=== PATIENT | male | born 1945 | race Caucasian/White ===

== ENCOUNTER 2018-08-13 14:19 | Outpatient (CLI) | payer MEDICARE, MEDICAID, SELFPAY ==
[2018-08-13 14:49] LABS: HCT 42.4 % (40.0-50.0); HGB 14.7 g/dL (13.5-17.5); Mean Corp. HGB Concentration 34.7 g/dL (32.0-36.0); Mean Corpuscular Hemoglobin 32.1 pg (27.0-33.0); Mean Corpuscular Volume 92.6 fL (80-95); Mean Platelet Volume 11.1 fL (8.0-11.0); Platelet Count 162 x1000/uL (130-400); RBC 4.58 m/cumm (4.50-6.00); RBC Distribution Width 13.4 % (11.8-14.1); White Blood Cell Count 8.94 k/cumm (4.4-10.8)
[2018-08-13 16:24] LABS: Anion Gap 6.7 mmol/L (3-11); BUN 17 mg/dL (7-18); CO2 30.3 mmol/L (21.0-32.0); CREATININE 1.23 mg/dL (0.70-1.30); Chloride 103 mmol/L (98-107); Estimated GFR 57.52 (mL/min/1.73m2); Glucose 136 mg/dL (70-100); Potassium 4.6 mmol/L (3.5-5.1); Sodium 140 mmol/L (136-145)
[2018-08-13 16:40] LABS: Cholesterol 119 mg/dL (50-200); HDL Cholesterol 44 mg/dL (40-60); LDL CHOLESTEROL 58 mg/dL (<100); Triglyceride 87 mg/dL (30-150)
[2018-08-13 17:20] LABS: ALT 24 U/L (12-78); AST 14 U/L (15-37); Albumin 3.5 g/dL (3.4-5.0); Alkaline Phosphatase 79 U/L (46-116); Bilirubin, Direct 0.19 mg/dL (0.00-0.20); Bilirubin, Total 0.7 mg/dL (0.2-1.0); Total Protein 6.7 g/dL (6.4-8.2)
[2018-08-14 11:03] LABS: PSA, Diagnostic 1.1 ng/ml (0-6.5)
[2018-08-16 17:07] LABS: Testosterone, Bioavailable 78 ng/dL (40-168); Testosterone, Total 341 ng/dL (240-950)
== END 2018-08-13 14:39 ==
PROVIDERS: PCP Specialist/Technologist Athletic Trainer; Visit Provider Urology
DX: E29.1 Testicular hypofunction (principal); E11.65 Type 2 diabetes mellitus with hyperglycemia; E78.5 Hyperlipidemia, unspecified; I10 Essential (primary) hypertension; N42.89 Other specified disorders of prostate
CPT/HCPCS: 36415; 80048; 80061; 80076; 83721; 84403; 84410; 85027; 84153

== ENCOUNTER → 2018-09-10 09:18 | Outpatient (BNVA) | payer MEDICARE, MEDICAID, SELFPAY | PROVIDERS: PCP Specialist/Technologist Athletic Trainer; Visit Provider Urology | DX: E29.1 Testicular hypofunction (principal) | CPT/HCPCS: 99213 ==

== ENCOUNTER 2018-10-23 13:44 | Outpatient (CLI) | payer MEDICARE, MEDICAID, SELFPAY ==
[2018-10-23 14:14] LABS: Abs Immature Grans 0.02 k/cumm (0.0-0.09); HCT 43.1 % (40.0-50.0); HGB 14.8 g/dL (13.5-17.5); Mean Corp. HGB Concentration 34.3 g/dL (32.0-36.0); Mean Corpuscular Hemoglobin 31.7 pg (27.0-33.0); Mean Corpuscular Volume 92.3 fL (80-95); Mean Platelet Volume 11.6 fL (8.0-11.0); Platelet Count 166 x1000/uL (130-400); RBC 4.67 m/cumm (4.50-6.00)
[2018-10-23 14:39] LABS: Absolute Eosinophil Count 1.21 k/cumm (0.0-0.7); Absolute Lymphocyte Count 2.51 k/cumm (1.2-3.4); Absolute Monocyte Count 0.56 k/cumm (0.11-0.7); Absolute Neutrophil Count 4.93 k/cumm (1.2-6.7); Atypical Lymphocytes % 5
[2018-10-23 14:40] LABS: Diff Comment Manual Differential; RBC Morphology Normal
[2018-10-24 11:34] LABS: Homocysteine 20.8 umol/L (4.5-12.4)
[2018-10-28 22:27] LABS: Testosterone, Bioavailable 92 ng/dL (40-168); Testosterone, Total 401 ng/dL (240-950)
== END 2018-10-23 14:04 ==
PROVIDERS: Urology; PCP Specialist/Technologist Athletic Trainer; Visit Provider Internal Medicine
DX: E29.1 Testicular hypofunction (principal); R79.9 Abnormal finding of blood chemistry, unspecified; G90.09 Other idiopathic peripheral autonomic neuropathy
CPT/HCPCS: 36415; 80186; 83090; 84403; 84410; 85025

== ENCOUNTER 2018-12-03 14:55 | Outpatient (CLI) | payer MEDICARE, MEDICAID, SELFPAY ==
[2018-12-10 09:34] LABS: Testosterone, Total 305 ng/dL (240-950)
== END 2018-12-03 15:15 ==
PROVIDERS: PCP Specialist/Technologist Athletic Trainer; Visit Provider Urology
DX: E29.1 Testicular hypofunction (principal)
CPT/HCPCS: 36415; 84403

== ENCOUNTER 2019-01-22 14:09 | Outpatient (CLI) | payer MEDICARE, MEDICAID, SELFPAY ==
[2019-01-25 15:19] LABS: Testosterone, Total 1150 ng/dL (240-950)
== END 2019-01-22 14:29 ==
PROVIDERS: Nurse Practitioner Gerontology; PCP Specialist/Technologist Athletic Trainer; Visit Provider Urology
DX: E29.1 Testicular hypofunction (principal)
CPT/HCPCS: 36415; 84403

== ENCOUNTER 2019-03-11 15:16 | Outpatient (CLI) | payer MEDICARE, MEDICAID, SELFPAY ==
[2019-03-14 16:34] LABS: Testosterone, Total 1130 ng/dL (240-950)
== END 2019-03-11 15:36 ==
PROVIDERS: PCP Specialist/Technologist Athletic Trainer; Visit Provider Urology
DX: E29.1 Testicular hypofunction (principal)
CPT/HCPCS: 36415; 84403

== ENCOUNTER 2019-05-08 15:47 | Outpatient (CLI) | payer MEDICARE, MEDICAID, SELFPAY ==
[2019-05-11 12:57] LABS: Testosterone, Total 574 ng/dL (240-950)
== END 2019-05-08 16:07 ==
PROVIDERS: PCP Specialist/Technologist Athletic Trainer; Visit Provider Urology
DX: E29.1 Testicular hypofunction (principal)
CPT/HCPCS: 36415; 84403

== ENCOUNTER → 2019-05-20 08:18 | Outpatient (BNVA) | payer MEDICARE, MEDICAID, SELFPAY | PROVIDERS: PCP Specialist/Technologist Athletic Trainer; Referring Provider Specialist/Technologist Athletic Trainer; Visit Provider Urology | DX: E29.1 Testicular hypofunction (principal) | CPT/HCPCS: 99213 ==

== ENCOUNTER 2019-07-17 14:01 | Outpatient (CLI) | payer MEDICARE, MEDICAID, SELFPAY ==
[2019-07-17 14:24] LABS: HCT 44.6 % (40.0-50.0); HGB 14.9 g/dL (13.5-17.5); Mean Corp. HGB Concentration 33.4 g/dL (32.0-36.0); Mean Corpuscular Hemoglobin 31.1 pg (27.0-33.0); Mean Corpuscular Volume 93.1 fL (80-95); Platelet Count 196 x1000/uL (130-400); RBC 4.79 m/cumm (4.50-6.00); RBC Distribution Width 14.9 % (11.8-14.1); White Blood Cell Count 9.31 k/cumm (4.4-10.8)
[2019-07-17 15:20] LABS: ALT 24 U/L (16-63); AST 14 U/L (15-37); Albumin 3.8 g/dL (3.4-5.0); Alkaline Phosphatase 70 U/L (46-116); Anion Gap 7.4 mmol/L (3-11); BUN 17 mg/dL (7-18); Bilirubin, Total 1.1 mg/dL (0.2-1.0); CO2 28.6 mmol/L (21.0-32.0); CREATININE 1.25 mg/dL (0.70-1.30); Calcium 9.3 mg/dL (8.5-10.1); Calculated LDL 54 mg/dL; Chloride 104 mmol/L (98-107); Cholesterol 129 mg/dL (<200); Estimated GFR 56.31 (mL/min/1.73m2); Glucose 135 mg/dL (74-106); HDL Cholesterol 44 mg/dL (40-60); Magnesium 1.7 mg/dL (1.8-2.4); Sodium 140 mmol/L (136-145); Triglyceride 158 mg/dL (<150)
[2019-07-19 11:10] LABS: Testosterone, Total 413 ng/dL (240-950)
== END 2019-07-17 14:21 ==
PROVIDERS: PCP Specialist/Technologist Athletic Trainer; Visit Provider Specialist/Technologist Athletic Trainer
DX: E78.5 Hyperlipidemia, unspecified (principal); I10 Essential (primary) hypertension; E11.65 Type 2 diabetes mellitus with hyperglycemia; E29.1 Testicular hypofunction
CPT/HCPCS: 36415; 80053; 80061; 84403; 85027; 83735

== ENCOUNTER → 2019-09-09 13:47 | Outpatient (BNVA) | payer MEDICARE, MEDICAID, SELFPAY | PROVIDERS: PCP Specialist/Technologist Athletic Trainer; Referring Provider Specialist/Technologist Athletic Trainer; Visit Provider Urology | DX: E29.1 Testicular hypofunction (principal) | CPT/HCPCS: 99213 ==

== ENCOUNTER 2020-03-05 02:14 | Outpatient (CLI) | payer MEDICARE, MEDICAID, SELFPAY ==
[2020-03-11 07:05] LABS: Testosterone, Total 368 ng/dL (240-950)
== END 2020-03-05 02:34 ==
PROVIDERS: Nurse Practitioner Gerontology; PCP Nurse Practitioner Family; Visit Provider Urology
DX: E29.1 Testicular hypofunction (principal)
CPT/HCPCS: 36415; 84403

== ENCOUNTER → 2020-03-10 14:24 | Outpatient (BNVA) | payer MEDICARE, MEDICAID, SELFPAY | PROVIDERS: PCP Nurse Practitioner Family; Referring Provider Specialist/Technologist Athletic Trainer; Visit Provider Urology | DX: E29.1 Testicular hypofunction (principal) | CPT/HCPCS: 99213 ==

== ENCOUNTER 2020-06-12 01:20 | Outpatient (CLI) | payer MEDICARE, MEDICAID, SELFPAY ==
[2020-06-16 11:13] LABS: Testosterone, Total 172 ng/dL (240-950)
== END 2020-06-12 01:40 ==
PROVIDERS: PCP Nurse Practitioner Family; Visit Provider Nurse Practitioner Gerontology
DX: E29.1 Testicular hypofunction (principal)
CPT/HCPCS: 36415; 84403

== ENCOUNTER → 2020-06-22 13:54 | Outpatient (BNVA) | payer MEDICARE, MEDICAID, SELFPAY | PROVIDERS: PCP Nurse Practitioner Family; Referring Provider Nurse Practitioner Family; Visit Provider Nurse Practitioner Gerontology | DX: E29.1 Testicular hypofunction (principal); N40.0 Benign prostatic hyperplasia without lower urinary tract symptoms | CPT/HCPCS: 99213 ==

== ENCOUNTER 2020-09-10 02:56 | Outpatient (CLI) | payer MEDICARE, MEDICAID, SELFPAY ==
[2020-09-10 22:16] LABS: PSA, Diagnostic 1.4 ng/mL (0.0-6.5)
[2020-09-14 22:12] LABS: Testosterone, Total 464 ng/dL (240-950)
== END 2020-09-10 02:57 | disposition home or self-care (01) ==
PROVIDERS: PCP Nurse Practitioner Family; Visit Provider Nurse Practitioner Gerontology
DX: E29.1 Testicular hypofunction (principal); N40.0 Benign prostatic hyperplasia without lower urinary tract symptoms
CPT/HCPCS: 36415; 84403; 84153

== ENCOUNTER → 2020-09-21 09:25 | Outpatient (BNVA) | payer MEDICARE, MEDICAID, SELFPAY | PROVIDERS: PCP Nurse Practitioner Family; Referring Provider Nurse Practitioner Family; Visit Provider Nurse Practitioner Gerontology | DX: E29.1 Testicular hypofunction (principal) | CPT/HCPCS: 99213 ==

== ENCOUNTER 2020-12-15 03:21 | Outpatient (CLI) | payer MEDICARE, MEDICAID, SELFPAY ==
[2020-12-18 18:28] LABS: Testosterone, Total 731 ng/dL (240-950)
== END 2020-12-15 03:22 | disposition home or self-care (01) ==
PROVIDERS: Nurse Practitioner Gerontology; PCP Nurse Practitioner Family; Visit Provider Urology
DX: E29.1 Testicular hypofunction (principal)
CPT/HCPCS: 36415; 84403

== ENCOUNTER → 2020-12-23 08:45 | Outpatient (BNVA) | payer MEDICARE, MEDICAID, SELFPAY | PROVIDERS: PCP Nurse Practitioner Family; Referring Provider Nurse Practitioner Family; Visit Provider Nurse Practitioner Gerontology | DX: E29.1 Testicular hypofunction (principal) | CPT/HCPCS: 99214 ==

== ENCOUNTER 2021-02-18 15:04 | Outpatient (REF) | payer OTHER, MEDICAID, SELFPAY ==
[2021-02-20 13:02] LABS: COVID-19 RT-PCR UVMMC Result Negative (Negative)
== END 2021-02-18 15:05 | disposition home or self-care (01) ==
LOC: NCHCN 15:04
PROVIDERS: PCP Nurse Practitioner Family; Visit Provider Nurse Practitioner Family
DX: R06.2 Wheezing (principal); Z20.822 Contact with and (suspected) exposure to COVID-19
CPT/HCPCS: U0003

== ENCOUNTER 2021-02-19 04:43 | Outpatient (CLI) | payer OTHER, MEDICAID, SELFPAY ==
--- NOTE | 2021-02-19 | DI.RAD_ITS ---
Exam(s) XR CHEST 2V PA LATERAL EXAM: XR CHEST 2V PA LATERAL CLINICAL HISTORY: WHEEZING, R06.2 TECHNIQUE: 2D digital imaging was performed. COMPARISON: No exams were available for comparison FINDINGS: Heart size is within normal limits. The aorta is mildly tortuous. Lungs are clear. No infiltrate o r effusion is seen. The bones are unremarkable. IMPRESSION: No acute abnormality. DATA REPOSITORY: RADIATION DOSE DELIVERED:
== END 2021-02-19 05:03 ==
PROVIDERS: PCP Nurse Practitioner Family; Visit Provider Nurse Practitioner Family
DX: R06.2 Wheezing (principal)
CPT/HCPCS: 71046

== ENCOUNTER 2021-04-20 02:34 | Outpatient (CLI) | payer OTHER, MEDICAID, SELFPAY ==
[2021-04-20 13:29] LABS: Abs Immature Grans 0.02 10^3/uL (0.0-0.06); Absolute Basophil Count 0.06 10^3/uL (0.0-0.2); Absolute Eosinophil Count 0.91 10^3/uL (0.0-0.7); Absolute Monocyte Count 0.67 10^3/uL (0.1-0.8); Absolute Neutrophil Count 5.03 10^3/uL (1.2-6.7); Basophils % 0.7; Eosinophils % 10.7; Immature Grans % 0.2; Lymphocytes % 21.2; MCH 31.7 pg (27.0-33.0); MCHC 34.1 % (32.0-36.0); MPV 11.2 fL (8.0-11.0); Monocytes % 7.9; Neutrophils % 59.3; Nucleated RBC 0 %; Platelet Count 192 10^3/uL (130-400); RBC 4.73 10^6/uL (4.36-5.78); RDW 14.3 % (11.8-14.1); RDW-SD 48.9 fL; WBC 8.49 10^3/uL (4.4-10.8)
[2021-04-20 13:50] LABS: Hemoglobin A1C 7.1 % (<5.7)
[2021-04-20 15:33] LABS: Anion Gap 11.9 mmol/L (3-11); BUN 14 mg/dL (7-18); CO2 25.1 mmol/L (21.0-32.0); CREATININE 1.2 mg/dL (0.70-1.30); Calcium 8.8 mg/dL (8.5-10.1); Chloride 105 mmol/L (98-107); Estimated GFR 58.71 (mL/min/1.73m2); Glucose 65 mg/dL (74-106); Magnesium 1.3 mg/dL (1.8-2.4); Potassium 4.1 mmol/L (3.5-5.1); Sodium 142 mmol/L (136-145); Vitamin B12 155 pg/mL (193-986)
== END 2021-04-20 02:35 | disposition home or self-care (01) ==
PROVIDERS: PCP Nurse Practitioner Family; Visit Provider Nurse Practitioner Family
DX: E11.40 Type 2 diabetes mellitus with diabetic neuropathy, unspecified (principal); I10 Essential (primary) hypertension; R25.2 Cramp and spasm
CPT/HCPCS: 36415; 80048; 82607; 83036; 83735; 85025

== ENCOUNTER 2021-06-11 03:50 | Outpatient (CLI) | payer MEDICARE, MEDICAID, SELFPAY ==
[2021-06-11 22:45] LABS: PSA, Diagnostic 1.4 ng/mL (0.0-6.5)
[2021-06-16 00:23] LABS: Testosterone, Total 308 ng/dL (240-950)
== END 2021-06-11 03:51 | disposition home or self-care (01) ==
LOC: LBO 03:51
PROVIDERS: Nurse Practitioner Gerontology; PCP Nurse Practitioner Family; Visit Provider Urology
DX: E29.1 Testicular hypofunction (principal)
CPT/HCPCS: 36415; 84403; 84153

== ENCOUNTER → 2021-07-01 14:50 | Outpatient (BNVA) | payer MEDICARE, MEDICAID, SELFPAY | PROVIDERS: PCP Nurse Practitioner Family; Visit Provider Urology | DX: E29.1 Testicular hypofunction (principal) | CPT/HCPCS: 99213 ==

== ENCOUNTER 2021-07-06 16:52 | Outpatient (REF) | payer MEDICARE, MEDICAID, SELFPAY ==
[2021-07-07 14:24] LABS: COVID-19 RT-PCR UVMMC Result Negative (Negative)
== END 2021-07-06 16:53 | disposition home or self-care (01) ==
LOC: NCHCN 16:52
PROVIDERS: PCP Nurse Practitioner Family; Visit Provider Family Medicine
DX: Z20.822 Contact with and (suspected) exposure to COVID-19 (principal); J06.9 Acute upper respiratory infection, unspecified
CPT/HCPCS: U0003; U0005

== ENCOUNTER 2021-07-22 15:28 | Outpatient (REF) | payer MEDICARE, MEDICAID, SELFPAY ==
[2021-07-24 12:44] LABS: COVID-19 RT-PCR UVMMC Result Negative (Negative)
== END 2021-07-22 15:29 | disposition home or self-care (01) ==
LOC: NCHCN 15:28
PROVIDERS: PCP Nurse Practitioner Family; Visit Provider Nurse Practitioner Family
DX: Z20.822 Contact with and (suspected) exposure to COVID-19 (principal); J06.9 Acute upper respiratory infection, unspecified
CPT/HCPCS: U0003

== ENCOUNTER 2021-08-04 16:23 | Outpatient (REF) | payer MEDICARE, MEDICAID, SELFPAY ==
[2021-08-06 16:27] LABS: COVID-19 RT-PCR UVMMC Result Negative (Negative)
== END 2021-08-04 16:24 | disposition home or self-care (01) ==
LOC: LBN 16:23
PROVIDERS: PCP Nurse Practitioner Family; Visit Provider Physician Assistant Medical
DX: Z20.822 Contact with and (suspected) exposure to COVID-19 (principal); R05.8 Other specified cough
CPT/HCPCS: U0003

== ENCOUNTER 2021-08-04 18:34 | Outpatient (CLI) | payer MEDICARE, MEDICAID, SELFPAY ==
--- NOTE | 2021-08-04 | DI.RAD_ITS ---
Exam(s) XR CHEST 2V PA LATERAL EXAM: XR CHEST 2V PA LATERAL CLINICAL HISTORY: COUGH, R05.8, LUNG EXAM CONCERNING FOR PNEUMONIA TECHNIQUE: 2D digital imaging was performed. COMPARISON: CR XR CHEST 2V PA LATERAL from 02/19/2021 FINDINGS: The heart is not enlarged. The lungs are clear and well expanded. No pleural effusion seen. Mediastin al contours appear intact. IMPRESSION: Normal chest. RADIATION DOSE DELIVERED: Total DLP
== END 2021-08-04 18:54 ==
PROVIDERS: PCP Nurse Practitioner Family; Visit Provider Physician Assistant Medical
DX: R05.8 Other specified cough (principal)
CPT/HCPCS: 71046

== ENCOUNTER → 2021-09-07 01:17 | Outpatient (CLI) | payer MEDICARE, MEDICAID, SELFPAY ==
--- NOTE | 2021-09-07 11:30 | DI.RAD_ITS ---
Exam(s) XR KNEE LT 4V+ EXAM: XR KNEE LT 4V+ CLINICAL HISTORY: ACUTE LT KNEE PAIN, M25.562, S/P FALL X2 IN MID-LATE JUL 2021. TECHNIQUE: 2D digital imaging was performed of the left knee. Five images were obtained. AP, later al, Merchant and PA tunnel views were obtained. COMPARISON: No exams were available for comparison FINDINGS: BONES: No acute fracture is present. No bony destructive lesion is seen. JOINTS: The knee is normally aligned. No joint effusion is seen. There is chondrocalcinosis in the fe moral tibial joint. Mild spurring is seen at the posterior patella. SOFT TISSUE: Normal. IMPRESSION: 1. No acute or healing fracture or dislocation. 2. Mild degenerative changes of the left knee. DATA REPOSITORY: RADIATION DOSE DELIVERED:
--- NOTE | 2021-09-07 11:54 | DI.RAD_ITS ---
Exam(s) XR TIB/FIB LT EXAM: XR TIB/FIB LT CLINICAL HISTORY: ACUTE LT KNEE PAIN, M25.562, S/P FALL X2 IN MID-LATE JUL 2021. TECHNIQUE: 2D digital imaging was performed of the left tibia and fibula. Five images were obtained. AP and lateral views were obtained. COMPARISON: No exams were available for comparison FINDINGS: BONES: No acute fracture is present. No bony destructive lesion is seen. Visualized portion of knee a nd ankle joints are unremarkable. SOFT TISSUE: Normal. IMPRESSION: No acute or healing fracture or dislocation is present. DATA REPOSITORY: RADIATION DOSE DELIVERED:
== END ==
PROVIDERS: PCP Nurse Practitioner Family; Visit Provider Nurse Practitioner Family
DX: M25.562 Pain in left knee (principal); M17.12 Unilateral primary osteoarthritis, left knee
CPT/HCPCS: 73564; 73590

== ENCOUNTER 2021-09-16 01:02 | Outpatient (CLI) | payer MEDICARE, MEDICAID, SELFPAY ==
--- NOTE | 2021-09-16 | DI.MRI_ITS ---
Exam(s) MR LUMBAR SPINE WO EXAM: MR LUMBAR SPINE WO CLINICAL HISTORY: CHRONIC LOW BACK PAIN M54.5. TECHNIQUE: Multiplanar multisequence MRI of the Lumbar spine was performed. COMPARISON: MR MRI - LUMBAR SPINE WO CONTRAST from 05/10/2014 FINDINGS: Bones: The last intervertebral disc space is designated the L5/S1 level for the numbering purpose of this examination. The vertebral body heights are well maintained. Alignment is satisfactory. Mild e ndplate degenerative signal changes are seen. There are endplate osteophytes throughout the lumbar s pine. Cord: The conus tip ends at the T12 level. It is of normal size and signal intensity. T12-L1: No disc herniations or bulges are present. No central spinal canal or neural foraminal stenos is. L1-2: There is a mild diffuse disc bulge. No central spinal canal or neural foraminal stenosis. L2-3: There is a mild diffuse disc bulge. Mild degenerative changes of the facets are seen. There i s mild narrowing of the central spinal canal. There is mild narrowing of the neural foramen. L3-4: There are degenerative changes of the facets with mild hypertrophy of the ligamentum flavum. T here is a diffuse disc bulge. Mild narrowing of the central spinal canal is noted. Mild bilateral n eural foraminal stenosis is present. L4-5: There are hypertrophic changes of the facets. There is a small central disc herniation. Ligam entum flavum hypertrophy is present. The findings result in [id number] central spinal canal st enosis. There is mild bilateral neural foraminal stenosis. L5-S1: No disc herniations or bulges are present. No significant central spinal canal stenosis is pre sent. There is mild bilateral neural foraminal stenosis.There are degenerative changes of the facets . Soft tissues: The visualized SI joints and sacrum are well maintained. There is mild atrophy of the l eft paraspinal muscles. Visualized abdominal organs: Unremarkable. IMPRESSION: Multilevel degenerative changes in the lumbar spine resulting in central spinal canal neural foramina l stenosis as described above. DATA REPOSITORY:
== END 2021-09-16 01:22 ==
PROVIDERS: PCP Nurse Practitioner Family; Visit Provider Nurse Practitioner Family
DX: M54.59 Other low back pain (principal); M47.817 Spondylosis without myelopathy or radiculopathy, lumbosacral region; M51.36 Other intervertebral disc degeneration, lumbar region
CPT/HCPCS: 72148

== ENCOUNTER 2021-09-17 03:51 | Outpatient (CLI) | payer MEDICARE, MEDICAID, SELFPAY ==
[2021-09-17 15:17] LABS: Abs Immature Grans 0.07 10^3/uL (0.0-0.06); Absolute Basophil Count 0.08 10^3/uL (0.0-0.2); Absolute Eosinophil Count 1.09 10^3/uL (0.0-0.7); Absolute Monocyte Count 0.56 10^3/uL (0.1-0.8); Absolute Neutrophil Count 5.51 10^3/uL (1.2-6.7); Basophils % 0.8; Eosinophils % 11.5; HCT 45.2 % (40.0-50.0); HGB 14.9 g/dL (13.5-17.5); Immature Grans % 0.7; Lymphocytes % 23.1; MCH 31.3 pg (27.0-33.0); MPV 10.5 fL (8.0-11.0); Monocytes % 5.9; Nucleated RBC 0 %; Platelet Count 193 10^3/uL (130-400); RBC 4.76 10^6/uL (4.36-5.78); RDW 14.5 % (11.8-14.1); RDW-SD 50.5 fL; WBC 9.51 10^3/uL (4.4-10.8)
[2021-09-17 15:37] LABS: Hemoglobin A1C 6.8 % (<5.7)
[2021-09-17 17:25] LABS: BUN 21 mg/dL (7-18); CREATININE 1.3 mg/dL (0.70-1.30); Calcium 9.2 mg/dL (8.5-10.1); Chloride 103 mmol/L (98-107); Estimated GFR 53.39 (mL/min/1.73m2); Glucose 62 mg/dL (74-106); Potassium 4.8 mmol/L (3.5-5.1); Sodium 141 mmol/L (136-145); Vitamin B12 283 pg/mL (193-986)
== END 2021-09-17 03:52 | disposition home or self-care (01) ==
LOC: LBO 03:52
PROVIDERS: PCP Nurse Practitioner Family; Visit Provider Nurse Practitioner Family
DX: E11.40 Type 2 diabetes mellitus with diabetic neuropathy, unspecified (principal); I10 Essential (primary) hypertension; Z00.00 Encounter for general adult medical examination without abnormal findings
CPT/HCPCS: 36415; 80048; 82607; 83036; 85025

== ENCOUNTER 2021-12-21 03:19 | Outpatient (CLI) | payer MEDICARE, MEDICAID, SELFPAY ==
[2021-12-24 14:15] LABS: Testosterone, Total 410 ng/dL (240-950)
== END 2021-12-21 03:20 | disposition home or self-care (01) ==
LOC: LBO 03:19
PROVIDERS: PCP Nurse Practitioner Family; Visit Provider Urology
DX: E29.1 Testicular hypofunction (principal)
CPT/HCPCS: 36415; 84403

== ENCOUNTER → 2021-12-28 14:13 | Outpatient (BNVA) | payer MEDICARE, MEDICAID, SELFPAY | PROVIDERS: PCP Nurse Practitioner Family; Referring Provider Nurse Practitioner Family; Visit Provider Urology | DX: E29.1 Testicular hypofunction (principal) | CPT/HCPCS: 99214 ==

== ENCOUNTER 2022-06-24 11:12 | Outpatient (CLI) | payer MEDICARE, MEDICAID, SELFPAY ==
[2022-06-28 11:47] LABS: Testosterone, Total 576 ng/dL (240-950)
== END 2022-06-24 11:13 | disposition home or self-care (01) ==
LOC: LBO 11:14
PROVIDERS: PCP Nurse Practitioner Family; Visit Provider Urology
DX: E29.1 Testicular hypofunction (principal)
CPT/HCPCS: 36415; 84403

== ENCOUNTER → 2022-06-28 14:25 | Outpatient (BNVA) | payer MEDICARE, MEDICAID, SELFPAY | PROVIDERS: PCP Nurse Practitioner Family; Referring Provider Nurse Practitioner Family; Visit Provider Urology | DX: E11.9 Type 2 diabetes mellitus without complications (principal); E29.1 Testicular hypofunction | CPT/HCPCS: 99213 ==

== ENCOUNTER 2022-12-20 02:58 | Outpatient (CLI) | payer MEDICARE, MEDICAID, SELFPAY ==
[2022-12-20 10:30] LABS: HCT 44.1 % (40.0-50.0); HGB 14.9 g/dL (13.5-17.5); MCH 32.3 pg (27.0-33.0); MCHC 33.8 % (32.0-36.0); MCV 96 fL (80-95); Platelet Count 186 10^3/uL (130-400); RBC 4.61 10^6/uL (4.36-5.78); RDW 14.2 % (11.8-14.1); WBC 9.18 10^3/uL (4.4-10.8)
[2022-12-20 11:01] LABS: ALT 12 U/L (16-63); AST 11 U/L (15-37); Albumin 3.5 g/dL (3.4-5.0); Alkaline Phosphatase 92 U/L (46-116); Anion Gap 10.2 mmol/L (3-11); BUN 14 mg/dL (7-18); Bilirubin, Total 0.9 mg/dL (0.2-1.0); CO2 23.8 mmol/L (21.0-32.0); CREATININE 1.3 mg/dL (0.70-1.30); Calcium 8.9 mg/dL (8.5-10.1); Chloride 105 mmol/L (98-107); Estimated GFR 55.88 (mL/min/1.73m2); Glucose 157 mg/dL (74-106); Potassium 3.8 mmol/L (3.5-5.1); Sodium 139 mmol/L (136-145); TSH (W/Ref FT4) 4.24 uIU/mL (0.36-3.74); Total Protein 7.1 g/dL (6.4-8.2)
[2022-12-20 11:23] LABS: FREE T4 0.87 ng/dL (0.76-1.46)
[2022-12-20 19:15] LABS: PSA, Diagnostic 1.2 ng/mL (<=6.5)
[2022-12-24 07:13] LABS: Testosterone, Total 908 ng/dL (240-950)
== END 2022-12-20 02:59 | disposition home or self-care (01) ==
LOC: LBO 02:58
PROVIDERS: PCP Nurse Practitioner Family; Visit Provider Urology
DX: E29.1 Testicular hypofunction (principal); N40.0 Benign prostatic hyperplasia without lower urinary tract symptoms; R53.83 Other fatigue
CPT/HCPCS: 36415; 80053; 82306; 84403; 85027; 84153; 84439; 84443

== ENCOUNTER → 2022-12-27 14:30 | Outpatient (BNVA) | payer MEDICARE, MEDICAID, SELFPAY | PROVIDERS: PCP Nurse Practitioner Family; Visit Provider Urology | DX: E29.1 Testicular hypofunction (principal) | CPT/HCPCS: 99213 ==

== ENCOUNTER 2023-02-06 07:05 | Emergency (ER) | payer MEDICARE, MEDICAID, SELFPAY ==
[2023-02-06 07:10] VITALS: BP 126/61; PULSE 75; RESP 18; TEMP 36.6; O2SAT 97
--- NOTE | 2023-02-06 07:41 | ED.GENADUL_ITS ---
Discharge Plan Disposition Patient Disposition: Home Discharge Details Clinical Impression: Muscle strain of right knee, Low back strain Primary Care Provider: Mei Javier ED Provider: Yessenia Brown Home Meds and New Rx's Prescriptions: Continued fluticasone propionate 50 mcg/actuation spray,suspension 2 spray intranasal DAILY Rx Instructions: administer into each nostril cholecalciferol (vitamin D3) 1,250 mcg (50,000 unit) capsule 1,250 mcg PO QWEEK testosterone 30 mg/actuation (1.5 mL) solution in metered pump w/dalila 1.5 pump TP DAILY Qty: 90 5RF Rx Instructions: 1.5 pump to underarm area EVERYDAY; alternate underarm Trulicity 1.5 mg/0.5 mL pen injector 1.5 mg subcut QWEEK naproxen sodium [Aleve] 220 MG tablet 220 mg PO Q12H PRN aspirin 81 MG tablet,chewable 81 mg PO DAILY pregabalin [Lyrica] 100 mg capsule 150 mg PO BID pantoprazole 40 mg tablet,delayed release (DR/EC) 40 mg PO DAILY cetirizine 10 mg tablet 10 mg PO DAILY PRN topiramate [Topamax] 25 mg tablet 25 mg PO DAILY fluticasone propionate [Flovent HFA] 220 mcg/actuation HFA aerosol inhaler 2 puff inhalation BID insulin glargine [Lantus U-100 Insulin] 100 unit/mL solution subcut Rx Instructions: adjusting dose down to 24-30units, while initiating Trulicity. 06/2022 metformin [Glucophage] 1,000 mg tablet 500 mg PO BID simvastatin 40 MG tablet 40 mg PO DAILY mometasone [Nasonex] 17 GM spray,non-aerosol 50 mcg Inhalation PRN clobetasol 15 GM ointment 0.05 applic Transdermal PRN lisinopril 5 MG tablet 5 mg PO DAILY Qty: 20 0RF Discharge Instructions Instructions: Muscle Strain (ED), Low Back Strain (ED) Additional Instructions: Tylenol 650 mg every 6 hours and/or ibuprofen 400 mg every 6 hours as needed for pain. Ice 20 minutes on and 20 minutes off. Neck back and knee. Expect to be sore today and tomorrow. Recheck with your primary care doc later this week as needed. Medical Decision Making Patient was reassured that he likely will feel sore today and tomorrow. He had quite a time trying to jerk his right lower extremity out of the mud and I suspect strained his knee, lower back, and neck. He last took Tylenol at 2:00 this morning. I advised him to alternate this and ibuprofen and to apply ice 20 minutes on and 20 minutes off for the next 24 to 72 hours. He can then change to heat after this. He will follow-up with his primary care doc if the symptoms are not better by the end of the week. HPI General Date/Time Provider Initiated Documentation: 02/06/23 07:41 . HPI Narrative: This 77-year-old male patient presents with a multitude of complaints after getting stuck in the mud on a walk last night. The patient states he [place] [facility] [place]. He says that the sidewalks have not yet been paved and were quite muddy last night. He says he sunk up to his knees in the mud when he was out walking with a lady friend. He was able to get his left leg out but had a lot of difficulty getting his right leg out. He was finally able to do this and walked home without difficulty. He feels like he strained the right side of his neck and lower back. He has a little bit of pain in his right buttock radiating around to his knee. Both of his knees are sore although the right one is worse than the left 1. He did not fall. He also has a mild headache this morning. Related Data Home Medications Medication Instructions Recorded Confirmed clobetasol 0.05 % topical ointment 0.05 applic transdermal PRN 01/01/14 12/27/22 lisinopril 5 mg tablet 5 mg PO DAILY #20 tabs 01/01/14 12/27/22 mometasone 50 mcg/actuation nasal 50 mcg inhalation PRN 01/01/14 12/27/22 spray (Nasonex) simvastatin 40 mg tablet 40 mg PO DAILY 01/01/14 12/27/22 aspirin 81 mg chewable tablet 81 mg PO DAILY 08/22/17 12/27/22 naproxen sodium 220 mg tablet 220 mg PO Q12H PRN 08/22/17 12/27/22 (Aleve) pregabalin 100 mg capsule (Lyrica) 150 mg PO BID 05/20/19 12/27/22 cetirizine 10 mg tablet 10 mg PO DAILY PRN 09/29/21 12/27/22 fluticasone propionate 220 2 puff inhalation BID 09/29/21 12/27/22 mcg/actuation HFA aerosol inhaler (Flovent HFA) pantoprazole 40 mg tablet,delayed 40 mg PO DAILY 09/29/21 12/27/22 release topiramate 25 mg tablet (Topamax) 25 mg PO DAILY 09/29/21 12/27/22 testosterone 30 mg/actuation (1.5 1.5 pump topical DAILY #90 mL 06/28/22 12/27/22 mL) transderm solution metered pump dulaglutide 1.5 mg/0.5 mL 1.5 mg subcut QWEEK 07/28/22 12/27/22 subcutaneous pen injector (Trulicity) insulin glargine 100 unit/mL subcut 07/28/22 12/27/22 subcutaneous solution (Lantus U-100 Insulin) metformin 1,000 mg tablet 500 mg PO BID 07/28/22 12/27/22 (Glucophage) cholecalciferol (vitamin D3) 1,250 1,250 mcg PO QWEEK 12/27/22 12/27/22 mcg (50,000 unit) capsule fluticasone propionate 50 2 spray intranasal DAILY 12/27/22 12/27/22 mcg/actuation nasal spray,suspension Previous Rx's Medication Instructions Recorded lisinopril 5 mg tablet 5 mg PO DAILY #20 tabs 01/01/14 testosterone 30 mg/actuation (1.5 1.5 pump topical DAILY #90 mL 06/28/22 mL) transderm solution metered pump Allergies Allergy/AdvReac Type Severity Reaction Status Date / Time gabapentin AdvReac Diarrhea Verified 02/06/23 07:16 General Stated Complaint: Fall/Non TraumaCriteria TOMMY: 3 Review of Systems Constitutional Constitutional: Denies chills, Denies fever(s), Denies headache(s) and Denies weakness Eyes Eyes: Denies diplopia and Reports other (no redness) ENT Ears, Nose, Mouth, and Throat: Denies otalgia, Denies headache(s), Denies nasal congestion, Denies nasal discharge, Reports neck pain and Denies sore throat Cardiovascular Cardiovascular: Denies chest pain, Denies palpitations and Denies dyspnea Respiratory Respiratory: Denies cough and Denies dyspnea Gastrointestinal Gastrointestinal: Denies abdominal pain, Denies diarrhea, Denies nausea and Denies vomiting Genitourinary Genitourinary: Denies difficulty urinating and Denies dysuria Musculoskeletal Musculoskeletal: Denies myalgias, Denies joint swelling, Denies limited range of motion, Denies muscle weakness, Reports neck pain, Denies numbness and Reports other (no edema) Integumentary/Breasts Skin/Breast: Denies change in pigmentation and Denies rash Neurologic Neurologic: Denies headache(s), Denies numbness and Denies weakness Endocrine Endocrine: Denies palpitations PFSH All Active Problems Muscle strain of right knee (Acute) Low back strain (Acute) Nail dystrophy (Acute) Hammertoe (Acute) BPH (benign prostatic hyperplasia) (Chronic) Back pain with radiculopathy (Acute) Neuropathy (Acute) Memory impairment (Acute) Gastroparesis (Acute) 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) Hypogonadism in male (Acute 08/22/17) Penile lesion (Acute 08/22/17) Urgency incontinence (Acute 08/22/17) Medical History Hx of adenomatous colonic polyps Social History Smoking/Tobacco Use Status: Current every day Tobacco Type: cigars Per week: 5 Tobacco: How many years used: 55 Smoking risk assessment performed?: Yes Alcohol Intake: current Alcohol Intake frequency: holidays/special occasions only Alcohol type: beer Drug use: Never Substance use type: does not use Housing: apartment What is your relationship status?: Panel score (0-1 are the most socially isolated patients): 1 What type of physical activity do you participate in: bicycling Duration: 30-45 minutes/day Frequency: daily Do you feel safe at home: Yes Do you feel safe in your relationship?: Yes Exam Const General: no acute distress, well developed, well groomed and not in acute distress Nutritional Appearance: well nourished Orientation: alert and oriented x3 HENMT Head: normocephalic and atraumatic Ears: external ears normal Mouth: oropharynx normal and moist mucous membranes Throat: posterior oropharynx normal Eyes Conjunctivae: conjunctivae normal Neck Neck: full ROM, supple and other (Spine nontender to palpation, some right paraspinal TTP) Chest Chest: normal inspection of the chest and normal palpation of entire chest wall Resp Effort & Inspection: normal respiratory effort Auscultation: clear to auscultation bilaterally Cardio Rate: regular rate Rhythm: regular rhythm Heart Sounds: no murmurs and no rubs GI Inspection: normal to inspection Palpation: soft, nontender and other (non distended) Auscultation: normal bowel sounds Back/Spine/Pelvis Cervical Spine: cervical ROM normal, No cervical spinal tenderness and other (some mild R paraspinal TTP) Thoracic/Lumbar Spine: thoracic and lumbar spine normal to inspection, No thoracic spinal tenderness and No lumbar spinal tenderness Skin General skin exam: no rashes or lesions noted and other (pink, warm, dry) Neuro General: patient alert, patient awake and patient oriented x3 Cranial Nerves: CN's II-XI intact bilaterally Cognition: normal cognition Speech: speech normal Gait: normal gait and other (with his cane) Motor: muscle tone normal throughout, strength 5/5 throughout, pronator drift and other (SHETTY) Sensory Exam: no sensory deficits noted Coordination: [id number] test abnormal and Romberg test abnormal Extrem General: normal to inspection, full ROM, pedal edema present and other Right upper extremity: normal to inspection and full ROM Left upper extremity: normal to inspection and full ROM Right lower extremity: normal to inspection and full ROM Left lower extremity: normal to inspection and full ROM Other: BLE are NTP, both knees with tight LCL and MCL, PCL and ACL, Asa's negative, distraction and compression negative, normal patellar ballottement. All extremeties are NTP with FROM Psych Mental Status: mental status grossly normal Speech and Movement: speech and movement normal Affect: normal affect Course Vital Signs Vital signs: Vital Signs Temperature 36.6 C 02/06/23 07:10 Pulse 75 02/06/23 07:10 Respiratory Rate 18 02/06/23 07:10 Blood Pressure 126/61 02/06/23 07:10 Pulse Oximetry 97 02/06/23 07:10 Temperature 36.6 C 02/06/23 07:10 Temperature Source Tympanic 02/06/23 07:10 Pulse 75 02/06/23 07:10 Respiratory Rate 18 02/06/23 07:10 Blood Pressure 126/61 02/06/23 07:10 Blood Pressure Position Sitting 02/06/23 07:10 Pulse Oximetry 97 02/06/23 07:10 Oxygen Delivery Method Room Air 02/06/23 07:10 Oxygen Flow Rate 0 02/06/23 07:10 Pain Level 7 02/06/23 07:19
[2023-02-06] MEDS: Ibuprofen 600 MG TAB PO (08:02)
== END 2023-02-06 08:03 | disposition home or self-care (01) ==
PROVIDERS: Emergency Provider Emergency Medicine; PCP Nurse Practitioner Family
DX: S39.012A Strain of muscle, fascia and tendon of lower back, initial encounter (principal); S86.911A Strain of unspecified muscle(s) and tendon(s) at lower leg level, right leg, initial encounter; W19.XXXA Unspecified fall, initial encounter
CPT/HCPCS: 99283

== ENCOUNTER 2023-03-23 15:01 | Outpatient (CLI) | payer MEDICARE, MEDICAID, SELFPAY ==
[2023-03-23 14:29] LABS: Abs Immature Grans 0.03 10^3/uL (0.0-0.06); Absolute Basophil Count 0.09 10^3/uL (0.0-0.2); Absolute Eosinophil Count 1.05 10^3/uL (0.0-0.7); Absolute Lymphocyte Count 1.83 10^3/uL (1.2-3.4); Absolute Monocyte Count 0.93 10^3/uL (0.1-0.8); Absolute Neutrophil Count 5.16 10^3/uL (1.2-6.7); Eosinophils % 11.6; HCT 42.7 % (40.0-50.0); HGB 14.9 g/dL (13.5-17.5); Immature Grans % 0.3; Lymphocytes % 20.1; MCH 32.7 pg (27.0-33.0); MCHC 34.9 % (32.0-36.0); MCV 94 fL (80-95); MPV 10.1 fL (8.0-11.0); Monocytes % 10.2; Neutrophils % 56.8; Platelet Count 169 10^3/uL (130-400); RBC 4.55 10^6/uL (4.36-5.78); RDW 13.7 % (11.8-14.1); RDW-SD 47.4 fL; WBC 9.09 10^3/uL (4.4-10.8)
[2023-03-23 14:33] LABS: ESR 15 mm/hr (0-20)
[2023-03-23 15:10] LABS: ALT 18 U/L (16-63); AST 13 U/L (15-37); Albumin 3.4 g/dL (3.4-5.0); Alkaline Phosphatase 75 U/L (46-116); Anion Gap 11.9 mmol/L (3-11); BUN 20 mg/dL (7-18); Bilirubin, Total 1.2 mg/dL (0.2-1.0); C-Reactive Protein 4.17 mg/dL (0.0-0.3); CO2 23.1 mmol/L (21.0-32.0); CREATININE 1.8 mg/dL (0.70-1.30); Calcium 8.9 mg/dL (8.5-10.1); Chloride 99 mmol/L (98-107); Estimated GFR 37.82 (mL/min/1.73m2); Glucose 100 mg/dL (74-106); Lipase 31 U/L (16-77); Potassium 3.6 mmol/L (3.5-5.1); Sodium 134 mmol/L (136-145); Total Protein 7.3 g/dL (6.4-8.2)
[2023-03-23 15:28] LABS: Vitamin D 25 Total 36.2 ng/mL (30-100)
== END 2023-03-23 15:02 | disposition home or self-care (01) ==
LOC: LBO 15:02
PROVIDERS: PCP Nurse Practitioner Family; Visit Provider Nurse Practitioner Family
DX: R10.9 Unspecified abdominal pain (principal); R19.7 Diarrhea, unspecified; J01.90 Acute sinusitis, unspecified
CPT/HCPCS: 36415; 80053; 82306; 83690; 85652; 85025; 86140

== ENCOUNTER → 2023-03-24 00:21 | Outpatient (CLI) | payer MEDICARE, MEDICAID, SELFPAY ==
--- NOTE | 2023-03-24 | DI.CT_ITS ---
Exam(s) CT ABDOMEN PELVIS W EXAM: CT ABDOMEN PELVIS W CLINICAL HISTORY: DIARRHEA,R19.7,ABD PAIN,R10.84,DECREASED APPETEITE TECHNIQUE: Imaging Protocol: Axial computed tomography images with coronal and sagittal reformatted images were created and reviewed CONTRAST MATERIAL: Intravenous: Omnipaque 350 Contrast volume:100 mL Oral: Yes COMPARISON: CT ABD PELVIS WITH CONTRAST from 03/29/2017 FINDINGS: ABDOMEN: Lung Bases: Mild coronary artery calcification. Mild pulmonary fibrotic changes in the bases. Liver: Normal density. No measurable mass. Portal, Superior Mesenteric, and Splenic Veins: Unremarkable. Gallbladder and Biliary Tract: No radiodense calculus or dilation. Pancreas: Normal density, no abnormal calcifications or inflammatory process. Spleen: Normal. Adrenals: No masses seen. Kidneys: Normal size, contour and axis. No radiodense stones or obstructive uropathy. There is a stab le simple cyst in the left kidney. No follow-up is recommended. Abdominal Aorta: Abdominal portion non-dilated. Atherosclerosis is present. Bowel: There are fluid-filled loops of small and large bowel which can be seen with a diarrheal illne ss. There is no evidence of bowel obstruction. The appendix is fluid-filled and measures 1.2 cm in diameter. There is mild inflammation and wall thickening around the base of the appendix. Appendici tis should be considered. Peritoneal Cavity: No ascites, collection or mesenteric inflammatory response. No free air. Lymph Nodes: Within normal limits. Bones: Within normal limits for the patient's age. Soft Tissues: There are small bilateral fat containing inguinal hernias. PELVIS: Bladder: Symmetric distention, no gross wall thickening. Reproductive Organs: The prostate gland is enlarged. Lymph Nodes: Within normal limits. Bones: Within normal limits for the patient's age. IMPRESSION: 1. Fluid-filled loops of small and large bowel present. The findings may be seen in the diarrheal il lness/enterocolitis. 2. The appendix shows a thickened wall with mild inflammatory changes at the base. It measures 1.2 c m in diameter. The findings are suspicious for an acute appendicitis. Please correlate clinically. No abscess or free air. 3. Findings were discussed with Mei Roman at 2:47 p.m. on 03/24/2023. RADIATION DOSE DELIVERED: 1,230.84mGy.cm Total DLP DATA REPOSITORY: All CT scans at this facility are submitted to the National Radiology Data Registry (NRDR) Dose Index Registry (DIR) with the [employer] (A[employer]). RADIATION OPTIMIZATION: All CT scans at this facility use at least one of these dose optimization te chniques: automated exposure control; mA and/or kV adjustment per patient size (includes targeted exa ms where dose is matched to clinical indication); or iterative reconstruction.
[2023-03-24] MEDS: Normal Saline - Diluent 50 ML VIAL IJ (14:09)
[2023-03-24] MEDS: Omnipaque 350 MG/ML 100 ML BTL IJ (14:10)
[2023-03-24] MEDS: Normal Saline Flush 10 ML SYR IVP (14:10)
[2023-03-24] MEDS: Barium Sulfate 2% W/V-Berry Smoothie 450 ML BTL PO (14:12)
== END ==
PROVIDERS: PCP Nurse Practitioner Family; Visit Provider Nurse Practitioner Family
DX: R10.84 Generalized abdominal pain (principal); R19.7 Diarrhea, unspecified; K38.0 Hyperplasia of appendix
CPT/HCPCS: 74177; J3490

== ENCOUNTER 2023-04-05 14:28 | Outpatient (CLI) | payer MEDICARE, MEDICAID, SELFPAY ==
[2023-04-05 14:26] LABS: ALT 23 U/L (16-63); AST 19 U/L (15-37); Albumin 3.7 g/dL (3.4-5.0); Alkaline Phosphatase 75 U/L (46-116); Anion Gap 8.2 mmol/L (3-11); BUN 17 mg/dL (7-18); Bilirubin, Total 1.9 mg/dL (0.2-1.0); CO2 24.8 mmol/L (21.0-32.0); CREATININE 1.5 mg/dL (0.70-1.30); Calcium 9.2 mg/dL (8.5-10.1); Chloride 104 mmol/L (98-107); Estimated GFR 47.06 (mL/min/1.73m2); Glucose 125 mg/dL (74-106); Magnesium 1.5 mg/dL (1.8-2.4); Potassium 4.2 mmol/L (3.5-5.1); Sodium 137 mmol/L (136-145); Total Protein 7.1 g/dL (6.4-8.2)
== END 2023-04-05 14:29 | disposition home or self-care (01) ==
LOC: LBO 14:28
PROVIDERS: PCP Nurse Practitioner Family; Visit Provider Nurse Practitioner Family
DX: K52.9 Noninfective gastroenteritis and colitis, unspecified (principal); E11.40 Type 2 diabetes mellitus with diabetic neuropathy, unspecified; E55.9 Vitamin D deficiency, unspecified; Z02.89 Encounter for other administrative examinations
CPT/HCPCS: 36415; 80053; 83735

== ENCOUNTER 2023-06-13 17:41 | Emergency (ER) | payer MEDICARE, MEDICAID, SELFPAY ==
[2023-06-13 17:47] VITALS: BP 170/90; PULSE 98; RESP 20; TEMP 36.9; O2SAT 99
--- NOTE | 2023-06-13 18:00 | RT.EKG_ITS ---
APPROVED REPORT Exam: Resting ECG Reason for Exam: SOB Patient Location: E HR:74 bpm ECG Measurements Heart Rate 74 AXIS FL 161 P -13 QRSd 94 QRS 52 QT 368 T 31 QTc 410 Conclusion Sinus rhythm...normal P axis, V-rate 60- 99
--- NOTE | 2023-06-13 18:00 | DI.RAD_ITS ---
Exam(s) XR PORTABLE CHEST AP EXAM: XR PORTABLE CHEST AP CLINICAL HISTORY: Covid Positive. TECHNIQUE: 2D digital imaging was performed. COMPARISON: CR XR CHEST 2V PA LATERAL from 08/04/2021 FINDINGS: Single AP portable view. Fusion plate lower cervical spine again noted. Heart size is upper normal. The mediastinum is not widened. Lungs are clear. No infiltrates nor obvious pleural effusions. IMPRESSION: No acute pulmonary findings on this single AP portable view of the chest. DATA REPOSITORY: RADIATION DOSE DELIVERED:
--- NOTE | 2023-06-13 18:17 | W.ED.GENAD ---
Discharge Plan Disposition Patient Disposition: Home Condition: Stable Discharge Details Clinical Impression: COVID-19 Primary Care Provider: Mei Javier ED Provider: Sandra Luis Home Meds and New Rx's Prescriptions: Continued fluticasone propionate 50 mcg/actuation spray,suspension 2 spray intranasal DAILY Rx Instructions: administer into each nostril cholecalciferol (vitamin D3) 1,250 mcg (50,000 unit) capsule 1,250 mcg PO QWEEK Trulicity 1.5 mg/0.5 mL pen injector 1.5 mg subcut QWEEK naproxen sodium [Aleve] 220 MG tablet 220 mg PO Q12H PRN aspirin 81 MG tablet,chewable 81 mg PO DAILY pregabalin [Lyrica] 100 mg capsule 150 mg PO BID pantoprazole 40 mg tablet,delayed release (DR/EC) 40 mg PO DAILY cetirizine 10 mg tablet 10 mg PO DAILY PRN topiramate [Topamax] 25 mg tablet 25 mg PO DAILY fluticasone propionate [Flovent HFA] 220 mcg/actuation HFA aerosol inhaler 2 puff inhalation BID insulin glargine [Lantus U-100 Insulin] 100 unit/mL solution subcut Rx Instructions: adjusting dose down to 24-30units, while initiating Trulicity. 06/2022 metformin [Glucophage] 1,000 mg tablet 500 mg PO BID testosterone 30 mg/actuation (1.5 mL) solution in metered pump w/dalila 1.5 pump TP DAILY Qty: 90 5RF Rx Instructions: 1.5 pump to underarm area EVERYDAY; alternate underarm mometasone [Nasonex] 17 GM spray,non-aerosol 50 mcg Inhalation PRN clobetasol 15 GM ointment 0.05 applic Transdermal PRN lisinopril 5 MG tablet 5 mg PO DAILY Qty: 20 0RF Held simvastatin 40 MG tablet 40 mg PO DAILY Hold Instructions: Resume on 06/20/23. Do not take while taking the Paxlovid Discharge Instructions Instructions: COVID-19 (Coronavirus Disease 2019) (ED) Additional Instructions: Please stop taking your simvastatin while on the Paxlovid. Please be off the simvastatin for 24 hours before beginning the Paxlovid. Take it as directed for the next 5 days. Follow up with primary care provider in 3-5 days. Return to ED sooner if any worsening or concerns. Increase oral fluids. Please take Tylenol or Ibuprofen with food every 4-6 hours as needed for pain and swelling. Please take crwv-wew-zxonyfu multivitamin that includes iron, vitamin D and zinc. Please follow the CDC recommendations for quarantine and mask wearing a mask for the next 5 to 10 days. Referrals: Mei Javier [Primary Care Provider] - 5 days Medical Decision Making 77-year-old male presents to the ER with a chief complaint of weakness, nausea and fatigue decreased appetite since . Patient was diagnosed with COVID at urgent care today. He did take Tylenol yesterday and has been taking NyQuil daily with little to no relief. Patient does have a history of diabetes does take insulin, denies any fevers O2 sat is 100% on room air upon arrival. Work-up ordered including EKG, troponin, CBC CMP. COVID test. Work-up largely within normal limits positive COVID. Patient does qualify for Paxlovid for renal dose. BUN/creatinine are elevated and he does take simvastatin. Instructed him to stop taking the simvastatin while on this medication. To hold the hypercholesterolemia medication for 24 hours before beginning it. Instructed to follow-up with PCP and follow the CDC guidelines for quarantine and mask wearing. Patient remained hemodynamically stable alert and orientated with a sat at 99% throughout the remainder of his stay. Patient discharged home. Discussed tricked return instructions and home care. This text was generated using [employer] dictation system, please disregard any oddities of phrase or misspellings. Imaging Data Radiologic Study: Imaging: X-Ray Radiologist's impression: Exam: XR Chest Exam date and time: 06/13/2023 7:17 PM Age: 77 years old Clinical indication: Other: Covid positive TECHNIQUE: Imaging protocol: Radiologic exam of the chest. Views: 1 view. COMPARISON: CR XR CHEST 2V PA LATERAL 08/04/2021 3:13 PM FINDINGS: Lungs: No consolidation. Pleural spaces: Unremarkable. No pleural effusion. No pneumothorax. Heart/Mediastinum: Unremarkable. No cardiomegaly. Bones/joints: Status post ACDF. Mild degenerative changes within the shoulder joints. No aggressive osseous lesions identified. IMPRESSION: No infiltrates or effusions. Lab Data Lab results reviewed: Yes I reviewed the patient's lab results. Labs: Laboratory Tests Range/Units 06/13/23 06/13/23 18:00 18:20 WBC (4.4-10.8) 10^3/uL 5.64 RBC (4.36-5.78) 10^6/uL 5.23 Hgb (13.5-17.5) g/dL 17.2 Hct (40.0-50.0) % 49.2 MCV (80-95) fL 94 MCH (27.0-33.0) pg 32.9 MCHC (32.0-36.0) % 35.0 RDW (11.8-14.1) % 13.7 Plt Count (130-400) 10^3/uL 175 MPV (8.0-11.0) fL 10.4 Immature Gran % 0.2 Neutrophils % 55.5 Lymphocytes % 25.4 Monocytes % 11.5 Eosinophils % 6.9 Basophils % 0.5 Nucleated RBC % (0.0-0.3) % 0.0 Absolute Neutrophils (1.2-6.7) 10^3/uL 3.13 Absolute Lymphocytes (1.2-3.4) 10^3/uL 1.43 Absolute Monocytes (0.1-0.8) 10^3/uL 0.65 Absolute Eosinophils (0.0-0.7) 10^3/uL 0.39 Absolute Basophils (0.0-0.2) 10^3/uL 0.03 Sodium (136-145) mmol/L 138 Potassium (3.5-5.1) mmol/L 3.9 Chloride (98-107) mmol/L 100 Carbon Dioxide (21.0-32.0) mmol/L 27.3 Anion Gap (3-11) mmol/L 10.7 BUN (7-18) mg/dL 19 H Creatinine (0.70-1.30) mg/dL 1.6 H Est GFR (CKD-EPI 2020) (mL/min/1.73m2) 43.56 Glucose (74-106) mg/dL 145 H Calcium (8.5-10.1) mg/dL 9.5 Total Bilirubin (0.2-1.0) mg/dL 0.7 AST (15-37) U/L 23 ALT (16-63) U/L 23 Alkaline Phosphatase (46-116) U/L 80 Total Protein (6.4-8.2) g/dL 8.8 H Albumin (3.4-5.0) g/dL 4.1 COVID-19 Source Nasal/Nares SARS-CoV-2 (PCR) (Negative) POSITIVE A* HPI General Mode of arrival: ambulatory. Date/Time Provider Initiated Documentation: 06/13/23 17:57. Limitations to Documentation: no limitations. Information obtained by: patient, RN notes reviewed and old records reviewed. HPI Narrative: 77-year-old male presents to the ER with a chief complaint of weakness, nausea and fatigue decreased appetite since . Patient was diagnosed with COVID at urgent care today. He did take Tylenol yesterday and has been taking NyQuil daily with little to no relief. Patient does have a history of diabetes does take insulin, denies any fevers O2 sat is 100% on room air upon arrival. Related Data Home Medications Medication Instructions Recorded Confirmed clobetasol 0.05 % topical ointment 0.05 applic transdermal PRN 01/01/14 12/27/22 lisinopril 5 mg tablet 5 mg PO DAILY #20 tabs 01/01/14 06/13/23 mometasone 50 mcg/actuation nasal 50 mcg inhalation PRN 01/01/14 12/27/22 spray (Nasonex) simvastatin 40 mg tablet 40 mg PO DAILY 01/01/14 06/13/23 aspirin 81 mg chewable tablet 81 mg PO DAILY 08/22/17 06/13/23 naproxen sodium 220 mg tablet 220 mg PO Q12H PRN 08/22/17 06/13/23 (Aleve) pregabalin 100 mg capsule (Lyrica) 150 mg PO BID 05/20/19 06/13/23 cetirizine 10 mg tablet 10 mg PO DAILY PRN 09/29/21 06/13/23 fluticasone propionate 220 2 puff inhalation BID 09/29/21 06/13/23 mcg/actuation HFA aerosol inhaler (Flovent HFA) pantoprazole 40 mg tablet,delayed 40 mg PO DAILY 09/29/21 06/13/23 release topiramate 25 mg tablet (Topamax) 25 mg PO DAILY 09/29/21 06/13/23 dulaglutide 1.5 mg/0.5 mL 1.5 mg subcut QWEEK 07/28/22 06/13/23 subcutaneous pen injector (Trulicity) insulin glargine 100 unit/mL subcut 07/28/22 12/27/22 subcutaneous solution (Lantus U-100 Insulin) metformin 1,000 mg tablet 500 mg PO BID 07/28/22 06/13/23 (Glucophage) cholecalciferol (vitamin D3) 1,250 1,250 mcg PO QWEEK 12/27/22 06/13/23 mcg (50,000 unit) capsule fluticasone propionate 50 2 spray intranasal DAILY 12/27/22 06/13/23 mcg/actuation nasal spray,suspension testosterone 30 mg/actuation (1.5 1.5 pump topical DAILY #90 mL 03/14/23 06/13/23 mL) transderm solution metered pump Previous Rx's Medication Instructions Recorded lisinopril 5 mg tablet 5 mg PO DAILY #20 tabs 01/01/14 testosterone 30 mg/actuation (1.5 1.5 pump topical DAILY #90 mL 03/14/23 mL) transderm solution metered pump Allergies Allergy/AdvReac Type Severity Reaction Status Date / Time gabapentin AdvReac Diarrhea Verified 06/13/23 17:53 General Stated Complaint: RespSymp TOMMY: 3 Review of Systems All systems reviewed & are unremarkable except as noted in HPI and below Constitutional Constitutional: Reports fatigue, Reports headache(s) and Reports poor appetite ENT Ears, Nose, Mouth, and Throat: Reports headache(s) Cardiovascular Cardiovascular: Denies chest pain Gastrointestinal Gastrointestinal: Reports diarrhea Neurologic Neurologic: Reports headache(s) Endocrine Endocrine: Reports fatigue PFSH All Active Problems (Updated 06/13/23 @ 19:17 by Sandra Luis NP) COVID-19 (Acute) Nail dystrophy (Acute) Hammertoe (Acute) BPH (benign prostatic hyperplasia) (Chronic) Back pain with radiculopathy (Acute) Neuropathy (Acute) Memory impairment (Acute) Gastroparesis (Acute) 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) Hypogonadism in male (Acute 08/22/17) Penile lesion (Acute 08/22/17) Urgency incontinence (Acute 08/22/17) Medical History Hx of adenomatous colonic polyps Social History Smoking/Tobacco Use Status: Current every day Tobacco Type: cigars Per week: 5 Tobacco: How many years used: 55 Smoking risk assessment performed?: Yes Alcohol Intake: current Alcohol Intake frequency: holidays/special occasions only Alcohol type: beer Drug use: Never Substance use type: does not use Housing: apartment What is your relationship status?: Panel score (0-1 are the most socially isolated patients): 1 What type of physical activity do you participate in: bicycling Duration: 30-45 minutes/day Frequency: daily Do you feel safe at home: Yes Do you feel safe in your relationship?: Yes Exam Narrative Exam Narrative: Constitutional: Alert and oriented x3. Appears stated age. Normal body habitus. Head: Normocephalic, no trauma. Eyes: Pupils PERRL, Red reflex noted, EOM's intact. Eyelids symmetrical without lesions, discharge, or swelling. ENT: Bilateral TM's WNL, External ear normal to inspection, no mastoid TTP, swelling, or erythema, Nasal turbinates WNL, no nasal discharge. Normal dentition, Posterior pharynx WNL, no exudate. Chest: RRR, Normal S1, S2, distal pulses intact. Resp: Lungs clear to auscultation bilaterally, no wheezes, rales, or rhonchi. Abdomen: Soft, non-distended, Normoactive bowel sounds all 4 quads. Musculoskeletal: Normal gait, 5/5 strength to all four extremities. Skin: No suspicious rashes or lesions. Capillary refill less than 2 sec. Neurologic: Cranial nerves II-XII intact. Alert and oriented x 3. Motor: No deficits noted. Sensory: Intact bilaterally all 4 extremities. Reflexes: DTR's intact bilaterally.. Hematologic/Lymphatic: No ecchymosis, no lymphadenopathy. Course Vital Signs Vital signs: Vital Signs Temperature 36.9 C 06/13/23 17:47 Pulse 98 H 06/13/23 17:47 Respiratory Rate 20 06/13/23 17:47 Blood Pressure 170/90 H 06/13/23 17:47 Pulse Oximetry 99 06/13/23 17:47 Temperature 36.9 C 06/13/23 17:47 Temperature Source Oral 06/13/23 17:47 Pulse 98 H 11/14/23 17:47 Respiratory Rate 20 06/13/23 17:47 Respiratory Effort Non-Labored 06/13/23 17:51 Respiratory Depth Normal 06/13/23 17:51 Blood Pressure 170/90 H 06/13/23 17:47 Blood Pressure Position Sitting 06/13/23 17:47 Pulse Oximetry 99 06/13/23 17:47 Oxygen Delivery Method Room Air 06/13/23 17:47 Oxygen Flow Rate 0 06/13/23 17:47 PAWSS Have you Been Recently Intoxicated or Drunk Within the Last 30 days?: No Have you Ever Experienced Previous Episodes of Alcohol Withdrawal?: No Have you ever Experienced Withdrawal Seizures?: No Have you ever Experienced Delirium Tremens(DT)s?: No Have you ever undergone Alcohol Rehabilitation Treatment (i.e, inpt ot outpatient treatment programs)?: No Have you ever Experienced Blackouts?: No Have you ever Combined Alcohol with other Downers within the last 90 days?: No Have you ever Combined Alcohol with any other Substance of Abuse during the last 90 days?: No Positive Blood Alcohol level on Presentation? [PCS.BAL]: No Evidence of Increased Autonomic Activity (i.e. HR>120, tremor, sweating, agitation, nausea)?: No Result: 0
[2023-06-13 18:22] LABS: Abs Immature Grans 0.01 10^3/uL (0.0-0.06); Absolute Basophil Count 0.03 10^3/uL (0.0-0.2); Absolute Eosinophil Count 0.39 10^3/uL (0.0-0.7); Absolute Lymphocyte Count 1.43 10^3/uL (1.2-3.4); Absolute Monocyte Count 0.65 10^3/uL (0.1-0.8); Absolute Neutrophil Count 3.13 10^3/uL (1.2-6.7); Basophils % 0.5; Eosinophils % 6.9; HCT 49.2 % (40.0-50.0); HGB 17.2 g/dL (13.5-17.5); Immature Grans % 0.2; Lymphocytes % 25.4; MCH 32.9 pg (27.0-33.0); MCV 94 fL (80-95); MPV 10.4 fL (8.0-11.0); Monocytes % 11.5; Neutrophils % 55.5; Platelet Count 175 10^3/uL (130-400); RBC 5.23 10^6/uL (4.36-5.78); RDW 13.7 % (11.8-14.1); RDW-SD 47.7 fL; WBC 5.64 10^3/uL (4.4-10.8)
[2023-06-13 18:33] LABS: Source Nasal/Nares
[2023-06-13 18:36] LABS: ALT 23 U/L (16-63); AST 23 U/L (15-37); Albumin 4.1 g/dL (3.4-5.0); Alkaline Phosphatase 80 U/L (46-116); Anion Gap 10.7 mmol/L (3-11); BUN 19 mg/dL (7-18); Bilirubin, Total 0.7 mg/dL (0.2-1.0); CO2 27.3 mmol/L (21.0-32.0); CREATININE 1.6 mg/dL (0.70-1.30); Calcium 9.5 mg/dL (8.5-10.1); Chloride 100 mmol/L (98-107); Estimated GFR 43.56 (mL/min/1.73m2); Glucose 145 mg/dL (74-106); Potassium 3.9 mmol/L (3.5-5.1); Sodium 138 mmol/L (136-145); Total Protein 8.8 g/dL (6.4-8.2)
[2023-06-13 19:15] LABS: COVID-19 PCR POSITIVE (Negative)
[2023-06-13 19:21] VITALS: PULSE 72; O2SAT 99
[2023-06-13 19:26] VITALS: BP 136/66; PULSE 78; RESP 20; O2SAT 99
--- NOTE | 2023-06-13 19:45 | DI.VRAD_ITS ---
PROCEDURE INFORMATION: Exam: XR Chest Exam date and time: 06/13/2023 7:17 PM Age: 77 years old Clinical indication: Other: Covid positive TECHNIQUE: Imaging protocol: Radiologic exam of the chest. Views: 1 view. COMPARISON: CR XR CHEST 2V PA LATERAL 08/04/2021 3:13 PM FINDINGS: Lungs: No consolidation. Pleural spaces: Unremarkable. No pleural effusion. No pneumothorax. Heart/Mediastinum: Unremarkable. No cardiomegaly. Bones/joints: Status post ACDF. Mild degenerative changes within the shoulder joints. No aggressive osseous lesions identified. IMPRESSION: No infiltrates or effusions. Dictated and Authenticated by: Hayden Arguello MD. Ordering:MARQUIS Flores MD
== END 2023-06-13 19:28 | disposition home or self-care (01) ==
PROVIDERS: Emergency Provider Registered Nurse Emergency; PCP Nurse Practitioner Family
DX: U07.1 COVID-19 (principal); E11.9 Type 2 diabetes mellitus without complications; F17.210 Nicotine dependence, cigarettes, uncomplicated; Z79.4 Long term (current) use of insulin; Z79.82 Long term (current) use of aspirin
CPT/HCPCS: 36415; 80053; 87635; 93005; 99283; 71045; 85025; 93010

== ENCOUNTER 2023-06-20 02:56 | Outpatient (CLI) | payer MEDICARE, MEDICAID, SELFPAY ==
[2023-06-25 16:49] LABS: Testosterone, Total 249 ng/dL (240-950)
== END 2023-06-20 02:57 | disposition home or self-care (01) ==
LOC: LBO 02:56
PROVIDERS: PCP Nurse Practitioner Family; Visit Provider Urology
DX: E29.1 Testicular hypofunction (principal)
CPT/HCPCS: 36415; 84403

== ENCOUNTER → 2023-06-27 14:19 | Outpatient (BNVA) | payer MEDICARE, MEDICAID, SELFPAY | PROVIDERS: PCP Nurse Practitioner Family; Visit Provider Urology | DX: N40.0 Benign prostatic hyperplasia without lower urinary tract symptoms (principal) | CPT/HCPCS: 81003; 99214 ==

== ENCOUNTER 2023-09-13 10:46 | Outpatient (CLI) | payer MEDICARE, MEDICAID, SELFPAY ==
[2023-09-13 11:47] LABS: FREE T4 0.88 ng/dL (0.76-1.46); TSH 3.05 uIU/mL (0.36-3.74)
[2023-09-13 12:24] LABS: Vitamin B12 216 pg/mL (193-986)
[2023-09-14 08:50] LABS: Abs Immature Grans 0.02 10^3/uL (0.0-0.06); Absolute Basophil Count 0.13 10^3/uL (0.0-0.2); Absolute Eosinophil Count 1.77 10^3/uL (0.0-0.7); Absolute Lymphocyte Count 2.32 10^3/uL (1.2-3.4); Absolute Monocyte Count 0.85 10^3/uL (0.1-0.8); Absolute Neutrophil Count 5.65 10^3/uL (1.2-6.7); Basophils % 1.2; Eosinophils % 16.5; HCT 44.5 % (40.0-50.0); HGB 14.5 g/dL (13.5-17.5); Immature Grans % 0.2; Lymphocytes % 21.6; MCH 32.5 pg (27.0-33.0); MCHC 32.6 % (32.0-36.0); MCV 100 fL (80-95); MPV 11.7 fL (8.0-11.0); Monocytes % 7.9; Neutrophils % 52.6; Nucleated RBC 0.3 % (0.0-0.3); Platelet Count 193 10^3/uL (130-400); RBC 4.46 10^6/uL (4.36-5.78); RDW 14.6 % (11.8-14.1); RDW-SD 53.7 fL; WBC 10.74 10^3/uL (4.4-10.8)
[2023-09-14 09:31] LABS: Hemoglobin A1C 6.9 % (<5.7)
[2023-09-14 09:37] LABS: ALT 16 U/L (16-63); AST 17 U/L (15-37); Albumin 3.7 g/dL (3.4-5.0); Alkaline Phosphatase 87 U/L (46-116); Anion Gap 12.9 mmol/L (3-11); BUN 13 mg/dL (7-18); Bilirubin, Total 0.7 mg/dL (0.2-1.0); CO2 23.1 mmol/L (21.0-32.0); CREATININE 1.3 mg/dL (0.70-1.30); Calcium 9.4 mg/dL (8.5-10.1); Calculated LDL 76 mg/dL (<100); Chloride 108 mmol/L (98-107); Cholesterol 145 mg/dL (<200); Estimated GFR 55.88 (mL/min/1.73m2); Glucose 118 mg/dL (74-106); HDL Cholesterol 45 mg/dL (40-60); Magnesium 1.6 mg/dL (1.8-2.4); Sodium 144 mmol/L (136-145); Total Protein 7.2 g/dL (6.4-8.2); Triglyceride 124 mg/dL (<150)
== END 2023-09-13 10:47 | disposition home or self-care (01) ==
LOC: LBO 10:46
PROVIDERS: PCP Nurse Practitioner Family; Visit Provider Nurse Practitioner Family
DX: E11.40 Type 2 diabetes mellitus with diabetic neuropathy, unspecified (principal); R53.83 Other fatigue; Z79.899 Other long term (current) drug therapy; E11.21 Type 2 diabetes mellitus with diabetic nephropathy
CPT/HCPCS: 36415; 80053; 80061; 82607; 83036; 83735; 84439; 84443; 85025

== ENCOUNTER 2023-12-11 13:45 | Outpatient (CLI) | payer MEDICARE, MEDICAID, SELFPAY ==
[2023-12-11 10:22] LABS: Abs Immature Grans 0.18 10^3/uL (0.0-0.06); Absolute Basophil Count 0.11 10^3/uL (0.0-0.2); Absolute Eosinophil Count 0.71 10^3/uL (0.0-0.7); Absolute Lymphocyte Count 2.28 10^3/uL (1.2-3.4); Absolute Monocyte Count 0.64 10^3/uL (0.1-0.8); Absolute Neutrophil Count 5.14 10^3/uL (1.2-6.7); Basophils % 1.2 %; Eosinophils % 7.8 %; HCT 40.3 % (40.0-50.0); HGB 13.4 g/dL (13.5-17.5); Lymphocytes % 25.2 %; MCH 32.2 pg (27.0-33.0); MCHC 33.3 % (32.0-36.0); MCV 97 fL (80-95); MPV 10.2 fL (8.0-11.0); Monocytes % 7.1 %; Neutrophils % 56.7 %; Platelet Count 271 10^3/uL (130-400); RBC 4.16 10^6/uL (4.36-5.78); RDW 13.2 % (11.8-14.1); RDW-SD 47.5 fL; WBC 9.06 10^3/uL (4.4-10.8)
[2023-12-11 11:08] LABS: Folate 11.4 ng/mL (8.6-20.0); Magnesium 1.5 mg/dL (1.8-2.4); Vitamin B12 542 pg/mL (193-986)
== END 2023-12-11 13:46 | disposition home or self-care (01) ==
LOC: LBO 13:45
PROVIDERS: PCP Nurse Practitioner Family; Visit Provider Nurse Practitioner Family
DX: E11.40 Type 2 diabetes mellitus with diabetic neuropathy, unspecified (principal)
CPT/HCPCS: 36415; 84403; 82607; 82746; 83036; 83735; 84153; 85025

== ENCOUNTER → 2023-12-26 14:20 | Outpatient (BNVA) | payer MEDICARE, MEDICAID, SELFPAY | PROVIDERS: PCP Nurse Practitioner Family; Visit Provider Urology | DX: E29.1 Testicular hypofunction (principal); Z79.890 Hormone replacement therapy | CPT/HCPCS: 99213 ==

== ENCOUNTER 2024-03-20 18:11 | Outpatient (CLI) | payer MEDICARE, MEDICAID, SELFPAY ==
[2024-03-20 16:04] LABS: Abs Immature Grans 0.04 10^3/uL (0.0-0.06); Absolute Basophil Count 0.08 10^3/uL (0.0-0.2); Absolute Eosinophil Count 1.27 10^3/uL (0.0-0.7); Absolute Lymphocyte Count 1.93 10^3/uL (1.2-3.4); Absolute Monocyte Count 0.65 10^3/uL (0.1-0.8); Absolute Neutrophil Count 5.62 10^3/uL (1.2-6.7); Basophils % 0.8 %; Eosinophils % 13.2 %; HCT 43.5 % (40.0-50.0); HGB 14.6 g/dL (13.5-17.5); Immature Grans % 0.4 %; Lymphocytes % 20.1 %; MCH 32.6 pg (27.0-33.0); MCHC 33.6 % (32.0-36.0); MCV 97 fL (80-95); MPV 10.9 fL (8.0-11.0); Monocytes % 6.8 %; Neutrophils % 58.7 %; Platelet Count 187 10^3/uL (130-400); RBC 4.48 10^6/uL (4.36-5.78); RDW 13.8 % (11.8-14.1); RDW-SD 49.3 fL; WBC 9.59 10^3/uL (4.4-10.8)
[2024-03-20 16:25] LABS: Hemoglobin A1C 7.6 % (<5.7)
[2024-03-20 17:26] LABS: ALT 19 U/L (16-63); AST 11 U/L (15-37); Albumin 3.5 g/dL (3.4-5.0); Alkaline Phosphatase 100 U/L (46-116); Anion Gap 10.1 mmol/L (3-11); BUN 16 mg/dL (7-18); Bilirubin, Total 0.82 mg/dL (0.2-1.0); CO2 25.9 mmol/L (21.0-32.0); CREATININE 1.5 mg/dL (0.70-1.30); Calcium 8.8 mg/dL (8.5-10.1); Chloride 103 mmol/L (98-107); Estimated GFR 46.77 (mL/min/1.73m2); Glucose 238 mg/dL (74-106); Potassium 4.6 mmol/L (3.5-5.1); Sodium 139 mmol/L (136-145); Total Protein 6.8 g/dL (6.4-8.2); Vitamin D 25 Total 24.9 ng/mL (30-100)
--- OUTSIDE RECORDS SUMMARY | 2024-03-20 18:13 | XMS_ITS | Encounter Summary ---
Author Organization [facility] Address [address] [place] [address] Care Team Providers Care Biomedical Engineer Name Role Phone Unknown, Provider Primary Care Provider [phone] Encounter Details Date Type Department Care Team (Latest Contact Info) Description 03/28/2020 Lab Requisition [facility] Pathology & Laboratory Medicine - [facility] [place] [address] [place] [address] Iván Walter MD [address] [place] [address] Gastro-esophageal reflux disease without esophagitis; Dysphagia, pharyngoesophageal phase; Benign neoplasm of colon, unspecified Social History Tobacco Use Types Packs/Day Years Used Date Smoking Tobacco: Never Assessed Sex and Gender Information Value Date Recorded Sex Assigned at Not on file Gender Identity Not on file Sexual Orientation Not on file documented as of this encounter Plan of Treatment Not on file documented as of this encounter Procedures Procedure Name Priority Date/Time Associated Diagnosis Comments SURGICAL PATHOLOGY Today 03/27/2020 10:20 EDT Gastro-esophageal reflux disease without esophagitis Dysphagia, pharyngoesophageal phase Benign neoplasm of colon, unspecified documented in this encounter Results * SURGICAL PATHOLOGY (03/27/2020 10:20 EDT) Final Diagnosis A. ESOPHAGUS, GE JUNCTION, BIOPSY: - Gastroesophageal junction mucosa with mild reactive changes. - Negative for intestinal metaplasia and dysplasia. B. ESOPHAGUS, DISTAL, BIOPSY: - Squamous mucosa with no significant diagnostic abnormality. C. ESOPHAGUS, MID, BIOPSY: - Squamous mucosa with no significant diagnostic abnormality. 03/30/2020 13:52 EDT [facility] Attestation By the signature below, the attending physician certifies that they have 1) personally conducted a gross and/or microscopic examination of the described specimen(s), and/or personally interpreted the results of laboratory testing of the described specimen(s), and 2) personally rendered or confirmed the above diagnosis. 03/30/2020 13:52 [facility] at 1352 Clinical History GERD, dysphagia; clinical diagnosis code: K21.9, R13.14, D12.6 03/30/2020 13:52 [facility] Gross Description A. Received in formalin labelled with proper patient identification (initials M, R) and A. GE junction Bx is a smith-white tissue (0.3 x 0.2 x 0.2 cm). Entirely submitted in A1. B. Received in formalin labelled with proper patient identification (initials M, R) and B. Distal esophagus Bx is a smith-white tissue (0.3 x 0.3 x 0.1 cm). Entirely submitted in B1. C. Received in formalin labelled with proper patient identification (initials M, R) and C. Mid esophagus Bx are 2 smith-white tissues (0.2 x 0.1 x 0.1 cm and 0.4 x 0.2 x 0.1 cm). Entirely submitted in C1. Shantell Hopson 03/30/2020 8:13 03/30/2020 13:52 T [facility] Performing Lab [facility] 13:52 [facility] Scanned Images 03/30/2020 13:52 T [facility] Tissue ENTIRE ESOPHAGUS / Unknown 03/27/2020 10:20 EDT 03/28/2020 9:34 EDT Tissue specimen (specimen) ESOPHAGEAL STRUCTURE / Unknown 03/27/2020 10:20 EDT 03/28/2020 9:34 EDT Tissue specimen (specimen) ESOPHAGEAL STRUCTURE / Unknown 03/27/2020 10:20 EDT 03/28/2020 9:34 EDT Iván Walter MD PATHOLOGY ORD ERABLES [facility] [address] [place] [address] documented in this encounter Visit Diagnoses Diagnosis Gastro-esophageal reflux disease without esophagitis Esophageal reflux Dysphagia, pharyngoesophageal phase Benign neoplasm of colon, unspecified documented in this encounter Care Teams Biomedical Engineer Relationship Specialty Start Date End Date Unknown, Provider, PCP - General 07/31/19 documented as of this encounter
--- OUTSIDE RECORDS SUMMARY | 2024-03-20 18:13 | XMS_ITS | Encounter Summary ---
Author Organization [facility] Address [address] [facility] [place] [address] Care Team Providers Care Marketing Budget Analyst Name Role Phone Gabe Rodriguez Primary Care Provider [phone] Encounter Details Date Type Department Care Team (Late st Contact Info) Description 11/04/2014 Interpretation Only Radiology [address] [place] [id number] Unknown None Social History Tobacco Use Types Packs/Day Years Used Date Smoking Tobacco: Former Cigars Q uit: 02/11/2014 Smokeless Tobacco: Never Sex and Gender Information Value Date Recorded Sex Assigned at Not on file Gender Identity Not on file Sexual Orientation Not on file documented as of this encounter Plan of Treatment Not on file documented as of this encounter Procedures Procedure Name Priority Date/Time Associated Diagnosis Comments XR CERVICAL SPINE 2 OR 3 VIEWS Routine 11/04/2014 12:37 PM EDT documented in this encounter Results * XR Cervical Spine 2 Or 3 Views (11/04/2014 12:37 PM EDT) Anatomical Region Laterality Modality C-spine N/A Radiographic Daniela ging 11/04/2014 12:3 7 PM EDT Narrative 11/04/2014 12:37 PM EDT APD Historical Result Principal Cardiovascular Rn: ??CASSANDRA ??KASEY CERVICAL SPINE - THREE VIEWS: Flexion, extension, and lateral views of the cervical spine were performed. COMPARISON: ??September 18, 2014. Anterior plate and screws C5-6 demonstrated with intervertebral metallic spacer. ??There is no subluxation demonstrated with flexion and extension. ??There is decreased disc height C5-6 with degenerative endplate changes. ??Relatively little range of motion in extension when compared with the neutral positioning. ??Paravertebral soft tissues are within normal limits. ??There is no subluxation demonstrated. ??Posterior spinous processes are stable. IMPRESSION: Postoperative changes with anterior plate and screw bridging C5-6, as described above. ??There is no subluxation. Cassandra Parks MD [facility] [id number] CC: Procedure Note Unknown - 01/28/2019 APD Historical Result Principal Cardiovascular Rn: CASSANDRA PARKS CERVICAL SPINE - THREE VIEWS: Flexion, extension, and lateral views of the cervical spine wereperformed. COMPARISON: September 18, 2014. Anterior plate and screws C5-6 demonstrated with intervertebral metallicspacer. There is no subluxation demonstrated with flexion and extension. There is decreaseddisc height C5-6 with degenerative endplate changes. Relatively little range of motion inextension when compared with the neutral positioning. Paravertebral soft tissues are withinnormal limits. There is no subluxation demonstrated. Posterior spinous processes are stable. IMPRESSION: Postoperative changes with anterior plate and screw bridgingC5-6, as described above. There is no subluxation. Cassandra Parks MD [facility] [id number] CC: Unknown IMG DX ORDERABLES documented in this encounter Visit Diagnoses Not on filedocumented in this encounter Care Teams Marketing Budget Analyst Relationship Specialty Start Date End Date Gabe Rodriguez PA [address] [place] [address] PCP - General General Internal Medicine 07/19/1709/28 documented as of this encounter
--- OUTSIDE RECORDS SUMMARY | 2024-03-20 18:13 | XMS_ITS | Encounter Summary ---
Author Organization [facility] Address [facility] [place] [address] Care Team Providers Care Edger Machine Operator Name Role Phone Mei Javier Primary Care Provider Encounter Details Date Type Department Care Team (Late st Contact Info) Description 09/29/2020 Refill Dermatology at [address] [place] [id number] Xuan Simon, TRANSIT OPERATOR Social History Tobacco Use Types Packs/Day Years Used Date Smoking Tobacco: Former Cigars Q uit: 02/11/2014 Smokeless Tobacco: Never Alcohol Use Standard Drinks/Week Comments Yes 0 (1 standard drink = 0.6 oz pur e alcohol) rarely Sex and Gender Information Value Date Recorded Sex Assigned at Not on file Gender Identity Not on file Sexual Orientation Not on file documented as of this encounter Plan of Treatment Not on file documented as of this encounter Visit Diagnoses Not on filedocumented in this encounter Care Teams Edger Machine Operator Relationship Specialty Start Date End Date Mei Javier [address] [place] [address] PCP - General Family Medicine 09/29/20 documented as of this encounter
--- OUTSIDE RECORDS SUMMARY | 2024-03-20 18:13 | XMS_ITS | Encounter Summary ---
Author Organization [facility] Address [address] [place] [address] Care Team Providers Care Environmental Coordinator Name Role Phone Unknown, Provider Primary Care Provider [phone] Encounter Details Date Type Department Care Team (Late st Contact Info) Description 07/23/2021 Lab Requisition [facility] Pathology & Laboratory Medicine - [facility] [address] [place] [address] Outr Resulting Lab, Provider Social History Tobacco Use Types Packs/Day Years Used Date Smoking Tobacco: Never Assessed Interpersonal Safety Answer Date Record ed Physically Hurt Never 04/26/2020 Verbally Threaten Not on file 04/26/2020 Sex and Gender Information Value Date Recorded Sex Assigned at Not on file Gender Identity Not on file Sexual Orientation Not on file documented as of this encounter Plan of Treatment Not on file documented as of this encounter Procedures Procedure Name Priority Date/Time Associated Diagnosis Comments ZZCOVID-19 TEST [facility] PCR Today 07/22/2021 13:45 EST COVID-19 TESTING Routine 07/22/2021 13:4 5 EST documented in this encounter Results * COVID-19 TEST [facility] PCR (07/22/2021 13:45 EST) Swab 07/22/2021 13:4 5 EST 07/23/2021 22:30 EST Provider Outr Resulting Lab MICROBIOLOGY - GENERAL ORDERABLES [facility] [address] [place] [address] * COVID-19 TESTING (07/22/2021 13:45 EST) COVID-19 rt-PCR Result Negative Negative 07/24/2021 12:35 EST [facility] Comment: This test has not been FDA cleared or approved. This test has been authorized by FDA under an EUA for use by authorized laboratories. This test has been authorized only for detection of nucleic acid from 2019-nCoV, not for any other viruses or pathogens. This test is only authorized for the duration of the declaration that circumstances exist justifying the authorization of emergency use of in vitro diagnostic tests for detection and/or diagnosis of 2019-nCoV under section 564(b)(1) of Act, 21 U.S.C ?? 360bbb-3(b) (1), unless the authorization is terminated or revoked sooner. Negative results do not preclude 2019-nCoV infection and should not be used as the sole basis for treatment or other patient management decisions. Negative results must be combined with clinical observations, patient history, and epidemiological information. Testing was performed using the maryam SARS-CoV-2 assay ([employer] on the Maryam 6800 System Performing Lab Maryam [address] [facility] Lab 07/24/2021 12:35 EST [facility] Swab 07/22/2021 13:4 5 EST 07/23/2021 22:30 EST Provider Outr Resulting Lab MICROBIOLOGY - GENERAL ORDERABLES [facility] [address] [place] [address] documented in this encounter Visit Diagnoses Not on filedocumented in this encounter Care Teams Environmental Coordinator Relationship Specialty Start Date End Date Unknown, Provider, PCP - General 07/31/19 documented as of this encounter
--- OUTSIDE RECORDS SUMMARY | 2024-03-20 18:13 | XMS_ITS | Encounter Summary ---
Author Organization [facility] Address [address] [place] [address] Care Team Providers Care Seniour Insight Manager Name Role Phone Unknown, Provider Primary Care Provider [phone] Encounter Details Date Type Department Care Team (Late st Contact Info) Description 06/11/2021 Lab Requisition [facility] Pathology & Laboratory Medicine - [facility] [address] [place], [place] [id number] Outr Resulting Lab, Provider Social History Tobacco [...] Procedure Name Priority Date/Time Associated Diagnosis Comments PSA TOTAL, DIAGNOSTIC Routine 06/11/2021 13:05 EST documented in this encounter Results * PSA TOTAL, DIAGNOSTIC (06/11/2021 13:05 EST) PSA 1.4 0.0 - 6.5 ng/mL 06/11/2021 22:40 EST [facility] Blood VENOUS BLOOD / Unknown 06/11/2021 13:05 EST 06/11/2021 21:29 EST Narrative [facility] - 06/11/2021 22:40 EST NOTE: Serum PSA concentration should not be interpreted as absolute evidence for the presence or absence of malignant disease. Assayed on Siemens ADVIA IMTaur XPT using chemiluminescent technology.??Values obtained by using different assay methods cannot be used interchangeably. Provider Outr Resulting Lab CHEMISTRY & BLOOD GAS ORDERABLES [facility] [address] [place] [address] documented in this encounter Visit Diagnoses Not on filedocumented in this encounter Care Teams Seniour Insight Manager Relationship Specialty Start Date End Date Unknown, Provider, PCP - General 07/31/19 documented as of this encounter
--- OUTSIDE RECORDS SUMMARY | 2024-03-20 18:13 | XMS_ITS | Encounter Summary ---
Author Organization [facility] Address [address] [place] [address] Care Team Providers Care Business Risk Consultant Name Role Phone Unknown, Provider Primary Care Provider [phone] Encounter Details Date Type Department Care Team (Late st Contact Info) Description 08/05/2021 Lab Requisition [facility] Pathology & Laboratory Medicine - [facility] [address] [place] [address] Outr Resulting Lab, Provider Social History Tobacco [...] Priority Date/Time Associated Diagnosis Comments ZZCOVID-19 TEST [facility] PCR Today 08/04/2021 14:45 EST COVID-19 TESTING Routine 08/04/2021 14:4 5 EST documented in this encounter Results * COVID-19 TEST [facility] PCR (08/04/2021 14:45 EST) Swab 08/04/2021 14:4 5 EST 08/05/2021 17:46 EST Provider Outr Resulting Lab MICROBIOLOGY - GENERAL ORDERABLES [facility] [address] [place] [address] * COVID-19 TESTING (08/04/2021 14:45 EST) COVID-19 rt-PCR Result Negative Negative 08/06/2021 16:23 EST [facility] Comment: This test has not [...] clinical observations, patient history, and epidemiological information. This test was developed and its performance characteristics determined by [facility]. It has not been cleared or approved by the US Food and Drug Administration. FDA does not require this test to go through premarket FDA review. This test is used for clinical purposes. It should not be regarded as investigational or for research. This laboratory is certified under the Clinical Laboratory Improvement Amendments (CLIA) as qualified to perform high complexity clinical laboratory testing. This test is based on the [facility] COVID-19 Emergency Use Authorization (EUA) assay, with minor modification as defined by the FDA Performed on the Blucarato 7 Flex RT-PCR System. Performing Lab [facility] 08/06/2021 16:23 EST [facility] Swab 08/04/2021 14:4 5 EST 08/05/2021 17:46 EST Provider Outr Resulting Lab MICROBIOLOGY - GENERAL ORDERABLES [facility] [address] [place] [address] documented in this encounter Visit Diagnoses Not on filedocumented in this encounter Care Teams Business Risk Consultant Relationship Specialty Start Date End Date Unknown, Provider, PCP - General 07/31/19 documented as of this encounter
--- OUTSIDE RECORDS SUMMARY | 2024-03-20 18:13 | XMS_ITS | Encounter Summary ---
Author Organization [facility] [place] [address] Care Team Providers Care Shopping Inspector Name Role Phone Mei Javier Primary Care Provider [phone] Reason for Visit * Reason Comments Skin Check * Consultation (Routine) - Specialty Diagnoses / Procedures Referred By Christos kim Referred To Contact Dermatology Diagnoses Dermatitis, unspecified Dermatitis; Est. Patient-Notes Received Procedures Consult Mei Javier [address] [place] [address] Michael Bailey MD [address] [place] [address], [place] [address] Referral ID Status Reason Start Date Expiration Date V isits Requested Visits Authorized [id number] Consult, Test & Treat PCP Updated and/or Approved 04/09/2020 04/09/2021 12 12 Encounter Details Date Type Department Care Team (Late st Contact Info) Description 09/29/2020 1:45 PM EST Office Visit Dermatology at [address] [phone] Michael Bailey MD [address] [place] [address], [facility] [address] Dermatitis Social History Tobacco Use Types Packs/Day Years [...] on file documented as of this encounter Progress Notes * Michael Bailey MD - 09/29/2020 1:45 PM EST Problem: 1. New dermatitis 2. History of psoriasiform hand dermatitis Qiuntin follows up after last seeing me in 2018. He developed a new rash that affects him with a very itchy on fire feeling. Not much in his hands but involves the flanks the inguinal folds down the lateral legs and some patchy areas on his chest and back. He has tried emollient creams without much benefit. He does not have any more of the clobetasol spray that he used previously for this risk from hand dermatitis 3 years ago. That worked well but was no longer covered by his insurance. Physical examination reveals a pleasant 75-year-old gentleman who has reticulated patches with in the flexural areas of his skin with cigarette paper like wrinkling very suspicious for CTCL. ISAK of one area was negative. He has smaller patches on the lower abdomen and on the lateral hips. These show peripheral erythema with central scaling but again ISAK negative. Assessment plan: Pruritic painful dermatitis widespread in flexural skin areas 1. Clinically very suspicious for CTCL 2. Begin triamcinolone 0.1% cream apply on a twice daily basis to affected areas dispense 1 pound jar with 3 refills. Will call into his [employer] in [place] 3. Today 2 shave biopsies obtained from the left inguinal fold and submitted in the same specimen bottle for pathologic analysis. These were adjacently obtained shave biopsies from the same site 4. We will notify patient about results in 1 week. CC: Mei Javier documented in this encounter Plan of Treatment Not on file documented as of this encounter Visit Diagnoses Diagnosis Dermatitis Contact dermatitis and other eczema, due to unspecified cause documented in this encounter Care Teams Shopping Inspector Relationship Specialty Start Date End Date Mei Javier [address] [place] [address] PCP - General Family Medicine 09/29/20 documented as of this encounter
--- OUTSIDE RECORDS SUMMARY | 2024-03-20 18:13 | XMS_ITS | Encounter Summary ---
Author Organization [facility] Address [address] [place] [address] Care Team Providers Care Technical Services Representative Name Role Phone Unknown, Provider Primary Care Provider [phone] Encounter Details Date Type Department Care Team (Latest Contact Info) Description 05/06/2021 Lab Requisition [facility] Pathology & Laboratory Medicine - [facility] [address] [place], [place] [id number] Iván Walter MD [address] [place] [address] Dysphagia, pharyngoesophageal phase; Abnormal findings on diagnostic imaging of other parts of digestive tract Social History Tobacco Use Types Packs/Day Years [...] Date/Time Associated Diagnosis Comments SURGICAL PATHOLOGY Today 05/05/2021 9:38 EDT Dysphagia, pharyngoesophageal phase Abnormal findings on diagnostic imaging of other parts of digestive tract documented in this encounter Results * SURGICAL PATHOLOGY (05/05/2021 9:38 EDT) Note to Patient The following pathology results have been interpreted by your pathologist and may be available to you before your health provider has had the opportunity to review them. Please allow time for your provider to receive these results and explore management options, if applicable. 05/07/2021 17:27 [facility] Final Diagnosis A. STOMACH, POLYP, POLYPECTOMY: - Fundic gland polyp. B. ESOPHAGUS, DISTAL, BIOPSY: - Squamous mucosa with mild reflux esophagitis. C. ESOPHAGUS, MID, BIOPSY: - Squamous mucosa with no specific pathologic features. 05/07/2021 17:27 [facility] Attestation By the signature below, the attending physician certifies that they have 1) personally conducted a gross and/or microscopic examination of the described specimen(s), and/or personally interpreted the results of laboratory testing of the described specimen(s), and 2) personally rendered or confirmed the above diagnosis. 05/07/2021 17:27 [facility] at 1727 Clinical History Dysplasia, abnormal barium swallow; clinical diagnosis code: R13.14, R93.3 05/07/2021 17:27 [facility] Gross Description A. Received in formalin labelled with proper patient identification (initials M, R) and gastric polypectomy are 2 smith-brown tissues measuring 0.3 x 0.2 x 0.1 cm and 0.5 x 0.2 x 0.1 cm. Submitted intact in A1. B. Received in formalin labelled with proper patient identification (initials M, R) and distal esophagus is a pink-white tissue measuring 0.2 x 0.2 x 0.1 cm. Submitted intact in B1. C. Received in formalin labelled with proper patient identification (initials M, R) and midesophagus are 2 pink white tissues measuring 0.2 x 0.1 x 0.1 cm and 0.2 x 0.2 x 0.1 cm. Submitted intact in C1. KATELYN CHRISTINE(ASCP) 05/06/2021 18:28 05/07/2021 17:27 [facility] Performing Lab [facility] 05/07/2021 17:27 [facility] Scanned Images 05/07/2021 17:27 [facility] Tissue ENTIRE ESOPHAGUS / Unknown 05/05/2021 9:38 EDT 05/06/2021 16:33 EDT Tissue specimen (specimen) ESOPHAGEAL STRUCTURE / Unknown 05/05/2021 9:38 EDT 05/06/2021 16:33 EDT Tissue specimen (specimen) ESOPHAGEAL STRUCTURE / Unknown 05/05/2021 9:38 EDT 05/06/2021 16:33 EDT Iván Walter MD PATHOLOGY ORD ERABLES [facility] [address] [place] [address] documented in this encounter Visit Diagnoses Diagnosis Dysphagia, pharyngoesophageal phase Abnormal findings on diagnostic imaging of other parts of digestive tract documented in this encounter Care Teams Technical Services Representative Relationship Specialty Start Date End Date Unknown, Provider, PCP - General 07/31/19 documented as of this encounter
--- OUTSIDE RECORDS SUMMARY | 2024-03-20 18:13 | XMS_ITS | Clinical Summary ---
Author Organization [facility] Address [address] [place] [address] Care Team Providers Care Master Coastal Waters Name Role Phone Unknown, Provider Primary Care Provider [phone] Social History Tobacco Use Types Packs/Day Years Used Date Smoking Tobacco: Never Assessed Interpersonal Safety Answer Date Record ed Physically Hurt Never 04/26/2020 Verbally Threaten Not on file 04/26/2020 Sex and Gender Information Value Date Recorded Sex Assigned at Not on file Gender Identity Not on file Sexual Orientation Not on file Plan of Treatment Health Maintenance Due Date Last Done Comments RSV Immunization ( o r 60+ Years) (1 - 1-dose 60+ series) 2003 Fall Risk Screening 2008 COVID-19 Vaccine (2022-24 season) 2023 Care Teams Master Coastal Waters Relationship Specialty Start Date End Date Unknown, Provider, PCP - General 07/31/19
--- OUTSIDE RECORDS SUMMARY | 2024-03-20 18:13 | XMS_ITS | Encounter Summary ---
Author Organization [facility] [place] [address] Care Team Providers Care Jitney Driver Name Role Phone Mei Javier Primary Care Provider Encounter Details Date Type Department Care Team (Late st Contact Info) Description 10/12/2020 Telephone Dermatology at [address] [phone] Xuan Simon LPN Social History Tobacco Use Types Packs/Day Years [...] on file documented as of this encounter Miscellaneous Notes * Telephone Encounter - Xuan Simon LPN - 10/12/2020 8:22 AM EDT 09/29/20 Left inguinal fold skin shave biopsy Dx: Eczema Dr. Guerrero recommendation: Finish cephalexin 500, continue to apply TAC twice daily to areas and return to clinic in 1-2 weeks. Reviewed biopsy results and Dr. Guerrero recommendations with patient. He voiced redness, swelling, and pain gone. Applying TAC to every new spots. No new spots recently. Last dose of cephalexin last Monday. Follow up appointment scheduled for October 21. documented in this encounter Plan of Treatment Not on file documented as of this encounter Visit Diagnoses Not on filedocumented in this encounter Care Teams Jitney Driver Relationship Specialty Start Date End Date Yaya Mei [address] [place] [address] PCP - General Family Medicine 09/29/20 documented as of this encounter
--- OUTSIDE RECORDS SUMMARY | 2024-03-20 18:13 | XMS_ITS | Encounter Summary ---
Author Organization [facility] Address [address] [place] [address] Care Team Providers Care Ios Software Engineer Name Role Phone Unknown, Provider Primary Care Provider [phone] Encounter Details Date Type Department Care Team (Late st Contact Info) Description 07/06/2021 Lab Requisition [facility] Pathology & Laboratory Medicine - [facility] [address] [place] [address] Outr Resulting Lab, Provider Social History Tobacco [...] Comments ZZCOVID-19 TEST [facility] PCR Today 07/06/2021 11:35 EST COVID-19 TESTING Routine 07/06/2021 11:3 5 EST documented in this encounter Results * COVID-19 TEST [facility] PCR (07/06/2021 11:35 EST) Swab 07/06/2021 11:3 5 EST 07/06/2021 22:28 EST Provider Outr Resulting Lab MICROBIOLOGY - GENERAL ORDERABLES [facility] [address] [place] [address] * COVID-19 TESTING (07/06/2021 11:35 EST) COVID-19 rt-PCR Result Negative Negative 07/07/2021 14:18 EST [facility] Comment: This test has not [...] was performed using the maryam SARS-CoV-2 assay ([employer] on the Maryam 6800 System Performing Lab [facility] [address] [facility] 07/07/2021 14:18 EST [facility] Swab 07/06/2021 11:3 5 EST 07/06/2021 22:28 EST Provider Outr Resulting Lab MICROBIOLOGY - GENERAL ORDERABLES [facility] [address] [place] [address] documented in this encounter Visit Diagnoses Not on filedocumented in this encounter Care Teams Ios Software Engineer Relationship Specialty Start Date End Date Unknown, Provider, PCP - General 07/31/19 documented as of this encounter
--- OUTSIDE RECORDS SUMMARY | 2024-03-20 18:13 | XMS_ITS | Encounter Summary ---
Author Organization [facility] Address [facility] [place] [address] Care Team Providers Care Software Development Test Engineer Name Role Phone Mei Javier Primary Care Provider [phone] Reason for Visit * Reason Comments Skin Check Encounter Details Date Type Department Care Team (Late st Contact Info) Description 10/19/2020 4:45 PM EDT Office Visit Dermatology at [address] [phone] Michael Bailey MD [address] [facility] [place] [address] Cellulitis, unspecified cellulitis site; Dermatitis Social History Tobacco Use Types Packs/Day [...] Progress Notes * Michael Bailey MD - 10/19/2020 4:45 PM EDT Problem: Follow-up dermatitis inguinal folds mons pubis Quintin follows up after last being seen on October 02. The left inguinal fold double biopsy came backshowing spongiotic dermatitis, not consistent with CTCL. He has been using triamcinolone cream, andbecause of a penile cellulitis shortly after his inguinal fold biopsy, he went through a course of cephalexin. This fortunately did work well for him. Physical examination reveals a pleasant 75-year-old gentleman with significant improvement of his dermatitis, but also resolution of the penile cellulitis. He has no longer has any reticulated erythematous dermatitis. The inguinal folds and mons pubis are clear. Is no swelling no edema on the left aspect of the penile shaft or scrotum. Assessment and plan plan: Resolution of eczematous dermatitis and of penile cellulitis 1. Patient states that the pruritus that he experiences on a nightly basis is now much reduced. He is not getting up to wash and cleanse himself in the genital area on a 2-3 times a night basis any longer. He is not sweating there as he did previously. 2. Discontinue triamcinolone cream instead just use regular emollient cream as necessary and or baby powder to absorb sweating/moisture reduce risk of maceration/intertrigo. 3. Continue to use Band-Aids for 2 biopsy sites on left inguinal fold. These are healing but not yet healed. It has been 17 days since the biopsy. 4. Patient graduated on wonderful response to therapies return to clinic now be as needed. CC: Mei Javier documented in this encounter Plan of Treatment Not on file documented as of this encounter Visit Diagnoses Diagnosis Cellulitis, unspecified cellulitis site Dermatitis Contact dermatitis and other eczema, due to unspecified cause documented in this encounter Care Teams Software Development Test Engineer Relationship Specialty Start Date End Date Mei Javier [address] [place] [address] PCP - General Family Medicine 09/29/20 documented as of this encounter
--- OUTSIDE RECORDS SUMMARY | 2024-03-20 18:13 | XMS_ITS | Encounter Summary ---
Author Organization [facility] Address [facility] [place] [address] Care Team Providers Care Research Methodologist Name Role Phone Gabe Rodriguez Primary Care Provider [phone] Encounter Details Date Type Department Care Team (Late st Contact Info) Description 01/01/2018 10:45 AM EDT - 01/01/2018 11:30 AM EDT Surgery [place] [address] Kristan Washington MD [facility] [place] [address] COLONOSCOPY, DIAGNOSTIC (WRVU 3.26) Social History Tobacco Use Types Packs/Day Years [...] on file documented as of this encounter Last Filed Vital Signs Vital Sign Reading Time Taken Comments Blood Pressure 115/73 01/01/2018 12:01 PM EDT Pulse 67 01/01/2018 12:01 PM EDT Temperature - - Respiratory Rate 16 01/01/2018 12:01 PM EDT Oxygen Saturation 93% 01/01/2018 12:00 PM EDT Inhaled Oxygen Concentration - - Weight 112.5 kg (248 lb) 01/01/2018 9:39 AM EDT Height 177.8 cm (5' 10) 01/01/2018 9:39 AM EDT Body Mass Index 35.58 01/01/2018 9:39 AM EDT documented in this encounter Discharge Instructions * Attachments The following attachments cannot be sent through Care Everywhere. * COLON POLYPS (PARAGUAYAN) documented in this encounter Medications at Time of Discharge Medication Sig Dispensed Refills Start Date End Date omeprazole (PRILOSEC) 40 mg Capsule, Delayed Release(E.C.) Take 40 mg by mouth daily. 0 10/19/2017 oxyCODONE-acetamino phen (PERCOCET) 5-325 mg Tablet Take 1 tablet by mouth every 8 hours as needed for Pain. NTe 4 daily 112 tablet 11/09/2017 oxyCODONE-acetamino phen (PERCOCET) 5-325 mg Tablet Take 1 tablet by mouth every 8 hours as needed for Pain (NTE 4 daily). 112 tablet 12/07/2017 lisinopril (PRINIVIL;ZESTRIL) 5 mg Tablet Take 5 mg by mouth daily. 0 09/06/2017 topiramate (TOPAMAX) 25 mg Capsule, Sprinkle Take 25 mg by mouth 2 times daily. aspirin 81 mg Tablet, Delayed Release (E.C.) Take 81 mg by mouth daily. LANTUS SOLOSTAR pen Inject 28 Units subcutaneously nightly. 0 08/04/2017 simvastatin (ZOCOR) 40 mg Tablet Take 40 mg by mouth nightly. 0 06/09/2017 metFORMIN (GLUCOPHAGE) 1,000 mg Tablet Take 1,000 mg by mouth 2 times daily (with meals). testosterone (ANDROGEL) 1 % (25 mg/2.5 g) Gel in Packet Place 5 g onto the skin daily. 10/02/2020 LYRICA 100 mg Capsule Take 100 mg by mouth 2 times daily. 0 07/21/2017 10/02/2020 documented as of this encounter H&P Notes * Kristan Washington MD - 01/01/2018 10:16 AM EDT Gastroenterology and Hepatology Pre-Procedure History and Physical Exam Procedure: Colonoscopy: Indication: diarrhea Patient Active Problem List Diagnosis Code ? ? 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 Diabetes mellitus type 2 E11.9 ??? Hypertension (HTN) I10 ??? Hyperlipidemia E78.5 ??? Obesity E66.9 ? ? OA (osteoarthritis) (DJD) & low back pain s/p lack surgeries x2 (10 & 25 yrs ago), off fentanyl patch M19.90 ??? Esophageal reflux (GERD) K21.9 ??? Chronic fatigue R53.82 ? ? Decreased libido & ED R68.82 ? ? BPH (benign prostatic hyperplasia), seen by uro since 2010 & was found to have low Testosterone N40.0 ??? 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 Chronic bilateral back pain M54.9, G89.29 EXAM: HEENT: Airway examined, oropharynx clear Mallampati Score: II (soft palate, uvula, fauces visible) LUNGS: Clear to auscultation HEART: Regular rate and rhythm, normal S1, S2 ABDOMEN: Normal bowel sounds, soft, non tender, non distended, A/P Proceed with the planned endoscopic procedure. ASA 2 - Patient with mild systemic disease with no functional limitations Sedation Plan: anesthesia Risks and benefits of the procedure explained to the patient. Consent signed. documented in this encounter Plan of Treatment Not on file documented as of this encounter Procedures Procedure Name Priority Date/Time Associated Diagnosis Comments SPECIMEN TO PATHOLOGY Routine 01/01/2018 11:03 AM EDT SPECIMEN TO PATHOLOGY Routine 01/01/2018 11:03 AM EDT SPECIMEN TO PATHOLOGY Routine 01/01/2018 11:03 AM EDT SURGICAL PATHOLOGY REPORT Routine 01/01/2018 10:45 AM EDT COLONOSCOPY; W CONTROL OF BLEEDING, ANY METHOD (WRVU 4.66) 01/01/2018 10:32 AM EDT Diarrhea, unspecified type COLONOSCOPY, POLYPECTOMY, REMOVAL LESION BY SNARE (WRVU 4.57) 01/01/2018 10:32 AM EDT Diarrhea, unspecified type COLONOSCOPY, DIAGNOSTIC (WRVU 3.26) 01/01/2018 10:32 AM EDT Diarrhea, unspecified type COLONOSCOPY Routine 01/01/2018 10:23 AM EDT POCT FINGERSTICK GLUCOSE STAT 01/01/2018 10:04 AM EDT POCT GLUCOSE Routine 01/01/2018 9:50 AM EDT documented in this encounter Results * Specimen to Pathology (01/01/2018 11:03 AM EDT) AP Specimen 01/01/2018 11:0 3 AM EDT 01/01/2018 11:03 AM EDT Narrative [facility] - 01/01/2018 11:03 AM EDT Specimen requisition ordered. ??Separate Pathology report to follow Kristan Washington MD PATHOLOGY/CYTOLOGY O JESSICA Performing Organization Address [facility]/[place] [address] * Specimen to Pathology (01/01/2018 11:03 AM EDT) AP Specimen 01/01/2018 11:0 3 AM EDT 01/01/2018 11:03 AM EDT Narrative [facility] - 01/01/2018 11:03 AM EDT Specimen requisition ordered. ??Separate Pathology report to follow Kristan Washington MD PATHOLOGY/CYTOLOGY O JESSICA Performing Organization Address City/[facility] Co de Phone Number [facility] [place] [address] * Specimen to Pathology (01/01/2018 11:03 AM EDT) AP Specimen 01/01/2018 11:0 3 AM EDT 01/01/2018 11:03 AM EDT Narrative [facility] - 01/01/2018 11:03 AM EDT Specimen requisition ordered. ??Separate Pathology report to follow Kristan Washington MD PATHOLOGY/CYTOLOGY O RDSHAUN Performing Organization Address [facility]/ZIP Co de Phone Number [facility] [place] [address] * Surgical Pathology Report (01/01/2018 10:45 AM EDT) Final Diagnosis [id number] ? Location: 4T; EA07; A The signing pathologist has (i) examined the relevant preparation(s) for the specimen(s) and (ii) rendered or confirmed the diagnosis(es). . ?Surgical Pathology DIAGNOSIS A - Colon, random, ??biopsy: Colonic mucosa with no significant histologic abnormality, see discussion. B - TC, ??polypectomy: Tubular adenoma. C - Sigmoid colon, ??polypectomy: Polypoid lesion with villous architecture, hyperplastic epithelium, dilated crypt and smooth muscel hyperplasia, favor hamartomatous polyp. CR-PX Electronically signed by: ??Nohelia Sultana MD Verified: ??01/04/2018 ?Pathologist Performed at: ??-[facility] [place] Dept. of [place]ology, [place], [place] DISCUSSION Part A: Focal and mild subepithelial collagen deposition is seen , which is subtle and may represent reactive changes or tangential section effect, no definite chronic/microscop ic colitis is seen. CLINICAL INFORMATION Specimen Submitted: A - Random colon biopsies B - Polyp TC C - Polyp sigmoid Clinical History and Diagnosis: Patient with diarrhea and normal looking colon SPECIMEN PROCESSING A - Labeled/Fixative: Random colon biopsies, formalin. Quantity/Size: Multiple, 0.2-0.4 cm. Tissue Description: Soft smith tissue. Sections/Processi ng: (T3) B - Labeled/Fixative: Polyp TC, formalin. Quantity/Size: Two, 0.3-0.4 cm. Tissue Description: Soft smith tissue. Sections/Processi ng: (T1) C - Labeled/Fixative: Polyp sigmoid, formalin. Quantity/Size: Single, 1.3 cm. Tissue Description: Soft pedunculated red-brown polyp. Sections/Processi ng: Inked and sectioned. (T1) ??eliu 01/04/2018 10:45 PM EDT [facility] GI Biopsy 01/01/2018 10:4 5 AM EDT 01/01/2018 10:45 AM EDT GI Biopsy 01/01/2018 10:4 5 AM EDT 01/01/2018 10:45 AM EDT GI Biopsy 01/01/2018 10:4 5 AM EDT 01/01/2018 10:45 AM EDT Kristan Washington MD PATHOLOGY/CYTOLOGY O RDERABLES [facility] [place] [address] * COLONOSCOPY (01/01/2018 10:23 AM EDT) COLONOSCOPY [facility] Procedure Date: 01/01/2018 10:23 AM ? Patient Name: Quintin Dewitt ? Date of : 1945 ? Age: 72 ? Order #: [id number] ? Instrument Name: [id number] ? Procedure: ? Colonoscopy Indications: ? Clinically significant diarrhea of ? unexplained origin Providers: ? Kristan Washington MD, Miquel Rojas RN, ? Jesi Hawkins, Saturator Tender Referring MD: ?Gabe Rodriguez, Naty Ramey Medicines: ? Propofol per Anesthesia Complications: ? No immediate complications. Procedure: ? Pre-Anesthesia Assessment: ? - Prior to the procedure, a History ? and Physical was performed, and ? patient medications, allergies and ? sensitivities were reviewed. The ? patient's tolerance of previous ? anesthesia was reviewed. ? - The risks and benefits of the ? procedure and the sedation options ? and risks were discussed with the ? patient. All questions were answered ? and informed consent was obtained. ? The procedure, indications, benefits, ? risks and alternatives were explained ? to the patient. Specifically ? discussed were potential ? complications including, but not ? limited to, bleeding, perforation, ? infection, missing a cancer, and ? adverse medication reactions. The ? patient was placed in the left ? lateral decubitus position, and a ? digital rectal exam was performed. ? The Colonoscope was inserted in the ? anus and under direct visualization, ? advanced to the terminal ileum. ? Careful inspection was made as the ? colonoscope was withdrawn. The ? colonoscopy was performed with ease. ? The patient tolerated the procedure ? well. The quality of the bowel ? preparation was excellent. ? Findings: ? A 3 mm polyp was found in the transverse colon. The ? polyp was sessile. The polyp was removed with a cold ? biopsy forceps. Resection and retrieval were complete. ? A 20 mm polyp was found in the sigmoid colon. The ? polyp was pedunculated. The polyp was removed with a ? hot snare. Resection and retrieval were complete. To ? prevent bleeding after the polypectomy, one ? hemostatic clip was successfully placed. There was no ? bleeding at the end of the procedure. ? Normal mucosa was found in the entire colon. Biopsies ? for histology were taken with a cold forceps for ? evaluation of microscopic colitis. ? Moderate Sedation: ? Not applicable - See Anesthesia documentation Impression: ?- One 3 mm polyp in the transverse ? colon, removed with a cold biopsy ? forceps. Resected and retrieved. ? - One 20 mm polyp in the sigmoid ? colon, removed with a hot snare. ? Resected and retrieved. Clip was ? placed. ? - Normal mucosa in the entire ? examined colon. Biopsied. Recommendation: ?- Await pathology results. ? If biopsies normal, consider work up ? for small bowel bacterial overgrowth. ? Attending Participation: ? I personally performed the entire procedure. ? I was present during the intraservice time as ? documented by the sedation RN. ? Kristan Washington MD 01/01/2018 11:04:05 AM This report has been signed electronically. Number of Addenda: 0 Note Initiated On: 01/01/2018 10:23 AM PROVATION 01/01/2018 10:2 3 AM EDT Gabe [facility] PROVATION * POCT Fingerstick Glucose (01/01/2018 10:04 AM EDT) Glucose, POC 97 60 - 199 mg/dl 01/01/2018 10:0 4 AM EDT Kristan Washington MD POINT OF CARE TEST O RDERABLES * POCT Glucose (01/01/2018 9:50 AM EDT) Glucose, POC 97 65 - 199 mg/dL [facility] Comment: Supplemental ranges: <140 mg/dL before meals <180 mg/dL all other times of the day Blood specimen (specimen) 01/01/2018 9:50 AM EDT 01/01/2018 9:50 AM EDT Kristan Washington MD POINT OF CARE TEST O RDERABLES Performing Organization Address City/State/[facility] Co de Phone Number [facility] [place] [phone] documented in this encounter Visit Diagnoses Diagnosis Diarrhea, unspecified type documented in this encounter Administered Medications Inactive Administered Medications - up to 3 most recent administrations Medication Order MAR Action Action Date Dose Rate Site lactated Ringers infusion 100 mL/hr, Intravenous, CONTINUOUS, Starting on Mon01/01/18 at 0945, Until Mon01/01/18 at 1210, Endoscopy (Day of Procedure) New Bag 01/01/2018 10:31 AM EDT New Bag 01/01/2018 10:05 AM EDT 100 mL/hr 100 mL/hr documented in this encounter Active and Recently Administered Medications Times are shown in EDT. Continuous Medication Order 12/30/2017 12/31/2017 01/01/2018 lactated Ringers infusion (CANCELED) 100 mL/hr, Intravenous, CONTINUOUS, Starting on Mon01/01/18 at 0945, Until Mon01/01/18 at 1210, Endoscopy (Day of Procedure) 1005 (New Bag - Prov ider: Stephanie Sheppard RN)1031 (New Bag - Provider: Peggy Ashley CRNA)1059 (Anesthesia Volume Adjustment - Provider: Peggy A Gabi, SENIOR LINUX UNIX ENGINEER) documented in this encounter Care Teams Research Methodologist Relationship Specialty Start Date End Date Gabe Rodriguez PA [address] [place] [address] PCP - General General Internal Medicine 07/19/1709/28 documented as of this encounter
--- OUTSIDE RECORDS SUMMARY | 2024-03-20 18:13 | XMS_ITS | Encounter Summary ---
Author Organization [facility] [place] [address] Care Team Providers Care Senior Fire Protection Engineer Name Role Phone Ernst Tnaner MD Primary Care Provider [phone] Reason for Visit * Reason Comments Eczema Encounter Details Date Type Department Care Team (Late st Contact Info) Description 07/10/2014 10:45 AM EST Office Visit Dermatology at [place] [address] [facility] [place] [address] Michael Bailey MD [address] [facility] D[facility]Y [place], [place] [id number] Psoriasiform dermatitis Discharge Disposition: Home Social History Tobacco Use Types Packs/Day Years Used Date Smoking Tobacco: Former Cigars Q uit: 02/11/2014 Smokeless Tobacco: Never Sex and Gender Information Value Date Recorded Sex Assigned at Not on file Gender Identity Not on file Sexual Orientation Not on file documented as of this encounter Patient Instructions * Patient Instructions* Lima Ybarra LPN - 07/10/2014 10:52 AM EST Images from the original note were not included. [facility] Dermatitis: After Your Visit Your Care Instructions Dermatitis is the general name used for any rash or inflammation of the skin. Different kinds of dermatitis cause different kinds of rashes. Common causes of a rash include new medicines, plants (such as poison oak or poison azra), heat, stress, and allergies to soaps, cosmetics, detergents, chemicals, and fabrics. Certain illnesses can also cause a rash. Unless caused by an infection, these rashes cannot be spread from person to person. How long your rash will last depends on what caused it. Rashes may last a few days or months. Follow-up care is a barr part of your treatment and safety. Be sure to make and go to all appointments, and call your doctor if you are having problems. It???s also a good idea to know your test results and keep a list of the medicines you take. How can you care for yourself at home? ?? Do not scratch. Cut your nails short, and file them smooth. Or you may wear gloves if this helpskeep you from scratching. ?? If you use soap on the rash, choose a gentle soap and use as little as possible. ?? Put cold, wet cloths on the rash to reduce itching. ?? Keep cool, and stay out of the sun. Heat makes itching worse. ?? Leave the rash open to the air when you can. If your clothes have to cover the rash, wear cottonor silk. ?? If the rash itches, use hydrocortisone cream. Follow the directions on the label. Calamine lotion may help for plant rashes. ?? Try an dnes-dyp-ldrsrnh antihistamine such as diphenhydramine (Benadryl) or chlorpheniramine (Chlor-Trimeton). Follow the directions on the label. ?? If you get a prescription steroid cream or pills, use them as directed. When should you call for help? Call your doctor now or seek immediate medical care if: ?? You have signs of infection, such as: ?? Increased pain, swelling, warmth, or redness. ?? Red streaks leading from the rash. ?? Pus draining from the rash. ?? A fever. ?? You have joint pain along with the rash. ?? The rash gets worse or spreads to other parts of your body. Watch closely for changes in your health, and be sure to contact your doctor if: ?? You do not get better after 2 to 3 weeks of home treatment. Where can you learn more? Visit our health information library at http://[employer] You can also view health information on [employer], your personal patient account. Log in or sign up today. Enter F270 in the search box to learn more about Dermatitis: After Your Visit. ?? [phone] [employer]. Care instructions adapted under license by [facility]. This care instruction is for use with your licensed healthcare professional. If you have questions about a medical condition or this instruction, always ask your healthcare professional. [employer] disclaims any warranty or liability for your use of this information. Content Version: 9.9.199439; Last Revised: December 14, 2012 documented in this encounter Progress Notes * Michael Bailey MD - 07/10/2014 11:10 AM EST Problem: Psoriasiform hand dermatitis. Quintin is a 68-year-old gentleman originally from [place], [place] ([place]way [place] and [place]), who moved to this area last year. He was previously followed by Dr. Kristal Hull for psoriasiform hand dermatitis and also for dermatitis on the occipital scalp, on his back, and buttocks. Triamcinolone ointment, mometasone cream, clobetasol cream were not effective. He was also treated with a course of Spectazole cream b.i.d. for two weeks, also with no benefit. A punch biopsy from the right base of the small finger showed psoriasiform dermatitis. Eventually, he was prescribed Clobex spray, using b.i.d., and this has worked well for him. He also for a time was having to wear gloves when showering. Currently, his hands are better, but he still had dermatitis and needs prior authorization now for his Clobex. He also suffers from diabetic neuropathy of his hands and feet and complains of burning discomfort in his hands when he lightly strokes them. He is here today with his , Xuan. Patient denies any family history of psoriasis. Physical examination reveals a pleasant 68-year-old gentleman who has psoriasiform hand dermatitis over the palmar hands and palmar fingers. The back and his buttocks are clear, but he has some mild scaling in the lower occipital scalp. He does not have any deep-seated fissuring or cracking of his hands. Assessment and Plan: 1. Psoriasiform hand dermatitis. a. Recommend that we continue Clobex spray, which patient uses on a b.i.d. p.r.n. basis and has been the only thing that has been effective for him. b. Also recommended aggressive emolliation therapy with CeraVe cream, obtain elkr-xot-[id number]. Recommend using Dove or Ivory as a good soap. Return to clinic here p.r.n. COPY: Ernst Tanner M.D. documented in this encounter Plan of Treatment Not on file documented as of this encounter Visit Diagnoses Diagnosis Psoriasiform dermatitis Other psoriasis and similar disorders documented in this encounter Care Teams Senior Fire Protection Engineer Relationship Specialty Start Date End Date Ernst Tanner MD PCP - General 05/15/14 07/18/17 documented as of this encounter
--- OUTSIDE RECORDS SUMMARY | 2024-03-20 18:13 | XMS_ITS | Referral Summary ---
Author Organization [facility] Address [address] [place] [address] Care Team Providers Care Regulatory Affairs Specialist Name Role Phone Unknown, Provider Primary Care Provider [phone] Social History Tobacco Use Types Packs/Day Years Used Date Smoking Tobacco: Never Assessed Interpersonal Safety Answer Date Record ed Physically Hurt Never 04/26/2020 Verbally Threaten Not on file 04/26/2020 Sex and Gender Information Value Date Recorded Sex Assigned at Not on file Gender Identity Not on file Sexual Orientation Not on file Plan of Treatment Not on file Care Teams Regulatory Affairs Specialist Relationship Specialty Start Date End Date Unknown, Provider, PCP - General 07/31/19
--- OUTSIDE RECORDS SUMMARY | 2024-03-20 18:13 | XMS_ITS | Encounter Summary ---
Author Organization [facility] Address [address] [facility] [place] [address] Care Team Providers Care Booth Supervisor Name Role Phone Gabe Rodriguez Primary Care Provider [phone] Encounter Details Date Type Department Care Team (Late st Contact Info) Description 09/18/2014 Interpretation Only Radiology [address] [facility] [place] [address] Unknown None Social History Tobacco Use Types [...] Date/Time Associated Diagnosis Comments XR CERVICAL SPINE 1 VIEW Routine 09/18/2014 9:33 AM EST documented in this encounter Results * XR Cervical Spine 1 View (09/18/2014 9:33 AM EST) Anatomical Region Laterality Modality C-spine N/A Radiographic Daniela ging 09/18/2014 9:33 AM EST Narrative 09/18/2014 9:33 AM EST APD Historical Result Principal Spring Salvage Worker: ??COREY ??JESSICA CERVICAL SPINE - ONE VIEW: HISTORY: ??Status post C5-6 anterior cervical discectomy and fusion, August 11, 2014. Single lateral view of the cervical spine is compared to C-arm spot films obtained on August 11, 2014, and preoperative MRI of the cervical spine from May 27, 2014. Anterior fusion and discectomy with placement of an interbody bony fusion appears in anatomic alignment at the C5-6 level. ??There is calcification anterior to C4 in the cervical soft tissues of uncertain nature. IMPRESSION: Status post anterior discectomy and fusion, C5-6, in anatomic alignment, as described. Corey Jessica MD Swetha [id number] CC: Procedure Note Unknown - 01/28/2019 APD Historical Result Principal Spring Salvage Worker: COREY JESSICA CERVICAL SPINE - ONE VIEW: HISTORY: Status post C5-6 anterior cervical discectomy and fusion,August 11, 2014. Single lateral view of the cervical spine is compared to C-arm spot filmsobtained on August 11, 2014, and preoperative MRI of the cervical spine from April. Anterior fusion and discectomy with placement of an interbody bony fusionappears in anatomic alignment at the C5-6 level. There is calcification anterior to C4 in thecervical soft tissues of uncertain nature. IMPRESSION: Status post anterior discectomy and fusion, C5-6, in anatomicalignment, as described. Corey Jessica MD Swetha [id number] CC: Unknown IMG DX ORDERABLES documented in this encounter Visit Diagnoses Not on filedocumented in this encounter Care Teams Booth Supervisor Relationship Specialty Start Date End Date Gabe Rodriguez PA [address] [place] [id number] PCP - General General Internal Medicine 07/19/1709/28 documented as of this encounter
--- OUTSIDE RECORDS SUMMARY | 2024-03-20 18:13 | XMS_ITS | Encounter Summary ---
Author Organization [facility] Address [facility] [place] [address] Care Team Providers Care Machine Tool Builder Name Role Phone Gabe Rodriguez Primary Care Provider [phone] Reason for Visit * Reason Comments Skin Check Dermatitis Encounter Details Date Type Department Care Team (Late st Contact Info) Description 08/08/2017 2:15 PM EST Office Visit Dermatology at [address] [id number] Michael Bailey MD [address] [facility], [facility] [place] [address] Psoriasiform dermatitis Social History Tobacco Use Types Packs/Day Years Used Date Smoking Tobacco: Former Cigars Q uit: 02/11/2014 Smokeless Tobacco: Never Sex and Gender Information Value Date Recorded Sex Assigned at Not on file Gender Identity Not on file Sexual Orientation Not on file documented as of this encounter Progress Notes * Michael Bailey MD - 08/08/2017 2:15 PM EST PROBLEM: Follow up psoriasiform hand dermatitis. Quintin follows up and is now 71. I last saw him in 06/2014. We were able to get the Clobex spray for him which has worked well and made the 1-year supply last until just now. However, now he needs refills and hopes that I can help him go through the prior authorization process again to obtain this again. 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 Triamcinolone ointment, mometasone cream, clobetasol cream were not effective. He had also used Spectazole cream for 2 weeks with no benefit. Punch biopsy from the right base of his small finger confirmed the diagnosis. Eventually, he was prescribed Clobex spray which worked well for him and he would like to have refills. Patient states that about a year ago he went back to [place] for a visit and did obtain another prescription clobetasol cream. He used that recently and it has not really helped his hand problem. 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 The back and buttocks and the scalp are clear. Today he does not have any deep-seated fissuring or cracking of his hands but fortunately moderate psoriasiform hand dermatitis. A/P: Psoriasiform hand dermatitis. a. Recommend that we again obtain Clobex spray for the patient to use on a q. day b.i.d. basis for his hands. b. Also recommend continuing aggressive emollient therapy with CeraVe cream, obtain over the counter. c. Continue using Dove or Ivory soap as good soap products. d. Patient is currently being followed by Gabe Rodriguez. Follow up here p.r.n. NOTE: The patient describes today an episode where he has significant numbness and a heavy feeling in his left arm with mild exertion. He is having episodes also of marked diaphoresis on occasion. I strongly urged him to call his PCP and to go over this with him. 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
--- OUTSIDE RECORDS SUMMARY | 2024-03-20 18:13 | XMS_ITS | Encounter Summary ---
Author Organization [facility] Address [address] [place] [address] Care Team Providers Care Primary Care Sales Representative Name Role Phone Unknown, Provider Primary Care Provider [phone] Encounter Details Date Type Department Care Team (Late st Contact Info) Description 09/10/2020 Lab Requisition [facility] Pathology & Laboratory Medicine - [facility] [address], [place] [id number] Outr Resulting Lab, Provider Social History Tobacco [...] Associated Diagnosis Comments PSA TOTAL, DIAGNOSTIC Routine 09/10/2020 11:00 EST documented in this encounter Results * PSA TOTAL, DIAGNOSTIC (09/10/2020 11:00 EST) PSA 1.4 0.0 - 6.5 ng/mL 09/10/2020 22:11 EST [facility] Blood VENOUS BLOOD / Unknown 09/10/2020 11:00 EST 09/10/2020 20:32 EST Narrative [facility] - 09/10/2020 22:11 EST NOTE: Serum PSA concentration should not be interpreted as absolute evidence for the presence or absence of malignant disease. Assayed on Siemens ADVZazubaaur XPT using chemiluminescent technology.??Values obtained by using different assay methods cannot be used interchangeably. Provider Outr Resulting Lab CHEMISTRY & BLOOD GAS ORDERABLES [facility] [address] [place] [address] documented in this encounter Visit Diagnoses Not on filedocumented in this encounter Care Teams Primary Care Sales Representative Relationship Specialty Start Date End Date Unknown, Provider, PCP - General 07/31/19 documented as of this encounter
--- OUTSIDE RECORDS SUMMARY | 2024-03-20 18:13 | XMS_ITS | Encounter Summary ---
Author Organization [facility] [place] [address] Care Team Providers Care Store Person Name Role Phone Gabe Rodriguez Primary Care Provider [phone] Reason for Visit * Reason Comments Pain Management Back Pain Encounter Details Date Type Department Care Team (Late st Contact Info) Description 10/13/2017 1:00 PM EDT Office [place] [address] [facility] [place] [address] Encounter for long-term use of opiate analgesic (Primary Dx); Lumbar spondylosis Social History Tobacco Use Types Packs/Day Years Used Date Smoking Tobacco: Former Cigars Q uit: 02/11/2014 Smokeless Tobacco: Never Sex and Gender Information Value Date Recorded Sex Assigned at Not on file Gender Identity Not on file Sexual Orientation Not on file documented as of this encounter Last Filed Vital Signs Vital Sign Reading Time Taken Comments Blood Pressure 137/75 10/13/2017 12:33 PM EDT Pulse 76 10/13/2017 12:33 PM EDT Temperature - - Respiratory Rate - - Oxygen Saturation 98% 10/13/2017 12:33 PM EDT Inhaled Oxygen Concentration - - Weight 114.8 kg (253 lb) 10/13/2017 12:33 PM EDT Height 177.8 cm (5' 10) 10/13/2017 12:33 PM EDT Body Mass Index 36.3 10/13/2017 12:33 PM EDT documented in this encounter Progress Notes * Елена Coreas - 10/13/2017 1:00 PM EDT Pain Clinic Follow Up Note DOS: 10/13/17 Date of : 1945 Referred By: Gabe Rodriguez PA [address] [place] [address] PCP: KATELYN Gamble Quintin Dewitt is a 72 y.o. year old male with a PMH including diabetes mellitus, hypertension, hyperlipidemia, c-spine surgery, chronic back pain, who presents to the pain clinic today for 28 day follow up. He was previously followed by Jaymie Gonzales APRN at [facility]. CC: Chief Complaint Patient presents with ??? Pain Management ??? Back Pain Opioid agreement signed date: signed today Most recent UDT results and date: UDT 08/18/17 per Jaymie's note from [facility], checked again today due to establishing care at [facility] and we do not have prior results available [place] and [place] Prescription Monitoring Program were checked and no concerns were identified. ORT score and date: 0 Naloxone discussed?: will address at next visit Home storage of opioids: medications hidden, recommended locked box HPI: Quintin Dewitt is a 72 y.o. year old male with a PMH including diabetes mellitus, hypertension, hyperlipidemia, chronic back pain, who presents to the pain clinic today for 28 day follow up. He waspreviously followed by Jaymie Gonzales APRN at [facility] and is transferring his care to [facility]. Per review of her last note, patient has never demonstrated concerning behavior and urine screens have always been consistent. He is currently on a regimen of oxycodone acetaminophen 5 mg-325 mg tab, 1 tab 4 times daily as needed for pain. No hospitalizations or ED visits since he was last seen. No changes in his medical history. PAIN ASSESSMENT: Location of Pain: low back with radiation to low extremities, also burning foot pain due to DM Description of Pain: shooting pain in low back and legs, burning in feet Associated Symptoms: occasional numbness/tingling in legs but this varies Alleviating factors: current pain medication, staying active/walking Aggravating factors: standing for long period time, climbing stairs, cold weather Pain score: 6/10 today, 6/10 at worst, 5/10 at best, 5/10 on average (all in past week) GOALS OF THERAPY: In warm weather, he walks at least a mile per day but has not been able to do so due to winter weather- looking forward to being able to do this again soon CURRENT THERAPIES: Percocet 5-325 mg 4 times daily PRN Lyrica 100 mg BID PAST THERAPIES: Prior Treatments/Medications (Per prior notes and patient): Medications : Topicals - biofreeze NSAIDs - not tried Acetaminophen - takes oxycodone-acetaminophen Antidepressants - not tried duloxetine or effexor Antieptileptics - not tried gabapentin as far as he is aware Opioids - fentanyl patches - stopped 4-5 years ago, has been on percocet since about that same timewhen fentanyl patches were discontinued Has TENS unit - doesn't help PT: Many times in the past Surgery: reports history of 3 prior back surgeries Injections: Per patient description, he previously had medial branch blocks in the past without relief Apparently SCS was discussed with him at prior visits but he is not interested as his mother had this device without good experience OPIOID RISK ASSESSMENT OPIOID RISK TOOL Female Male 1. Family history of Substance Abuse Alcohol [] 1 [] 3 Illegal Drugs [] 2 [] 3 Prescription Drugs [] 4 [] 4 2. Personal History of Substance Abuse Alcohol [] 3 [] 3 Illegal Drugs [] 4 [] 4 Prescription Drugs [] 5 [] 5 3. Age (param box if 16-45) [] 1 [] 1 4. History of Preadolescent Sexual Abuse [] 3 [] 0 5. Psychological Disease Attention Deficit Disorder, Obsessive Compulsive D/o, Bipolar, Schizophrenia [] 2 [] 2 Depression [] 1 [] 1 TOTAL: Comments about ORT in relation to this patient: Opioid Risk Category: low risk 0-3 Total Score Risk Category: 0-3 = Low Risk 4-7 = Moderate Risk > 8 = High Risk Suicide/Homicide Risks Suicidal ideations No Suicidal plans No Homicidal ideations No Other significant history History of DUI or DWI? No History of incarceration? Yes - 50 years ago for [place] History of discharge from another pain provider? No History of an inconsistent Urine Drug Screen? No Current use of a benzodiazepine? No Current use of other CAMP DIRECTOR depressant? No Current diagnosis of Obstructive Seep Apnea? {No CPAP use: No Repeated visits to acute care facilities of other care facilities seeking opioids? No Current ? No Repeated visits to urgent care facilities and/or emergency departments seeking opioids? No Evidence or risk of significant adverse events including falls or fractures? No Are you now or in past received methadone or suboxone (buprenorphine) from a clinic? No Ever participated in drug or alcohol rehabilitation program? No Share your pain medications or accept medications from family/friends? No Opioid storage Hides his medications ETOH use No Marijuana use No OPIOID FUNCTIONAL ASSESSMENT DATE 10/13/17 ANALGESIA What is your average pain level? 10 5-01/07 What has been your worst pain level? 01/07 Are you getting enough pain relief to make a difference in your functioning? Yes ADLs (physical and psychological functioning) How is your physical ability? improved How are family/social relationships? unchanged AFFECT How is your mood? improved How is your sleep? improved ADVERSE EFFECTS: Have you noticed any side effects from the medication? no ABERRANT BEHAVIOR Aberrant drug related behavior noted? no ROS: Constitutional: No unintentional weight loss, fevers, chills. Respiratory: No cough or shortness of breath. Cardiovascular: No chest pain. GI: No diarrhea, nausea, vomiting, or constipation. Reports his colonoscopy is scheduled for December. : No bladder changes or incontinence. Musculoskeletal: No muscle weakness. Neurologic: occasional numbness/tingling in legs. No falls. Psychiatric: Mood good, denies depression. No SI/HI. PMH/PSH/FAMILY HISTORY: Reviewed and no interval changes. SOCIAL HISTORY: Tobacco : cigars, quit smoking cigarettes ~20 years ago Alcohol : denies Recreational drug use : denies Home: Lives in senior housing, independent living FUNCTIONAL STATUS: Independent in all ADLs. MEDICATIONS: Current Outpatient Prescriptions: ??? lisinopril (PRINIVIL;ZESTRIL) 5 mg Tablet, Take 5 mg by mouth daily., Disp: , Rfl: 0 ??? topiramate (TOPAMAX) 25 mg Capsule, Sprinkle, Take 25 mg by mouth 2 times daily., Disp: , Rfl: ??? Clobetasol 0.05 % [place], Non-Aerosol, Apply 1 spray topically daily., Disp: , Rfl: ??? aspirin 81 mg Tablet, Delayed Release (E.C.), Take 81 mg by mouth daily., Disp: , Rfl: ??? LANTUS SOLOSTAR pen, Inject 28 Units subcutaneously nightly., Disp: , Rfl: 0 ??? LYRICA 100 mg Capsule, Take 100 mg by mouth 2 times daily., Disp: , Rfl: 0 ??? simvastatin (ZOCOR) 40 mg Tablet, Take 40 mg by mouth nightly., Disp: , Rfl: 0 ??? metFORMIN (GLUCOPHAGE) 1,000 mg Tablet, Take 1,000 mg by mouth 2 times daily (with meals)., Disp: , Rfl: ??? oxyCODONE-acetaminophen (PERCOCET) 5-325 mg Tablet, Take 1 tablet by mouth every 6 hours as needed for Pain., Disp: 112 tablet, Rfl: 0 PDMP Reviewed and no inconsistencies noted. ALLERGIES: No Known Allergies PHYSICAL EXAM: General: Patient is seated comfortably in NAD, well-groomed. HEENT: Head atraumatic, EOMI. Respiratory: Breathing comfortably on RA. Lungs CTA bilaterally. Cardiovascular: RRR, Extremities warm, well-perfused. Skin: No appreciable rashes or skin breakdown Psych: Appropriate affect, A&Ox3 , answers questions appropriately, makes good eye contact Musculoskeletal: Decreased ROM of lumbar spine with flexion to 45??, extension to 10?? with end range discomfort with extension > flexion. + Modified Kemps test. + lumbar paraspinal tenderness bilaterally. A/P: Quintin Dewitt is a 72 year old male with a PMH including diabetes mellitus, hypertension, hyperlipidemia, c-spine surgery, chronic back pain, who presents to the pain clinic today for 28 day follow up. He was previously followed by Jaymie Gonzales APRN at [facility]. Patient has not benefited from physical therapy in the past. TENS unit was not helpful. We discussed the option of medial branch blocks, given the findings of positive modified Kemps test on exam. However, from the description that patient provides, it appears that he has trialed medial branch blocks in the past and states this procedure was not helpful and therefore he did not proceed with the radiofrequency ablation. Per patient report, spinal cord stimulation has also been discussed in the past and he was providedtake-home materials to review. However he reports that his mother had a spinal cord stimulator and did not have a good experience and therefore this is not something he is interested in. Per review of Jaymie's last office note, patient has never demonstrated concerning behavior and urine screens have always been consistent. He is currently on a regimen of oxycodone acetaminophen 5 mg-325 mg tab, 1 tab 4 times daily as needed for pain. I reviewed the controversial practice of using opioid medication to treat nonmalignant pain. I explained that due to the rampant misuse of opioids, patients need to demonstrate some functional benefit in order to justify staying on the medication. I discussed the risks and potential side effects ofopioid medications, that include but are not limited to, addiction, dependence, tolerance, osteoporosis, constipation, and sexual dysfunction. Because he is now going to follow up at [facility], the patient understands that he will need to provide a urine sample for Urine drug screen today and sign an opioid agreement, which will be scanned into his chart. Follow up with Jaymie Gonzales in 28 days. This patient was seen without attending involvement. Елена Coreas DO [facility] Pain Medicine Fellow CC: Gabe Rodriguez PA [address] [place] [id number] * Madison Olvera DO - 10/13/2017 1:00 PM EDT I was the attending physician supervising the resident in the above care. For the purposes of billing, the resident provided the care. MADISON OLVERA DO, MPH Web Development Instructor of Anesthesiology/Formerly [facility], [facility] [employer] at [facility] Java Consultant, Pain Medicine Fellowship ABPM&R - Subspecialty board certification in Pain Medicine documented in this encounter Plan of Treatment Not on file documented as of this encounter Procedures Procedure Name Priority Date/Time Associated Diagnosis Comments RAPID DRUG SCREEN, COMPLIANCE MONITORING Routine 10/13/2017 2:00 PM EDT Encounter for long-term use of opiate analgesic DRUGS OF ABUSE COMPLIANCE MONITORING PANEL, URINE Routine 10/13/2017 2:00 PM EDT Encounter for long-term use of opiate analgesic TARGETED OPIOID PANEL, COMPLIANCE MONITORING Routine 10/13/2017 2:00 PM EDT Encounter for long-term use of opiate analgesic documented in this encounter Results * (ABNORMAL) Targeted Opioid Panel, Compliance Monitoring (10/13/2017 2:00 PM EDT) Targeted Opioid Panel, Urine (MAY) Test ?Result ? Flag ??Unit ?? RefValue ------- Targeted Opioid Screen, U ??Codeine ? Not Detected ? ng/mL ??Cutoff: 25 ?Tylenol 3 ??Inbmzae-1-xlrv-g lucuronide ?Not Detected ? ng/mL ??Cutoff: 100 ?Metabolite of codeine ??Morphine ?Not Detected ? ng/mL ??Cutoff: 25 ?Irene Del Cid, MS Contin; Also a minor metabolite (10%) of ?codeine and can be seen in low concentrations (<2,000 ?ng/mL) with poppy seed ingestion. ??Gljwpwqq-2-vkua- glucuronide ? Not Detected ? ng/mL ??Cutoff: 100 ?Metabolite of morphine ??6-monoacetylmorp niharika ?Not Detected ? ng/mL ??Cutoff: 25 ?Metabolite of heroin ??Hydrocodone ? Not Detected ? ng/mL ??Cutoff: 25 ?Lortab, Conde, Vicodin; Also a very minor metabolite of ?codeine and impurity (<1%) of oxycodone. ??Norhydrocodone ?Not Detected ? ng/mL ??Cutoff: 25 ?Metabolite of hydrocodone ??Dihydrocodeine ?Not Detected ? ng/mL ??Cutoff: 25 ?Metabolite of hydrocodone ??Hydromorphone ? Not Detected ? ng/mL ??Cutoff: 25 ?Dilaudid, Exalgo; Also a metabolite of hydrocodone and a ?minor (<5%) metabolite of morphine. ??Hydromorphone-3- beta-glucuronide ?Not Detected ? ng/mL ??Cutoff: 100 ?Metabolite of hydromorphone ??Oxycodone ? Present ? @ ?ng/mL ??Cutoff: 25 ?Endocet, Percocet, Oxycontin ??Noroxycodone ?Present ? @ ?ng/mL ??Cutoff: 25 ?Metabolite of oxycodone ??Oxymorphone ? Not Detected ? ng/mL ??Cutoff: 25 ?Numorphan, Opana; Also a metabolite of oxycodone. ??Jlmawaenzey-3-up ta-glucuronide ?Present ? @ ?ng/mL ??Cutoff: 100 ?Metabolite of oxymorphone ??Noroxymorphone ?Present ? @ ?ng/mL ??Cutoff: 25 ?Metabolite of oxymorphone ??Fentanyl ?Not Detected ? ng/mL ??Cutoff: 2 ?Actiq, Duragesic, Fentora ??Norfentanyl ? Not Detected ? ng/mL ??Cutoff: 2 ?Metabolite of fentanyl ??Meperidine ?Not Detected ? ng/mL ??Cutoff: 25 ?Demerol ??Normeperidine ? Not Detected ? ng/mL ??Cutoff: 25 ?Metabolite of meperidine ??Naloxone ?Not Detected ? ng/mL ??Cutoff: 25 ?Narcan ??Gsiqesfx-8-hfvu- glucuronide ? Not Detected ? ng/mL ??Cutoff: 100 ?Metabolite of naloxone ??Methadone ? Not Detected ? ng/mL ??Cutoff: 25 ?Dolophine ??EDDP ?Not Detected ? ng/mL ??Cutoff: 25 ?Metabolite of methadone ??Propoxyphene ?Not Detected ? ng/mL ??Cutoff: 25 ?Darvon, Darvocet ??Norpropoxyphene ? Not Detected ? ng/mL ??Cutoff: 25 ?Metabolite of propoxyphene ??Tramadol ?Not Detected ? ng/mL ??Cutoff: 25 ?Tradol, Ultram, Ultracet ??O-desmethyltrama dol ? Not Detected ? ng/mL ??Cutoff: 25 ?Metabolite of tramadol ??Tapentadol ?Not Detected ? ng/mL ??Cutoff: 25 ?Nucynta ??N-desmethyltapen tadol ? Not Detected ? ng/mL ??Cutoff: 50 ?Metabolite of tapentadol ??Tapentadol-beta- glucuronide ? Not Detected ? ng/mL ??Cutoff: 100 ?Metabolite of tapentadol ??Buprenorphine ? Not Detected ? ng/mL ??Cutoff: 5 ?Buprenex, Suboxone ??Norbuprenorphine ?Not Detected ? ng/mL ??Cutoff: 5 ?Metabolite of buprenorphine ??Norbuprenorphine glucuronide ?Not Detected ? ng/mL ??Cutoff: 20 ?Metabolite of buprenorphine ??Opioid Interpretation ? SEE COMMENTS ?Test detected the presence of oxycodone and several ?metabolites (noroxycodone, noroxymorphone, and ?rodfqzsmijs-7-ws ta-glucuronide). Suspect use of oxycodone ?or possibly oxycodone and oxymorphone within the past three ?days. ? ---ADDITIONAL INFORMATION------- ?This test was developed and its performance characteristics ?determined by [facility] in a manner consistent with CLIA ?requirements. This test has not been cleared or approved by ?the U.S. Food and Drug Administration. ?Test Performed by: ?[facility] ?[address] [place] [address](A) [facility] Urine specimen (specimen) 10/13/2017 2:00 PM EDT 10/13/2017 2:57 PM EDT Narrative Resulting Agency Comment Spec In Lab Елена Coreas DO URINE ORDERABLES [facility] [place] [address] * Rapid Drug Screen, Compliance Monitoring (10/13/2017 2:00 PM EDT) Barbiturates Screen, Urine None Detected None Detected [facility] Comment: The barbiturate screen detects barbiturates at concentrations >200 ng/mL. Note: Not all barbiturates cross-react equally with antibody used in this screen. A ? Presumptive Positive? result indicates that the screening result was positive but has not yet been confirmed by a highly-specific method. As with any screen, occasional false positive results from cross-reacting substances may occur. Not for Medico-Legal Purposes. Benzodiazepines Screen, Urine None Detected None Detected [facility] Comment: The benzodiazepines screen detects benzodiazepines at concentrations >100 ng/mL. Not all benzodiazepines cross-react equally with antibody used in this screen. Due to the low dosage of clonazepam, false negatives may be obtained due to low concentration of clonazepam metabolites. A ? Presumptive Positive? result indicates that the screening result was positive but has not yet been confirmed by a highly-specific method. As with any screen, occasional false positive results from cross-reacting substances may occur. Not for Medico-Legal Purposes. Cocaine Screen, Urine None Detected None Detected [facility] Comment: The cocaine metabolites screen detects benzoylecgonine (Cocaine Metabolite) at concentrations >150 ng/mL. A ? Presumptive Positive? result indicates that the screening result was positive but has not yet been confirmed by a highly-specific method. As with any screen, occasional false positive results from cross-reacting substances may occur. Not for Medico-Legal Purposes. Cannabinoid Screen, Urine None Detected None Detected [facility] Comment: The marijuana metabolites screen detects the THC metabolite (36-lsj-1-carboxy-delta 9-THC) at concentrations >20 ng/mL. A ? Presumptive Positive? result indicates that the screening result was positive but has not yet been confirmed by a highly-specific method. As with any screen, occasional false positive results from cross-reacting substances may occur. Not for Medico-Legal Purposes. Tricyclics Screen, Urine None Detected None Detected [facility] Comment: The tricyclics screen detects tricyclic antidepressants at concentrations >150 ng/mL. Not all tricyclics cross-react equally with the antibody used in this screen. A ? Presumptive Positive? result indicates that the screening result was positive but has not yet been confirmed by a highly-specific method. As with any screen, occasional false positive results from cross-reacting substances may occur. Not for Medico-Legal Purposes. Ethanol Screen, Urine None Detected None Detected [facility] Comment:This urine ethanol a ssay detects ethanol at concentrations >/= 100 mg/L. Amphetamines Screen, Urine None Detected None Detected [facility] Comment: The amphetamine screen detects d-amphetamine and d-methamphetamine at concentrations >300 ng/mL. A ? Presumptive Positive? result indicates that the screening result was positive but has not yet been confirmed by a highly-specific method. As with any screen, occasional false positive results from cross-reacting substances may occur. Not for Medico-Legal Purposes. Adulterants Screen, Urine None Detected None Detected [facility] Comment: No adulteration or dilution of this urine sample was detected. All urine samples submitted for urine drugs of abuse analysis are tested for creatinine concentration, pH, and for the presence of oxidants, nitrites, and chromate. Urine specimen (specimen) 10/13/2017 2:00 PM EDT 10/13/2017 2:29 PM EDT Narrative Resulting Agency Comment Spec In Lab Елена Coreas DO URINE ORDERABLES Performing Organization Address City/State/[facility] Co de Phone Number [facility] [place] [address] documented in this encounter Visit Diagnoses Diagnosis Encounter for long-term use of opiate analgesic- Primary Encounter for long-term (current) use of other medications Lumbar spondylosis Lumbosacral spondylosis without myelopathy documented in this encounter Care Teams Store Person Relationship Specialty Start Date End Date Gabe Rodriguez PA [address] [place] [address] PCP - General General Internal Medicine 07/19/1709/28 documented as of this encounter
--- OUTSIDE RECORDS SUMMARY | 2024-03-20 18:13 | XMS_ITS | Encounter Summary ---
Author Organization Formerly [facility] Address [facility] [place] [address] Care Team Providers Care Cutting Room Supervisor Name Role Phone Gabe Rodriguez Primary Care Provider [phone] Encounter Details Date Type Department Care Team (Late st Contact Info) Description 08/11/2014 Interpretation Only Radiology [address] [place] [address] [place] [id number] Unknown None Social History Tobacco Use Types [...] Name Priority Date/Time Associated Diagnosis Comments XR FLUORO NO RAD <1HR - RADIOLOGY USE Routine 08/11/2014 7:24 AM EST documented in this encounter Results * XR Fluoro <1Hr - Radiology Use (08/11/2014 7:24 AM EST) Anatomical Region Laterality Modality N/A Radiographic Daniela ging 08/11/2014 7:24 AM EST Narrative 08/11/2014 7:24 AM EST APD Historical Result Principal Medical Professionals: ??COREY ??JEFFERY C-ARM FLUOROSCOPY: HISTORY: ??ACDF, C5-6. TECHNIQUE: ??A total of 4.1 seconds of fluoroscopic time corresponding to a dose of 71.2 mrad was used by Dr Perez during localization and cervical fusion of C5-6. ??Crosstable supine digital spot film of the cervical spine documents a marker at the C5-6 cervical level from the anterior approach. ??Final image documents anterior plate and interbody bony fusion of the C5-6 level. ?? Alignment is anatomic. ??A Radiologist was not present during the examination. IMPRESSION: C-arm fluoroscopy and spot films aiding in anterior cervical discectomy and fusion. Corey Jessica MD Swetha [id number] CC: Procedure Note Unknown - 01/28/2019 APD Historical Result Principal Medical Professionals: COREY JESSICA C-ARM FLUOROSCOPY: HISTORY: ACDF, C5-6. TECHNIQUE: A total of 4.1 seconds of fluoroscopic time corresponding to adose of 71.2 mrad was used by Dr Perez during localization and cervical fusion ofC5-6. Crosstable supine digital spot film of the cervical spine documents a marker at the C5-6 cervical levelfrom the anterior approach. Final image documents anterior plate and interbody bony fusionof the C5-6 level. Alignment is anatomic. A Radiologist was not present during the examination. IMPRESSION: C-arm fluoroscopy and spot films aiding in anterior cervicaldiscectomy and fusion. Corey Jessica MD Swetha [id number] CC: Unknown IMG FLUORO ORDERABLE S documented in this encounter Visit Diagnoses Not on filedocumented in this encounter Care Teams Cutting Room Supervisor Relationship Specialty Start Date End Date Gabe Rodriguez PA [address] [place] [address] PCP - General General Internal Medicine 07/19/1709/28 documented as of this encounter
--- OUTSIDE RECORDS SUMMARY | 2024-03-20 18:13 | XMS_ITS | Encounter Summary ---
Author Organization [facility] Address [address] [place] [address] Care Team Providers Care Ems Driver Name Role Phone Unknown, Provider Primary Care Provider [phone] Encounter Details Date Type Department Care Team (Late st Contact Info) Description 12/11/2023 Lab Requisition [facility] Pathology & Laboratory Medicine - [facility] [address] [place] [address] Outr Resulting Lab, Provider Social History Tobacco [...] Associated Diagnosis Comments PSA TOTAL, DIAGNOSTIC Routine 12/11/2023 9:50 EDT documented in this encounter Results * PSA TOTAL, DIAGNOSTIC (12/11/2023 9:50 EDT) PSA 2.0 <=6.5 ng/mL 12/11/2023 18:30 EDT [facility] Blood VENOUS BLOOD / Unknown 12/11/2023 9:50 EDT 12/11/2023 16:56 EDT Narrative [facility] - 12/11/2023 18:30 EDT NOTE: Serum PSA concentration should not be interpreted as absolute evidence for the presence or absence of malignant disease. Assayed on Siemens ADVIA [employer] XPT using chemiluminescent technology.??Values obtained by using different assay methods cannot be used interchangeably. Provider Outr Resulting Lab CHEMISTRY & BLOOD GAS ORDERABLES [facility] [address] [place] [address] documented in this encounter Visit Diagnoses Not on filedocumented in this encounter Care Teams Ems Driver Relationship Specialty Start Date End Date Unknown, Provider, PCP - General 07/31/19 documented as of this encounter
--- OUTSIDE RECORDS SUMMARY | 2024-03-20 18:13 | XMS_ITS | Encounter Summary ---
Author Organization [facility] Address [facility] [place] [address] Care Team Providers Care Encyclopedia Research Worker Name Role Phone Mei Javier Primary Care Provider [phone] Encounter Details Date Type Department Care Team (Late st Contact Info) Description 10/02/2020 4:15 PM EST Office Visit Dermatology at [address] [id number] Michael Bailey MD [address] [facility], [facility] [place] [address] Cellulitis, unspecified cellulitis site Social History Tobacco Use Types Packs/Day Years [...] Progress Notes * Michael Bailey MD - 10/02/2020 4:15 PM EST Problem: 1. Acute 36-hour history of swelling of penile shaft and left scrotum 2. Awaiting shave biopsy results to rule out CTCL, last visit 09/29/2020 Quintin follows up after last being seen 3 days ago at which time I did shave biopsies from the upper anterior thigh upper inguinal fold and submitted these for histologic evaluation. Unfortunately over the last 36 hours the patient is noted increased redness swelling and marked pain of the left penile shaft and the left scrotum. Patient states that he does not catheterize himself. He had no injury to the penis or scrotum. He does not use any particular ointment or cream for this area. Does wake up every 3-4 hours with burning stinging and marked sweating in the inguinal area, he states this is a family trait, and he gets up and goes to the bathroom and washes himself off and then dries himself. He denies any urinary incontinence, just describes hyperhidrosis Physical examination shows no evidence of erythema or infection around the 2 shave biopsy sites. Bandages are in place, along with bacitracin ointment. Inferiorly and well distal to the biopsy sites marked erythema and swelling of the left penile shaft which is exquisitely tender and painful to palpation and examination, and swelling of the left aspect of the scrotum. There is no erythema of the surrounding inguinal fold. He has no new dermatitis elsewhere. Assessment plan: Acute swelling pain of left penile shaft and left scrotum 1. Suspect cellulitis from unclear source, possibly from nighttime cleansing's. 2. No pustular drainage no area to culture. Likely staph or strep etiology 3. Begin cephalexin 500 mg 1 p.o. 4 times daily x7 days. Dispense #28 with 0 refills. 4. I will contact the patient's urologist Dr. Duong today to update him on these developments. Rule out CTCL widespread involvement flexural skin areas 1. Patient will begin triamcinolone 0.1% cream applying twice daily to affected areas. 2. He reminds me that he wakes up every night with profuse sweating burning and stinging in the groin area, and must wash himself every 3-4 hours before going back to bed. 3. Patient denies urinary incontinence. Current swelling/cellulitis might have been accidentally induced while cleaning himself at night with a washcloth. Would suspect possible staph/strep etiology which would be covered by cephalexin 4. We will contact patient with biopsy results when we have these in the week and recommend furthertreatment after that. CC: Mei Duong MD [facility] Urology documented in this encounter Plan of Treatment Not on file documented as of this encounter Visit Diagnoses Diagnosis Cellulitis, unspecified cellulitis site documented in this encounter Care Teams Encyclopedia Research Worker Relationship Specialty Start Date End Date Mei Javier [address] [place] [address] PCP - General Family Medicine 09/29/20 documented as of this encounter
--- OUTSIDE RECORDS SUMMARY | 2024-03-20 18:13 | XMS_ITS | Encounter Summary ---
Author Organization [facility] [place] [address] Care Team Providers Care Supervisor Particleboard Name Role Phone Gabe Rodriguez Primary Care Provider [phone] Encounter Details Date Type Department Care Team (Late st Contact Info) Description 01/01/2018 10:31 AM EDT Anesthesia [place] [address] Alice Juan MD [facility] [place] [place] [address] GabiPeggy Thompson CRNA [facility] [place] [address] Anesthesia Record Procedure Summary Procedure Name Responsible Anesthesiologist Anesthesia Start Time Anesthesia Stop Time COLONOSCOPY, DIAGNOSTIC (WRVU 3.26) (Trunk) Alice Juan MD 01/01/18 1031 01/01/18 1111 Events Date Time Event Comment 01/01/2018 1014 1031 Start 1033 AN Verify 1033 An Start Data 1038 An Induction 1041 Anesthesia Ready 1100 an stop data 1111 Recovery or ICU Handoff Jane ent care was transferred to the destination unit staff after review of the patient's medical history, current anesthetic/surgical status and plan, according to the Provider Handoff Checklist. 1111 Stop Meds Name Total IV Lidocaine 60 mg Propofol 70 mg Propofol INF 343.13 mg lactated Ringers infusion 300 mL * Agents Name O2 * Blood No blood administrations on file. Lines, Drains, and Airways Type Details Placement Removal (RETIRED) Peripheral IV Line - Single Lumen 01/01/18; 1005; metacarpal vein (top of hand), right; [id number] catheter system; 20 gauge; Brayan Negro RN; distraction, intradermal injection; 01/01/18; 1210 01/01/18 1005 by Stephanie Sheppard RN 01/01/18 1210 by Royce Szymanski RN documented in this encounter Social History Tobacco Use Types Packs/Day Years [...] on file documented as of this encounter OR Notes * Anesthesia Postprocedure Evaluation - Alice Juan MD - 01/01/2018 12:40 PM EDT [facility] Department of Anesthesiology Post-procedure Note Patient: Quintin Dewitt Procedure Summary Date Anesthesia Start Anesthesia Stop Room / Location 01/01/18 1031 1111 [facility] ENDO 5 / [facility] ENDOSCOPY Procedure Diagnosis Surgeon Responsible Provider COLONOSCOPY, DIAGNOSTIC (N/A Trunk); COLONOSCOPY, POLYPECTOMY, REMOVAL LESION BY SNARE (WRVU 4.67) (N/A ); COLONOSCOPY; W CONTROL OF BLEEDING, ANY METHOD Diarrhea, unspecified type (explosive diarrhea, abd pain x 6 months. Hx smoking. ? microscopic colitis, inflammation. Please take biopsies.; (consult)) Kristan Washington MD [place], John W, MD All Anesthesia Providers: Anesthesiologist: Alice Juan MD RUCHING MACHINE OPERATOR: Peggy Ashley CRNA Most Recent Vitals: 01/01/18 1201 BP: 115/73 Pulse: 67 Resp: 16 SpO2: Pain Patient Location: PACU/SDP Level of Consciousness: Awake and Alert Pain Management: Satisfactory Analgesia PONV: None Cardiovascular Status: At Baseline and Hemodynamically Stable Respiratory Status: At Baseline and Room Air Postoperative Fluid Status: Intravascular EUvolemia Possible Anesthetic Complications: NONE apparent at time of evaluation Final Primary Anesthesia Type: MAC (The anesthetic type performed was the same as planned.) Comments: ALICE JUAN MD * Anesthesia Preprocedure Evaluation - Alice Juan MD - 01/01/2018 10:11 AM EDT Pre-Anesthesia Evaluation for: Quintin Dewitt a 72 y.o. male. Procedure(s): COLONOSCOPY, DIAGNOSTIC Patient Active Problem List Diagnosis ??? Chronic bilateral back pain ??? Psoriasiform dermatitis ? ? BPH (benign prostatic hyperplasia), seen by uro since 2010 & was found to have low Testosterone ? ? Hypogonadism-? narcotic induced (on Testos patch & gel low dose for 2-3y & off since ) ??? Diabetes mellitus type 2 ??? Hypertension (HTN) ??? Hyperlipidemia ??? Obesity ? ? OA (osteoarthritis) (DJD) & low back pain s/p lack surgeries x2 (10 & 25 yrs ago), off fentanyl patch ??? Esophageal reflux (GERD) ??? Chronic fatigue ? ? Decreased libido & ED Past Medical History: Diagnosis Date ??? Chronic bilateral back pain 11/09/2017 ??? Diabetes mellitus ??? Hyperlipidemia ??? Hypertension Past Surgical History: Procedure Laterality Date ??? SPINE SURGERY Social History Substance Use Topics ??? Smoking status: Former Smoker Types: Cigars Quit date: 02/11/2014 ??? Smokeless tobacco: Never Used ??? Alcohol use Yes Comment: rarely History Drug Use No No Known Allergies Medications: MAR and/or home medications have been reviewed. Physical Exam: Most Recent Vitals: 01/01/18 0939 BP: (!) 170/92 Pulse: 79 Resp: 16 SpO2: 96% Body mass index is 35.58 kg/(m^2). Height: 177.8 cm (5' 10) Weight: 112.5 kg (248 lb) Airway Assessment: Mallampati: II TM distance: >3 FB Neck ROM: full Cardiovascular Assessment: cardiovascular exam normal Pulmonary Assessment: pulmonary exam normal Dental Assessment: (+) upper dentures and lower dentures Misc Assessment: IV access: Peripheral line Anesthesia Plan: ASA 2 MAC, with a(n) intravenous induction NPO Region - Other Informed Consent: Anesthetic plan and risks discussed with patient. Plan discussed with RUCHING MACHINE OPERATOR. PAT Staff Note documented in this encounter Plan of Treatment Not on file documented as of this encounter Visit Diagnoses Not on filedocumented in this encounter Administered Medications Inactive Administered Medications - up to 3 most recent administrations Medication Order MAR Action Action Date Dose Rate Site lactated Ringers infusion 100 mL/hr, Intravenous, CONTINUOUS, Starting on Mon01/01/18 at 0945, Until Mon01/01/18 at 1210, Endoscopy (Day of Procedure) New Bag 01/01/2018 10:31 AM EDT New Bag 01/01/2018 10:05 AM EDT 100 mL/hr 100 mL/hr lidocaine (PF) (XYLOCAINE) 100 mg/5 mL (2 %) injection PRN, Starting on Mon01/01/18 at 1038, Until Mon01/01/18 at 1114, Anesthesia Intra-op, Routine Given 01/01/2018 10:38 AM EDT 60 mg propofol (DIPRIVAN) 10 mg/mL bolus injection (Anesthesia) PRN, Starting on Mon01/01/18 at 1038, Until Mon01/01/18 at 1114, Anesthesia Intra-op Given 01/01/2018 10:40 AM EDT 20 mg Given 01/01/2018 10:38 AM EDT 50 mg propofol (DIPRIVAN) infusion CONTINUOUS PRN, Starting on Mon01/01/18 at 1038, Until Mon01/01/18 at 1114, Anesthesia Intra-op, Routine Rate/Dose Change 01/01/2018 10:45 AM EDT 150 mcg/kg/min 101.3 mL/hr New Bag 01/01/2018 10:38 AM EDT 200 mcg/kg/min 135 mL/h r documented in this encounter Care Teams Supervisor Particleboard Relationship Specialty Start Date End Date Gabe Rodriguez PA [address] [place] [address] PCP - General General Internal Medicine 07/19/1709/28 documented as of this encounter
--- OUTSIDE RECORDS SUMMARY | 2024-03-20 18:13 | XMS_ITS | Encounter Summary ---
Author Organization [facility] [place] [address] Care Team Providers Care Striping Machine Operator Name Role Phone Gabe Rodriguez Primary Care Provider Encounter Details Date Type Department Care Team (Late st Contact Info) Description 10/17/2017 Notes Only [place] [address] Елена Coreas, [facility] [place] [id number] Social History Tobacco Use Types Packs/Day Years Used Date Smoking Tobacco: Former Cigars Q uit: 02/11/2014 Smokeless Tobacco: Never Sex and Gender Information Value Date Recorded Sex Assigned at Not on file Gender Identity Not on file Sexual Orientation Not on file documented as of this encounter Progress Notes * Елена Coreas - 10/17/2017 4:29 PM EDT UDT from 10/13/17 consistent with prescribed medications. documented in this encounter Plan of Treatment Not on file documented as of this encounter Visit Diagnoses Not on filedocumented in this encounter Care Teams Striping Machine Operator Relationship Specialty Start Date End Date Gabe Rodriguez PA [address] [place] [address] PCP - General General Internal Medicine 07/19/1709/28 documented as of this encounter
--- OUTSIDE RECORDS SUMMARY | 2024-03-20 18:13 | XMS_ITS | Encounter Summary ---
Author Organization [facility] Address [address] [place] [address] Care Team Providers Care Firer Powerhouse Name Role Phone Unknown, Provider Primary Care Provider [phone] Encounter Details Date Type Department Care Team (Late st Contact Info) Description 12/20/2022 Lab Requisition [facility] Pathology & Laboratory Medicine - [facility] [address] [place] [address] Outr Resulting Lab, Provider Social History Tobacco [...] Associated Diagnosis Comments PSA TOTAL, DIAGNOSTIC Routine 12/20/2022 10:18 EDT documented in this encounter Results * PSA TOTAL, DIAGNOSTIC (12/20/2022 10:18 EDT) PSA 1.2 <=6.5 ng/mL 12/20/2022 19:11 EDT [facility] Blood VENOUS BLOOD / Unknown 12/20/2022 10:18 EDT 12/20/2022 16:44 EDT Narrative [facility] - 12/20/2022 19:11 EDT NOTE: Serum PSA concentration should not be interpreted as absolute evidence for the presence or absence of malignant disease. Assayed on Siemens ADVIA [employer] XPT using chemiluminescent technology.??Values obtained by using different assay methods cannot be used interchangeably. Provider Outr Resulting Lab CHEMISTRY & BLOOD GAS ORDERABLES [facility] [address] [place] [address] documented in this encounter Visit Diagnoses Not on filedocumented in this encounter Care Teams Firer Powerhouse Relationship Specialty Start Date End Date Unknown, Provider, PCP - General 07/31/19 documented as of this encounter
--- OUTSIDE RECORDS SUMMARY | 2024-03-20 18:13 | XMS_ITS | Encounter Summary ---
Author Organization [facility] [place] [address] Care Team Providers Care Director Emergency Department Name Role Phone Gabe Rodriguez Primary Care Provider [phone] Reason for Visit * Reason Comments Pain Management Encounter Details Date Type Department Care Team (Late st Contact Info) Description 11/09/2017 9:00 AM EDT Office [place] [address] Jaymie Gonzales APPLICATION DEVELOPMENT DIRECTOR [facility] [place] [address] Chronic bilateral back pain, unspecified back location Social History Tobacco Use Types Packs/Day Years Used Date Smoking Tobacco: Former Cigars Q uit: 02/11/2014 Smokeless Tobacco: Never Sex and Gender Information Value Date Recorded Sex Assigned at Not on file Gender Identity Not on file Sexual Orientation Not on file documented as of this encounter Last Filed Vital Signs Vital Sign Reading Time Taken Comments Blood Pressure 132/74 11/09/2017 8:56 AM EDT Pulse 103 11/09/2017 8:56 AM EDT Temperature - - Respiratory Rate - - Oxygen Saturation 95% 11/09/2017 8:56 AM EDT Inhaled Oxygen Concentration - - Weight 114.8 kg (253 lb) 11/09/2017 8:56 AM EDT Height 177.8 cm (5' 10) 11/09/2017 8:56 AM EDT Body Mass Index 36.3 11/09/2017 8:56 AM EDT documented in this encounter Progress Notes * Jaymie Gonzales, ALEJO - 11/09/2017 9:00 AM EDT Pain Clinic Follow Up Note DOS: 11/09/17 Date of : 1945 Referred By: Gabe Rodriguez PA [address] [place] [address] PCP: KATELYN Gamble Quintin Dewitt is a 72 y.o. year old male with a PMH including diabetes mellitus, hypertension, hyperlipidemia, c-spine surgery, chronic back pain, who presents to the pain clinic today for 28 day follow up. He was previously followed by Jaymie Gonzales APRN at [facility]. CC: Chief Complaint Patient presents with ??? Pain Management Opioid agreement signed date: signed today Most recent UDT results and date: UDT 08/18/17 per Jaymie's [place] [facility] checked again today due to establishing care at [facility] and we do not have prior results [...] waspreviously followed by Jaymie Gonzales APRN at [facility] and is transferring his care to [facility]. Per review of her last note, patient [...] period time, climbing stairs, cold weather Pain score:4-5/10 better than last month ( 6-7) Interval history: Quintin is a pleasant, 72-year-old gentleman who I have seen in the past at [facility]. He transferred his care down here to [facility] last month and saw Dr. Oneil and Dr. Keita. This is my first visit seeing him here at [facility]. Since I last saw him, he has spent the winter less active than he has. In the summer he was walking much more than a mile a day and since the winter has started he has been down to about half a day. He has recently had a stress test because he was having some chest pressure and was advised to ramp up his exercise a little bit more. He also has had increasing back pain, left leg pain and diabetic peripheral neuropathy. He has gained some weight over the winter. He has been advised to filler picker the pace for 15 minutes when he is out walking. He notes that the temperature and [place] more progress towards spring that it is here. His goal is to get back up to walking a mile or more per day. There have been no concerning behaviors in the [place] PD MP was checked with no concerns identified. GOALS OF THERAPY: In warm weather, he [...] 2 Depression [] 1 [] 1 TOTAL: 0 Comments about ORT in relation to this [...] a benzodiazepine? No Current use of other FLAKER OPERATOR depressant? No Current diagnosis of Obstructive Seep [...] ANALGESIA What is your average pain level? /10 [phone] What has been your worst pain level? 10 610 Are you getting enough pain relief to [...] all ADLs. MEDICATIONS: Current Outpatient Prescriptions: ??? omeprazole (PRILOSEC) 40 mg Capsule, Delayed Release(E.C.), Take 40 mg by mouth daily., Disp: ,Rfl: 0 ??? testosterone (ANDROGEL) 1 % (25 mg/2.5 g) Gel in Packet, Place 5 g onto the skin daily., Disp: , Rfl: ??? lisinopril (PRINIVIL;ZESTRIL) 5 mg Tablet, Take 5 mg by mouth daily., Disp: , Rfl: 0 ??? topiramate (TOPAMAX) 25 mg Capsule, Sprinkle, Take 25 mg by mouth 2 times daily., Disp: , Rfl: ??? oxyCODONE-acetaminophen (PERCOCET) 5-325 mg Tablet, Take 1 tablet by mouth every 6 hours as needed for Pain., Disp: 112 tablet, Rfl: 0 ??? aspirin 81 mg Tablet, Delayed Release [...] times daily (with meals)., Disp: , Rfl: PDMP Reviewed and no inconsistencies noted. ALLERGIES: Not on File PHYSICAL EXAM: General: Patient is seated comfortably [...] clinic today for 28 day follow up. I reviewed the controversial practice of using opioid medication to treat nonmalignant pain. I explained that due to the rampant misuse of opioids, patients need to demonstrate some functional benefit in order to justify staying on the medication. I discussed the risks and potential side effects ofopioid medications, that include but are not limited to, addiction, dependence, tolerance, osteoporosis, constipation, and sexual dysfunction. We have discussed that the consensus about how to treat chronic pain has changed over the last few years and particularly in the last year or so. The consensus is no longer to treat chronic pain withopiates but to stress other interventions such as physical therapy, mindfulness, other adjuvant medications and treatments. The patient states that he watches the news and understands this I knew this was coming. He and I have discussed the the relative merits of having him have a prescription for 2 months and then seeing his regular doctor in the interim or weaning off or having the help him with a slow wean. He has opted for a 2 month prescription. I have discussed with him however, how to wean down. He tells me he is not really interested in keeping the medications long-term and if the [facility] had its way I would still be on fentanyl. He was hoping to get a little bit further into spring before weaning but he is interested in getting off the medication ultimately and so Wilfird given him 2 prescriptions for oxycodone/acetaminophen No. 1 12 the first to be filled today and the second to be filled december 07. He understands that he will need to seek care elsewhere as we will no longer be prescribing chronic opiates in this facility for chronic pain patients. Because he is now going to follow up at [facility], the patient understands that he will need to provide a urine sample for Urine drug screen today and sign an opioid agreement, which will be scanned into his chart. Follow up with Jaymie Gonzales in 28 days. Jaymie Gonzales, MS, MARKET DEVELOPMENT EXECUTIVE-BC, APPLICATION DEVELOPMENT DIRECTOR Nurse practitioner [facility] pain management documented in this encounter Plan of Treatment Not on file documented as of this encounter Visit Diagnoses Diagnosis Chronic bilateral back pain, unspecified back location documented in this encounter Care Teams Director Emergency Department Relationship Specialty Start Date End Date Gabe Rodriguez PA [address] [place] [address] PCP - General General Internal Medicine 07/19/1709/28 documented as of this encounter
--- OUTSIDE RECORDS SUMMARY | 2024-03-20 18:13 | XMS_ITS | Encounter Summary ---
Author Organization [facility] Address [address] [place] [address] Care Team Providers Care Dental Billing Specialist Name Role Phone Unknown, Provider Primary Care Provider [phone] Encounter Details Date Type Department Care Team (Late st Contact Info) Description 02/18/2021 Lab Requisition [facility] Pathology & Laboratory Medicine - [facility] [address] [place] [address] Outr Resulting Lab, Provider Social History Tobacco [...] Comments ZZCOVID-19 TEST [facility] PCR Today 02/18/2021 14:05 EDT COVID-19 TESTING Routine 02/18/2021 14:0 5 EDT documented in this encounter Results * COVID-19 TEST [facility] PCR (02/18/2021 14:05 EDT) Swab ENTIRE NASOPHARYNX / Unknown 02/18/2021 14:05 EDT 02/19/2021 16:04 EDT Provider Outr Resulting Lab MICROBIOLOGY - GENERAL ORDERABLES [facility] [address] [place] [address] * COVID-19 TESTING (02/18/2021 14:05 EDT) COVID-19 rt-PCR Result Negative Negative 02/20/2021 12:56 EDT [facility] Comment: This test has [...] was performed using the maryam SARS-CoV-2 assay ([employer] on the Maryam 6800 System Performing Lab Maryam [address] [facility] Lab 02/20/2021 12:56 EDT [facility] Swab 02/18/2021 14:0 5 EDT 02/19/2021 16:04 EDT Provider Outr Resulting Lab MICROBIOLOGY - GENERAL ORDERABLES [facility] [address] [place] [address] documented in this encounter Visit Diagnoses Not on filedocumented in this encounter Care Teams Dental Billing Specialist Relationship Specialty Start Date End Date Unknown, Provider, PCP - General 07/31/19 documented as of this encounter
--- OUTSIDE RECORDS SUMMARY | 2024-03-20 18:13 | XMS_ITS | Encounter Summary ---
Author Organization [facility] Address [facility] [place] [address] Care Team Providers Care Manager French Name Role Phone Gabe Rodriguez Primary Care Provider [phone] Reason for Visit * Reason Comments GI Problem * Consultation (Urgent) - Closed Specialty Diagnoses / Procedures Referred By Christos kim Referred To Contact Gastroenterology Diagnoses loose bowels, gas bloating abd pain. Initial referral faxed 03/30/17 never got a call. Gabe Rodriguez PA [address] [place] [address] [facility] [address] [place] [address] Referral ID Status Reason Start Date Expiration Date V isits Requested Visits Authorized [id number] Closed Consult, [facility] & [facility] 07/19/2017 07/19/2018 1 1 Encounter Details Date Type Department Care Team (Latest Contact Info) Description 09/12/2017 3:00 PM EST Office [place] [id number] Naty Ramey PA [facility] [place] [address] Diarrhea, unspecified type; Lower abdominal pain; Nausea and vomiting, intractability of vomiting not specified, unspecified vomiting type Social History Tobacco Use Types Packs/Day Years Used Date Smoking Tobacco: Former Cigars Q uit: 02/11/2014 Smokeless Tobacco: Never Sex and Gender Information Value Date Recorded Sex Assigned at Not on file Gender Identity Not on file Sexual Orientation Not on file documented as of this encounter Last Filed Vital Signs Vital Sign Reading Time Taken Comments Blood Pressure 130/77 09/12/2017 3:08 PM EST Pulse 80 09/12/2017 3:08 PM EST Temperature - - Respiratory Rate - - Oxygen Saturation - - Inhaled Oxygen Concentration - - Weight 114.8 kg (253 lb) 09/12/2017 3:08 PM EST w/ shoes Height 177.8 cm (5' 10) 09/12/2017 3:08 PM EST Body Mass Index 36.3 09/12/2017 3:08 PM EST documented in this encounter Patient Instructions * Patient Instructions* Naty Ramey - 09/12/2017 3:00 PM EST Thank you for coming in today. Here is a summary of what we discussed: 1. Take omeprazole 30-60 minutes before a meal. You can take this before breakfast but if your symptoms are worse at night, take the omeprazole before dinner. 2. Schedule colonoscopy with biopsies 3. Office follow up after testing. documented in this encounter Progress Notes * Naty Ramey - 09/12/2017 3:00 PM EST Gastroenterology & Hepatology New Patient Consultation Note PCP: KATELYN Gamble Requesting Provider: KATELYN Gamble Reason for consultation: Quintin Dewitt is a 71 y.o. male with medical history significant for DM Type 2, HTN, hyperlipidemia, OA, GERD, BPH. I am seeing him as a new patient today in consult for question of diarrhea, abdominal pain. Subjective: HPI: Bowel habits: Mr. Dewitt reports his stools are pure liquid, a big explosion, has to clean the toilet. This has been going on for 6 months. At onset no new medications, no illness, travel. Has atleast three episodes of diarrhea daily at least. [place] 6, 7. Diarrhea occurs throughout the day. - Has urgency. Has had accidents (small amount). Wakes at night with urgency - No blood in stool, no melena. - Prior to onset: 1-2 bowel movements daily, [place] scale 4. - He noticed after eating salad at [employer] that diarrhea 2 hrs later had pieces of lettuce. (had not eaten salad the week before). - No hx of similar diarrhea. Not tried Imodium. Finds that cheese constipates him. # Abdominal pain/gurgling: generally lower discomfort but also upper. Pain there every day, worse right before a bowel movement. After 1-2 bowel movements, pain is better. This pain is not new but isworse with the diarrhea. - Has nausea. Vomiting once every few weeks, liquid. No blood. - A lot of gas. A lot of gurgling. - Raw peppers makes the abdominal pain worse. # GERD: Has heartburn, reflux. Worse at night. Wakes at night with gasses coming up into throat. Sleeps with a wedge pillow. Started omeprazole within last 90 days, takes in evening after meal. Notmuch help with reflux. Before that, took Prevacid x 10 years. No dysphagia, odynophagia. His last colonoscopy was when he lived in [place], probably about 9 yrs ago. Was told he had polyps removed and everything was normal (I do not have records). He recalls 2 total colonoscopies. Had EGD in the past (> 10 yrs ago); was told bleeding ulcer. PMHX: - Was diagnosed with DM Type 2 about 12 yrs ago. Has been on metformin for at least 10 yrs. Startedinsulin 6 months ago-- makes him very hungry. - He notes he is more fatigued in past 6 months; per ptn, had low testosterone result recently. Thyroid nl in 02/2017. - No well water. Diet review: B: cereal with milk L: sandwich (egg salad) D: salad bar at [employer], pepper sandwich Drinks water (~1 gallon/day - thirsty plus was told to drink a lot). Diet soda (1 cup to 18 oz daily), tea. No coffee. Weight: Gaining. 253 lbs today. Appetite: good Exercise: walks Diagnostic studies: 1. CT and, pelvis, 03/29/17 [facility]: No evidence of acute abdominal. 2. Labs (per PCP note 03/30/17, see eDH): CBC nl, CMP nl. TSH nl. Amylase 122 (25-115). Lipase nl (96). 3. Stool studies (per PCP note 03/30/17): Negative for lactoferrin, occult blood, bacterial pathogenPCR, Giardia, cryptosporidium. ROS: Constitutional: + 2-3 episodes of sweats after diarrhea, fatigue Denies unintended weight loss, fever Eyes: Denies red or painful eyes ENT: Denies oral ulcers, dysphagia, odynophagia Resp: Denies cough, shortness of breath Cardio: Occasional chest pain, : Denies dysuria, incontinence Integumentary: ongoing GI: see HPI Musculoskeletal: Denies new joint pain, stiffness, muscle aches, inflammatory arthritis Psych: Denies depression, anxiety Neuro: + numbness/tingling or weakness in feet ALL/IMMUNO: No Seasonal allergies. Denies frequent colds. MEDICAL HISTORY: Patient Active Problem List Diagnosis Code ? [...] low Testosterone N40.0 ??? 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 Clobetasol 0.05 % [place], Non-Aerosol ??? aspirin 81 mg Tablet, Delayed Release (E.C.) ??? LANTUS SOLOSTAR pen ??? omeprazole (PRILOSEC) 20 mg Capsule, Delayed Release(E.C.) ??? oxyCODONE-acetaminophen (PERCOCET) 5-325 mg Tablet ??? BD INSULIN PEN NEEDLE UF MINI 31 gauge x 16 Needle ??? LYRICA 100 mg Capsule ??? simvastatin (ZOCOR) 40 mg Tablet ??? glipiZIDE (GLUCOTROL) 10 mg Tablet ??? lisinopril (PRINIVIL;ZESTRIL) 10 mg Tablet ??? lansoprazole (PREVACID) 15 mg Capsule, Delayed Release(E.C.) ??? metFORMIN (GLUCOPHAGE) 1,000 mg Tablet ??? polyethylene glycol-electrolytes (PEG 3350-ELECTROLYTES) 420 gram Recon Soln ??? Mometasone 50 mcg/actuation [place], Non-Aerosol Percocet daily -- back pain Advil PRN. ALLERGIES: No Known Allergies SURGICAL HISTORY: Cervical disk, lower back surgeries SOCIAL HISTORY: , 6 kids (2 in [place], 4 in [place]) HABITS: Alcohol: Beer occasionally Tobacco: Smokes 1 cigar over 3 days, previously cigarettes x decades FAMILY HISTORY: There is no known family history of inflammatory bowel disease, celiac disease, or GI cancer (esophagus, stomach, colon). There is no history of liver or pancreas disease. Objective: PHYSICAL EXAMINATION: Most Recent Vitals: 09/12/17 1508 BP: 130/77 Pulse: 80 Height: 5'10 Weight: 253 lbs Body mass index is 36.3 kg/(m^2). GEN: Alert, well-appearing, no acute distress. Appears stated age. Cooperates and answers questionsappropriately. SKIN: No rashes or abnormal lesions. NECK: No lymphadenopathy, thyromegaly. HEENT: Normal sclera, PERRL, oropharynx clear without ulceration or lesions. LUNGS: Clear to auscultation bilaterally. COR: Regular, normal S1 and S2 without murmurs ABD: Normal active bowel sounds. Obese, soft and non-distended. Tenderness to deep palpation in LLQ. No organomegaly, masses, rebound, guarding, ascites. EXT: No upper extremity cyanosis, clubbing. +2 radial pulses. No peripheral edema. PSYCH: mood appropriate, good eye contact, normal interaction Impression/Recommendations: Quintin Dewitt is a 71 y.o. year old male here for abrupt change in bowel habits x 6 months. He reports explosive watery stool daily. Also endorses lower abdominal cramping and gas. No blood, melena, weight loss. No concerning GI family history. His stool studies were negative for infectious causes in Feb 2017; TSH, CBC, CMP also normal. He reports his last colonoscopy was 9 yrs ago when living[place], polyps removed and report was normal per ptn (I do not have the records). Discussed possibility of inflammatory causes, specifically microscopic colitis. His medication riskfactors for MC include daily aspirin, lisinopril, simvastatin, PPI, and he has a long history of cigarette and cigar smoking. Will order colonoscopy with biopsies to evaluate. DDX includes: IBS-D (consider utility of low FODMAP), diabetic diarrhea, SIBO, gut dysmotility, medications (he started insulin around the time of onset, but has been taking metformin for years priorto current symptoms). Consider labs for Celiac disease. He is on a PPI for acid reflux; we discussed proper administration and reviewed GERD lifestyle measures. PLAN (printed for ptn): 1. Take omeprazole 30-60 minutes before a meal. You can take this before breakfast but if your symptoms are worse at night, take the omeprazole before dinner. 2. Schedule colonoscopy with biopsies 3. Office follow up after testing. The patient was given my contact information and will call me with concerns or questions. Naty Ramey PA-C Section of Gastroenterology [place] [address] documented in this encounter Plan of Treatment Scheduled Orders Name Type Priority Associated Diagnoses Orde r Schedule COLONOSCOPY Procedures Routine Diarrhea, unspecified type Ordered: 09/12/2017 documented as of this encounter Visit Diagnoses Diagnosis Diarrhea, unspecified type Lower abdominal pain Abdominal pain, other specified site Nausea and vomiting, intractability of vomiting not specified, unspecified vomiting type documented in this encounter Care Teams Manager French Relationship Specialty Start Date End Date Gabe Rodriguez PA [address] [place] [address] PCP - General General Internal Medicine 07/19/1709/28 documented as of this encounter
--- OUTSIDE RECORDS SUMMARY | 2024-03-20 18:13 | XMS_ITS | Encounter Summary ---
Author Organization [facility] [place] [address] Care Team Providers Care Heddler Name Role Phone Madison Tanner MD Primary Care Provider [phone] Encounter Details Date Type Department Care Team (Late st Contact Info) Description 06/23/2014 3:30 PM EST Office Visit Endocrinology at [place] [phone] Robert Rodrigues MD [facility] [place] [address] [address] [place] [address] Hypogonadism male; BPH (benign prostatic hyperplasia) Discharge Disposition: Home Social History Tobacco Use Types Packs/Day Years Used Date Smoking Tobacco: Former Cigars Q uit: 02/11/2014 Smokeless Tobacco: Never Sex and Gender Information Value Date Recorded Sex Assigned at Not on file Gender Identity Not on file Sexual Orientation Not on file documented as of this encounter Last Filed Vital Signs Vital Sign Reading Time Taken Comments Blood Pressure 136/73 06/23/2014 3:12 PM EST Pulse 86 06/23/2014 3:12 PM EST Temperature - - Respiratory Rate - - Oxygen Saturation - - Inhaled Oxygen Concentration - - Weight 106.9 kg (235 lb 9.6 oz) 06/23/2014 3:12 PM EST Height 177.8 cm (5' 10) 06/23/2014 3:12 PM EST stated Body Mass Index 33.81 06/23/2014 3:12 PM EST documented in this encounter Progress Notes * Robert Rodrigues MD - 06/24/2014 8:50 AM EST I have seen the patient and reviewed 's above history and I agree with the details as written. The assessment and plan were formulated in discussion with me and I agree with them as documented. Patient Active Problem List Diagnosis Code ? ? Hypogonadism-? narcotic induced (on Testos patch & gel low dose for 2-3y & off since ) 257.2 ??? Diabetes mellitus type 2 250.00 ??? Hypertension (HTN) 401.9 ??? Hyperlipidemia 272.4 ??? Obesity 278.00 ? ? OA (osteoarthritis) (DJD) & low back pain s/p lack surgeries x2 (10 & 25 yrs ago), off fentanyl patch 715.90 ??? Esophageal reflux (GERD) 530.81 ??? Chronic fatigue 780.79 ? ? Decreased libido & ED 799.81 ? ? BPH (benign prostatic hyperplasia), seen by uro since 2010 & was found to have low Testosterone 600.00 Recent Results (from the past 24 hour(s)) FOLLICLE STIMULATING HORMONE Result Value Range FSH 6.6 1.5 - 12.4 mlU/ML LUTEINIZING HORMONE Result Value Range LH 4.5 1.7 - 8.6 mlU/ML PROLACTIN Result Value Range Prolactin 6.1 4.0 - 15.2 ng/mL PSA Result Value Range PSA Total 0.94 0.00 - 4.00 ng/mL HEMOGRAM Result Value Range WBC 9.0 4.0 - 10.0 x10(3)/mcL RBC 4.61 (*) 4.63 - 6.08 x10(6)/mcL Hemoglobin 14.9 13.7 - 17.5 gm/dL Hematocrit 42.8 40.0 - 51.0 % MCV 92.8 (*) 79.0 - 92.0 fL MCH 32.3 (*) 25.6 - 32.2 pg MCHC 34.8 32.0 - 36.5 gm/dL Platelets 162 145 - 370 x10(3)/mcL RDWSD 46.0 35.0 - 46.0 fL RDWCV 13.6 10.9 - 14.4 % MPV 11.5 9.0 - 12.0 fL DIFFERENTIAL, AUTOMATED Result Value Range Neutrophils % 61.4 Neutr Abs (ANC) 5.53 1.50 - 6.30 x10(3)/mcL Lymphocytes % 27.5 Lymphocytes Abs 2.5 1.0 - 3.6 x10(3)/mcL Monocytes % 7.4 Monocyte Abs 0.7 0.2 - 1.0 x10(3)/mcL Eosinophils % 3.0 Eosinophils Abs 0.3 0.0 - 0.5 x10(3)/mcL Basophils % 0.4 Basophils Abs 0.0 0.0 - 0.2 x10(3)/mcL Immature Gran % 0.30 Teri Gran Abs 0.03 0.00 - 0.05 x10(3)/mcL *pending for total and free testosterone (off low dose androgel ~6 mo since ) Robert Rodrigues MD, PhD, FACP, FACE * Gamal Nguyen - 06/23/2014 3:31 PM EST Endocrinology Consult Patient Name: Quintin Dewitt Date of : 1945 PCP: MADISON TANNER MD HISTORY OF PRESENT ILLNESS: Quintin Dewitt is a very pleasant 68 y.o. male with obesity, diabetes, and degenerative disc disease/radicular lumbar pain who presents for evaluation of hypogonadism. Quintin was diagnosed with hypogonadism 3 years ago in the setting of long-term narcotic use. He has significant back pain due toDDD. He takes 10- 15 mg of oxycodone per day. He was prescribed androderm (patches) which were difficult to apply and therefore he was switched to Androgel (1 pump of 1.62%). He ran out of Androgel inMay 2013. He reports a reduction in libido since stopping testosterone. He has also noticed a smallreduction in erectile firmness, rated at 5/10. He has also noticed a small reduction in strength, but is unsure if this is related. Very rare headaches, which he attributes to nerve block treatments. He has type 2 diabetes. His morning BG average 110-150. He eats a diabetic diet and is careful withportions. He denies severs JAVIER, visual changes, Recent labs: Total testosterone 205ng/dL REVIEW OF SYSTEMS: as per HPI, all other systems reviewed and negative PAST MEDICAL HISTORY Patient Active Problem List Diagnosis Code ??? Hypogonadism male 257.2 ??? Diabetes mellitus type 2 250.00 ??? Hypertension (HTN) 401.9 ??? Hyperlipidemia 272.4 ??? Obesity 278.00 ? ? OA (osteoarthritis) (DJD) & low back pain s/p lack surgeries x2 (10 & 25 yrs ago) 715.90 ??? Esophageal reflux (GERD) 530.81 ??? Chronic fatigue 780.79 ? ? Decreased libido & ED 799.81 No Known Allergies No current outpatient prescriptions on file prior to visit. No current facility-administered medications on file prior to visit. History Social History ??? Marital Status: Spouse Name: N/A Number of Children: N/A ??? Years of Education: N/A Social History Main Topics ??? Smoking status: Former Smoker Types: Cigars Quit date: 02/11/2014 ??? Smokeless tobacco: Never Used ??? Alcohol Use: None ??? Drug Use: None ??? Sexual Activity: None Other Topics Concern ??? None Social History Narrative Family History: Numerous 1st degree relatives with type 2 diabetes No family hx of endocrine tumors PHYSICAL EXAM: BP 136/73 Pulse 86 Ht 177.8 cm (5' 10) Wt 106.867 kg (235 lb 9.6 oz) BMI 33.80 kg/m2 GENERAL: Well nourished, well hydrated, in no distress, oriented x 3 SKIN: normal in texture and temperature EYES: no thyroid eye signs, CLARE, cornea normal, visual fileds intact NECK: supple, no palpable nodule or goiter, no bruit, no tenderness, no lymphadenopathy CVS: S1 S2 heard, rhythm regular RS: clear breath sounds bilateral ABD: soft, BS heard, no organomegaly EXTREMITIES: No clubbing, no edema, no cyanosis, normal nails. No tremor on out- stretched hands. : Testes 25cc bilaterally, normal turgor Labs: Ref. Range 06/23/2014 16:19 FSH Latest Range: 1.5-12.4 mlU/ML 6.6 LH Latest Range: 1.7-8.6 mlU/ML 4.5 Prolactin Latest Range: 4.0-15.2 ng/mL 6.1 Testo Total Latest Range: 250-1100 ng/dL 189 (L) Testo Free Latest Range: 30.0-135.0 pg/mL 35.0 Impression: Mr Dewitt is a 68 year old male with diabetes, obesity and chronic back pain requiring long-term opioid therapy. His testosterone level is in the 10th percentile for his age, so if his symptoms persist and he is unable to be weaned off of narcotics it may be reasonable to start a trial of testosterone. Due to coexisting benign prostatic hypertrophy and his relatively high risk for coronary arterydisease we would recommend attempting to wean narcotics first and repeat hormonal testing 4 months after last narcotic dose. Most likely his hypogonadism is multifactorial in nature with obesity and narcotic use playing the largest role. Recommendations: - Would not recommend starting supplemental testosterone at this point - May benefit from discontinuation of narcotic with repeat testosterone levels 4 months after last dose We have reviewed our plan outlined above with the patient, and patient verbalized understanding. All questions were answered and most of the time was spent on counseling. Thank you for this consult, please do not hesitate to contact me with any questions. Case discussed with Dr. Ravi Nguyen DO, MS Endocrinology fellow [facility] cc: MADISON TANNER MD documented in this encounter Plan of Treatment Not on file documented as of this encounter Procedures Procedure Name Priority Date/Time Associated Diagnosis Comments HEMOGRAM Routine 06/23/2014 4:19 PM EST Hypogonadism male DIFFERENTIAL, AUTOMATED Routine 06/23/2014 4:19 PM EST Hypogonadism male TESTOSTERONE, TOTAL AND FREE Routine 06/23/2014 4:19 PM EST Hypogonadism male PROLACTIN Routine 06/23/2014 4:19 PM EST Hypogonadism male CBC (WITH DIFF) Routine 06/23/2014 4:19 PM EST Hypogonadism male PSA (ULTRASENSITIVE) Routine 06/23/2014 4:19 PM EST BPH (benign prostatic hyperplasia) LUTEINIZING HORMONE Routine 06/23/2014 4 :19 PM EST Hypogonadism male FOLLICLE STIMULATING HORMONE Routine 06/23/2014 4:19 PM EST Hypogonadism male documented in this encounter Results * Differential, Automated (06/23/2014 4:19 PM EST) Neutrophil % 61.4 % [facility] MILLENNIUM Neutrophil Absolute 5.53 1.50 - 6.30 x10(3)/mcL [facility]ERNER MILLENNIUM Lymph % 27.5 % CERNER MILLENNIUM Lymphocytes Abs 2.5 1.0 - 3.6 x10(3)/mcL [facility]ERNER MILLENNIUM Monocyte % 7.4 % CERNER MILLENNIUM Monocyte Abs 0.7 0.2 - 1.0 x10(3)/mcL [facility]ERN[facility] MILLENNIUM Eos % 3.0 % CERNER MILLENNIUM Eosinophils Abs 0.3 0.0 - 0.5 x10(3)/mcL CERNER MILLENNIUM Basophil % 0.4 % CERNER MILLENNIUM Baso Absolute 0.0 0.0 - 0.2 x10(3)/mcL [facility]ERNER MILLENNIUM Immature Gran % 0.30 % [facility]ERN ER MILLENNIUM Comment: Immature granulocytes(IG's)percentage and absolute count will include metamyelocytes, myelocytes, and promyelocytes. Blood smears from CBCs yielding IG's will be scanned manually for concordance. If this scan disagrees with the automated IG or if promyelocytes are noted, a manual differential will be performed. Immature Gran Absolute 0.03 0.00 - 0.05 x10(3)/mcL [facility]ERN[facility] MILLENNIUM Blood specimen (specimen) 06/23/2014 4:19 PM EST 06/23/2014 4:25 PM EST Narrative Resulting Agency Comment Spec In Lab Robert Rodrigues MD HEMATOLOGY ORDERA BLES [facility]ERNER MILLENNIUM * (ABNORMAL) Hemogram (06/23/2014 4:19 PM EST) White Blood Cell 9.0 4.0 - 10.0 x10(3)/mc L [facility]ERN[facility] MILLENNIUM Red Blood Cell 4.61(L) 4.63 - 6.08 x10(6)/mc L [facility] Hemoglobin 14.9 13.7 - 17.5 gm/dL [facility] MILLENNIUM Hematocrit 42.8 40.0 - 51.0 % [facility]ILL[facility]NIUM Mean Cell Volume 92.8(H) 79.0 - 92.0 fL [facility] MILL[facility]NIUM Mean Cell Hemoglobin 32.3(H) 25.6 - 32.2 pg [facility]ILL[facility]NIUM Mean Cell Hemoglobin Concentration 34.8 32.0 - 36.5 gm/dL [facility] Platelet 162 145 - 370 x10(3)/mc L [facility] MILLENNIUM RDW Standard Deviation 46.0 35.0 - 46.0 fL [facility] MILL[facility]UM RDW coefficient of variation 13.6 10.9 - 14.4 % [facility] MILLENNIUM Mean Platelet Volume 11.5 9.0 - 12.0 fL [facility] Blood specimen (specimen) 06/23/2014 4:19 PM EST 06/23/2014 4:25 PM EST Narrative Resulting Agency Comment Spec In Lab Robert Rodrigues MD HEMATOLOGY ORDERA BLES [facility] * PSA (06/23/2014 4:19 PM EST) Pathologist [facility] Prostate Specific Antigen (Ultrasensitiv e) 0.94 0.00 - 4.00 ng/mL [facility] Blood specimen (specimen) 06/23/2014 4:19 PM EST 06/23/2014 4:25 PM EST Narrative Resulting Agency Comment Spec In Lab Robert Rodrigues MD CHEMISTRY ORDERAB LES [facility] * (ABNORMAL) Testosterone, total and free (06/23/2014 4:19 PM EST) Testo Total 189(L) 250 - 1100 ng/dL [facility] Comment: Men with clinically significant hypogonadal symptoms and testosterone values repeatedly in the range of the 200-300 ng/dL or less, may benefit from testosterone treatment after adequate risk and benefits counseling. For more information on this test, go to http://education.EventHive.ServiceBench/faq/ TotalTestosteroneLCMSMS Testo Free (NOVEMBER) 35.0 30.0 - 135.0 pg/mL [facility] Comment: Test Performed by [facility], [address] [place] [id number] Robbie Villa M.D., Ph.D., Director of Laboratories , [facility] [id number] Blood specimen (specimen) 06/23/2014 4:19 PM EST 06/24/2014 8:43 AM EST Narrative Resulting Agency Comment Spec In Lab Robert Rodrigues MD LAB SEND OUT ORDE RABLES Performing Organization Address [facility] Co de Phone Number [facility] * Prolactin (06/23/2014 4:19 PM EST) Prolactin 6.1 4.0 - 15.2 ng/mL [facility] Blood specimen (specimen) 06/23/2014 4:19 PM EST 06/23/2014 4:25 PM EST Narrative Resulting Agency Comment Spec In Lab Robert Rodrigues MD CHEMISTRY ORDERAB LES Performing Organization Address [facility] Co de Phone Number [facility] * Luteinizing Hormone (06/23/2014 4:19 PM EST) Luteinizing Hormone 4.5 1.7 - 8.6 mlU/ML [facility] MILLENNIUM Comment: Reference ranges: ?? Females ?? Follicular: ? 2.4-12.6 mIU/mL ?? Ovulation: ?14.0-95.6 mIU/mL ?? Luteal: ? 1.0-11.4 mIU/mL ?? Postmenopausal: ? 7.7-58.5 mIU/mL Blood specimen (specimen) 06/23/2014 4:19 PM EST 06/23/2014 4:25 PM EST Narrative Resulting Agency Comment Spec In Lab Robert Rodrigues MD CHEMISTRY ORDERAB LES [facility] * Follicle Stimulating Hormone (06/23/2014 4:19 PM EST) Follicle Stimulating Hormone 6.6 1.5 - 12.4 mlU/ML [facility] Comment: Reference Ranges: Females: Follicular: ? 3.5-12.5 mIU/mL Ovulation: ?4.7-21.5 mIU/mL Luteal: ? 1.7-7.7 mIU/mL Postmenopausal: 25.8-134.8 mIU/mL Blood specimen (specimen) 06/23/2014 4:19 PM EST 06/23/2014 4:25 PM EST Narrative Resulting Agency Comment Spec In Lab Robert Rodrigues MD CHEMISTRY ORDERAB LES Performing Organization Address [facility] Co de Phone Number [facility] SUM[facility]ERS documented in this encounter Visit Diagnoses Diagnosis Hypogonadism male Other testicular hypofunction BPH (benign prostatic hyperplasia) Unspecified hyperplasia of prostate without urinary obstruction and other lower urinary tract symptoms (LUTS) documented in this encounter Care Teams Heddler Relationship Specialty Start Date End Date Madison Tanner MD PCP - General 05/15/14 07/18/17 documented as of this encounter
--- OUTSIDE RECORDS SUMMARY | 2024-03-20 18:13 | XMS_ITS | Encounter Summary ---
Author Organization [facility] Address [facility] [place] [address] Care Team Providers Care Tool Or Die Drawing Checker Name Role Phone RoelAbelMei Primary Care Provider [phone] Encounter Details Date Type Department Care Team (Latest Contact Info) Description 09/29/2020 9:17 PM EST - 09/29/2020 11:59 PM EST Hospital Encounter Laboratory [facility] [place] [address] Discharge Disposition: Home Social History Tobacco Use [...] on file documented as of this encounter Medications at Time of Discharge Medication Sig Dispensed Refills Start Date End Date Lyrica 150 mg Capsule 09/29/2020 testosterone (AXIRON) 30 mg/actuation (1.5 mL) Solution in Metered Pump w/Suzanna APPLY 1 PUMP TOPICALLY TO UNDERARM AREA EVERY DAY. ALTERNATE UNDERAM. REPEAT BLOOD WORK IN 3 MONTHS. 09/28/2020 gabapentin (Neurontin) 300 mg Capsule TAKE 1 CAPSULE BY MOUTH TWICE DAILY 09/01/2020 pantoprazole EC (Protonix) 40 mg Tablet, Delayed Release (E.C.) TAKE 1 TABLET BY MOUTH EVERY DAY 09/04/2020 omeprazole (PRILOSEC) 40 mg Capsule, Delayed Release(E.C.) [...] by mouth 2 times daily (with meals). triamcinolone (ARISTOCORT) 0.5 % Cream Apply twice daily to affected areas 454 g 3 09/29/2020 10/02/2020 testosterone (ANDROGEL) 1 % (25 mg/2.5 g) Gel in Packet Place 5 g onto the skin daily. 10/02/2020 LYRICA 100 mg Capsule Take 100 mg by mouth 2 times daily. 0 07/21/2017 10/02/2020 documented as of this encounter Plan of Treatment Not on file documented as of this encounter Procedures Procedure Name Priority Date/Time Associated Diagnosis Comments SURGICAL PATHOLOGY REPORT Routine 09/29/2020 12:00 PM EST documented in this encounter Results * Surgical Pathology Report (09/29/2020 12:00 PM EST) Final Diagnosis [id number] ? Location: [facility] The signing pathologist has (i) examined the relevant preparation(s) for the specimen(s) and (ii) rendered or confirmed the diagnosis(es). . ?Surgical Pathology DIAGNOSIS Left inguinal fold, skin shave ?? biopsy: - Portion of tissue with superficial perivascular lymphocytic infiltrate prominent eosinophils, and focal spongiosis (see discussion) - Portion of tissue with scant superficial perivascular lymphocytes, rare eosinophils, and subtle associated edema (see discussion) Electronically signed by: ??Gio Byrd MD Verified: ??10/09/2020 ?Dermatopathologist Performed at: ??[facility] [place], [place], [place] DISCUSSION Overall, the findings are not entirely specific. They can be due to a dermal hypersensitivity reaction such as to a medication or other exogenous agent. A drug reaction could be considered, but only in the right clinical setting. There is a degree of spongiosis, and the possibility of an eczematous dermatitis was considered. Allergic contact dermatitis, nummular eczema, or an id reaction can share similar histology, and are best distinguished clinically. Some of the findings (see microscopic description for details) can be seen in the prodromal phases of an immunobullous disorder such as bullous pemphigoid (BP). Importantly, those features are not diagnostic. If clinical concern for prodromal BP arises, direct immunofluorescence (DIF) studies may be of help. The specimen is received in two (2) portions. They have somewhat similar findings. The smaller portion has a greater degree of histologic changes. 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 The findings are not typical of many cases of CTCL. Early evolving ?lymphoproliferative processes can mimic inflammatory disease in some cases. ?If the aforementioned differentials are excluded clinically, if the rash changes significantly, or if clinical suspicion of CTCL persists, another biopsy at that time may be of help. MICROSCOPIC DESCRIPTION Both portions of tissue have somewhat similar morphology and examination of multiple levels reveals basket-woven orthokeratosis and focal parakeratosis overlying subtle acanthosis and focal spongiosis. The larger portion of tissue has minimal spongiosis. The smaller portion has lymphocyte exocytosis and some foci of prominent eosinophil exocytosis. Rare intraepidermal eosinophilic microabscesses are noted. Both portions have a superficial dermis with a perivascular and interstitial lymphocytic infiltrate. In the smaller portion, the infiltrate is moderately dense, and there is a prominent population of eosinophils. In the larger portion, the infiltrate is scant, and there are rare scattered eosinophils. Fungal microorganisms are not identified, as confirmed by interpretation of a PAS stain. Stains for CD2, CD3 and CD5 highlight the T lymphocytes. CD4+ T cells predominate over CD8+ T cells. The number of cells that express CD7 is diminished in comparison to the number that express CD4. There are some small lymphocytes that express CD30 in the larger portion, without clustering. The smaller portion does not have a significant population of cells with CD30 expression. Fungal microorganisms are not identified, as confirmed by interpretation of a PAS stain. . ADDITIONAL STUDIES Interpretation of multiple step-leveled slide sections confirms the diagnosis above. Fungal microorganisms are not identified, as confirmed by interpretation of a PAS stain. Stains for CD30 and CD7 were repeated for technical adequacy. Interpretation of stains for CD2, CD3, CD5, and CD7, as well as two additional CD30 stains performed on different areas of the tissue, support the assessment above. SPECIMEN(S) SUBMITTED A - left inguinal fold, skin shave biopsy Referring Identifier: ?(not provided) CLINICAL INFORMATION Flexural patches with cigarette paper-like wrinkling; CTCL SPECIMEN PROCESSING A - Labeled/Fixative: Patient demographics, formalin. Quantity/Size: ??Two, 1.0 x 1.0 x 0.1-0.2 cm and 1.3 x 1.1 and 0.1 cm. Tissue Description: Harrell-pink skin shaves with fine wrinkles. Sections/Processing: Inked, serially sectioned and entirely submitted in 3 cassettes as follows: ?A1: ??Smaller shave, inked and quadrasected ?A2-A3: ??Larger shave tips, body ??MLL 10/09/2020 1:45 PM EST [facility] SPECIMEN FROM SKIN / Unknown 09/29/2020 12:00 PM EST 09/29/2020 12:00 PM EST Michael Bailey MD PATHOLOGY/CYTOLOGY O JESSICA [facility] [place] [address] documented in this encounter Visit Diagnoses Not on filedocumented in this encounter Care Teams Tool Or Die Drawing Checker Relationship Specialty Start Date End Date Mei Javier [address] [place] [address] PCP - General Family Medicine 09/29/20 documented as of this encounter
--- OUTSIDE RECORDS SUMMARY | 2024-03-20 18:13 | XMS_ITS | Encounter Summary ---
Author Organization [facility] Address [facility] [place] [address] Care Team Providers Care Wheel Aligner Name Role Phone Gabe Rodriguez Primary Care Provider [phone] [phone] Encounter Details Date Type Department Care Team (Latest Contact Info) Description 01/01/2018 9:16 AM EDT - 01/01/2018 12:19 PM EDT Hospital Encounter Gastroenterology at [facility] [place] [address] Kristan Washington MD [facility] [place] [address] Discharge Disposition: Home Social History Tobacco Use [...] sent through Care Everywhere. * COLON POLYPS (ICELANDIC) documented in this encounter Medications at Time [...] AM EDT 01/01/2018 11:03 AM EDT Narrative [facility] - 01/01/2018 11:03 AM EDT Specimen requisition ordered. ??Separate Pathology report to follow Kristan Washington MD PATHOLOGY/CYTOLOGY O RDSHAUN Performing Organization Address [facility]/[place] [address] * Specimen to Pathology (01/01/2018 11:03 AM EDT) AP Specimen 01/01/2018 11:0 3 AM EDT 01/01/2018 11:03 AM EDT Narrative [facility] - 01/01/2018 11:03 AM EDT Specimen requisition ordered. ??Separate Pathology report to follow Kristan Washington MD PATHOLOGY/CYTOLOGY O JESSICA Performing Organization Address [facility] [place] [address] * Specimen to Pathology (01/01/2018 11:03 AM EDT) AP Specimen 01/01/2018 11:0 3 AM EDT 01/01/2018 11:03 AM EDT Narrative [facility] - 01/01/2018 11:03 AM EDT Specimen requisition ordered. ??Separate Pathology report to follow Kristan Washington MD PATHOLOGY/CYTOLOGY O RDERABLES Performing Organization Address [facility] [place] [address] * Surgical Pathology Report (01/01/2018 10:45 AM EDT) Final Diagnosis [id number] ? Location: 4T; EA07; A The signing [...] Sultana MD Verified: ??01/04/2018 ?Pathologist Performed at: ??[facility] Dept. of Pathology, [place], [place] DISCUSSION Part A: Focal and mild [...] sectioned. (T1) ??eliu 01/04/2018 10:45 PM EDT [facility] GI Biopsy 01/01/2018 10:4 5 AM EDT 01/01/2018 10:45 AM EDT GI Biopsy 01/01/2018 10:4 5 AM EDT 01/01/2018 10:45 AM EDT GI Biopsy 01/01/2018 10:4 5 AM EDT 01/01/2018 10:45 AM EDT Kristan Washington MD PATHOLOGY/CYTOLOGY O RDERABLES [facility] [place] [address] * COLONOSCOPY (01/01/2018 10:23 AM EDT) COLONOSCOPY [facility] Endoscopy Procedure Date: 01/01/2018 10:23 AM ? Patient Name: Quintin Dewitt ? Date of : 1945 ? Age: 72 ? Order #: [id number] ? Instrument Name: [id number] ? Procedure: ? Colonoscopy Indications: ? Clinically significant diarrhea of ? unexplained origin Providers: ? Kristan Washington MD, Miquel Rojas RN, ? Jesi Hawkins, Sinter Machine Operator Referring : ?Gabe Rodriguez, Naty Ramey Medicines: ? Propofol [...] Glucose, POC 97 65 - 199 mg/dL [facility] Comment: Supplemental ranges: <140 mg/dL before meals <180 mg/dL all other times of the day Blood specimen (specimen) 01/01/2018 9:50 AM EDT 01/01/2018 9:50 AM EDT Kristan Washington MD POINT OF CARE TEST O RDERABLES [facility] [place] [id number] documented in this encounter Visit Diagnoses Not [...] [id number] (Anesthesia Volume Adjustment - Provider: Peggy Ashley CRNA) documented in this encounter Care Teams Wheel Aligner Relationship Specialty Start Date End Date Guilfoyle, Peter A, PA [address] [place] [address] PCP - General General Internal Medicine 07/19/1709/28 documented as of this encounter
--- OUTSIDE RECORDS SUMMARY | 2024-03-20 18:13 | XMS_ITS | Clinical Summary ---
Author Organization [facility] Address [facility] [place] [address] Care Team Providers Care Major Gifts Officer Name Role Phone KennethBrian Mei Primary Care Provider [phone] Allergies No known active allergies Medications Medication Sig Dispensed Refills Start Date End Date Status metFORMIN (GLUCOPHAGE) 1,000 mg Tablet Take 1,000 mg by mouth 2 times daily (with meals). Active LANTUS SOLOSTAR pen Inject 28 Units subcutaneously nightly. 0 08/04/2017 Active simvastatin (ZOCOR) 40 mg Tablet Take 40 mg by mouth nightly. 0 06/09/2017 Active aspirin 81 mg Tablet, Delayed Release (E.C.) Take 81 mg by mouth daily. Active lisinopril (PRINIVIL;ZESTRIL ) 5 mg Tablet Take 5 mg by mouth daily. 0 09/06/2017 Active topiramate (TOPAMAX) 25 mg Capsule, Sprinkle Take 25 mg by mouth 2 times daily. Active omeprazole (PRILOSEC) 40 mg Capsule, Delayed Release(E.C.) Take 40 mg by mouth daily. 0 10/19/2017 Active oxyCODONE-acetami nophen (PERCOCET) 5-325 mg Tablet Take 1 tablet by mouth every 8 hours as needed for Pain. NTe 4 daily 112 tablet 11/09/2017 Active oxyCODONE-acetami nophen (PERCOCET) 5-325 mg Tablet Take 1 tablet by mouth every 8 hours as needed for Pain (NTE 4 daily). 112 tablet 12/07/2017 Active gabapentin (Neurontin) 300 mg Capsule TAKE 1 CAPSULE BY MOUTH TWICE DAILY 09/01/2020 Active pantoprazole EC (Protonix) 40 mg Tablet, Delayed Release (E.C.) TAKE 1 TABLET BY MOUTH EVERY DAY 09/04/2020 Active Lyrica 150 mg Capsule 09/29/2020 Active testosterone (AXIRON) 30 mg/actuation (1.5 mL) Solution in Metered Pump w/Suzanna APPLY 1 PUMP TOPICALLY TO UNDERARM AREA EVERY DAY. ALTERNATE UNDERAM. REPEAT BLOOD WORK IN 3 MONTHS. 09/28/2020 Active triamcinolone (KENALOG) 0.1 % Cream Apply twice daily to affected areas 453.6 g 3 10/02/2020 Active cephALEXin (Keflex) 500 mg Capsule Take one capsule by mouth four times daily for 7 days 28 capsule 10/02/2020 Active Active Problems Patient Care Coordination No te Formatting of this note migh t be different from the original. NARCOTIC CONTRACT with Pain Management Signed on 10/13/2017. 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 narcotic jennifer yesenia (on Testos patch & gel low dose for 2-3y & off since ) 06/18/2014 Diabetes mellitus type 2 06/18/2014 Hypertension (HTN) 06/18/2014 Hyperlipidemia 06/18/2014 Obesity 06/18/2014 OA (osteoarthritis) (DJD) & low back pain s/p lack surgeries x2 (10 & 25 yrs ago), off fentanyl patch 06/18/2014 Esophageal reflux (GERD) 06/18/2014 Chronic fatigue 06/18/2014 Decreased libido & ED 06/18/2014 Social History Tobacco Use Types Packs/Day Years Used Date Smoking Tobacco: Former Cigars Q uit: 02/11/2014 Smokeless Tobacco: Never Alcohol Use Standard Drinks/Week Comments Yes 0 (1 standard drink = 0.6 oz pur e alcohol) rarely Sex and Gender Information Value Date Recorded Sex Assigned at Not on file Gender Identity Not on file Sexual Orientation Not on file Last Filed Vital Signs Vital Sign Reading [...] Mass Index 35.58 01/01/2018 9:39 AM EDT Plan of Treatment Health Maintenance Due Date Last Done Comments DM Creatinine yearly 1953 DM Hemoglobin A1c 1953 DM Opthalmology Exam 1953 DM Urine Microalbumin yearly 1953 Hepatitis C Screening 1961 Tdap adult 1962 Tetanus vaccine 1962 Zoster vaccine (1 of 2) 1993 Advance Directive 1998 Pneumoccocal Vaccine: 65+ (1 of 1 - PCV) 2008 Covid-19 Vaccine ( - 2022-2 4 season) 2023 Influenza (Flu) vaccine (1 o f 1 - Influenza standard series) 03/31/2024 Colonoscopy Discontinued 01/01/2018, 10/2017, 01/01/2018, Additional history exists Colorectal Cancer Screening Discontinued Sigmoidoscopy (10 year) with FIT yearly Discontinued 01/01/2018, 01/01/2018, 01/01/2018, Additional history exists CT Colonography Discontinued FIT DNA Discontinued FIT Discontinued Sigmoidoscopy Discontinued Procedures Procedure Name Priority Date/Time Associated Diagnosis Comments COLONOSCOPY Routine 01/01/2018 10:23 AM EDT from Last 3 Months or Most Recently Relevant to Health Maintenance Results * COLONOSCOPY (01/01/2018 10:23 AM EDT) COLONOSCOPY [facility] Endoscopy Procedure Date: 01/01/2018 10:23 AM ? Patient Name: Quintin Dewitt ? Date of : 1945 ? Age: 72 ? Order #: [id number] ? Instrument Name: [id number] ? Procedure: ? Colonoscopy Indications: ? Clinically significant diarrhea of ? unexplained origin Providers: ? Kristan Washington MD, Miquel Rojas RN, ? Jesi Hawkins, Geography Head Referring : ?Naty Fields Medicines: ? Propofol per Anesthesia Complications: ? [...] Gabe [facility] from Last 3 Months or Most Recently Relevant to Health Maintenance Care Teams Major Gifts Officer Relationship Specialty Start Date End Date Mei Javier [address] [facility] [place] [address] PCP - General Family Medicine 09/29/20
== END 2024-03-20 18:12 | disposition home or self-care (01) ==
LOC: LBO 18:11
PROVIDERS: PCP Nurse Practitioner Family; Visit Provider Nurse Practitioner Family
DX: E11.21 Type 2 diabetes mellitus with diabetic nephropathy (principal); E55.9 Vitamin D deficiency, unspecified
CPT/HCPCS: 36415; 80053; 82306; 83036; 83735; 85025

== ENCOUNTER 2024-04-11 02:12 | Outpatient (CLI) | payer MEDICARE, MEDICAID, SELFPAY ==
--- NOTE | 2024-04-11 | DI.MRI_ITS ---
Exam(s) MR CERVICAL SPINE WO EXAM: MR CERVICAL SPINE WO CLINICAL HISTORY: PAIN IN R ARM, M79.601 TECHNIQUE: Multiplanar multisequence MRI of the cervical spine was performed without intravenous con trast. COMPARISON: MR MRI - CERVICAL SPINE WO CONT from 05/27/2014 FINDINGS: BONES: Vertebral body heights are maintained. Alignment is normal. Bone marrow signal intensity is wi thin normal limits. Anterior fusion hardware at C5-6. There are facet degenerative changes at multi ple levels. CERVICAL CORD: Craniovertebral junction is unremarkable. The cervical cord is normal size and signal intensity. SOFT TISSUES: Unremarkable. C2-3: No disc herniation or bulge is identified. No evidence of neural foraminal narrowing. No signi ficant central canal stenosis. C3-4: No disc herniation or bulge is identified. Facet degenerative changes cause mild left neural fo raminal narrowing. No significant central canal stenosis. C4-5: Posterior and lateral disc osteophytes. Cause narrowing of the AP dimension of the central can al. There appears to be some impingement on the cord. There are facet osteophytes which cause bilat eral neural foraminal narrowing, more severe on the right. C5-6: Anterior fusion. No disc herniation or bulge is identified.Facet degenerative changes bilatera l neural foraminal narrowing. No significant central canal stenosis. C6-7: Moderate loss of disc height. Endplate osteophytes. Facet degenerative changes cause bilatera l severe neural foraminal narrowing. No significant central canal stenosis. C7-T1: No disc herniation or bulge is identified. No evidence of neural foraminal narrowing. No signi ficant central canal stenosis. IMPRESSION: Degenerative changes greatest at C4-5 causing moderate narrowing of the AP dimension of the central c anal and may impinge on the cord. Cord signal is normal. Multilevel bilateral neural foraminal narr owing. DATA REPOSITORY:
--- NOTE | 2024-04-11 10:10 | DI.CT_ITS ---
Exam(s) CT ABD AORTA CTA W RUNOFF EXAM: CT ABD AORTA CTA W RUNOFF CLINICAL HISTORY: PAIN IN LEFT LOWER LIMB, M79.605. TECHNIQUE: Imaging Protocol: Axial CT angiography was performed with multi-slice acquisition and mu lti-planar and/or 3D reconstructions. CONTRAST MATERIAL: Intravenous: Omnipaque 350 Contrast volume:150 ml Contrast route:IV - Oral: / no COMPARISON: No exams were available for comparison FINDINGS: Vascular Structures: Heart: Normal size. Coronary artery calcifications. Abdomen: Celiac [place]/SMA: No evidence of stenosis. Renal Arteries: No evidence of stenosis. There is a single renal artery perfusing the right. There a re 2 arteries perfusing the left kidney. Aorta: No aneurysm. No dissection. Mild atherosclerotic changes. Pelvis: Iliac Arteries: No evidence of stenosis. Common Femoral Arteries: No evidence of stenosis. Lower extremities: Right: No significant atherosclerotic changes. Common Femoral: No evidence of stenosis. Superficial Femoral: No evidence of stenosis. Popliteal: No evidence of stenosis. Knee Trifurcation: No evidence of stenosis. Posterior Tibial: No evidence of stenosis. Peroneal: No evidence of stenosis. Dorsalis Pedis: No evidence of stenosis. Left: No significant atherosclerotic changes. Common Femoral: No evidence of stenosis. Superficial Femoral: No evidence of stenosis. Popliteal: No evidence of stenosis. Knee Trifurcation: No evidence of stenosis. Posterior Tibial: No evidence of stenosis. Peroneal: No evidence of stenosis. Dorsalis Pedis: No evidence of stenosis. Soft Tissues: Small bilateral fat containing inguinal hernias. Small left-sided Posada's cyst. No kn ee joint effusion. Lungs: No acute findings. Liver: Evaluation somewhat limited by streak artifact secondary to patient arm positioning. Normal d ensity. No measurable mass. Gallbladder and biliary tract: No radiodense calculus or dilation. Pancreas: Normal density, no abnormal calcifications or inflammatory process. Spleen: Normal. Kidneys: Normal size, contour and axis. No radiodense stones or obstructive uropathy. No masses seen. Adrenal glands: No masses seen. Aorta: Abdominal portion non-dilated. Bladder: Nearly empty. Bowel: No obstruction or bowel wall thickening. Normal quantity of stool.. Peritoneal cavity: No ascites, collection or mesenteric inflammatory response. Bones: Degenerative changes in the lumbar spine. Mild degenerative changes in the hips and knees. Reproductive: Unremarkable. IMPRESSION: Mild atherosclerotic changes of the abdominal aorta. No significant atherosclerotic changes involvin g more distal vessels. Vessels are patent to the level of the feet.. Small left Posada's cyst noted. RADIATION DOSE DELIVERED: 1,204.66mGy.cm Total DLP DATA REPOSITORY: All CT scans at this facility are submitted to the National Radiology Data Registry (NRDR) Dose Index Registry (DIR) with the [employer] (ACR). RADIATION OPTIMIZATION: All CT scans at this facility use at least one of these dose optimization te chniques: automated exposure control; mA and/or kV adjustment per patient size (includes targeted exa ms where dose is matched to clinical indication); or iterative reconstruction.
[2024-04-11] MEDS: Normal Saline - Diluent 50 ML VIAL IJ ×2 (10:12→10:13)
[2024-04-11] MEDS: Omnipaque 350 MG/ML 500 ML BTL-Imaging package 150 ML IJ (10:12)
== END 2024-04-11 02:32 ==
LOC: DI 02:13
PROVIDERS: PCP Nurse Practitioner Family; Visit Provider Nurse Practitioner Family
DX: M50.121 Cervical disc disorder at C4-C5 level with radiculopathy (principal); I70.0 Atherosclerosis of aorta
CPT/HCPCS: 75635; 72141

== ENCOUNTER 2024-05-16 14:39 | Outpatient (CLI) | payer MEDICARE, MEDICAID, SELFPAY ==
[2024-05-16 13:38] LABS: ESR 97 mm/hr (0-20)
[2024-05-16 13:56] LABS: C-Reactive Protein 8.91 mg/dL (<or=0.5); Creatine Kinase 23 U/L (39-308); Magnesium 1.9 mg/dL (1.8-2.4); PHOSPHORUS 4.3 mg/dL (2.6-4.7)
--- OUTSIDE RECORDS SUMMARY | 2024-05-16 14:44 | XMS_ITS | Clinical Summary ---
Author Organization [facility] Address [facility] [place] [address] Care Team Providers Care Body Maker Machine Setter Name Role Phone KennethbrionnaroxanneMadhu Mei Primary Care Provider +1- [phone] Allergies No known active allergies Medications Medication Sig Dispensed Refills Start Date End Date Status metFORMIN (GLUCOPHAGE) 1,000 mg Tablet Take 500 mg by mouth 2 times daily (with meals). Active simvastatin (ZOCOR) 40 mg Tablet Take 40 mg by mouth nightly. 0 06/09/2017 Active aspirin 81 mg Tablet, Delayed Release (E.C.) Take 81 mg by mouth daily. Active lisinopril (PRINIVIL;ZESTRIL) 5 mg Tablet Take 5 mg by mouth daily. 0 09/06/2017 Active topiramate (TOPAMAX) 25 mg Capsule, Sprinkle Take 25 mg by mouth 2 times daily. Active omeprazole (PRILOSEC) 40 mg Capsule, Delayed Release(E.C.) Take 40 mg by mouth daily. 0 10/19/2017 Active gabapentin (Neurontin) 300 mg Capsule TAKE 1 CAPSULE BY MOUTH TWICE DAILY 09/01/2020 Active Lyrica 150 mg Capsule 1 capsule 2 times daily. 09/29/2020 Active testosterone (AXIRON) 30 mg/actuation (1.5 mL) Solution in Metered Pump w/Suzanna APPLY 1 PUMP TOPICALLY TO UNDERARM AREA EVERY DAY. ALTERNATE UNDERAM. REPEAT BLOOD WORK IN 3 MONTHS. 09/28/2020 Active triamcinolone (KENALOG) 0.1 % Cream Apply twice daily to affected areas 453.6 g 3 10/02/2020 Active Additional Information Patient not taking.Reported on 05/14/2024 alfuzosin (Uroxatral) 10 mg ER 24 hr tablet Take 10 mg by mouth daily. Active cetirizine (ZyrTEC) 10 mg tablet Take 10 mg by mouth daily. Active ergocalciferoL, vitamin D2, (vitamin D2) 50,000 unit capsule Take 50,000 Units by mouth once a week. Active fluticasone propionate (Flonase) 50 mcg/actuation nasal spray, suspension 2 sprays daily. Hyrum into each nostril. Active magnesium oxide (Mag-Ox) 400 mg (241.3 mg magnesium) Tablet Take 400 mg by mouth daily. Active dulaglutide (Trulicity) 0.75 mg/0.5 mL Pen Injector Inject 0.75 mg subcutaneously once a week. Active albuteroL 90 mcg/actuation inhaler (HFA) Inhale 2 puffs into the lungs every 4 hours as needed for Wheezing (every 4-6 hours prn). Use with Spacer Active Qvar RediHaler 40 mcg/actuation inhaler (HFA) INHALE 2 PUFFS BY MOUTH TWICE DAILY DIRECTED 04/10/2024 Active cyanocobalamin, Vitamin B-12, (Vitamin B-12) 1,000 mcg tablet Take 1 tablet by mouth daily. 03/05/2024 Active diclofenac (Voltaren) 1 % Gel APPLY SMALL AMOUNT TOPICALLY TO THE AFFECTED AREA THREE TIMES DAILY NEEDED FOR PAIN 03/21/2024 Active Jardiance 25 mg tablet Take 1 tablet by mouth Daily at Noon. 03/21/2024 Active Active Problems Patient Care Coordination No [...] fatigue 06/18/2014 Decreased libido & ED 06/18/2014 Encounters Date Type Department Care Team Description 05/14/2024 9:00 AM EDT Office Visit Neurosurgery at [facility] [address] [place] [address] Tori Perez MD Pearl, Alyssa M, KATELYN Spondylosis of cervical region without myelopathy or radiculopathy 05/14/2024 Travel 04/26/2024 Abstract Neurosurgery at [facility] [address] [place] [address] Ariadna Causey, [facility] 04/25/2024 Abstract Neurosurgery at [facility] [address] [place] [address] Ariadna Causey, [facility] 04/11/2024 7:40 PM EDT Ancillary Procedure Radiology at [address] [address] Tori Perez MD 04/11/2024 4:35 PM EDT Ancillary Procedure Radiology Library at [facility] [place] [address] Mei Javier 03/26/2024 Transcribe Orders Neurosurgery at [address] [place] [address] Mei Javier Pain in right arm from Last 3 Months Family History Medical History Relation Comments Diabetes Mother Hypertension Mother Hypertension Sister Relation Status Comments Mother Sister Social History Tobacco Use Types Packs/Day Years Used Date Smoking Tobacco: Every Day Cigars Last attempted to quit: 02/11/2014 Smokeless Tobacco: Never Tobacco Cessation:Ready to Q uit: Not Asked; Counseling Given: Not Answered Alcohol Use Standard Drinks/Week Comments Yes 0 (1 standard drink = 0.6 oz pur e alcohol) rarely Sex and Gender Information Value Date Recorded Sex Assigned at Not on file Gender Identity Not on file Sexual Orientation Not on file Last Filed Vital Signs Vital Sign Reading Time Taken Comments Blood Pressure 109/71 05/14/2024 8:21 AM EDT Pulse 87 05/14/2024 8:21 AM EDT Temperature - - Respiratory Rate 16 01/01/2018 12:0 1 PM EDT Oxygen Saturation 98% 05/14/2024 8:2 1 AM EDT Inhaled Oxygen Concentration - - Weight 91.6 kg (202 lb) 05/14/2024 8:21 AM EDT per patient report Height 177.8 cm (5' 10) 05/14/2024 8:2 1 AM EDT per patient report Body Mass Index 28.98 05/14/2024 8:21 AM EDT Plan of Treatment Health Maintenance Due Date Last Done Comments Pneumoccocal Vaccine: 65+ (1 of 2 - PCV) 1949 DM Creatinine yearly 1953 DM Hemoglobin A1c 1953 DM Opthalmology Exam 1953 DM Urine Microalbumin yearly 1953 Hepatitis C Screening 1961 Tetanus/Diphtheria/Pertussis Vaccines (1 - Tdap) 1962 Zoster vaccine (1 of 2) 1993 Advance Directive 1998 Covid-19 Vaccine (1 - 2022-2 4 season) 2024 Influenza (Flu) vaccine (1 o f 1 - Influenza standard series) 03/31/2024 Colonoscopy Discontinued 01/01/2018, 10/2017, 01/01/2018, Additional history exists Colorectal Cancer Screening Discontinued Sigmoidoscopy (10 year) with FIT yearly Discontinued 01/01/2018, 01/01/2018, 01/01/2018, Additional history exists CT Colonography Discontinued FIT DNA Discontinued FIT Discontinued Sigmoidoscopy Discontinued Procedures Procedure Name Priority Date/Time Associated Diagnosis Comments FILM LIBRARY STORAGE ONLY CT ABDOMEN AND PELVIS Routine 04/11/2024 7:37 PM EDT FILM LIBRARY STORAGE ONLY MR SPINE Routine 04/11/2024 4:32 PM EDT MRI/MRA SCAN 04/11/2024 12:00 AM EDT COLONOSCOPY Routine 01/01/2018 10:23 AM EDT from Last 3 Months or Most Recently Relevant to Health Maintenance Results * Film Library- Storage Only CT Abdomen & Pelvis (04/11/2024 7:37 PM EDT) Narrative [facility] - 04/11/2024 7:37 PM EDT This exam is auto-finalizing. It's purpose is for storage only. Tori Perez MD IMG FILM LIBRARY ORDERABLES Performing Organization Address [facility] de Phone Number [facility] Film Library- Storage Only MR Spine (04/11/2024 4:32 PM EDT) Narrative [facility] - 04/11/2024 4:32 PM EDT This exam is auto-finalizing. It's purpose is for storage only. Mei Javier IMG FILM LIBRARY OR DERABLES Performing Organization Address [facility] de Phone Number [place], [place] * Scan Doc: MRI/MRA (04/11/2024 12:00 AM EDT) Anatomical Region Laterality Modality Other Narrative 04/11/2024 12:00 AM EDT Ordered by an unspecified provider. Scanning Provider MEDIA MGR SCAN EXT O RDR/RSLT * COLONOSCOPY (01/01/2018 10:23 AM EDT) COLONOSCOPY [facility] Endoscopy Procedure Date: 01/01/2018 10:23 AM ? Patient Name: Quintin Dewitt ? Date of : 1945 ? Age: 72 ? Order #: [id number] ? Instrument Name: [id number] ? Procedure: ? Colonoscopy Indications: ? Clinically significant diarrhea of ? unexplained origin Providers: ? Kristan Washington MD, Miquel Rojas, [place], ? Jesi Hawkins, Molder Foam Rubber Referring : ?Naty Fields Medicines: ? Propofol [...] Recently Relevant to Health Maintenance Care Teams Body Maker Machine Setter Relationship Specialty Start Date End Date Mei Javier [address] [place], [place] [address] PCP - General Family Medicine 09/29/20
--- OUTSIDE RECORDS SUMMARY | 2024-05-16 14:44 | XMS_ITS | Encounter Summary ---
Author Organization [facility] Address [facility] [place] [address] Care Team Providers Care Central Office Associate Name Role Phone Mei Javier Primary Care Provider [phone]- [phone] Encounter Details Date Type Department Care Team (Late st Contact Info) Description 04/26/2024 Abstract Neurosurgery at [facility] [address] [place] [address] Ariadna Causey, FACULTY I ON CALL MEDICAL ASSISTANT Social History Tobacco Use Types Packs/Day Years [...] on filedocumented in this encounter Care Teams Central Office Associate Relationship Specialty Start Date End Date Mei Javire [address] [place], [place] [address] PCP - General Family Medicine 09/29/20 documented as of this encounter
--- OUTSIDE RECORDS SUMMARY | 2024-05-16 14:44 | XMS_ITS | Encounter Summary ---
Author Organization Replaced By [facility] Address [facility] [place] [address] Care Team Providers Care Dessert Cup Machine Feeder Name Role Phone Mei Javier Primary Care Provider [phone] Reason for Visit * Reason Comments Establish Care Right Arm and should er pain * Consultation (Urgent) - Closed Specialty Diagnoses / Procedures Referred By Christos kim Referred To Contact Neurosurgery Diagnoses Pain in right arm Mei Javier [address] [place] [address] Tori Perez MD [address] [place] [address] Referral ID Status Reason Start Date Expiration Date V isits Requested Visits Authorized [id number] Closed Consult, Test & Treat 03/26/2024 03/26/2025 1 1 Encounter Details Date Type Department Care Team (Latest Contact Info) Description 05/14/2024 9:00 AM EDT Office Visit Neurosurgery at [facility] [address] [facility] [place] [id number] Tori Perez MD [address] [place] [address] Berenice Mata PA [address] [place] [address] Spondylosis of cervical region without myelopathy or radiculopathy Social History Tobacco Use Types Packs/Day Years [...] Respiratory Rate - - Oxygen Saturation 98% 05/14/2024 8:2 1 AM EDT Inhaled Oxygen Concentration - - Weight 91.6 kg (202 lb) 05/14/2024 8:21 AM EDT per patient report Height 177.8 cm (5' 10) 05/14/2024 8:2 1 AM EDT per patient report Body Mass Index 28.98 05/14/2024 8:21 AM EDT documented in this encounter Progress Notes * Berenice Mata PA - 05/14/2024 9:00 AM EDT Subjective: HPI: Quintin Dewitt is a 78 y.o. male presenting to the [facility] with a chief complaint of BUE and BLE pain and weakness. Patient states he was in his normal state of health 6 monthsago and was able to use his ATV. Four months ago, he noted pain and weakness in RUE. He subsequently noted left leg pain. Over the last two months, his symptoms have progressed. He notes dysfucntion in bilateral UE with right being worse than left. He is having difficulty rising to a stand. He is now using a cane at home and a wheelchair here today. He notes pain in the posterior arms and into all 5 fingers. He notes pain throughout his entire lower extremities in a circumferential distribution. Objective: VS: BP 109/71 (BP Location (NBP): Right arm, Patient Position: Sitting, BP Cuff Sizes: Adult (25-34cm)) Pulse 87 Ht 177.8 cm (5' 10) Comment: per patient report Wt 91.6 kg (202 lb) Comment: per patient report SpO2 98% BMI 28.98 kg/m?? Neck: He can flex and extend his cervical spine without Lhermitte's. Both maneuvers were limited and quite painful for him. Upper extremities: He is diffusely weak in all muscle groups in the bilateral upper extremities with the right being worse than the left. All manual testing was very painful for him and brought tearsto his eyes. He has no hyperreflexia in the biceps triceps or brachioradialis. He has no Sandhya's. Again reflex testing was also very painful for him. Lower extremities: His lower extremity strength is 4 out of 5 in all muscle groups bilaterally. He has no hyperreflexia in the patella or ankles. His great toes are downgoing to Babinski testing. Again muscle testing and reflex testing were very painful for him. Neuro: I did not asked him to tandem walk due to concerns of stability . MRI: satisfactory fusion at C5/6. Adjacent level spondylosis at C4/5 without cord compression and only mild narrowing for right C4 nerve root. Appears stable when compared to imaging from 2014. Assessment and Plan: Cervical spondylosis Patient presents with rapidly progressing weakness and diffuse pain. No cord compression seen on MRI. No role for neurosurgical intervention. Recommend he present to ER to start medical work-up. Patient does not wish to go to the emergency room today. He would like to continue working with his primary care provider on the diagnosis. We have placed a call to them today. FOLLOWUP: no neurosurgical intervention indicated * Troi Perez MD - 05/14/2024 9:00 AM EDT Quintin is a seen today at the request of his primary care provider for his right upper extremity pain but this is a much more complex issue than that. Please see Berenice Kauffman's note for full details of today's visit. I do remember Quintin he had surgery with me 11 years ago which was an anterior cervical discectomy and instrumented fusion of the C5-6 level decompressing the C5-6 level bilaterally. At that time he had a bit of a disc bulge at the C4-5 level but nothing compressing the cord. Hedid well without surgery. 6 months ago he was able to be out and about using his ATV going about his business not using a cane to walk. Then about 4 months ago he began having some right arm dysfunction which was somewhat of a global dysfunction pain down the entire arm severe pain at night and then that went over to the left side as well and in the past 2 months significant worsening to the point where he has difficulty standing up from a seated position using a cane to walk and feels like hislegs will not hold him there is pain in his legs not in a radicular pattern pain in his low back. Significant dysfunction worsening in the past 2 months. He is not hyperreflexic on exam he is able toclose his eyes with standing. He does not seem to be myelopathic. He has no bladder dysfunction. His MRI of the cervical spine is quite reassuring it seems that the disc bulge at C4-5 is similar to what it was in 2014 and although there is some foraminal narrowing for the C5 nerve root on the righthe is not describing a purely C5 radicular pattern of pain as his only problem. I do not feel that I would recommend any surgery of the cervical spine but he certainly needs a further workup for his global body pain and dysfunction and proximal motor weakness. I also reviewed the spinal portion of his CT scan of the abdomen that had been ordered and I did not see any obvious spinal canal narrowing there but of course that is not a designated lumbar study. I suggested he go to the emergency roombut he wanted to go home and for us to contact his primary care physician for further workup closerto home initially. documented in this encounter Plan of Treatment Not on file documented as of this encounter Visit Diagnoses Diagnosis Spondylosis of cervical region without myelopathy or radiculopathy Cervical spondylosis without myelopathy documented in this encounter Care Teams Dessert Cup Machine Feeder Relationship Specialty Start Date End Date Mei Javier [address] [place] [address] PCP - General Family Medicine 09/29/20 documented as of this encounter
--- OUTSIDE RECORDS SUMMARY | 2024-05-16 14:44 | XMS_ITS | Encounter Summary ---
Author Organization Formerly [facility] [place] [address] Care Team Providers Care Sanitation Worker Name Role Phone Mei Javier Primary Care Provider Encounter Details Date Type Department Care Team (Late st Contact Info) Description 04/11/2024 4:35 PM EDT Ancillary Procedure Radiology Library at [facility] [place] [phone] Mei Javier [address] [place] [address] Social History Tobacco Use Types Packs/Day Years [...] Associated Diagnosis Comments FILM LIBRARY STORAGE ONLY MR SPINE Routine 04/11/2024 4:32 PM EDT documented in this encounter Results * Film Library- Storage Only MR Spine (04/11/2024 4:32 PM EDT) Narrative ERICKA - 04/11/2024 4:32 PM EDT This exam is auto-finalizing. It's purpose is for storage only. Mei Javier IMG FILM LIBRARY OR DERABLES [facility] [place] documented in this encounter Visit Diagnoses Not on filedocumented in this encounter Care Teams Sanitation Worker Relationship Specialty Start Date End Date Mei Javier [address] [place] [address] PCP - General Family Medicine 09/29/20 documented as of this encounter
--- OUTSIDE RECORDS SUMMARY | 2024-05-16 14:44 | XMS_ITS | Encounter Summary ---
Author Organization [facility] Address [facility] [place] [address] Care Team Providers Care Corrections Sergeant Name Role Phone Mei Javier Primary Care Provider [phone]- [phone] Encounter Details Date Type Department Care Team (Late st Contact Info) Description 04/25/2024 Abstract Neurosurgery at [facility] [address] [place] [address] Ariadna Causey, BLUEPRINT TRIMMER Social History Tobacco Use Types Packs/Day Years [...] on filedocumented in this encounter Care Teams Corrections Sergeant Relationship Specialty Start Date End Date Mei Javier [address] [place], [place] [id number] PCP - General Family Medicine 09/29/20 documented as of this encounter
--- OUTSIDE RECORDS SUMMARY | 2024-05-16 14:44 | XMS_ITS | Data Portability ---
Author Organization [place] [facility] Address [address] [place] [address] Assessment Encounter Date Assessment Date Assessment LastModified by Organization Details LastModified Time 12/14/2023 12/14/2023 Discussed episod e of fatigue, weakness, n/v most consistent with viral GI illness, which completely resolved after 10 days. Provided reassurance. [email or web address] Not available 12/14/2023 17:55:05 03/21/2024 03/21/2024 Patient presente d to office today for their Medicare Annual Wellness Visit. Education was provided on healthy nutrition, including a diet rich in fruits and vegetables, minimizing simple carbohydrates, salt, and saturated fats. Encouraged regular cardiovascular exercise such as walking at least 30 minutes daily, 5 times per week. Emphasized preventive health measures and educated pt on fall prevention and community-based lifestyle interventions to help reduce health risks and promote healthy living. james Not available 03/19/2024 13:17:18 Plan of Treatment Reminders Order Date Submit Date Provider Last Modified By Organization Details Last Modified Time Details Appointments Acute 2023 10:30A M Mei Roman Not available Not available Not available Follow Up 2023 01:00P M Mei Roman Not available Not available Not available Lab microa lbumin , urine 2023 [facility] [address] [facility], [place], [address], 12/15/2023 09:53:06 Referral neurol ogical surgeo n referr al - Had anteri or cervic al discec oliva and fusion with you 015 for LUE pain, was told he may need same on R side eventu bradley, now with RUE pain. Cervic al spine MRI ordere d at [facility] with result cc'd to you. 2023 024 HUMBERTO Perez MD, [address] [place] [address], [id number], 05/14/2024 14:50:36 Procedures None record ed. Surgeries None record ed. Imaging CT, angiog parish, abdome n + pelvis + lower extrem ity, w/wo contra st - creati nine 4 = 1.5, advise d to push fluids . On metfor min, advise d to HOLD day of and 48g after CTA. Please also commen t on LS spine and pelvis 2023 024 [email or web address] [facility] (Radiology), [address] [place] [address] , [place], [address], 04/22/2024 09:09:18 MRI, cervic al spine, w/o contra st - As part of our Prior Author aracelis pina Reduct [facility] m, [facility] Medica re Advant age no longer requir es prior author aracelis pina for CT, MRI/MR A and transt horaci c echoca rdiogr aphy proced ures for Medica re member s effect mitchell 07/31/19 18*. If you have genera l questi ons about prior author aracelis pina requir ements , please call custom er servic e at [phone] . *Medic are member s includ e Medica re Advant age, Duals, MMP and [facility] SCO benefi t plans. 2023 024 ATHENAFAX [facility] (Radiology), [address] [place] [address] [place], [address], 03/22/2024 13:01:02 Medication Orders magnes ium oxide 400 mg (241.3 mg magnes ium) tablet 2023 024 beronica [facility][id number], [address], [place], [id number], 2023 17:25:05 Ventol in HFA 90 mcg/ac tuatio n aeroso l inhale r 2023 024 [facility]18784, [address] [place] [address], [id number], 2023 17:25:05 Qvar RediHa ler 40 mcg/ac tuatio n HFA breath activa sudheer aeroso l 2023 024 [facility] #37736, [address] [place] [address], [id number], 2023 17:25:05 cyanoc obalam in (vit B-12) 1,000 mcg tablet 2023 024 [facility] #55580, [address] [place] [address], [id number], 2023 17:25:05 Slow-M ag 71.5 mg tablet ,delay ed releas e 2023 024 [facility] #75989, [address] [place] [address], [id number], 12/14/2023 17:54:16 Jardia nce 10 mg tablet 2023 024 [facility] #30114, [address] [place] [address], [id number], 03/21/2024 19:22:00 diclof enac 1 % topica l gel 2023 024 [facility], [address] [place] [address], [id number], 03/21/2024 20:30:49 Jardia nce 25 mg tablet 2023 024 beronica [facility]29[facility], [address] [place] [address], [id number], 03/21/2024 16:32:43 Patient TargetsNo targets recorded. Patient Instructions Encounter Date Encounter Id Patient Instructions Last Modified By Organization Details Last Modified Time 2023 [id number] STOP insulin, CONTINUE metformin and Trulicity INCREASE magnesium to twice daily; new Rx sent START vitamin B12 1000mcg once daily (over the counter) [email or web address] Not available 2023 16:04:09 12/14/2023 [id number] switch to slo-Mag, add Jardiance [email or web address] Not available 12/14/2023 14:35:45 03/21/2024 [id number] visual acuity* [email or web address] Not availa ble 03/21/2024 17:50:36 diabetic foot exam* [email or web address] Not available 04/02/2024 09:46:19 Reason for Referral Csr Technician Referral for Neur opathy due to type [address] Emanuel requested Referring Physician: Carole Henriquez, Family Medicine, Encounter Date: 10/04/2023 Neurological Surgeon Wisam richard for Pain in right arm Had anterior cervical discectomy and fusion with you 08/11/2014 for LUE pain, was told he may need same on R side eventually, now with RUE pain. Cervical spine MRI ordered at [facility] with result cc'd to you. Referring Physician: Mei Javier Family Medicine, Encounter Date: 03/21/2024 Physical Therapist Referral for Pain in bilateral legs Referring Physician: Mei Javier Family Medicine, Encounter Date: 04/24/2024 Results Created Date Observation Date Name Description Value Unit Range Abnormal Flag Note LastModifiedBy Organization Detail LastModifiedTime 09/13/19 24 09/13/2023 TSH TSH 3.05 uIU/m L 0.36-3 .74 normal NOTE: Supra -phys iolog ic doses of Bioti n(B7) may cause false negat mitchell resul ts. Not Available [facility] ([facility]) [address] [place] [address] [place], [address], 09/13/2023 12:36:48 09/13/19 24 09/13/2023 FREE T4 free T4 0.88 NG/dL 0.76-1 .46 normal Not Available [facility] ([facility]) [address] [place] [address] [place], [address], 09/13/2023 12:36:49 09/13/19 24 09/13/2023 VITAM IN B12 vitamin B12 216 pg/mL 193-98 6 normal Not Available [address] [place], [address] 09/13/2023 12:36:49 09/13/19 24 2023 COMPL ETE BLOOD COUNT W/DIF F WBC 10.74 10_3/ uL 4.4-10 .8 normal Not Available [address] [place], [address] 2023 08:52:41 09/13/19 24 2023 COMPL ETE BLOOD COUNT W/DIF F RBC 4.46 10_6/ uL 4.36-5 .78 normal Not Available [address] [place], [address] 2023 08:52:41 09/13/19 24 2023 COMPL ETE BLOOD COUNT W/DIF F HGB 14.5 g/dL 13.5-1 7.5 normal Not Available [address] [place], [address] 2023 08:52:41 09/13/19 24 2023 COMPL ETE BLOOD COUNT W/DIF F HCT 44.5 % 40.0-5 0.0 normal Not Available [address] [place], [address] 2023 08:52:41 09/13/19 24 2023 COMPL ETE BLOOD COUNT W/DIF F MCV 100 fL 80-95 high Not Available Akila parker [address] [place], [address] 2023 08:52:41 09/13/19 24 2023 COMPL ETE BLOOD COUNT W/DIF F MCH 32.5 pg 27.0-3 3.0 normal Not Available [address] [place], [address] 2023 08:52:41 09/13/19 24 2023 COMPL ETE BLOOD COUNT W/DIF F MCHC 32.6 % 32.0-3 6.0 normal Not Available [address] [place], [address] 2023 08:52:41 09/13/19 24 2023 COMPL ETE BLOOD COUNT W/DIF F RDW 14.6 % 11.8-1 4.1 high Not Available [address] [place], [address] 2023 08:52:41 09/13/19 24 2023 COMPL ETE BLOOD COUNT W/DIF F platelet count 193 10_3/ uL 130-40 0 normal Not Available [address] [place], [address] 2023 08:52:41 09/13/19 24 2023 COMPL ETE BLOOD COUNT W/DIF F MPV 11.7 fL 8.0-11 .0 high Not Available [address] [place], [address] 2023 08:52:41 09/13/19 24 2023 COMPL ETE BLOOD COUNT W/DIF F neutrophils % 52.6 Not Available [facility] [address] [place], [address] 2023 08:52:41 09/13/19 24 2023 COMPL ETE BLOOD COUNT W/DIF F lymphocytes % 21.6 Not [address] [facility] [address] [place], [address] 2023 08:52:41 09/13/19 24 2023 COMPL ETE BLOOD COUNT W/DIF F monocytes % 7.9 Not Available [address] [place], [address] 2023 08:52:41 09/13/19 24 2023 COMPL ETE BLOOD COUNT W/DIF F eosinophils % 16.5 Not Available [address] [place], [address] 2023 08:52:41 09/13/19 24 2023 COMPL ETE BLOOD COUNT W/DIF F basophils % 1.2 Not Available [address] [place], [address] 2023 08:52:41 09/13/19 24 2023 COMPL ETE BLOOD COUNT W/DIF F immature grans % 0.2 Not Available [address] [place], [address] 2023 08:52:41 09/13/19 24 2023 COMPL ETE BLOOD COUNT W/DIF F nucleated RBC 0.3 % 0.0-0. 3 normal Not Available [address] [place], [address] 2023 08:52:41 09/13/19 24 2023 COMPL ETE BLOOD COUNT W/DIF F absolute neutrophil count 5.65 10_3/ uL 1.2-6. 7 normal Not Available [address] [place], [address] 2023 08:52:41 09/13/19 24 2023 COMPL ETE BLOOD COUNT W/DIF F absolute lymphocyte count 2.32 10_3/ uL 1.2-3. 4 normal Not Available [address] [place], [address] 2023 08:52:41 09/13/19 24 2023 COMPL ETE BLOOD COUNT W/DIF F absolute monocyte count 0.85 10_3/ uL 0.1-0. 8 high Not Available [address] [place], [address] 2023 08:52:41 09/13/19 24 2023 COMPL ETE BLOOD COUNT W/DIF F absolute eosinophil count 1.77 10_3/ uL 0.0-0. 7 high Not Available [address] [place], [address] 2023 08:52:41 09/13/19 24 2023 COMPL ETE BLOOD COUNT W/DIF F absolute basophil count 0.13 10_3/ uL 0.0-0. 2 normal Not Available [address] [place], [address] 2023 08:52:41 09/13/19 24 2023 HEMOG LOBIN A1C hemoglobin A1C 6.9 % <5.7 high Refer ence Range s <5.7 Albertina l 5.7-6 .4% Predi abete s 6.5% or great er Diagn ostic for diabe julio c (if confi rmed) Refer ences : 1. Ameri can Diabe julio c Assoc iatio n. Clas sific ation and Diagn osis of Diabe julio c. Diabe julio c Care 2019 Jul; 2(Sup pleme nt 1):S1 3-s28 . Not Available [address] [place], [address] 2023 09:39:49 09/13/19 24 2023 COMPR EHENS MITCHELL METAB OLIC PANEL calcium 9.4 mg/dL 8.5-10 .1 normal Not Available [address] [place], [address] 2023 09:40:52 09/13/19 24 2023 COMPR EHENS MITCHELL METAB OLIC PANEL glucose 118 mg/dL 74-106 high Not Available Akila parker [address] [place], [address] 2023 09:40:52 09/13/19 24 2023 COMPR EHENS MITCHELL METAB OLIC PANEL BUN 13 mg/dL 7-18 normal Not Available Akila parker [address] [place], [address] 2023 09:40:52 09/13/19 24 2023 COMPR EHENS MITCHELL METAB OLIC PANEL creatinine 1.3 mg/dL 0.70-1 .30 normal Not Available [address] [place], [address] 2023 09:40:52 09/13/19 24 2023 COMPR EHENS MITCHELL METAB OLIC PANEL estimated GFR 55.88 mL/min /1.73m 2 The eGFR is calcu lated from a serum creat inine using the CKD-E PI 2020 equat ion. Other varia bles requi red for the equat ion are gende r and age; this equat ion does not inclu de a race coeff icien t. This equat ion has simil ar overa ll perfo rmanc e to previ ous equat ions excep t value s may diffe r, in parti cular , in patie nts with highe r value s of eGFR and young er-ag ed adult s. Not Available [address] [place], [address] 2023 09:40:52 09/13/19 24 2023 COMPR EHENS MITCHELL METAB OLIC PANEL total protein 7.2 g/dL 6.4-8. 2 normal Not Available [address] [place], [address] 2023 09:40:52 09/13/19 24 2023 COMPR EHENS MITCHELL METAB OLIC PANEL albumin 3.7 g/dL 3.4-5. 0 normal Not Available [address] [place], [address] 2023 09:40:52 09/13/19 24 2023 COMPR EHENS MITCHELL METAB OLIC PANEL bilirubin, total 0.7 mg/dL 0.2-1. 0 normal Not Available [address] [place], [address] 2023 09:40:52 09/13/19 24 2023 COMPR EHENS MITCHELL METAB OLIC PANEL alk phos 87 U/L 46-116 normal Not Available [address] [place], [address] 2023 09:40:52 09/13/19 24 2023 COMPR EHENS MITCHELL METAB OLIC PANEL sodium 144 mmol/ L 136-14 5 normal Not Available [address] [place], [address] 2023 09:40:52 09/13/19 24 2023 COMPR EHENS MITCHELL METAB OLIC PANEL potassium 5.0 mmol/ L 3.5-5. 1 normal Not Available [address] [place], [address] 2023 09:40:52 09/13/19 24 2023 COMPR EHENS MITCHELL METAB OLIC PANEL chloride 108 mmol/ L 98-107 high Not Available [address] [place], [address] 2023 09:40:52 09/13/19 24 2023 COMPR EHENS MITCHELL METAB OLIC PANEL CO2 23.1 mmol/ L 21.0-3 2.0 normal Not Available [address] [place], [address] 2023 09:40:52 09/13/19 24 2023 COMPR EHENS MITCHELL METAB OLIC PANEL anion gap 12.9 mmol/ L 3-11 high Not Available [address] [place], [address] 2023 09:40:52 09/13/19 24 2023 COMPR EHENS MITCHELL METAB OLIC PANEL AST 17 U/L 15-37 normal Not Available Akila parker [address] [place], [address] 2023 09:40:52 09/13/19 24 2023 COMPR EHENS MITCHELL METAB OLIC PANEL ALT 16 U/L 16-63 normal Not Available Akila parker [address] [place], [address] 2023 09:40:52 09/13/19 24 2023 LIPID 2 cholesterol 145 mg/dL <200 Not Available [facility]) [address] [place] [address] [place], [address], 2023 09:40:53 09/13/19 24 2023 LIPID 2 triglyceride 124 mg/dL <150 Not Available [facility] ([facility]) [address] [place] [address] [place], [address], 2023 09:40:53 09/13/19 24 2023 LIPID 2 HDL cholesterol 45 mg/dL 40-60 Not Available [facility] ([facility]) [address] [place] [address] [place], [address], 2023 09:40:53 09/13/19 24 2023 LIPID 2 calculated LDL 76 mg/dL <100 Natio nal Marcia stero l Educa tion Progr am (NCEP -ATPI II) class ifica tions : Marcia stero l <200 mg/dL Dominik able Marcia stero l 200-2 39 mg/dL Borde rline High Marcia stero l >or=2 40 mg/dL High HDL <40 mg/dL Low HDL >or=6 0 mg/dL High LDL <100 mg/dL Optim al LDL 100-1 29 mg/dL Near Optim al/Ab ove Optim al LDL 130-1 59 mg/dL Borde rline High LDL 160-1 89 mg/dL High LDL >or=1 90 mg/dL Very High *The above refer ence range is for adult s 18 years or older . Not Available [facility] ([facility]) [address] [place] [address] [place], [address], 2023 09:40:53 09/13/19 24 2023 MAGNE SIUM magnesium 1.6 mg/dL 1.8-2. 4 low Not Available [facility] ([facility]) [address] [place] [address] [place], [address], 2023 09:40:54 09/13/19 24 09/13/2023 TSH TSH 3.05 uIU/m L 0.36-3 .74 normal NOTE: Supra -phys iolog ic doses of Bioti n(B7) may cause false negat mitchell resul ts. Not Available [address] [place], [address] 2023 09:40:55 09/13/19 24 09/13/2023 VITAM IN B12 vitamin B12 216 pg/mL 193-98 6 normal Not Available [address] [place], [address] 2023 09:40:56 12/11/19 24 12/11/2023 COMPL ETE BLOOD COUNT W/DIF F WBC 9.06 10_3/ uL 4.4-10 .8 normal Not Available [address] [place], [address] 12/11/2023 10:26:30 12/11/19 24 12/11/2023 COMPL ETE BLOOD COUNT W/DIF F RBC 4.16 10_6/ uL 4.36-5 .78 low Not Available [address] [place], [address] 12/11/2023 10:26:30 12/11/19 24 12/11/2023 COMPL ETE BLOOD COUNT W/DIF F HGB 13.4 g/dL 13.5-1 7.5 low Not Available [address] [place], [address] 12/11/2023 10:26:30 12/11/19 24 12/11/2023 COMPL ETE BLOOD COUNT W/DIF F HCT 40.3 % 40.0-5 0.0 normal Not Available [address] [place], [address] 12/11/2023 10:26:30 12/11/19 24 12/11/2023 COMPL ETE BLOOD COUNT W/DIF F MCV 97 fL 80-95 high Not Available Akila parker [address] [place], [address] 12/11/2023 10:26:30 12/11/19 24 12/11/2023 COMPL ETE BLOOD COUNT W/DIF F MCH 32.2 pg 27.0-3 3.0 normal Not Available [address] [place], [address] 12/11/2023 10:26:30 12/11/19 24 12/11/2023 COMPL ETE BLOOD COUNT W/DIF F MCHC 33.3 % 32.0-3 6.0 normal Not Available [address] [place], [address] 12/11/2023 10:26:30 12/11/19 24 12/11/2023 COMPL ETE BLOOD COUNT W/DIF F RDW 13.2 % 11.8-1 4.1 normal Not Available [address] [place], [address] 12/11/2023 10:26:30 12/11/19 24 12/11/2023 COMPL ETE BLOOD COUNT W/DIF F platelet count 271 10_3/ uL 130-40 0 normal Not Available [address] [place], [address] 12/11/2023 10:26:30 12/11/19 24 12/11/2023 COMPL ETE BLOOD COUNT W/DIF F MPV 10.2 fL 8.0-11 .0 normal Not Available [address] [place], [address] 12/11/2023 10:26:30 12/11/19 24 12/11/2023 COMPL ETE BLOOD COUNT W/DIF F neutrophils % 56.7 % Not Available [address] [facility] [place], [address] 12/11/2023 10:26:30 12/11/19 24 12/11/2023 COMPL ETE BLOOD COUNT W/DIF F lymphocytes % 25.2 % Not Available [address] [place], [address] 12/11/2023 10:26:30 12/11/19 24 12/11/2023 COMPL ETE BLOOD COUNT W/DIF F monocytes % 7.1 % Not Available [address] [place], [address] 12/11/2023 10:26:30 12/11/19 24 12/11/2023 COMPL ETE BLOOD COUNT W/DIF F eosinophils % 7.8 % Not Available [address] [place], [address] 12/11/2023 10:26:30 12/11/19 24 12/11/2023 COMPL ETE BLOOD COUNT W/DIF F basophils % 1.2 % Not Available [address] [place], [address] 12/11/2023 10:26:30 12/11/19 24 12/11/2023 COMPL ETE BLOOD COUNT W/DIF F immature grans % 2.0 % Not Available [address] [place], [address] 12/11/2023 10:26:30 12/11/19 24 12/11/2023 COMPL ETE BLOOD COUNT W/DIF F nucleated RBC 0.0 % 0.0-0. 3 normal Not Available [address] [place], [address] 12/11/2023 10:26:30 12/11/19 24 12/11/2023 COMPL ETE BLOOD COUNT W/DIF F absolute neutrophil count 5.14 10_3/ uL 1.2-6. 7 normal Not Available [address] [place], [address] 12/11/2023 10:26:30 12/11/19 24 12/11/2023 COMPL ETE BLOOD COUNT W/DIF F absolute lymphocyte count 2.28 10_3/ uL 1.2-3. 4 normal Not Available [address] [place], [address] 12/11/2023 10:26:30 12/11/19 24 12/11/2023 COMPL ETE BLOOD COUNT W/DIF F absolute monocyte count 0.64 10_3/ uL 0.1-0. 8 normal Not Available [address] [place], [address] 12/11/2023 10:26:30 12/11/19 24 12/11/2023 COMPL ETE BLOOD COUNT W/DIF F absolute eosinophil count 0.71 10_3/ uL 0.0-0. 7 high Not Available [address] [place], [address] 12/11/2023 10:26:30 12/11/19 24 12/11/2023 COMPL ETE BLOOD COUNT W/DIF F absolute basophil count 0.11 10_3/ uL 0.0-0. 2 normal Not Available [address] [place], [address] 12/11/2023 10:26:30 12/11/19 24 12/11/2023 HEMOG LOBIN A1C hemoglobin A1C 8.0 % <5.7 high Refer ence Range s <5.7 Albertina l 5.7-6 .4% Predi abete s 6.5% or great er Diagn ostic for diabe julio c (if confi rmed) Refer ences : 1. Ameri can Diabe julio c Assoc iatio n. Clas sific ation and Diagn osis of Diabe julio c. Diabe julio c Care 2018 2(Sup pleme nt 1):S1 3-s28 . Not Available [facility]) [address] [place] [address] [place], [address], 12/11/2023 10:36:31 12/11/19 24 12/11/2023 MAGNE SIUM magnesium 1.5 mg/dL 1.8-2. 4 low Not Available [facility] ([facility]) [address] [place] [address] [place], [address], 12/11/2023 11:11:49 12/11/19 24 12/11/2023 VITAM IN B12 vitamin B12 542 pg/mL 193-98 6 normal Not Available [facility] ([facility]) [address] [place] [address] [place], [address], 12/11/2023 11:11:50 12/11/19 24 12/11/2023 FOLAT E folate 11.4 NG/mL 8.6-20 .0 normal Not Available [facility] ([facility]) [address] [place] [address] [place], [address], 12/11/2023 11:11:50 12/11/1912/11/2023 PSA, DIAGN OSTIC PSA, diagnostic 2.0 NG/mL <=6.5 NOTE: Serum PSA hemal ntrat ion shoul d not be inter prete d as absol [place] evide nce for the prese nce or absen ce of susan reveles se. Assay ed on Sieme ns ADVIA Host Committeea ur XPT using chemi lumin escen t techn ology . Value s obtai mauri by using diffe rent assay metho ds canno t be used inter serna eably . Test perfo rmed or refer red by [facility] [address], [place] [address] Not Available [address] [place], [address] 12/15/2023 08:45:46 12/11/19 24 12/14/2023 TESTO STERO NE, TOTAL testosterone , total 421 NG/dL 240-95 0 ----- ----- ----- ----A DDITI ONAL INFOR MATIO N---- ----- ----- ----- Testi ng perfo rmed by Liqui chante Chrom atogr aphy- Tande m Mass Spect romet ry (LC-M S/MS) . This test was devel oped and its perfo rmanc e nadja cteri stics deter mined by Gagnon Arnie guardado in a monique r consi stent with CLIA kelle gore ts. This test has not been clear ed or appro conchis by the U.S. Food and Drug Admin istra tion. Test Perfo rmed by: Gagnon Arnie guardado [facility] - [place] [address] , [place] [address] Lab Direc tor: Tejinder Rocha Ph.D. ; CLIA# [id number] Not Available [address] [place], [address] 12/15/2023 08:45:45 12/14/19 24 12/14/2023 micro album in, urine microalbumin negati ve mg/dL Not Available [address], [place], [address], 12/14/2023 14:03:06 03/20/20 24 03/20/2024 COMPL ETE BLOOD COUNT W/DIF F WBC 9.59 10_3/ uL 4.4-10 .8 normal Not Available [address] [place], [address] 03/20/2024 16:28:51 03/20/20 24 03/20/2024 COMPL ETE BLOOD COUNT W/DIF F RBC 4.48 10_6/ uL 4.36-5 .78 normal Not Available [address] [place], [address] 03/20/2024 16:28:51 03/20/20 24 03/20/2024 COMPL ETE BLOOD COUNT W/DIF F HGB 14.6 g/dL 13.5-1 7.5 normal Not Available [address] [place], [address] 03/20/2024 16:28:51 03/20/20 24 03/20/2024 COMPL ETE BLOOD COUNT W/DIF F HCT 43.5 % 40.0-5 0.0 normal Not Available [address] [place], [address] 03/20/2024 16:28:51 03/20/20 24 03/20/2024 COMPL ETE BLOOD COUNT W/DIF F MCV 97 fL 80-95 high Not Available Akila parker [address] [place], [address] 03/20/2024 16:28:51 03/20/20 24 03/20/2024 COMPL ETE BLOOD COUNT W/DIF F MCH 32.6 pg 27.0-3 3.0 normal Not Available [address] [place], [address] 03/20/2024 16:28:51 03/20/20 24 03/20/2024 COMPL ETE BLOOD COUNT W/DIF F MCHC 33.6 % 32.0-3 6.0 normal Not Available [address] [place], [address] 03/20/2024 16:28:51 03/20/20 24 03/20/2024 COMPL ETE BLOOD COUNT W/DIF F RDW 13.8 % 11.8-1 4.1 normal Not Available [address] [place], [address] 03/20/2024 16:28:51 03/20/20 24 03/20/2024 COMPL ETE BLOOD COUNT W/DIF F platelet count 187 10_3/ uL 130-40 0 normal Not Available [address] [place], [address] 03/20/2024 16:28:51 03/20/20 24 03/20/2024 COMPL ETE BLOOD COUNT W/DIF F MPV 10.9 fL 8.0-11 .0 normal Not Available [address] [place], [address] 03/20/2024 16:28:51 03/20/20 24 03/20/2024 COMPL ETE BLOOD COUNT W/DIF F neutrophils % 58.7 % Not Available [address] [place], [address] 03/20/2024 16:28:51 03/20/20 24 03/20/2024 COMPL ETE BLOOD COUNT W/DIF F lymphocytes % 20.1 % Not Available [address] [place], [address] 03/20/2024 16:28:51 03/20/20 24 03/20/2024 COMPL ETE BLOOD COUNT W/DIF F monocytes % 6.8 % Not Available [address] [place], [address] 03/20/2024 16:28:51 03/20/20 24 03/20/2024 COMPL ETE BLOOD COUNT W/DIF F eosinophils % 13.2 % Not Available [address] [place], [address] 03/20/2024 16:28:51 03/20/20 24 03/20/2024 COMPL ETE BLOOD COUNT W/DIF F basophils % 0.8 % Not Available [address] [place], [address] 03/20/2024 16:28:51 03/20/20 24 03/20/2024 COMPL ETE BLOOD COUNT W/DIF F immature grans % 0.4 % Not Available [address] [place], [address] 03/20/2024 16:28:51 03/20/20 24 03/20/2024 COMPL ETE BLOOD COUNT W/DIF F nucleated RBC 0.0 % 0.0-0. 3 normal Not Available [address] [place], [address] 03/20/2024 16:28:51 03/20/20 24 03/20/2024 COMPL ETE BLOOD COUNT W/DIF F absolute neutrophil count 5.62 10_3/ uL 1.2-6. 7 normal Not Available [address] [place], [address] 03/20/2024 16:28:51 03/20/20 24 03/20/2024 COMPL ETE BLOOD COUNT W/DIF F absolute lymphocyte count 1.93 10_3/ uL 1.2-3. 4 normal Not Available [address] [place], [address] 03/20/2024 16:28:51 03/20/20 24 03/20/2024 COMPL ETE BLOOD COUNT W/DIF F absolute monocyte count 0.65 10_3/ uL 0.1-0. 8 normal Not Available [address] [place], [address] 03/20/2024 16:28:51 03/20/20 24 03/20/2024 COMPL ETE BLOOD COUNT W/DIF F absolute eosinophil count 1.27 10_3/ uL 0.0-0. 7 high Not Available [address] [place], [address] 03/20/2024 16:28:51 03/20/20 24 03/20/2024 COMPL ETE BLOOD COUNT W/DIF F absolute basophil count 0.08 10_3/ uL 0.0-0. 2 normal Not Available [address] [place], [address] 03/20/2024 16:28:51 03/20/20 24 03/20/2024 HEMOG LOBIN A1C hemoglobin A1C 7.6 % <5.7 high Refer ence Range s <5.7 Albertina l 5.7-6 .4% Predi abete s 6.5% or great er Diagn ostic for diabe julio c (if confi rmed) Refer ences : 1. Ameri can Diabe julio c Assoc iatio n. Clas sific ation and Diagn osis of Diabe julio c. Diabe julio c Care 2019 Jul; 2(Sup pleme nt 1):S1 3-s28 . Not Available [address] [place], [address] 03/20/2024 16:38:54 03/20/20 24 03/20/2024 COMPR EHENS MITCHELL METAB OLIC PANEL calcium 8.8 mg/dL 8.5-10 .1 normal Not Available [address] [place], [address] 03/20/2024 17:31:03 03/20/20 24 03/20/2024 COMPR EHENS MITCHELL METAB OLIC PANEL glucose 238 mg/dL 74-106 high Not Available Akila parker [address] [place], [address] 03/20/2024 17:31:03 03/20/20 24 03/20/2024 COMPR EHENS MITCHELL METAB OLIC PANEL BUN 16 mg/dL 7-18 normal Not Available Akila parker [address] [place], [address] 03/20/2024 17:31:03 03/20/20 24 03/20/2024 COMPR EHENS MITCHELL METAB OLIC PANEL creatinine 1.5 mg/dL 0.70-1 .30 high Not Available [address] [place], [address] 03/20/2024 17:31:03 03/20/20 24 03/20/2024 COMPR EHENS MITCHELL METAB OLIC PANEL estimated GFR 46.77 mL/min /1.73m 2 The eGFR is calcu lated from a serum creat inine using the CKD-E PI 2020 equat ion. Other varia bles requi red for the equat ion are gende r and age; this equat ion does not inclu de a race coeff icien t. This equat ion has simil ar overa ll perfo rmanc e to previ ous equat ions excep t value s may diffe r, in parti cular , in patie nts with highe r value s of eGFR and young er-ag ed adult s. Not Available [address] [place], [address] 03/20/2024 17:31:03 03/20/20 24 03/20/2024 COMPR EHENS MITCHELL METAB OLIC PANEL total protein 6.8 g/dL 6.4-8. 2 normal Not Available [address] [place], [address] 03/20/2024 17:31:03 03/20/20 24 03/20/2024 COMPR EHENS MITCHELL METAB OLIC PANEL albumin 3.5 g/dL 3.4-5. 0 normal Not Available [address] [place], [address] 03/20/2024 17:31:03 03/20/20 24 03/20/2024 COMPR EHENS MITCHELL METAB OLIC PANEL bilirubin, total 0.82 mg/dL 0.2-1. 0 normal Not Available [address] [place], [address] 03/20/2024 17:31:03 03/20/20 24 03/20/2024 COMPR EHENS MITCHELL METAB OLIC PANEL alk phos 100 U/L 46-116 normal Not Available [address] [place], [address] 03/20/2024 17:31:03 03/20/20 24 03/20/2024 COMPR EHENS MITCHELL METAB OLIC PANEL sodium 139 mmol/ L 136-14 5 normal Not Available [address] [place], [address] 03/20/2024 17:31:03 03/20/20 24 03/20/2024 COMPR EHENS MITCHELL METAB OLIC PANEL potassium 4.6 mmol/ L 3.5-5. 1 normal Not Available [address] [place], [address] 03/20/2024 17:31:03 03/20/20 24 03/20/2024 COMPR EHENS MITCHELL METAB OLIC PANEL chloride 103 mmol/ L 98-107 normal Not Available [address] [place], [address] 03/20/2024 17:31:03 03/20/20 24 03/20/2024 COMPR EHENS MITCHELL METAB OLIC PANEL CO2 25.9 mmol/ L 21.0-3 2.0 normal Not Available [address] [place], [address] 03/20/2024 17:31:03 03/20/20 24 03/20/2024 COMPR EHENS MITCHELL METAB OLIC PANEL anion gap 10.1 mmol/ L 3-11 normal Not Available [address] [place], [address] 03/20/2024 17:31:03 03/20/20 24 03/20/2024 COMPR EHENS MITCHELL METAB OLIC PANEL AST 11 U/L 15-37 low Not Available Akila parker [address] [place], [address] 03/20/2024 17:31:03 03/20/20 24 03/20/2024 COMPR EHENS MITCHELL METAB OLIC PANEL ALT 19 U/L 16-63 normal Not Available Akila parker [address] [place], [address] 03/20/2024 17:31:03 03/20/20 24 03/20/2024 MAGNE SIUM magnesium 2.0 mg/dL 1.8-2. 4 normal Not Available [address] [place], [address] 03/20/2024 17:31:04 03/20/20 24 03/20/2024 VITAM IN D 25 TOTAL vitamin D 25 total 24.9 NG/mL 30-100 low Refer ence Guide lines : Defic ient: <10 ng/ml Insuf ficie nt: 10-30 ng/ml Suffi cient : 30-10 0 ng/ml Toxic : >100 ng/ml Not Available [facility] [address] [place], [address] 03/20/2024 17:31:04 03/21/20 24 03/21/2024 visua l acuit y* R Eye Corrected 20/40 Not Available [address], [address], 03/19/2024 13:18:02 03/21/20 24 03/21/2024 visua l acuit y* L Eye Corrected 20/25 Not Available [address], [address], 03/19/2024 13:18:02 03/21/20 24 03/21/2024 visua l acuit y* Both Corrected 20/40 Not Available [address], [address], 03/19/2024 13:18:02 04/11/20 24 04/11/2024 CT, angio gram, abdom en + pelvi s + lower extre mity, w/wo contr ast Patien t Name: Lida Dewitt floyd David Unit #: [id number] Loc: DI Orderi ng Provid er: Jorge Luis ce-Rachid Domingo mueller Accoun t #: [id number] Status : REG CLI Primar y Care Provid er: [place] ce-Rachid Domingo mueller Date of Exam : Sex: M : 1945 Age: 78 Exam(s ) a CT:CT abd aorta CTA w runoff Exam(s ) CT ABD AORTA CTA W RUNOFF EXAM: CT ABD AORTA CTA W RUNOFF CLINIC AL HISTOR Y: PAIN IN LEFT LOWER LIMB, M79.60 5. TECHNI QUE: Imagin g Protoc ol: Axial CT angiog juana was perfor med with multi- slice acquis ition and multi- planar and/or 3D recons tructi ons. CONTRA ST MATERI AL: Intrav enous: Omnipa que [address] volume :[address] route: IV - Oral: / no COMPAR SHANA: No exams were availa ble for compar shana FINDIN GS: Vascul ar Struct ures: Heart: Normal size. Dobson ry artery calcif icatio ns. Abdome n: Celiac Nassau/S MA: No eviden ce of stenos is. Renal Arteri es: No eviden ce of stenos is. There is a single renal artery perfus ing the right. There are 2 arteri es perfus ing the left kidney . Aorta: No aneury sm. No dissec tion. Mild athero sclero tic change s. Pelvis : Iliac Arteri es: No eviden ce of stenos is. Common Femora l Arteri es: No eviden ce of stenos is. Lower extrem ities: Right: No signif icant athero sclero tic change s. Common Femora l: No eviden ce of stenos is. Superf icial Femora l: No eviden ce of stenos is. Poplit eal: No eviden ce of stenos is. Knee Trifur cation : No eviden ce of stenos is. Overhead Crane Operator ior Tibial : No eviden ce of stenos is. Perone al: No eviden ce of stenos is. Dorsal is Pedis: No eviden ce of stenos is. Left: No signif icant athero sclero tic change s. Common Femora l: No eviden ce of stenos is. Superf icial Femora l: No eviden ce of stenos is. Poplit eal: No eviden ce of stenos is. Knee Trifur cation : No eviden ce of stenos is. Overhead Crane Operator ior Tibial : No eviden ce of stenos is. Perone al: No eviden ce of stenos is. Dorsal is Pedis: No eviden ce of stenos is. Soft Tissue s: Small bilate ral fat contai lg inguin al hernia s. Small left-s ided Posada' s cyst. No knee joint effusi on. Lungs: No acute findin gs. Liver: Evalua tion somewh at limite d by streak artifa ct second petey to patien t arm positi oning. Normal densit y. No measur able mass. Gallbl adder and biliar y tract: No radiod ense calcul us or dilati on. Pancre as: Normal densit y, no abnorm al calcif icatio ns or inflam matory proces s. Spleen : Normal . Kidney s: Normal size, contou r and axis. No radiod ense stones or obstru ctive uropat hy. No masses seen. Adrena l glands : No masses seen. Aorta: Abdomi nal portio n non-di lated. Bladde r: Nearly empty. Bowel: No obstru ction or bowel wall thicke lg. Normal quanti ty of stool. . Perito elisabet cavity : No ascite s, collec tion or mesent toña inflam matory respon se. Bones: Degene rative change s in the lumbar spine. Mild degene rative change s in the hips and knees. Reprod uctive : Unrema rkable . IMPRES MALA: Mild athero sclero tic change s of the abdomi nal aorta. No signif icant athero sclero tic change s involv ing more distal vessel s. Vessel s are patent to the level of the feet.. Small left Posada' s cyst noted. RADIAT ION DOSE DELIVE RED: 1,204. 66mGy. cm Total DLP DATA REPOSI TORY: All CT scans at this facili ty are submit sudheer to the Nation al Radiol ogy Data Regist ry (NRDR) Dose Index Regist ry (DIR) with the [employer] Radiol ogy (ACR). RADIAT ION OPTIMI ZATION : All CT scans at this facili ty use at least one of these dose optimi zation techni ques: automa sudheer exposu re contro l; mA and/or kV adjust ment per patien t size (inclu preet target ed exams where dose is matche d to clinic al indica tion); or iterat mitchell recons tructi on. 012: Total DLP = 0.00 mGy-cm Ordere d By: Jorg eLuis Mendes wDomingo CC: ------ ------ ------ ------ ------ ------ ------ ------ ------ ------ ------ ------ ---- Dictat ed By: Sam Allen 1030 1030 Transc ribed By: Marshal Barboza 1030 This is privil eged, confid ential inform ation intend ed only for the provid er named. Any use or distri bution by any person other than this provid er is strict ly prohib ited. If you receiv e this report in error, please notify us immedi ately at [phone] and return the origin al report to us at the addres s above. Thank- you. [email or web address] [place] [address] [place], [address] 04/25/2024 08:23:58 04/11/20 24 04/11/2024 MRI imagi ng leticia kim Name: Lida Dewitt rd Unit #: [id number] Loc: DI Orderi ng Provid er: Domingo Gonzalez Accoun t #: [id number] Status : REG CLI Primar y Care Provid er: Domingo Gonzalez Date of Exam : Sex: M Admiss ion Date: : 1945 Age: 78 Exam(s ) MR CERVIC AL SPINE WO EXAM: MR CERVIC AL SPINE WO CLINIC AL HISTOR Y: PAIN IN R ARM, M79.60 1 TECHNI QUE: Multip lanar multis equenc e MRI of the cervic al spine was perfor med withou t intrav enous contra st. COMPAR SHANA: MR MRI - CERVIC AL SPINE WO CONT from 2013 FINDIN GS: BONES: Verteb ral body height s are mainta ined. Alignm ent is normal . Bone marrow signal intens ity is within normal limits . Anteri or fusion hardwa re at C5-6. There are facet degene rative change s at mu ltiple levels . CERVIC AL CORD: Cranio verteb ral juncti on is unrema rkable . The cervic al cord is normal size and signal intens ity. SOFT TISSUE S: Unrema rkable . C2-3: No disc hernia tion or bulge is identi fied. No eviden ce of neural forami nal narrow ing. No signif icant centra l canal stenos is. C3-4: No disc hernia tion or bulge is identi fied. Facet degene rative change s cause mild left neural forami nal narrow ing. No signif icant centra l canal stenos is. C4-5: Overhead Crane Operator ior and latera l disc osteop hytes. Cause narrow ing of the AP dimens ion of the centra l canal. There appear s to be some imping ement on the cord. There are facet osteop hytes which cause bilate ral neural forami nal narrow ing, more severe on the right. C5-6: Anteri or fusion . No disc hernia tion or bulge is identi fied.F acet degene rative change s bilate ral neural forami nal narrow ing. No signif icant centra l canal stenos is. C6-7: Modera te loss of disc height . Endpla te osteop hytes. Facet degene rative change s cause bilate ral severe neural forami nal narrow ing. No signif icant centra l canal stenos is. C7-T1: No disc hernia tion or bulge is identi fied. No eviden ce of neural forami nal narrow ing. No signif icant centra l canal stenos is. IMPRES MALA: Degene rative change s greate st at C4-5 causin g modera te narrow ing of the AP dimens ion of the centra l canal and may imping e on the cord. Cord signal is normal . Multil evel bilate ral neural forami nal narrow ing. DATA REPOSI TORY: Prashant d By: Jorge Luis oliveira-Rachid w,Domingo bradley CC: REZA WHITE MD, NICKI ------ ------ ------ ------ ------ ------ ------ ------ ------ ------ ------ ------ - Dictat ed By: Sam Allen 1112 Transc ribed By: Marshal Barboza 1112 This is privil eged, confid ential inform ation intend ed only for the provid er named. Any use or distri bution by any person other than this provid er is strict ly prohib ited. If you receiv e this r eport in error, please notify us immedi ately at and return the origin al report to us at the addres s above. Thank- you. [email or web address] [facility] [address], [place], [address] 04/23/2024 15:46:06 04/15/20 24 02/19/2021 XR, chest No observ ation record ed. Not Available 04/15 00:08:56 04/15/20 24 08/04/2021 XR, chest No observ ation record ed. Not Available 04/15 00:08:57 04/15/20 24 09/16/2021 MRI, lumba r spine No observ ation record ed. Not Available 04/15 00:09:05 04/15/20 24 03/24/2023 imagi ng/di agnos tic resul t No observ ation record ed. Not Available 04/15 00:09:14 04/15/20 24 09/07/2021 XR, knee No observ ation record ed. Not Available 04/15 00:09:15 04/15/20 24 09/07/2021 imagi ng/di agnos tic resul t No observ ation record ed. Not Available 04/15 00:09:18 04/15/20 24 06/14/2023 imagi ng/di agnos tic resul t No observ ation record ed. Not Available 04/15 00:09:20 04/15/20 24 06/13/2023 imagi ng/di agnos tic resul t No observ ation record ed. Not Available 04/15 00:10:11 04/15/20 24 06/13/2023 imagi ng/di alfredito tic resul t No observ ation record ed. Not Available 04/15 00:11:25 Result Notes Documentation Provider Name and Address Organization Details Recorded Time Ct, Angiogram, Abdomen + Pelvis + Lower Extremity, W/wo Contrast : Patient Name: Quintin Dewitt Unit #: [id number] Loc: DI Ordering Provider: Mei Javier Account #: [id number] Status: REG CLI Primary Care Provider: Mei Javier Date of Exam : 04/11/24 Sex: M : 1945 Age: 78 Exam(s) a CT:CT abd aorta CTA w runoff Exam(s) CT ABD AORTA CTA W RUNOFF EXAM: CT ABD AORTA CTA W RUNOFF CLINICAL HISTORY: PAIN IN LEFT LOWER LIMB, M79.605. TECHNIQUE: Imaging Protocol: Axial CT angiography was performed with multi-slice acquisition and multi-planar and/or 3D reconstructions. CONTRAST MATERIAL: Intravenous: Omnipaque 350 Contrast volume:150 ml Contrast route:IV - Oral: / no COMPARISON: No exams were available for comparison FINDINGS: Vascular Structures: Heart: Normal size. Coronary artery calcifications. Abdomen: Celiac [place]au/SMA: No evidence of stenosis. Renal Arteries: No evidence of stenosis. There is a single renal artery perfusing the right. There are 2 arteries perfusing the left kidney. Aorta: No aneurysm. No dissection. Mild atherosclerotic changes. Pelvis: Iliac Arteries: No evidence of stenosis. Common Femoral Arteries: No evidence of stenosis. Lower extremities: Right: No significant atherosclerotic changes. Common Femoral: No evidence of stenosis. Superficial Femoral: No evidence of stenosis. Popliteal: No evidence of stenosis. Knee Trifurcation: No evidence of stenosis. Posterior Tibial: No evidence of stenosis. Peroneal: No evidence of stenosis. Dorsalis Pedis: No evidence of stenosis. Left: No significant atherosclerotic changes. Common Femoral: No evidence of stenosis. Superficial Femoral: No evidence of stenosis. Popliteal: No evidence of stenosis. Knee Trifurcation: No evidence of stenosis. Posterior Tibial: No evidence of stenosis. Peroneal: No evidence of stenosis. Dorsalis Pedis: No evidence of stenosis. Soft Tissues: Small bilateral fat containing inguinal hernias. Small left-sided Posada's cyst. No knee joint effusion. Lungs: No acute findings. Liver: Evaluation somewhat limited by streak artifact secondary to patient arm positioning. Normal density. No measurable mass. Gallbladder and biliary tract: No radiodense calculus or dilation. Pancreas: Normal density, no abnormal calcifications or inflammatory process. Spleen: Normal. Kidneys: Normal size, contour and axis. No radiodense stones or obstructive uropathy. No masses seen. Adrenal glands: No masses seen. Aorta: Abdominal portion non-dilated. Bladder: Nearly empty. Bowel: No obstruction or bowel wall thickening. Normal quantity of stool.. Peritoneal cavity: No ascites, collection or mesenteric inflammatory response. Bones: Degenerative changes in the lumbar spine. Mild degenerative changes in the hips and knees. Reproductive: Unremarkable. IMPRESSION: Mild atherosclerotic changes of the abdominal aorta. No significant atherosclerotic changes involving more distal vessels. Vessels are patent to the level of the feet.. Small left Posada's cyst noted. RADIATION DOSE DELIVERED: 1,204.66mGy.cm Total DLP DATA REPOSITORY: All CT scans at this facility are submitted to the National Radiology Data Registry (NRDR) Dose Index Registry (DIR) with the [employer] (ACR). RADIATION OPTIMIZATION: All CT scans at this facility use at least one of these dose optimization techniques: automated exposure control; mA and/or kV adjustment per patient size (includes targeted exams where dose is matched to clinical indication); or iterative reconstruction. [id number]: Total DLP = 0.00 mGy-cm Ordered By: Mei Javier CC: Dictated By: Sadie Barboza M.D. 04/11/24 1030 04/11/24 1030 Transcribed By: Sadie Barboza 04/11/24 1030 This is privileged, confidential information intended only for the provider named. Any use or distribution by any person other than this provider is strictly prohibited. If you receive this report in error, please notify us immediately at [phone] and return the original report to us at the address above. Thank-you. Judi nuñez, [facility] 04/25/2024 08:23:59 Problems Name Problem SNOMED Code Status Onset Date Resolution Date Notes Provider Name and Address Organization Details Recorded Time Diarrhea 16181103 Completed 201609/14/2023 03/23/20 23 - Comments only - Mei VIRGEN-SARA - - COVID/Fl u negative in the office today - See Abdomina l Pain - Follow up 03/27/23 Problem Code: R19.7; Problem Code Type: ICD-10; PROMISE SAMPSON-SARA [address], [place], [address] , [facility] 18:10:56 Gastroes ophageal reflux disease without esophagi tis 684640264 Active 201604/03/20 20 - Comments only - Mei Leung LANGUAGE THERAPIST-BC - EGD 03/27/20 Dr Walter . Bx of upper GI tract were unremark able. Has f/u with Dr Walter 05/13/20. Problem Code: K21.9; Problem Code Type: ICD-10; Alma England joaquin, [facility] 21:49:09 Eczema [id number] Completed 201609/14/2023 04/15/20 21 - Comments only - Mei Leung LANGUAGE THERAPIST-SARA - - Referral generate d to Dr Bailey to discuss his dry, cracking hands, per his request Problem Code: L30.9; Problem Code Type: ICD-10; PROMISE SAMPSON-BC [address], [place], [address] , [facility] 18:05:24 Chest pain [id number] Completed 201709/14/2023 Problem Code: R07.9; Problem Code Type: ICD-10; MEI QUINTERO LANGUAGE THERAPIST-SARA [address], [place], [address] , [facility] 4 18:02:59 Pneumoni a [id number] Completed 201712/02/2017 Problem Code: J18.9; Problem Code Type: ICD-10; Not Available [facility] 3 04:39:54 Lumbosac ral radiculo vladislav 1145589 Active 2017 Back pain with radiculo vladislav 11/04/19 22 - Comments only - Mei VIRGEN- - [facility] pain clinic 2:Yevgeniy martinez stated he did not want any interven tional treatmen t, just somethin g we could put on his back to help with the pain. He was prescrib ed Christophe guerra and [facility] [place] to follow-u p with his primary care. Problem Code: M54.16; Problem Code Type: ICD-10; Alma nuñez, [facility] 4 21:53:29 Polyneur opathy 80216094 Active 2018 Neuropat hy 09/24/19 21 - Comments only - Mei Leung [facility]- - - Will call pharmacy re: Lyrica Rx and update pt as able - He feels he can manage until 09/28 if necessar y, but is uncomfor table Problem Code: G62.9; Problem Code Type: ICD-10; Alma nuñez, [facility] 4 22:34:35 Localize d eruption of skin 110131177 Completed 201909/14/2023 10/09/19 21 - Comments only - Mei Leung [facility]- - - He will follow up with Dr Bailey re: bx results - Complete cephalex in course Problem Code: R21; Problem Code Type: ICD-10; PROMISE SAMPSON-SARA [address], [place], [address] , [facility] 4 18:06:33 Amnesia [id number] Completed 201909/14/2023 01/10/20 20 - Comments only - Mei Leung LANGUAGE THERAPIST-BC - - Consider neurolog y consult for memory and balance concerns , headache s - Plan more formal evaluati on/scree lg at next visit Problem Code: R41.3; Problem Code Type: ICD-10; MEI QUINTERO, LANGUAGE THERAPIST-BC [address], [place], [address] , [facility] 4 18:02:49 Disorder of digestiv e system 65254377 Active 2019 Gastroin testinal disorder 05/28/20 20 - Comments only - Mei Leung LANGUAGE THERAPIST-BC - F/U Christina Rea [facility] GI on 05/27/20 . Gastric emptying scan showed delay in emptying at 3 and 4 hours. New dx gastropa resis. Recc: small frequent meals, avoiding diet high in carbs, fiber, and fats. Avoid triggeri ng foods, try fiber suppleme nt daily in the evening, but d/c this if this makes his nausea worse. F/U in 3 mo. Problem Code: K92.9; Problem Code Type: ICD-10; Alma nuñez [facility] 4 21:44:44 Gastropa resis syndrome 493939324 Completed 201909/14/2023 05/28/20 20 - Comments only - Mei Leung LANGUAGE THERAPIST-BC - Per gastric emptying scan 05/13/[address] [place] [address] GI - see GI Disorder Dx notes. Problem Code: K31.84; Problem Code Type: ICD-10; MEI QUINTERO, LANGUAGE THERAPIST-BC [address], [place], [address] , [facility] 4 18:10:15 Neuropat hy due to type 2 diabetes mellitus [id number] 9106 Active 201903/29/20 23 - Comments only - Mei Leung LANGUAGE THERAPIST-BC - - Given low FBS, will have him HOLD tomorrow 's Trulicit y and will postpone dose increase , stay on 0.75mg weekly for now, next dose on 04/04 - He is schedule d to see LLOYD Traylor RN, [facility] on 04/03/23 Problem Code: E11.40; Problem Code Type: ICD-10; Alma Mejiakyung nuñez, [facility] 4 21:59:17 Muscle pain 07294071 Active 2020 Problem Code: M79.10; Problem Code Type: ICD-10; Not Available [facility], [facility] 4 06:29:01 Dystroph ia unguium 96901659 Active 2020 Onychlui lugo -- Sees Dr Mcfarlane, [facility] Podiatry q3-4mo Problem Code: L60.3; Problem Code Type: ICD-10; Alma Mejiaeri [facility], [facility] 4 21:47:42 Adult health examinat ion Active 202009/18/19 23 - Comments only - Mei Leung [facility]- - - He will be due for colonosc opy 12/2022 - He continue to decline tetanus booster, which was due 07/2021, as well as flu vaccine and COVID booster - I do not recall past discussi on of LDCT lungs (25+ py hx); will plan to discuss in 3m Problem Code: Z00.00; Problem Code Type: ICD-10; Not Available Formerly [facility], [facility] 4 06:29:00 Wheezing [id number] Active 202007/15/20 21 - Comments only - Mei Leung [facility]- - - Discusse d po predniso ne vs ICS; he prefers po. Rx predniso ne 20mg, 2 po q am x 5d sent - Rx albutero l inhaler for prn use sent - Follow up in 1 week Problem Code: R06.2; Problem Code Type: ICD-10; Alma Mejiakyung nuñez, [facility] 4 22:36:45 Dysphagi a [id number] Active 2020 pharyngo esophage al phase -- [facility], Christina Piette 07/22/20 21 - Comments only - Sierra Guardado MA - 1-[facility]-Esoph agogastr oduodeno scopy with esophage al balloon dilation , polypect ivon, and biopsy. hx of solid food dysphagi a and a barium swallow showing mild narrowin g of the esophage al body with mild dysmotil ity. f/u patholog y. return to GI as schedule d. Problem Code: R13.14; Problem Code Type: ICD-10; Alma nuñez, [facility], [facility]. 4 15:37:12 [place] - lesion [id number] Completed 202009/14/2023 Problem Code: L84; Problem Code Type: ICD-10; PROMISE SAMPSON-SARA [address], [place], [address] [facility] 4 18:03:54 [facility] l hyperten mala 78944688 Active 2016 Problem Code: I10; Problem Code Type: ICD-10; Alma nuñez, [facility], [facility]. 4 21:48:00 Hyperlip idemia 92983910 Active 2016 Problem Code: E78.5; Problem Code Type: ICD-10; Alma nuñez, [facility], [facility]. 4 21:52:29 Low back pain 182737434 Active 201612/17/19 22 - Comments only - Mei DUKE - - He was very clear today that he does not want to try any further interven tions for his back and knee pain at this time. He has been seen by the pain clinic in [facility] for both of these issues, and can always go back there if needed. -We will reevalua te this at his follow-u p office visit in 3 months, and he can certainl y call sooner if he changes his mind. Problem Code: M54.5; Problem Code Type: ICD-10; Alma nuñez, [facility], [facility]. 4 22:33:02 Benign prostati c hyperpla pari 069572433 Active 2016 Problem Code: N40.0; Problem Code Type: ICD-10; Alma nuñez, [facility] 4 15:30:44 Postproc edural state finding [id number] Completed 201609/14/2023 Problem Code: Z98.89; Problem Code Type: ICD-10; MEI QUINTERO, LANGUAGE THERAPIST-BC [address], [place], [address] , [facility] 4 18:07:12 History and physical examinat ion, administ rative Completed 202109/14/2023 08/27/19 22 - Comments only - Mei Leung LANGUAGE THERAPIST-BC - - I have requeste d that he bring all of his medicati ons in next week for full reconcil iation Problem Code: Z02.89; Problem Code Type: ICD-10; MEI QUINTERO, LANGUAGE THERAPIST-BC [address], [place], [address] , [facility] 4 18:06:15 Pain of left knee joint [id number] 4107 Active 2021 Knee pain, left, acute -- primary osteoart hritis 11/04/19 22 - Comments only - Mei Leung LANGUAGE THERAPIST-BC - Seen at the [facility] on 09/29/2021 . 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 He was given an intra-ar ticular steroid injectio n. He is to call them back if he continue s to have knee pain, and they will consider more advanced imaging at that time. Problem Code: M25.562; Problem Code Type: ICD-10; Alma nuñez, [facility] 4 22:34:07 Pain in left lower limb 938384222 Completed 202109/14/2023 Problem Code: M79.605; Problem Code Type: ICD-10; MEI ROMEO-Chante QUINTERO, LANGUAGE THERAPIST-BC [address], [place], [address] , [facility] 4 18:07:43 Chronic rhinitis 56038561 Active 202112/16/19 23 - Comments only - Mei Cooperrigocindy Madhu [facility] - - He feels that his rhinitis has signific antly worsened since moving into his new [address] ago. He has been taking cetirizi ne daily. I will have him add Flonase, which he does report being on in the past and finding helpful. I also suggeste chante that he get an air filter for his apartmen t. Problem Code: J31.0; Problem Code Type: ICD-10; Alma nuñez, [facility] 4 15:32:06 Hammer toe 842610220 Active 2022 acquired Problem Code: M20.40; Problem Code Type: ICD-10; Alma nuñez, [facility] 4 21:49:49 Vitamin D deficien cy 69682943 Active 2022 normal on 03/22/23 03/17/20 23 - Comments only - Mei Kennethjoby Leung [facility] - - He complete d 12 weeks of high-dos e vitamin D, and we will recheck his level. He would like to have his labs drawn at [facility], so I gave him a lab slip today and we will also fax those orders to the lab. Problem Code: E55.9; Problem Code Type: ICD-10; Fatou Ybarra LPN null, [facility] 4 13:50:38 Thyroid function tests abnormal 963947823 Active 2022 Elevated TSH -- OK for age Problem Code: R94.6; Problem Code Type: ICD-10; Alma nuñez, [facility] 4 22:36:21 Headache 90717069 Active 202208/27/19 22 - Comments only - Mei Leung [facility] - - Given increase in headache frequenc y and excessiv e Aleve use, will have him restart Topamax 25mg po qhs, which he was prescrib ed in the past, and which, per those notes, was very effectiv e. - Will follow up next week to assess response . - Will plan to recheck BMP at that time Problem Code: Z87.898; Problem Code Type: ICD-10;Kelly candelaria Code: R51.9; Problem Code Type: ICD-10; MEI QUINTERO, LANGUAGE THERAPIST-BC [address], [place], [address] , [facility] 4 18:09:40 Abdomina l pain 36384858 Completed 202204/06/2023 03/23/20 23 - Comments only - Mei GRAFP-SARA - - After consulta tion with Reji Henriquez MD, will obtain labs today at [facility]: CMP, ESR, CRP, CBCD, lipase, and will order CT abdomen w/contra st for evaluati on of bowels. - Advised bowel rest, with clear fluids, then progress to BRAT diet - He will follow up with [facility] 03/27/23 Problem Code: R10.9; Problem Code Type: ICD-10; Not Available Formerly [facility], [facility] 3 04:39:59 Acute sinusiti s 16130455 Completed 202204/06/2023 Problem Code: J01.90; Problem Code Type: ICD-10; Not Available Formerly [facility], [facility] 4 05:37:29 Generali zed abdomina l pain 888902065 Active 2022 Problem Code: R10.84; Problem Code Type: ICD-10; Not Available Former[facility], [facility] 4 06:28:59 Viral enteriti s of intestin e 69897060 Completed 202209/14/2023 03/29/20 23 - Comments only - Mei VIRGEN-BC - - Improvin g, still with stomach upset, no diarrhea in >72h, no vomiting , vital signs all wnl - Likely self-kenadll iting viral enteriti s. Advised ongoing rest, bland foods as tolerate d - Reviewed s&s warranti ng call to the office, ED evaluati on. - Follow up in 7-10d - MEI ROMEO-Chante QUINTERO, LANGUAGE THERAPIST-BC [address], [place], [address] , [facility] 4 18:07:19 Flatulen ce symptom 083780846 Completed 201601/03/2019 Problem Code: R14.3; Problem Code Type: ICD-10; Not Available Former[facility], [facility] 3 04:40:00 Cough 13848559 Completed 202103/17/2023 Problem Code: R05.8; Problem Code Type: ICD-10; Not Available [facility], [facility] 3 04:40:00 Pain of left shoulder joint [id number] 454665 Completed 201601/03/2019 Problem Code: M25.512; Problem Code Type: ICD-10; Not Available Former[facility], [facility] 3 04:40:00 Venereal disease screenin g Completed 201603/17/2023 Problem Code: Z11.3; Problem Code Type: ICD-10; Not Available Formerly [facility], [facility] 3 04:40:00 Acute upper respirat ory infectio n 17075468 Completed 202003/17/2023 Problem Code: J06.9; Problem Code Type: ICD-10; Not Available Formerly [facility], [facility] 3 04:40:01 Hypergly cemia due to type 2 diabetes mellitus 11683088795 9109 Completed 201609/18/2022 Problem Code: E11.65; Problem Code Type: ICD-10; Not Available [facility], [facility] 3 04:40:01 Spasm 68930522 Completed 202003/17/2023 Problem Code: R25.2; Problem Code Type: ICD-10; Not Available [facility], [facility] 3 04:40:01 Disorder of nasal sinus 2396434 Completed 202103/17/2023 Not Available [facility], [facility] 3 04:40:01 Headache 41315153 Completed 201604/26/2023 Problem Code: R51; Problem Code Type: ICD-10; PROMISE SAMPSON-SARA [address], [place], [address] , [facility] 4 18:09:40 Hypothyr oidism 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 Completed 202212/21/2022 Problem Code: E03.9; Problem Code Type: ICD-10; Not Available [facility] 3 04:40:02 Headache disorder 277568791 Completed 201803/17/2023 Problem Code: G44.89; Problem Code Type: ICD-10; Not Available [facility] 3 04:40:02 Disorder of pharynx 38153285 Completed 202003/17/2023 Problem Code: J39.2; Problem Code Type: ICD-10; Not Available [facility] 3 04:40:02 Cellulit is 203111033 Completed 202003/17/2023 Problem Code: L03.90; Problem Code Type: ICD-10; Not Available [facility] 3 04:40:03 Type 2 diabetes mellitus without complica tion 847456720 Completed 201604/26/2023 Problem Code: E11.9; Problem Code Type: ICD-10; Mary nuñez, [facility] 4 11:31:02 Disorder of penis 95966188 Completed 201610/19/2017 Problem Code: N48.9; Problem Code Type: ICD-10; Not Available [facility] 3 04:40:03 History of SARS-CoV -2 [id number] 5238323 Completed 202209/14/[address], [facility] [address] , [facility] 4 18:06:22 Migraine with aura 5279480 Active 2023 Problem Code: G43.109; Problem Code Type: ICD-10; Alma Samanta nuñez, [facility], [facility]. 4 21:57:06 Hypomagn esemia 600432524 Active 202204/06/20 23 - Comments only - Mei Leung [facility]- - - We will have him switch from pantopra zole to esomepra zole. I did let him know that this may require prior authoriz ation. He states he has not tried going off of PPI. For now we will should switch him over and monitor his magnesiu m, and then attempt a gradual taper to see if he can tolerate a lower dose or being off of medicati on entirely . -We will have him start a magnesiu m suppleme nt as well. - Plan repeat labs week of 3, and he will see me the followin g week in follow-u p. Problem Code: E83.42; Problem Code Type: ICD-10; Alma nuñez, [facility] 4 21:52:39 Disorder of bilirubi n metaboli sm 35830193 Completed 202209/14/2023 04/06/20 23 - Comments only - Mei Leung [facility]- - - Bilirubi n is increase d from 1.2 to 1.9 between 03/23 and 04/05/2023 . The cause of this is unclear to me at this time, unless this is a delayed effect from his recent enteriti s. He had a very normal abdomina l CT less than 2 weeks ago, with regards to his liver, gallblad eveline. - I will plan to consult with another provider about this, and he will return in 2 weeks for follow-u p with me, with labs at [facility] prior (magnesi um, CMP). 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 Declined B12 injectio ns; start po B12 09/14/23 Problem Code: E53.8; Problem Code Type: ICD-10; [facility] 4 15:34:17 Mean corpuscu lar volume above referenc e range 649086044 Active 2023 Problem Code: R71.8; Problem Code Type: ICD-10; [facility] 4 21:54:49 Eosinoph il count above referenc e range 925910869 Active 2023 Problem Code: D72.1; Problem Code Type: ICD-10; [facility] 4 22:06:33 Serum creatini ne above referenc e range 271888854 Active 2022 Problem Code: R79.89; Problem Code Type: ICD-10; [facility] 4 15:31:36 Gastroin testinal symptom 150894401 Active 202002/19/20 21 - Comments only - Mei Leung [facility]- - - Saw Christina Rea at [facility] 02/17/21. Recommen ded low FODMAP diet, limit fiber and fat, avoid large meals, stop Pepto Bismol, continue Protonix 40mg 30min before evening meal. May trial GasX or Gaviscon . f/u with Christina in 3-4 weeks. Problem Code: R19.8; Problem Code Type: ICD-10; Alma nuñez, [facility] 4 15:35:12 Malaise and fatigue 080745644 Active 202212/16/19 23 - Comments only - Mei Leung [facility]- - - I do feel that some of his low mood and low energy are situatio nal and related to his current housing situatio n, however we will check some labs. He is schedule d to have labs drawn for Dr. Duong at [facility] on [address], he believes this is to check his fidelia alford -We will check to see what labs have already been ordered for him at [facility], and add (if not already being done): CBC without, BMP, TSH with reflex T4, vitamin D - Plan PHQ-9 at his next office visit Problem Code: R53.83; Problem Code Type: ICD-10; Alma nuñez, [facility] 4 21:48:44 History of adenomat ous polyp of colon 888244346 Active 2017 2018; 5-yr recall per Dr. [place], [facility] Problem Code: Z86.010; Problem Code Type: ICD-10; Alma nuñez, [facility] 4 21:52:24 Pain of left heel 33763027749 54274 Active 201904/09/20 20 - Comments only - Mei DUKE - - Keep next week's podiatry appt - Pt will let me know if we need to send Rx for diabetic shoes Problem Code: M79.672; Problem Code Type: ICD-10; Alma nuñez, [facility] 4 22:04:58 Hypogona dism 54621516 Active [address] Duong q6m Problem Code: E29.1; Problem Code Type: ICD-10; Alma [facility], [facility] 4 22:35:49 Type 2 diabetes mellitus without complica tion 099365566 Active 2016 [facility], [facility] 4 11:31:02 Pain in left lower limb 692399697 Active [address], [place], [address] , [facility] 4 14:31:53 Left lower quadrant pain 284043815 Active [address], [place], [address] , [facility] 4 17:43:04 Pain in right arm 009188310 Active [address], [place], [address] , [facility] 18:24:53 Muscle weakness 83750211 Active [address], [place], [address] , [facility] 08:00:12 Constipa tion 80017275 Active [address], [place], [address] , [facility] 11:31:59 Problem Notes None recorded. Procedures Surgical History None recorded. Imaging Results Imaging Date Name Status LastModified by Organiz [facility] Details LastModified Time 04/11/2024 CT, angiogram, abdomen + pelvis + lower extremity, w/wo contrast completed [email or web address] [place], [address] 04/25/2024 08:23:58 04/11/2024 MRI imaging report completed [email or web address] [address] [place], [address] 04/23/2024 15:46:06 02/19/2021 XR, chest completed Information no t available 04/15/2024 00:08:56 08/04/2021 XR, chest completed Information no t available 04/15/2024 00:08:57 09/16/2021 MRI, lumbar spine completed Information not available 04/15/2024 00:09:05 03/24/2023 imaging/diagn ostic result completed Information not available 04/15/2024 00:09:14 09/07/2021 XR, knee completed Information no t available 04/15/2024 00:09:15 09/07/2021 imaging/diagn ostic result completed Information not available 04/15/2024 00:09:18 06/14/2023 imaging/diagn ostic result completed Information not available 04/15/2024 00:09:20 06/13/2023 imaging/diagn ostic result completed Information not available 04/15/2024 00:10:11 06/13/2023 imaging/diagn ostic result completed Information not available 04/15/2024 00:11:25 Procedure Notes None recorded. Medical Equipment None Reported. Allergies Allergen ID Allergen Name Allergen Category Reaction Reaction Severity Criticality Documentation Date Start Date Code Code System Note Provider Name and Address Organization Details Recorded Time 77938 gabapenti n medicatio n diarrhea severe Not available 06/09/20232020 34140 RxNorm [facility] 22:38:37 Medications Name Sig Start Date Stop Date Status Note LastModified by Organization Details LastModified Time accu-chek guide test strips strp active Not Available Not Available Not Available cetirizin e 10 mg tablet Take 1 tablet by mouth once a day 2020 active Not Available Not Available Not Avai lable aspirin 325 mg tablet Take 1 tab by mouth daily 10/27 completed Not Available Not Available Not Available prednison e 20 mg tablet Take 2 tablet by mouth once a day for 5 days 09/02 completed Not Available Not Available Not Available cyanocoba herber (vit B-12) 1,000 mcg tablet TAKE 1 TABLET BY MOUTH EVERY DAY WITH MEALS active Not Available Not Available No t Available topiramat e 25 mg tablet TAKE 1 TABLET BY MOUTH EVERY NIGHT 2023 active Not Available Not Available Not Avai lable omeprazol e 40 mg capsule,d elayed release Take 1 tab by mouth daily. D/C omeprazo le 20mg 2016 active Not Available Not Available Not Avai lable simvastat in 40 mg tablet TAKE 1 TABLET BY MOUTH DAILY AT BEDTIME active Not Available Not Available No t Available Aleve 220 mg tablet 1 tablet daily 2016 active Not Available Not Available Not Avai lable Aerochamb er MV spacer Use 1 device as directed as needed Use with Flovent and albutero l inhaler 2021 active Not Available Not Available Not Avai lable oxycodone -acetamin ophen 5 mg-325 mg tablet Take 1 tab by mouth three times daily as needed for pain 01/03 completed [facility] Not Available Not Available Not Available magnesium oxide 400 mg (241.3 mg magnesium ) tablet TAKE 1 TABLET BY MOUTH TWICE DAILY active Not Available Not Available No t Available Lidoderm 5 % topical patch Apply 1 patch to skin once a day as needed for pain 03/17 completed Not Available Not Available Not Available Elastic Knee Support Use 1 device as directed Wear brace on left knee 2021 active Not Available Not Available Not Avai lable pantopraz ole 40 mg tablet,de layed release TAKE 1 TABLET BY MOUTH EVERY DAY 04/06 completed Not Available Not Available Not Available metformin 1,000 mg tablet TAKE 1/2 TABLET BY MOUTH TWICE DAILY 05/16 completed Not Available Not Available Not Available esomepraz ole magnesium 40 mg capsule,d elayed release TAKE ONE CAPSULE BY MOUTH EVERY DAY IN PLACE OF PANTOPRA ZOLE active Not Available Not Available No t Available ranitidin e 150 mg tablet take 1 tab po BID for acid reflux. D/C Omeprazo le 12/15 completed Not Available Not Available Not Available lansopraz ole 30 mg capsule,d elayed release Take 1 by mouth daily in the evening 10/23 completed Not Available Not Available Not Available docusate sodium 100 mg capsule Take 1 capsule every day by oral route. 2023 active Not Available Not Available Not Avai lable gabapenti n 300 mg capsule take 1 cap by mouth twice daily 10/08 completed Not Available Not Available Not Available aspirin 81 mg tablet Take 1 tablet by mouth once a day 05/16 completed Not Available Not Available Not Available lisinopri l 5 mg tablet TAKE 1 TABLET BY MOUTH DAILY active Not Available Not Available No t Available ergocalci ferol (vitamin D2) 1,250 mcg (50,000 unit) capsule TAKE 1 CAPSULE BY MOUTH 1 TIME A WEEK 05/16 completed Not Available Not Available Not Available Aspir-81 mg tablet,de layed release Take 1 tab by mouth daily 2016 active Not Available Not Available Not Avai lable Nasonex 50 mcg/actua tion [place] 1 spray each nostril bid 07/11 completed Not Available Not Available Not Available fluticaso ne propionat e 50 mcg/actua tion nasal spray,heidy pension SHAKE LIQUID AND USE 2 SPRAYS IN EACH NOSTRIL EVERY DAY active Not Available Not Available No t Available metformin ER 500 mg tablet,ex tended release 24 hr TAKE 1 TABLET BY MOUTH EVERY DAY DIRECTED active Not Available Not Available No t Available doxycycli ne hyclate 100 mg tablet Take 1 tablet by mouth twice a day 07/27 completed Not Available Not Available Not Available amoxicill in 875 mg-potass ium clavulana te 125 mg tablet Take 1 tablet by mouth twice a day 03/30 completed Not Available Not Available Not Available testoster one 1 % (50 mg/5 gram) transderm al gel packet APPLY CONTENTS OF 1 PACKET ONTO THE SKIN EVERY MORNING DIRECTED active Not Available Not Available No t Available Ventolin HFA 90 mcg/actua tion aerosol inhaler INHALE 2 PUFFS BY MOUTH EVERY 4 TO 6 HOURS NEEDED FOR WHEEZING OR RESCUE active Not Available Not Available No t Available oxycodone 5 mg tablet one tablet po TID prn pain 2016 active [facility] Not Available Not Available Not Available diabetic supplies, misc[place] . Insert 1 diabetic insert into shoe as needed 2023 active Not Available Not Available Not Avai lable Alcohol Prep Pads Use once a day 2016 active Not Available Not Available Not Avai lable Flovent HFA 220 mcg/actua tion aerosol inhaler Inhale 2 puff twice a day Rinse your mouth after each use 09/14 completed Not Available Not Available Not Available Lyrica 100 mg capsule one capsule twice a day 2016 active Not Available Not Available Not Avai lable Lyrica 150 mg capsule TAKE 1 CAPSULE BY MOUTH TWICE DAILY active Brand medicall y necessar y Not Available Not Available Not Available Lantus Solostar U-100 Insulin 100 unit/mL (3 mL) subcutane ous pen Inject 16 unit subcutan eously once a day before bed ( decrease per instruct ions 2 units q 2- 3 d from 30 u) 12/13 completed one box of pens 60 days Not Available Not Available Not Available omeprazol e 20 mg tablet,de layed release Take 1 tab by mouth daily. 07/06 completed Not Available Not Available Not Available diclofena c 1 % topical gel APPLY SMALL AMOUNT TOPICALL Y TO THE AFFECTED AREA THREE TIMES DAILY NEEDED FOR PAIN active Not Available Not Available No t Available Slow-Mag 71.5 mg tablet,de layed release Take 1 tablet every day by oral route, for low magnesiu m level. 2023 active Not Available Not Available Not Avai lable testoster one 30 mg/actuat ion (1.5 mL) transderm solution metered pump APPLY 1 PUMP TO UNDERARM EVERY OTHER DAY ALTERNAT ING WITH 2 PUMPS EVERY OTHER DAY. ALTERNAT E UNDERARM active Not Available Not Available No t Available Mini Ultra-Thi n II 31 gauge x 3/16 needle active Not Available Not Available Not Available Jardiance 10 mg tablet 03/21 completed dose change Not Available Not Available Not Available Jardiance 25 mg tablet TAKE 1 TABLET BY MOUTH EVERY DAY active Not Available Not Available No t Available Trulicity 1.5 mg/0.5 mL subcutane ous pen injector INJECT 1.5 MG UNDER THE SKIN ONCE WEEKLY FOR 4 TO 8 WEEKS THEN CALL [facility] 07/10 completed Not Available Not Available Not Available Trulicity 0.75 mg/0.5 mL subcutane ous pen injector ADMINIST ER 0.75 MG UNDER THE SKIN EVERY WEEK DIRECTED active Not Available Not Available No t Available Accu-Chek Guide test strips TEST BLOOD GLUCOSE TWICE DAILY DIRECTED active Not Available Not Available No t Available Accu-Chek Guide Glucose Meter Use 1 device as directed once a day 2020 active Not Available Not Available Not Avai lable Qvar RediHaler 40 mcg/actua tion HFA breath activated aerosol INHALE 2 PUFFS BY MOUTH TWICE DAILY DIRECTED active Not Available Not Available No t Available Accu-Chek Fastclix Lancet Drum Use 1 lancet as directed once a day 2020 active Not Available Not Available Not Avai lable magnesium 400 mg (as magnesium oxide) tablet Take 1 tablet by mouth once a day 09/14 completed Not Available Not Available Not Available Vitals Date Recorded Body height Body mass index (BMI) Body weight Heart rate Systolic blood pressure Diastolic blood pressure Provider Name and Address Organization Details Last Updated DateTime 4 175.26 cm 32.6 kg/m2 294224. 2 g 80 /min 118 mm[Hg] 74 mm[Hg] Fatou pina LPN [facility] 4 15:17:42 Date Recorded Body height Oxygen saturation Oxygen saturation in Arterial blood by Pulse oximetry Heart rate Body mass index (BMI) Body weight Systolic blood pressure Diastolic blood pressure Provider Name and Address Organization Details Last Updated DateTime 4 175.26 cm 96 % 96 % 73 /min 33.2 kg/m2 607460. 28 g 118 mm[Hg] 72 mm[Hg] Shay Butler MA [facility] 4 11:22:53 Date Recorded Body height Body mass index (BMI) Body weight Heart rate Systolic blood pressure Diastolic blood pressure Provider Name and Address Organization Details Last Updated DateTime 4 175.26 cm 32.4 kg/m2 83418.8 8 g 76 /min 116 mm[Hg] 74 mm[Hg] Fatou pina LPN [facility] 4 13:50:55 Date Recorded Body height Body mass index (BMI) Body weight Heart rate Systolic blood pressure Diastolic blood pressure Provider Name and Address Organization Details Last Updated DateTime 4 175.26 cm 32.2 kg/m2 88314.1 4 g 72 /min 112 mm[Hg] 64 mm[Hg] Fatou pina LPN [facility] 4 13:39:49 Date Recorded Body height Body mass index (BMI) Body weight Oxygen saturation Oxygen saturation in Arterial blood by Pulse oximetry Heart rate Systolic blood pressure Diastolic blood pressure Provider Name and Address Organization Details Last Updated DateTime 4 175.26 cm 29.7 kg/m2 09353.0 7 g 93 % 93 % 105 /min 90 mm[Hg] 52 mm[Hg] Fatou pina LPN [facility] 10:57:33 Social History Question Answer Notes LastModified by Organizat ion Details LastModified Time Tobacco Smoking Status Current Every Day Smoker cigars only Fatou Ybarra LPN [facility], [facility] 09/12/2023 12:30:56 Do You Have An Advance Directive? No Another Packet Given Today [email or web address] Information not available 03/21/2024 What Is Your Code Status? Full Code Information not available 03/21/2024 Do You Or Have You Ever Used E-cigarettes Or Vape? Never Used Electronic Cigarettes [email or web address] Information not available 03/21/2024 Date Of Most Recent HSA 03/21/2024 [email or web address] Information not available 03/21/2024 Would You Say That, In General, Your Health Is Very Good pbztkbcrvie83 Information not available 03/21/2024 How Often Does Anyone, Including Family, Physically Hurt You? Never yzdnzxlvyiy65 Information not available 03/21/2024 How Often Does Anyone, Including Family, Insult Or Talk Down To You? Never jzurexewaxf43 Information no t available 03/21/2024 How Often Does Anyone, Including Family, Threaten You With Harm? Never [email or web address] Information not available 03/21/2024 How Often Does Anyone, Including Family, Scream Or Curse At You? Never epkebefmwuv25 Information not available 03/21/2024 Within The Past 12 Months, You Worried That Your Food Would Run Out Before You Got Money To Buy More. Sometimes True ugdsplqpggt73 Information not available 03/21/2024 Within The Past 12 Months, The Food You Bought Just Didn't Last And You Didn't Have Money To Get More. Sometimes True whymtqchciw99 Information not available 03/21/2024 How Hard Is It For You To Pay For The Very Basics Like Food, Housing, Medical Care, And Heating? Would You Say It Is: Somewhat Hard tekagsezofd66 Information not available 03/21/2024 In The Past 12 Months, Has Lack Of Reliable Transportation Kept You From Medical Appointments, Meetings, Work Or From Getting Things Needed For Daily Living? No bvunpgmmpht20 Information not available 03/21/2024 How Often In The Past Year Have You Used Marijuana (including Smoking, Vaping, Dabbing, Or Edibles)? Monthly Or Less uocqxqjfzto83 Information not available 03/21/2024 How Often In The Past Year Have You Used Prescription Medications That Were Not Prescribed To You? Never ujekrtpuvrs56 Information not available 03/21/2024 How Often In The Past Year Have You Taken Your Own Prescription Medication More Than The Way It Was Prescribed Or For Different Reasons Than Its Intended Purpose? Never ssvjihypuyh40 Information no t available 03/21/2024 How Often In The Past Year Have You Used Other Drugs (for Example, Heroin, Cocaine, Meth, Salvia, Inhalants)? Never jkrnvvrycff07 Information not available 03/21/2024 Have You Ever Used IV Drugs? No sezkcwbpzcu75 Information not available 03/21/2024 What Matters Most To You? Family vejjfrbgkns97 Information not available 03/21/2024 During The Past Four Weeks Has Your Physical And Emotional Health Limited Your Social Activities With Family And Friends, Neighbors, Or Groups? Moderately erfrfjaxocj17 Information not available 03/21/2024 During The Past Four Weeks, Was Someone Available To Help You If You Needed And Wanted Help? (For Example, If You Remlap Very Nervous, Lonely, Or Blue; Got Sick And Had To Stay In Bed; Needed Someone To Talk To; Needed Help With Daily Chores; Or Needed Help Just Taking Care Of Yourself.) Yes- As Much As I Wanted mihhjywcvlq93 Information not available 03/21/2024 During The Past Four Weeks, What Was The Hardest Physical Activity You Could Do For At Least 2 Minutes? Moderate ytqbbhzabml70 Information not available 03/21/2024 Can You Get To Places Out Of Walking Distance Without Help? (For Example, Can You Travel Alone On Buses Or Taxis, Or Drive Your Own Car?) Yes Uses [employer] zxffuruloyw71 Information not available 03/21/2024 Can You Go Shopping For Groceries Or Clothes Without Someone? s Help? Yes mndfnzafdck06 Information not available 03/21/2024 Can You Prepare Your Own Meals? Yes zyubwiyrdek97 Information not available 03/21/2024 Can You Do Your Housework Without Help? Yes dlesvobtzkx10 Information not available 03/21/2024 Because Of Any Health Problems, Do You Need The Help Of Another Person With Your Personal Care Needs Such As Eating, Bathing, Dressing, Or Getting Around The House? No hmtiumoqkce94 Information not available 03/21/2024 Can You Handle Your Own Money Without Help? Yes fxrpcozwdkt07 Information not available 03/21/2024 Are You Having Difficulties Driving Your Car? No ksdsztfwihn63 Information no t available 03/21/2024 Do You Always Fasten Your Seat Belt When You Are In A Car? Yes- Usually Information not available 03/21/2024 How Often During The Past Four Weeks Have You Been Bothered By Any Of The Following Problems? Falling Or Dizzy When Standing Up? Seldom kkeatahflmf85 Information not available 03/21/2024 Trouble Eating Well? Never jqupsbtdctb21 Information not available 03/21/2024 Teeth Or Denture Problems? Never ogvratnjtip23 Information not available 03/21/2024 Problems Using The Telephone? Never bpofqkpigzy36 Information not available 03/21/2024 Tiredness Or Fatigue? Never umekixgumft81 Information not available 03/21/2024 Have You Had 2 Or More Falls Or Sustained An Injury With A Fall In The Last Year? No Information not available 03/21/2024 Do You Have Difficulty With Walking Or Balance? No qzqjaofpwgp24 Information not available 03/21/2024 Do You Currently Use A Hearing Device? No mpgdcmnozhx31 Information not available 03/21/2024 Do You Currently Have Any Trouble With Your Vision? No gdluonilgtg71 Information no t available 03/21/2024 Do You Exercise For About 20 Minutes Three Or More Days A Week? Yes- Most Of The Time imjxmyoycps71 Information not available 03/21/2024 Are There Any Safety Concerns In Your Home (see Attached CDC Pamphlet)? No suylqfdufhj64 Information not available 03/21/2024 How Often Do You Have Trouble Taking Medicines The Way You Have Been Told To Take Them? I Always Take Them As Prescribed ekbjqwmjrsu07 Information not available 03/21/2024 How Confident Are You That You Can Control And Manage Most Of Your Health Problems? Very Confident iqxfhnchnqm17 Information not available 03/21/2024 Do You Currently Have Any Difficulty With Your Hearing? No kfuzigaujng81 Information not available 03/21/2024 Date Of Most Recent SBINS 03/21/2024 voyuaahhxay69 Information not available 03/21/2024 Do You Have A Medical Power Of Seat Installer? No Another Packet Given Today vbnssozkqfs31 Information not available 03/21/2024 What Was The Date Of Your Most Recent Tobacco Screening? 03/21/2024 sqeqguqhlbj94 Information not available 03/21/2024 Do You Or Have You Ever Used Smokeless Tobacco? Never Used Smokeless Tobacco xmlsilbsqeg28 Information not available 03/21/2024 Has Tobacco Cessation Counseling Been Provided? Yes idglzjrifjy60 Information not available 03/21/2024 On What Date Was Tobacco Cessation Counseling Provided? 03/21/2024 otcsvamppab04 Information not available 03/21/2024 Do You Or Have You Ever Used Any Other Forms Of Tobacco Or Nicotine? Yes Cigar qayxilshpaa67 Information not available 03/21/2024 Sex: Male Functional Status None recorded. Mental Status None recorded. Family History Nothing Reported. Medical History No medical history recorded. Immunizations Vaccine Type Date Status Provider Name and Address Organization Details Recorded Time Tdap 07/31/2011 completed Not Available [facility] 06:29:01 SARS-COV-2 (COVID-19) vaccine, UNSPECIFIED 09/11/2020 completed Not Available [facility] 08/12/2023 06:29:01 SARS-COV-2 (COVID-19) vaccine, UNSPECIFIED 10/09/2020 completed Not Available [facility] 08/12/2023 06:29:01 Past Encounters Encounter ID Performer Location Encounter Start Date Encounter Closed Date Diagnosis/Indication Diagnosis SNOMED-CT Code Diagnosis ICD10 Code [id number] ALICE MESA MD [address],[facility] [address] [place] [address] 06/13/2023 15:12:18 06/13/2023 16:41:40 COVID-19 060561450 U07.1 [id number] MEI COOPERRIGOCINDYChante [address] [address] 07/07/2023 15:30:03 07/07/2023 16:19:47 Polyneuropathy 28283547 G62.9 History of SARS-CoV-2 29 31767794 18686014 Z86.16 Neuropathy due to type 2 diabetes mellitus 6443317904 49557 E11.40 [id number] MEILIZA COOPERJOBYChante [address] [address] 2023 14:51:05 2023 16:30:58 Magnesium deficiency 542656073 E61.2 Cobalamin deficiency 190 372498 E53.8 Neuropathy due to type 2 diabetes mellitus 0770320789 05194 E11.40 Wheezing 43678670 R06.2 [id number] CAROLE HENRIQUEZ MD [address] [address] 09/15/2023 10:51:35 09/15/2023 12:26:37 Neuropathy due to type 2 diabetes mellitus 9658272023 65260 E11.40 [id number] MEILIZA COOPERJOBYChante [address] [address] 12/14/2023 13:35:05 12/14/2023 14:50:07 Neuropathy due to type 2 diabetes mellitus 8361083996 90140 E11.40 Cobalamin deficiency 190 690059 E53.8 Hypomagnesemia 584040213 E83.42 [id number] MEILIZA COOPERJOBYChante [address] [address] 03/21/2024 13:17:21 03/21/2024 14:58:05 Adult health examination 234335727 Z00.00 Hypomagnesemia 026616459 E83.42 Type 2 ifrah betes mellitus without complication 889711788 E11.9 Active or passive immunization 157919045 Z23 Low back pain 689013297 M54.50 Pain in le ft lower limb 658288209 M79.605 Neuropathy due to type 2 diabetes mellitus 2207130632 00477 E11.40 Pain in right arm 831010 004 M79.601 Health Concerns Section Related Observation LastModified by Organization Detai ls LastModified Time None Recorded Concern Status LastModified by Organization Details LastModified Time None Recorded Advance Directives Directive N: another packet given toda y Payers Encounter Date Sequence Insurance Name Policy Number Policy Cullen Covered Member ID Cullen Member ID Guarantor Name 2023 1 [facility] (MEDICARE REPLACEMENT/A DVANTAGE - PPO) [id number] Quintin Hernandez Millis [id number] Quintin Hernandez Millis 09/15/2023 1 [facility] (MEDICARE REPLACEMENT/A DVANTAGE - PPO) [id number] Quintin Hernandez Millis [id number] Quintin Hernandez Millis 12/14/2023 1 [facility] (MEDICARE REPLACEMENT/A DVANTAGE - PPO) [id number] Quintin Hernandez Millis [id number] Quintin Hernandez Millis 12/14/2023 2 [facility] (MEDICAID) Quintin Hernandez Millis [id number] Quintin Hernandez Millis 03/21/2024 1 [facility] (MEDICARE REPLACEMENT/A DVANTAGE - PPO) [id number] Quintin Hernandez Millis [id number] Quintin Hernandez Millis 03/21/2024 2 [facility] (MEDICAID) Quintin Hernandez Millis [id number] Quintin Hernandez Millis Notes Date Note Type Note Provider Name and Address Organization Details Recorded Time 2023 text/html HPI Notes: Diabe julio c Reported by patient. Notes: increase in bilateral foot pain Has not been able to fill Flovent, last used 2 weeks ago, has used albuterol 4x over past month. Wants to stop insulin. FBS have all been under 134, mostly around 100. Has had some lows into the 70's, which makes him nervous. Had labs drawn this morning at [facility], wants to review results. In general continues to note decreased appetite, losing mass in his arms and legs MEI JAVIER, [facility]- [address], [place], [address], [facility]. 2023 18:18:04 09/15/2023 text/html HPI Notes: Lida barrientos here today for a diabetic foot exam MD [address], [place], [address], [facility]. 09/17/2023 17:42:02 12/14/2023 text/html HPI Notes: 3m F/ U DM. Stopped insulin at last OV given A1c=6.9 and reported low BG readings. He has continued Trulicity 0.75mg q week (did not tolerate higher dose), metformin 500mg bid. A1c on 12/11/23 = 8.0. Mg still low at 1.5, taking magnesium oxide 400mg bid Recent labs, drawn 12/11/23: B12 up from 216 to 542 with addition of po B12 1000mg daily. PSA=2.0, folate, cbc wnl. Quintin reports taking all meds as prescribed. He had sudden onset of feeling very cold, weak, n/v, beginning 2 weeks ago on a Monday night 12/01/23 after taking his Trulicity. Stayed in bed all day Sat, gradually felt better, with resolution of symptoms around day 10. Prior to this he had not vomited in 5 years. There was a stomach bug going around his apartment complex. He did not feel any worse after taking the Trulicity dose. His symptoms have completely resolved and he is eating and drinking normally. He reports coughing more after second Qvar inhalation - first inhalation is OK. MEI ROMEO-JOSE DAVID, [facility]- [address], [place], [address], [facility]. 12/14/2023 17:55:26 03/21/2024 text/html HPI Notes: Lida barrientos presents for [facility], but states his insurance company already had him answer all the same questions. He also wants to discuss his back, L hip, L groin, and lower abdominal pain, and his R arm pain. He had labs drawn yesterday. Review of Pain Management notes 04/2014 - 11/09/2017 Seen initially at [facility], then [facility] for low back pain with LE radiculopathy, L>R. Reported history of two previous lumbar spine surgeries, one in [place], one in [place], with diagnosis of lumbar postlaminectomy syndrome listed. Medial branch blocks L-3/L-4, L-4/L-5, and L5-S1 at [facility] in 2013 did not help. He was started on Percocet 5mg/325mg at that time, which he remained on through 10/2017. He was prescribed a TENS unit that did not help. He was offered spinal cord stimulator, which he declined. He was started on Lyrica, which did help some and was titrated up to 100mg po bid. Records note he had been to PT multiple times without benefit. Per Neurosurgery note dated 09/18/2014 (Dr Perez's office) notes he was on 75mg Fentanyl patches in the past for his lumbar pain and his PCP would no longer prescribe narcotics for him. On 08/11/2014 he had cervical decompression and fusion by Dr Perez for shoulder pain, which Quintin states did relieve those symptoms. Today he states the surgery relieved pain in his L arm, and he was told he would eventually need another surgery for the other arm. Review of records after today's visit shows that his preoperative pain was in his R arm, and surgery did relieve that radicular pain. MEI JAVIER, LANGUAGE THERAPIST- [address], [place], [address], [facility], [facility]. 03/21/2024 19:25:32
--- OUTSIDE RECORDS SUMMARY | 2024-05-16 14:44 | XMS_ITS | Encounter Summary ---
Author Organization [facility] Address [facility] [place] [address] Care Team Providers Care Welfare Centre Manager Name Role Phone Mei Javier Primary Care Provider [phone] Encounter Details Date Type Department Care Team (Late st Contact Info) Description 04/11/2024 7:40 PM EDT Ancillary Procedure Radiology at [facility] [address] [place] [id number] Tori Perez MD [address] [address] Social History Tobacco Use Types Packs/Day Years [...] AND PELVIS Routine 04/11/2024 7:37 PM EDT documented in this encounter Results * Film Library- Storage Only CT Abdomen & Pelvis (04/11/2024 7:37 PM EDT) Narrative [facility] RAD - 04/11/2024 7:37 PM EDT This exam is auto-finalizing. It's purpose is for storage only. Tori Perez MD [facility] FILM LIBRARY ORDERABLES [place], [place] documented in this encounter Visit Diagnoses Not on filedocumented in this encounter Care Teams Welfare Centre Manager Relationship Specialty Start Date End Date Mei Javier [address] [place] [address] PCP - General Family Medicine 09/29/20 documented as of this encounter
--- OUTSIDE RECORDS SUMMARY | 2024-05-16 14:44 | XMS_ITS | Continuity of Care Document ---
Author Organization [place] [facility], [facility] Address [address] [place] [address] Assessment Encounter Date Assessment Date Assessment LastModified by Organization Details LastModified Time 03/21/2024 03/21/2024 Patient presente d to office [...] reduce health risks and promote healthy living. [email or web address] Not available 03/19/2024 13:17:18 Plan of Treatment Reminders Order Date Submit Date Provider Last Modified By Organization Details Last Modified Time Details Appointments Acute 30 2023 10:30A M Val Roman Not available Not available Not available Follow Up 30 2023 01:00P M Val Roman Not available Not available Not available Lab None record ed. Referral neurol ogical surgeo n referr al - Had anteri or cervic al discec oliva and fusion with you 015 for LUE pain, was told he may need same on R side eventu ally, now with RUE pain. Cervic al spine MRI ordere d at [facility] with result cc'd to you. 2023 024 HUMBERTO Perez MD, [address] [place] [address], [id number], 05/14/2024 14:50:36 Procedures None record ed. Surgeries None record ed. Imaging CT, angiog parish, abdome n + pelvis + lower extrem ity, w/wo contra st - creati nine 4 = 1.5, advise d to push fluids . On metfor min, advise d to HOLD day of and 48g after CTA. Please also commen t on LS spine and pelvis 2023 024 [email or web address] [facility] (Radiology), [address] [place] [address] [place], [address], 04/22/2024 09:09:18 MRI, cervic al spine, w/o contra st - As part of our Prior Author aracelis pina Reduct ion alexandera m, [facility] Medica re Advant age no longer requir es prior author aracelis pina for CT, MRI/MR A and transt horaci c echoca rdiogr aphy proced ures for Medica re member s effect inga 07/31/19 18*. If you have genera l questi ons about prior author aracelis pina requir ements , please call custom er servelizabeth e at [phone] . *Medic are member s includ e Medica re Advant age, Duals, MMP and [facility] benefi t plans. 2023 024 [facility] (Radiology), [address] [place] [address] [place], [address], 03/22/2024 13:01:02 Medication Orders diclof enac 1 % topica l gel 2023 024 [facility] [employer] [id number], [address] [place] [address], [id number], 03/21/2024 20:30:49 Jardia nce 25 mg tablet 2023 024 [id number], [address], [place], [id number], 03/21/2024 16:32:43 Patient TargetsNo targets recorded. Patient Instructions Encounter Date Encounter Id Patient Instructions Last Modified By Organization Details Last Modified Time 03/21/2024 [id number] visual acuity* gmenapacedrew Not availa ble 03/21/2024 17:50:36 diabetic foot exam* Not available 04/02/2024 09:46:19 Reason for Referral Specification Manager Referral for Neur opathy due to type [address] Emanuel requested Referring Physician: Carole De Leon, [facility], Encounter Date: 10/04/2023 Neurological Surgeon Wisam richard for Pain in right arm Had anterior cervical discectomy and fusion with you 08/11/2014 for LUE pain, was told he may need same on R side eventually, now with RUE pain. Cervical spine MRI ordered at [facility] with result cc'd to you. Referring Physician: Val Javier [facility], Encounter Date: 03/21/2024 Physical Therapist Referral for Pain in bilateral legs Referring Physician: Val Javier [facility], Encounter Date: 04/24/2024 Results Created Date Observation Date Name Description Value Unit Range Abnormal Flag Note LastModifiedBy Organization Detail LastModifiedTime 03/21/20 24 03/21/2024 visua l acuit y* R Eye Corrected 20/40 Not Available [address], [address], 03/19/2024 13:18:02 03/21/20 24 03/21/2024 visua l acuit y* L Eye Corrected 20/25 Not Available [address], [address], 03/19/2024 13:18:02 03/21/20 24 03/21/2024 visua l acuit y* Both Corrected 20/40 Not Available [address], [address], 03/19/2024 13:18:02 04/11/20 24 04/11/2024 CT, angio gram, abdom en + pelvi s + lower extre mity, w/wo contr ast Patien t Name: Lida Dewitt rd Unit #: [id number] Loc: DI Orderi ng Provid er: Menapa ce-Rachid wDomingo na Accoun t #: [id number] Status : REG CLI Primar y Care Provid er: Menapa ce-Rachid wDomingo Date of Exam : Sex: M : [...] route: IV - Oral: / no COMPAR JANICE: No exams were availa ble for compar janice FINDIN GS: Vascul ar Struct ures: Heart: Normal size. Dobson ry artery calcif icatio ns. Abdome n: Celiac Napavine/S MA: No eviden ce of stenos is. [...] : No eviden ce of stenos is. Dye Weigher ior Tibial : No eviden ce of [...] : No eviden ce of stenos is. Dye Weigher ior Tibial : No eviden ce of [...] Reprod uctive : Unrema rkable . IMPRES VIVIANA: Mild athero sclero tic change s of [...] Index Regist ry (DIR) with the Americ vandana valerio of Radiol ogy (ACR). RADIAT ION OPTIMI ZATION : [facility] at least one of these dose optimi zation techni ques: automa sudheer exposu re contro l; mA and/or kV adjust ment per patien t size (inclu preet target ed exams where dose is matche d to clinic al indica tion); or iterat inga recons tructi on. 012: Total DLP = 0.00 mGy-cm Ordere d By: Domingo Gonzalez CC: ------ ------ ------ ------ ------ ------ [...] report in error, please notify us immedi eloisely at and return the origin al report to us at the addres s above. Thank- you. [email or web address] [facility] [address] [place], [address] 04/25/2024 08:23:58 04/11/20 24 04/11/2024 MRI imagi ng repor t Patien t Name: Lida Dewitt rd Unit #: [id number] Loc: DI Orderi ng Provid er: Domingo Gonzalez Accoun t #: [id number] Status : REG CLI Primar y Care [...] withou t intrav enous contra st. COMPAR JANICE: MR MRI - CERVIC AL SPINE WO [...] icant centra l canal stenos is. C4-5: Dye Weigher ior and latera l disc osteop hytes. [...] icant centra l canal stenos is. IMPRES VIVIANA: Degene rative change s greate st at [...] the addres s above. Thank- you. [email or web address] [facility] [address], [place], [address] 04/23/2024 15:46:06 04/15/20 24 02/19/2021 XR, chest [...] 04/15 00:10:11 04/15/20 24 06/13/2023 imagi ng/di agnos tic resul t No observ ation record ed. Not Available 04/15 00:11:25 Result Notes None recorded. Problems Name Problem SNOMED Code Status Onset Date Resolution Date Notes Provider Name and Address Organization Details Recorded Time Diarrhea [id number] Completed 201609/14/2023 03/23/20 - Comments only - Val Leung [facility] - - COVID/Fl u negative in the office today - See Abdomina l Pain - Follow up 03/27/23 Problem Code: R19.7; Problem Code Type: ICD-10; [facility]OM[facility] [address], [place], [address] , [facility] 4 18:10:56 Gastroes ophageal reflux disease without esophagi tis 077727897 Active 201604/03/20 - Comments only - Val Leung [facility] - EGD 03/27/20 Dr Walter . Bx of upper GI tract were unremark able. Has f/u with Dr Walter 05/13/20. Problem Code: K21.9; Problem Code Type: ICD-10; Alma nuñez, [facility] 4 21:49:09 Eczema 61480227 Completed 201609/14/2023 04/15/20 21 - Comments only - [facility] - Referral generate d to Dr Bailey to discuss his dry, cracking hands, per his request Problem Code: L30.9; Problem Code Type: ICD-10; VAL QUINTERO, [facility] [address], [place], [address] , [facility] 4 18:05:24 Chest pain 11087231 Completed 201709/14/2023 Problem Code: R07.9; Problem Code Type: ICD-10; VAL QUINTERO, [facility] [address], [facility] [address] , [facility] 4 18:02:59 Pneumoni a 918060327 Completed 201712/02/2017 Problem Code: J18.9; Problem Code Type: ICD-10; Not Available [facility] 3 04:39:54 Lumbosac ral radiculo vladislav 5360095 Active 2017 Back pain with radiculo vladislav 11/04/19 22 - Comments only - Val Leung [facility] pain clinic 2:Yevgeniy martinez stated he did not want any interven tional treatmen t, just somethin g we could put on his back to help with the pain. He was prescrib ed Voltaren gel and [facility] ed to follow-u p with his primary care. 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 - - He will follow up with Dr Bailey re: bx results - Complete cephalex in course Problem Code: R21; Problem Code Type: ICD-10; VAL QUINTERO, [facility] [address], [place], [address] , [facility] 4 18:06:33 Amnesia 60285201 Completed 201909/14/2023 01/10/20 20 - Comments only - Val Leung [facility] - - Consider neurolog y consult for memory and balance concerns , headache s - Plan more formal evaluati on/scree lg at next visit Problem Code: R41.3; Problem Code Type: ICD-10; VAL QUINTERO, [facility] [address], [place], [address] , [facility] 4 18:02:49 Disorder of digestiv e system 93946255 Active 2019 Gastroin testinal disorder 05/28/20 20 - Comments only - Val Leung [facility] - F/U Christina Rea [facility] on 05/27/20 . 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 - see GI Disorder Dx notes. Problem Code: K31.84; Problem Code Type: ICD-10; VAL ROMEO-Chante QUINTERO, [employer] [address], [place], [address] , [facility] 4 18:10:15 Neuropat hy due to type 2 diabetes mellitus 80435687169 9106 Active 201903/29/20 23 - Comments only - Val Leung [employer] - - Given low FBS, will have him HOLD tomorrow 's Trulicit y and will postpone dose increase , stay on 0.75mg weekly for now, next dose on 04/04 - He is schedule d to see LLOYD Traylor RN, [facility] on 04/03/23 Problem Code: E11.40; Problem Code Type: ICD-10; Alma nuñez, [facility] 4 21:59:17 Muscle pain 30442916 Active 2020 Problem Code: M79.10; Problem Code Type: ICD-10; Not Available [facility] 4 06:29:01 Dystroph ia unguium 51098890 Active 2020 Onychlui strozoila -- Sees Dr Mcfarlane, [facility] Podiatry q3-4mo Problem Code: L60.3; Problem Code Type: ICD-10; Alma nuñez [facility] 4 21:47:42 Adult health examinat ion Active 202009/18/19 23 - Comments only - Val Leung [employer] - - He will be due for colonosc opy 12/2022 - He continue to decline tetanus booster, which was due 07/2021, as well as flu vaccine and COVID booster - I do not recall past discussi on of LDCT lungs (25+ py hx); will plan to discuss in 3m Problem Code: Z00.00; Problem Code Type: ICD-10; Not Available [facility] 4 06:29:00 Wheezing 81987260 Active 202007/15/20 21 - Comments only - Val Leung [employer] - - Discusse d po predniso ne vs ICS; he prefers po. Rx predniso ne 20mg, 2 po q am x 5d sent - Rx albutero l inhaler for prn use sent - Follow up in 1 week Problem Code: R06.2; Problem Code Type: ICD-10; Alma nuñez, [facility]. 4 22:36:45 Dysphagi a 28404563 Active 2020 pharyngo esophage al phase -- [facility], Christina Piette 07/22/20 21 - Comments only - Sierra Guardado MD - 1-[facility]-Esoph agogastr oduodeno scopy with esophage al balloon dilation , polypect ivon, and biopsy. hx of solid food dysphagi a and a barium swallow showing mild narrowin g of the esophage al body with mild dysmotil ity. f/u patholog y. return to GI as schedule d. Problem Code: R13.14; Problem Code Type: ICD-10; Alma nuñez, [facility], [facility]. 4 15:37:12 [place]ague - lesion 305457309 Completed 202009/14/2023 Problem Code: L84; Problem Code Type: ICD-10; VAL QUINTERO, [employer] [address], [place], [address] , [facility]. 4 18:03:54 Essentia l hyperten viviana 91941401 Active 2016 Problem Code: I10; Problem Code Type: ICD-10; Alma nuñez [facility], [facility]. 4 21:48:00 Hyperlip idemia 29457416 Active 2016 Problem Code: E78.5; Problem Code Type: ICD-10; Alma nuñez, [facility]. 4 21:52:29 Low back pain 488818810 Active 201612/17/19 22 - Comments only - Val Jorge Luisroxanne Madhu [facility] - - He was very clear today that he does not want to try any further interven tions for his back and knee pain at this time. He has been seen by the pain clinic in [facility] for both of these issues, and can always go back there if needed. -We will reevalua te this at his follow-u p office visit in 3 months, and he can certainl y call sooner if he changes his mind. Problem Code: M54.5; Problem Code Type: ICD-10; Alma nuñez, [facility]. 4 22:33:02 Benign prostati c hyperpla pari 437090444 Active 2016 Problem Code: N40.0; Problem Code Type: ICD-10; Alma nuñez, [facility] 4 15:30:44 Postproc edural state finding 098687946 Completed 201609/14/2023 Problem Code: Z98.89; Problem Code Type: ICD-10; VAL QUINTERO, [facility] [address], [place], [address] , [facility] 4 18:07:12 History and physical examinat ion, administ rative Completed 202109/14/2023 08/27/19 22 - Comments only - Val Cooperjoby Leung [facility] - - I have requeste d that he bring all of his medicati ons in next week for full reconcil iation Problem Code: Z02.89; Problem Code Type: ICD-10; VAL QUINTERO [employer] [address], [place], [address] , [facility] 4 18:06:15 Pain of left knee joint 74653777224 4107 Active 2021 Knee pain, left, acute -- primary osteoart hritis 11/04/19 22 - Comments only - Val Leung [facility]- - Seen at the [facility] on 09/29/2021 . 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 He was given an intra-ar ticular steroid injectio n. He is to call them back if he continue s to have knee pain, and they will consider more advanced imaging at that time. Problem Code: M25.562; Problem Code Type: ICD-10; Alma nuñez, [facility] 4 22:34:07 Pain in left lower limb 153521906 Completed 202109/14/2023 Problem Code: M79.605; Problem Code Type: ICD-10; VAL QUINTERO, [employer] [address], [place], [address] , [facility] 4 18:07:43 Chronic rhinitis 52161108 Active 202112/16/19 23 - Comments only - Val Leung [facility] - - He feels that his rhinitis has signific antly worsened since moving into his new [address] months ago. He has been taking cetirizi ne daily. I will have him add Flonase, which he does report being on in the past and finding helpful. I also suggeste d that he get an air filter for his apartmen t. Problem Code: J31.0; Problem Code Type: ICD-10; Alma nuñez, [facility], [facility] 4 15:32:06 Hammer toe 791075157 Active 2022 acquired Problem Code: M20.40; Problem Code Type: ICD-10; Alma nuñez [facility] 4 21:49:49 Vitamin D deficien cy 39769602 Active 2022 normal on 03/22/23 03/17/20 23 - Comments only - Val Leung [facility] - - He complete d 12 weeks of high-dos e vitamin D, and we will recheck his level. He would like to have his labs drawn at [facility], so I gave him a lab slip today and we will also fax those orders to the lab. Problem Code: E55.9; Problem Code Type: ICD-10; Fatou OrozcoYbarra NILSON null, [facility] 4 13:50:38 Thyroid function tests abnormal 921081108 Active 2022 Elevated TSH -- OK for age Problem Code: R94.6; Problem Code Type: ICD-10; Alma England [facility], [facility] 4 22:36:21 Headache 27683555 Active 202208/27/19 22 - Comments only - Val Leung [facility]- - - Given increase in headache frequenc [...] Problem Code: Z87.898; Problem Code Type: ICD-10;Kelly kvngbong Code: R51.9; Problem Code Type: ICD-10; VAL QUINTERO, [facility] [address], [place], [address] , [facility] 4 18:09:40 Abdomina l pain 69275912 Completed 202204/06/2023 03/23/20 23 - Comments only - Val Leung [facility]- - - After consulta tion with Reji De Leon MD, will obtain labs today at [facility]: CMP, ESR, CRP, CBCD, lipase, and will order CT abdomen w/contra st for evaluati on of bowels. - Advised bowel rest, with clear fluids, then progress to BRAT diet - He will follow up with [facility] 03/27/23 Problem Code: R10.9; Problem Code Type: ICD-10; Not Available [facility] 3 04:39:59 Acute sinusiti s 05310119 Completed 202204/06/2023 Problem Code: J01.90; Problem Code Type: ICD-10; Not Available [facility] 4 05:37:29 Generali zed abdomina l pain 832443630 Active 2022 Problem Code: R10.84; Problem Code Type: ICD-10; Not Available [facility] 4 06:28:59 Viral enteriti s of intestin e 86908941 Completed 202209/14/2023 03/29/20 23 - Comments only - Val Leung [employer] - - Improvin g, still with stomach upset, no diarrhea in >72h, no vomiting , vital signs all wnl - Likely self-kendall iting viral enteriti s. Advised ongoing rest, bland foods as tolerate d - Reviewed s&s warranti ng call to the office, ED evaluati on. - Follow up in 7-10d - VAL QUINTERO, [employer] [address], [place], [address] , [facility] 4 18:07:19 Flatulen ce symptom 942332542 Completed 201601/03/2019 Problem Code: R14.3; Problem Code Type: ICD-10; Not Available [facility] 3 04:40:00 Cough 78175710 Completed 202103/17/2023 Problem Code: R05.8; Problem Code Type: ICD-10; Not Available [facility] 3 04:40:00 Pain of left shoulder joint 95466410366 467312 Completed 201601/03/2019 Problem Code: M25.512; Problem Code Type: ICD-10; Not Available [facility] 3 04:40:00 Venereal disease screenin g Completed 201603/17/2023 Problem Code: Z11.3; Problem Code Type: ICD-10; Not Available [facility] 3 04:40:00 Acute upper respirat ory infectio n 81078732 Completed 202003/17/2023 Problem Code: J06.9; Problem Code Type: ICD-10; Not Available [facility] 3 04:40:01 Hypergly cemia due to type 2 diabetes mellitus 79850985594 9109 Completed 201609/18/2022 Problem Code: E11.65; Problem Code Type: ICD-10; Not Available [facility] 3 04:40:01 Spasm 87237820 Completed 202003/17/2023 Problem Code: R25.2; Problem Code Type: ICD-10; Not Available [facility] 3 04:40:01 Disorder of nasal sinus 5124809 Completed 202103/17/2023 Not Available [facility] 3 04:40:01 Headache 79278614 Completed 201604/26/2023 Problem Code: R51; Problem Code Type: ICD-10; VAL QUINTERO, [employer] [address], [place], [address] [facility] 4 18:09:40 Hypothyr oidism 79904355 Completed 202212/21/2022 Problem Code: E03.9; Problem Code Type: ICD-10; Not Available [facility] 3 04:40:02 Headache disorder 336612386 Completed 201803/17/2023 Problem Code: G44.89; Problem Code Type: ICD-10; Not Available [facility] 3 04:40:02 Disorder of pharynx 08091831 Completed 202003/17/2023 Problem Code: J39.2; Problem Code Type: ICD-10; Not Available [facility] 3 04:40:02 Cellulit is 137693734 Completed 202003/17/2023 Problem Code: L03.90; Problem Code Type: ICD-10; Not Available [facility] 3 04:40:03 Type 2 diabetes mellitus without complica tion 255964821 Completed 201604/26/2023 Problem Code: E11.9; Problem Code Type: ICD-10; Mary Nova joaquin, [facility], [facility] 4 11:31:02 Disorder of penis 39844839 Completed 201610/19/2017 Problem Code: N48.9; Problem Code Type: ICD-10; Not Available [facility] 3 04:40:03 History of SARS-CoV -2 07731464021 9170413 Completed 202209/14/2023 VAL QUINTERO, [employer] [address], [place], [address] , [facility] 18:06:22 Migraine with aura 7589531 Active 2023 Problem Code: G43.109; Problem Code Type: ICD-10; Alma nuñez, [facility] 21:57:06 Hypomagn esemia 602752745 Active 202204/06/20 23 - Comments only - Val [facility]IRGEN[facility] - - We will have him switch [...] Code: E83.42; Problem Code Type: ICD-10; Alma nuñez [facility] 21:52:39 Disorder of bilirubi n metaboli sm 08388055 Completed 202209/14/2023 04/06/20 23 - Comments only - Val VIRGEN[facility] - - Bilirubi n is increase d from 1.2 to 1.9 between 8/24 and 04/05/2023 . The cause of this [...] follow-u p with me, with labs at [facility] prior (nico gilliam, CMP). 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 Declined B12 injectio ns; start po B12 09/14/23 Problem Code: E53.8; Problem Code Type: ICD-10; Alma Mejiaeri [facility], [facility] 4 15:34:17 Mean corpuscu lar volume above referenc e range 195538364 Active 2023 Problem Code: R71.8; Problem Code Type: ICD-10; Alma Mejiaeri [facility], [facility] 4 21:54:49 Eosinoph il count above referenc e range 410530539 Active 2023 Problem Code: D72.1; Problem Code Type: ICD-10; Alma Mejiaeri [facility], [facility] 4 22:06:33 Serum creatini ne above referenc e range 814715573 Active 2022 Problem Code: R79.89; Problem Code Type: ICD-10; Alma Mejiaeri [facility], [facility] 4 15:31:36 Gastroin testinal symptom 679016194 Active 202002/19/20 21 - Comments only - Val Leung [employer] - - Saw Christina Rea at [facility] 02/17/21. Recommen ded low FODMAP diet, limit fiber and fat, avoid large meals, stop Pepto Bismol, continue Protonix 40mg 30min before evening meal. May trial GasX or Gaviscon . f/u with Christina in 3-4 weeks. Problem Code: R19.8; Problem Code Type: ICD-10; Alma nuñez, [facility], [employer]. 4 15:35:12 Malaise and fatigue 515369952 Active 202212/16/19 23 - Comments only - Val Leung [employer] - - I do feel that some of his low mood and low energy are situatio nal and related to his current housing situatio n, however we will check some labs. He is schedule d to have labs drawn for Dr. Duong at [facility] on 3, he believes this is to check his griffinassiu m. -We will check to see what labs have already been ordered for him at [facility], and add (if not already being done): CBC without, BMP, TSH with reflex T4, vitamin D - Plan PHQ-9 at his next office visit Problem Code: R53.83; Problem Code Type: ICD-10; Alma nuñez, [facility] 4 21:48:44 History of adenomat ous polyp of colon 749999648 Active 2017 2018; 5-yr recall per Dr. [place], [facility] Problem Code: Z86.010; Problem Code Type: ICD-10; Alma Mejiaeri joaquin, [facility]. 4 21:52:24 Pain of left heel 61791344904 73837 Active 201904/09/20 20 - Comments only - Val Leung [facility] - - Keep next week's podiatry appt - Pt will let me know if we need to send Rx for diabetic shoes Problem Code: M79.672; Problem Code Type: ICD-10; Alma England joaquin [facility]. 4 22:04:58 Hypogona dism 52102095 Active [address] Duong q6m Problem Code: E29.1; Problem Code Type: ICD-10; Alma nuñez, [facility] 4 22:35:49 Type 2 diabetes mellitus without complica tion 397152627 Active 2016 Mary nuñez, [facility] 4 11:31:02 Pain in left lower limb 641434925 Active [address], [facility] [address] , [facility] 4 14:31:53 Left lower quadrant pain 293372100 Active [address], [place] [address] , [facility] 4 17:43:04 Pain in right arm 426205300 Active [address], [address] , [facility] 4 18:24:53 Muscle weakness 90276527 Active [address], [facility] [address] , [facility] 4 08:00:12 Constipa tion 37539610 Active 2023 VAL QUINTERO SENIOR PRODUCTION PLANNERSARA Rueda Dr, [facility] [address] , [facility] 4 11:31:59 Problem Notes None recorded. Medical Equipment None Reported. Allergies Allergen ID Allergen Name Allergen Category Reaction Reaction Severity Criticality Documentation Date Start Date Code Code System Note Provider Name and Address Organization Details Recorded Time 15144 gabapenti n medicatio n diarrhea severe Not available 06/09/20232020 09400 [facility] 22:38[facility]37 Medications Name Sig Start Date Stop [...] daily as needed for pain 01/03 completed [facility] Not Available Not Available [...] Not Avai lable Nasonex 50 mcg/actua tion Upham 1 spray each nostril bid 07/11 completed [...] tablet po TID prn pain 2016 active [facility] Not Available Not Available [...] FOR 4 TO 8 WEEKS THEN CALL [facility] 07/10 completed Not Available Not Available Not [...] Updated DateTime 4 175.26 cm 32.2 kg/m2 77576.1 4 g 72 /min 112 mm[Hg] 64 mm[Hg] Fatou pina LPN [place] [facility], [facility]. 4 13:39:49 Social History Question Answer Notes LastModified by Organizat ion Details LastModified Time Tobacco Smoking Status Current Every Day Smoker cigars only Fatou Ybarra LPN [facility], [place] - [facility]. 09/12/2023 12:30:56 Do You Have An Advance Directive? No Another Packet Given Today aeyqhegghsj36 Information not available 03/21/2024 What Is Your Code Status? Full Code kxutvtyfsvn08 Information not available 03/21/2024 Do You Or Have You Ever Used E-cigarettes Or Vape? Never Used Electronic Cigarettes trnxfihtvla73 Information not available 03/21/2024 Date Of Most Recent HSA 03/21/2024 bdvkfbpihnt83 Information not available 03/21/2024 Would You Say That, In General, Your Health Is Very Good xvvqssqocss46 Information not available 03/21/2024 How Often Does Anyone, Including Family, Physically Hurt You? Never qxowhpnuoyi10 Information not available 03/21/2024 How Often Does Anyone, Including Family, Insult Or Talk Down To You? Never cxfywuwngjz52 Information no t available 03/21/2024 How Often Does Anyone, Including Family, Threaten You With Harm? Never Information not available 03/21/2024 How Often Does Anyone, Including Family, Scream Or Curse At You? Never aeduaskcani32 Information not available 03/21/2024 Within The Past 12 Months, You Worried That Your Food Would Run Out Before You Got Money To Buy More. Sometimes True psnsywgafru48 Information not available 03/21/2024 Within The Past 12 Months, The Food You Bought Just Didn't Last And You Didn't Have Money To Get More. Sometimes True qpgovhlelhp52 Information not available 03/21/2024 How Hard Is It For You To Pay For The Very Basics Like Food, Housing, Medical Care, And Heating? Would You Say It Is: Somewhat Hard geudoeatvwe05 Information not available 03/21/2024 In The Past 12 Months, Has Lack Of Reliable Transportation Kept You From Medical Appointments, Meetings, Work Or From Getting Things Needed For Daily Living? No dqutlecxjay45 Information not available 03/21/2024 How Often In The Past Year Have You Used Marijuana (including Smoking, Vaping, Dabbing, Or Edibles)? Monthly Or Less gyvbnhkezsc04 Information not available 03/21/2024 How Often In The Past Year Have You Used Prescription Medications That Were Not Prescribed To You? Never ykmuwssyert03 Information not available 03/21/2024 How Often In The Past Year Have You Taken Your Own Prescription Medication More Than The Way It Was Prescribed Or For Different Reasons Than Its Intended Purpose? Never iiasnlubtnr37 Information no t available 03/21/2024 How Often In The Past Year Have You Used Other Drugs (for Example, Heroin, Cocaine, Meth, Salvia, Inhalants)? Never oljuouwsxsb68 Information not available 03/21/2024 Have You Ever Used IV Drugs? No bmpraxymjoh24 Information not available 03/21/2024 What Matters Most To You? Family qaxcufajbnq98 Information not available 03/21/2024 During The Past Four Weeks Has Your Physical And Emotional Health Limited Your Social Activities With Family And Friends, Neighbors, Or Groups? Moderately suoonvqhhzu52 Information not available 03/21/2024 During The Past Four Weeks, Was Someone Available To Help You If You Needed And Wanted Help? (For Example, If You [place] Very Nervous, Lonely, Or Blue; Got Sick And Had To Stay In Bed; Needed Someone To Talk To; Needed Help With Daily Chores; Or Needed Help Just Taking Care Of Yourself.) Yes- As Much As I Wanted etujrnqsylc47 Information not available 03/21/2024 During The Past Four Weeks, What Was The Hardest Physical Activity You Could Do For At Least 2 Minutes? Moderate vdnrxkahfrx95 Information not available 03/21/2024 Can You Get To Places Out Of Walking Distance Without Help? (For Example, Can You Travel Alone On Buses Or Taxis, Or Drive Your Own Car?) Yes Uses [employer]an [employer] pxgzxzyhnnh52 Information not available 03/21/2024 Can You Go Shopping For Groceries Or Clothes Without Someone? s Help? Yes nznjbzdxemq96 Information not available 03/21/2024 Can You Prepare Your Own Meals? Yes osjukiqortw71 Information not available 03/21/2024 Can You Do Your Housework Without Help? Yes ajuwrqmwxrj89 Information not available 03/21/2024 Because Of Any Health Problems, Do You Need The Help Of Another Person With Your Personal Care Needs Such As Eating, Bathing, Dressing, Or Getting Around The House? No vyazqkauhti86 Information not available 03/21/2024 Can You Handle Your Own Money Without Help? Yes puofpcayvxl29 Information not available 03/21/2024 Are You Having Difficulties Driving Your Car? No qhygdeaebon79 Information no t available 03/21/2024 Do You Always Fasten Your Seat Belt When You Are In A Car? Yes- Usually tvlzpzetsge59 Information not available 03/21/2024 How Often During The Past Four Weeks Have You Been Bothered By Any Of The Following Problems? Falling Or Dizzy When Standing Up? Seldom hwnnirdimdh54 Information not available 03/21/2024 Trouble Eating Well? Never auenksklxjq04 Information not available 03/21/2024 Teeth Or Denture Problems? Never oqufstlmxbh92 Information not available 03/21/2024 Problems Using The Telephone? Never jecaickhoag85 Information not available 03/21/2024 Tiredness Or Fatigue? Never lwenfwbrwwx46 Information not available 03/21/2024 Have You Had 2 Or More Falls Or Sustained An Injury With A Fall In The Last Year? No ajjjeyejzzu11 Information not available 03/21/2024 Do You Have Difficulty With Walking Or Balance? No Information not available 03/21/2024 Do You Currently Use A Hearing Device? No wuqrmghfkwg00 Information not available 03/21/2024 Do You Currently Have Any Trouble With Your Vision? No djofgwmnvvc00 Information no t available 03/21/2024 Do You Exercise For About 20 Minutes Three Or More Days A Week? Yes- Most Of The Time fsrmxzwfika66 Information not available 03/21/2024 Are There Any Safety Concerns In Your Home (see Attached CDC Pamphlet)? No jmasgopsnro90 Information not available 03/21/2024 How Often Do You Have Trouble Taking Medicines The Way You Have Been Told To Take Them? I Always Take Them As Prescribed qpvfjcztgpy84 Information not available 03/21/2024 How Confident Are You That You Can Control And Manage Most Of Your Health Problems? Very Confident ctrrsewhslo97 Information not available 03/21/2024 Do You Currently Have Any Difficulty With Your Hearing? No fbznqsjilbo30 Information not available 03/21/2024 Date Of Most Recent SBINS 03/21/2024 kzmyzqkriyl18 Information not available 03/21/2024 Do You Have A Medical Power Of Obstetrics Gynecology Physician? No Another Packet Given Today rbuswmpawfn29 Information not available 03/21/2024 What Was The Date Of Your Most Recent Tobacco Screening? 03/21/2024 jvcladqgkog37 Information not available 03/21/2024 Do You Or Have You Ever Used Smokeless Tobacco? Never Used Smokeless Tobacco Information not available 03/21/2024 Has Tobacco Cessation Counseling Been Provided? Yes uwtvbjsnmcg97 Information not available 03/21/2024 On What Date Was Tobacco Cessation Counseling Provided? 03/21/2024 crzewxegktn76 Information not available 03/21/2024 Do You Or Have You Ever Used Any Other Forms Of Tobacco Or Nicotine? Yes Cigar ptvbaxpvjbi05 Information not available 03/21/2024 Sex: Male Functional Status None recorded. Mental Status None recorded. Family History Nothing Reported. Medical History No medical history recorded. Immunizations Vaccine Type Date Status Provider Name and Address Organization Details Recorded Time Tdap 07/31/2011 completed Not Available [facility] 06:29:01 SARS-COV-2 (COVID-19) vaccine, UNSPECIFIED 09/11/2020 completed Not Available [facility] 08/12/2023 06:29:01 SARS-COV-2 (COVID-19) vaccine, UNSPECIFIED 10/09/2020 completed Not Available [facility] 08/12/2023 06:29:01 Past Encounters Encounter ID Performer Location Encounter Start Date Encounter Closed Date Diagnosis/Indication Diagnosis SNOMED-CT Code Diagnosis ICD10 Code [id number] VAL QUINTERO [employer]-[address] [address] 03/21/2024 13:17:21 03/21/2024 14:58:05 Adult health examination 861246921 Z00.00 Hypomagnesemia 243266392 E83.42 Type 2 ifrah betes mellitus without complication 793856025 E11.9 Active or passive immunization 584373728 Z23 Low back pain 990586760 M54.50 Pain in le ft lower limb 155069507 M79.605 Neuropathy due to type 2 diabetes mellitus 6184745570 67628 E11.40 Pain in right arm 923726 004 M79.601 Health Concerns Section Related Observation LastModified by Organization Detai ls LastModified Time None Recorded Concern Status LastModified by Organization Details LastModified Time None Recorded Payers Encounter Date Sequence Insurance Name Policy Number Policy Cullen Covered Member ID Cullen Member ID Guarantor Name 03/21/2024 1 [facility] (MEDICARE REPLACEMENT/A DVANTAGE - PPO) [id number] Quintin Dewitt [id number] Quintin Dewitt 03/21/2024 2 [facility] (MEDICAID) Quintin Dewitt [id number] Quintin Dewitt Notes Date Note Type Note Provider Name and Address Organization Details Recorded Time 03/21/2024 text/html HPI Notes: Lida barrientos presents for MWV, but states his insurance company already had him answer all the same questions. He also wants to discuss his back, L hip, L groin, and lower abdominal pain, and his R arm pain. He had labs drawn yesterday. Review of Pain Management notes 04/2014 - 11/09/2017 Seen initially at [facility], then [facility] for low back pain with LE radiculopathy, L>R. Reported history of two previous lumbar spine surgeries, one in [place], one in [place], with diagnosis of lumbar postlaminectomy syndrome listed. Medial branch blocks L-3/L-4, L-4/L-5, and L5-S1 at [facility] in 2013 did not help. He [...] and surgery did relieve that radicular pain. VAL JAVIER, SENIOR PRODUCTION PLANNER-BC [address], [place], [address], [facility]. 03/21/2024 19:25:32
--- OUTSIDE RECORDS SUMMARY | 2024-05-16 14:44 | XMS_ITS | Encounter Summary ---
[facility] [place] [address] Care Team Providers Care Developer Architect Name Role Phone Mei Javier Primary Care Provider Encounter Details Date Type Department Care Team (Latest Contact Info) Description 05/14/2024 Travel Social History Tobacco Use Types Packs/Day Years Used Date Smoking Tobacco: Every Day Cigars Last attempted to quit: 02/11/2014 Smokeless Tobacco: Never Alcohol Use Standard [...] on filedocumented in this encounter Care Teams Developer Architect Relationship Specialty Start Date End Date Mei Javier [address] [place] [address] PCP - General Family Medicine 09/29/20 documented as of this encounter
--- OUTSIDE RECORDS SUMMARY | 2024-05-16 14:44 | XMS_ITS | Encounter Summary ---
Author Organization [facility] [place] [address] Care Team Providers Care Coding Quality Analyst Name Role Phone Mei Javier Primary Care Provider [phone] Reason for Referral * Consultation (Urgent) - Closed Specialty Diagnoses / Procedures Referred By Christos kim Referred To Contact Neurosurgery Diagnoses Pain in right arm Mei Javier [address] [place] [address] Tori Perez MD [address] [place] [address] Referral ID Status Reason Start Date Expiration Date V isits Requested Visits Authorized [id number] Closed Consult, Test & Treat 03/26/2024 03/26/2025 1 1 Encounter Details Date Type Department Care Team (Late st Contact Info) Description 03/26/2024 Transcribe Orders Neurosurgery at [facility] [address] [place] [address] Mei Javier [address] [place], [place] [id number] Pain in right arm Social History Tobacco Use Types Packs/Day Years [...] as of this encounter Plan of Treatment Scheduled Referrals Name Type Priority Associated Diagnoses Order Schedule Referral to Neurosurgery Outpatient Referral Routine Pain in right arm Ordered: 03/26/2024 documented as of this encounter Visit Diagnoses Diagnosis Pain in right arm documented in this encounter Care Teams Coding Quality Analyst Relationship Specialty Start Date End Date Menapace-Mei Roman [address] [place] [address] PCP - General Family Medicine 09/29/20 documented as of this encounter
--- OUTSIDE RECORDS SUMMARY | 2024-05-16 14:45 | XMS_ITS | Referral Summary ---
Author Organization [facility] Address [address] [place] [address] Care Team Providers Care Air Boatswain Name Role Phone Unknown, Provider Primary Care Provider [phone] Social History Tobacco Use Types Packs/Day Years Used Date Smoking Tobacco: Never Assessed Interpersonal Safety Answer Date Record ed Physically Hurt Never 04/26/2020 Verbally Threaten Not on file 04/26/2020 Sex and Gender Information Value Date Recorded Sex Assigned at Not on file Gender Identity Not on file Sexual Orientation Not on file Plan of Treatment Not on file Care Teams Air Boatswain Relationship Specialty Start Date End Date Unknown, Provider, PCP - General 07/31/19
--- OUTSIDE RECORDS SUMMARY | 2024-05-16 14:45 | XMS_ITS | Encounter Summary ---
Author Organization [facility] Address [address] [facility] [place] [address] Care Team Providers Care Hazardous Material Technician Name Role Phone Gabe Rodriguez Primary Care Provider [phone] Encounter Details Date Type Department Care Team (Late st Contact Info) Description 08/11/2014 Interpretation Only Radiology [address] [place] [address] [place] [address] Unknown None Social History Tobacco Use Types [...] 7:24 AM EST APD Historical Result Principal Coil Connector: ??COREY ??JEFFERY C-ARM FLUOROSCOPY: HISTORY: ??ACDF, C5-6. [...] discectomy and fusion. Corey Jessica MD Swetha [id number] CC: Procedure Note Unknown - 01/28/2019 APD Historical Result Principal Coil Connector: COREY JESSICA C-ARM FLUOROSCOPY: HISTORY: ACDF, C5-6. [...] cervicaldiscectomy and fusion. Corey Jessica MD Swetha [id number] CC: Unknown IMG FLUORO ORDERABLE S documented in this encounter Visit Diagnoses Not on filedocumented in this encounter Care Teams Hazardous Material Technician Relationship Specialty Start Date End Date Gabe Rodriguez [address] [place] [address] PCP - General General Internal Medicine 07/19/1709/28 documented as of this encounter
--- OUTSIDE RECORDS SUMMARY | 2024-05-16 14:45 | XMS_ITS | Encounter Summary ---
Author Organization [facility] [place] [address] Care Team Providers Care Plant Guide Name Role Phone Mei Javier Primary Care Provider Encounter Details Date Type Department Care Team (Late st Contact Info) Description 10/12/2020 Telephone Dermatology at [address] [address] Xuan Simon LPN Social History [...] on filedocumented in this encounter Care Teams Plant Guide Relationship Specialty Start Date End Date Yaya Mei [address] [place] [address] PCP - General Family Medicine 09/29/20 documented as of this encounter
--- OUTSIDE RECORDS SUMMARY | 2024-05-16 14:45 | XMS_ITS | Encounter Summary ---
Author Organization [facility] Address [address] [place] [address] Care Team Providers Care Line Controller Name Role Phone Unknown, Provider Primary Care Provider [phone] Encounter Details Date Type Department Care Team (Late st Contact Info) Description 02/18/2021 Lab Requisition [facility] Pathology & Laboratory Medicine - [facility] [address] [place] [address] Outr Resulting Lab, Provider Social History Tobacco [...] Outr Resulting Lab MICROBIOLOGY - GENERAL ORDERABLES [facility] [address] [place] [address] * COVID-19 TESTING (02/18/2021 14:05 EDT) COVID-19 rt-PCR Result Negative Negative 02/20/2021 12:56 EDT [facility] Comment: This test has [...] was performed using the maryam SARS-CoV-2 assay ([employer] on the Maryam 6800 System Performing Lab Maryam [address] [facility] Lab 02/20/2021 12:56 EDT [facility] Swab 02/18/2021 14:0 5 EDT 02/19/2021 16:04 EDT Provider Outr Resulting Lab MICROBIOLOGY - GENERAL ORDERABLES [facility] [address] [place] [address] documented in this encounter Visit Diagnoses Not on filedocumented in this encounter Care Teams Line Controller Relationship Specialty Start Date End Date Unknown, Provider, PCP - General 07/31/19 documented as of this encounter
--- OUTSIDE RECORDS SUMMARY | 2024-05-16 14:45 | XMS_ITS | Encounter Summary ---
Author Organization [facility] Address [address] [place] [address] Care Team Providers Care Painter Rough Name Role Phone Unknown, Provider Primary Care Provider [phone] Encounter Details Date Type Department Care Team (Latest Contact Info) Description 03/28/2020 Lab Requisition [facility] Pathology & Laboratory Medicine - [facility] [address] [place] [address] Iván Walter MD [address] [place] [address] Gastro-esophageal reflux disease without esophagitis; [...] diagnostic abnormality. 03/30/2020 13:52 EDT [facility] Attestation By the signature below, the attending physician certifies that they have 1) personally conducted a gross and/or microscopic examination of the described specimen(s), and/or personally interpreted the results of laboratory testing of the described specimen(s), and 2) personally rendered or confirmed the above diagnosis. 03/30/2020 13:52 [facility] at 1352 Clinical History GERD, dysphagia; clinical diagnosis code: K21.9, R13.14, D12.6 03/30/2020 13:52 [facility] Gross Description A. Received in [...] 03/30/2020 8:13 03/30/2020 13:52 T [facility] Performing Lab [facility] 13:52 [facility] Scanned Images 03/30/2020 13:52 T [facility] Tissue ENTIRE ESOPHAGUS / Unknown 03/27/2020 10:20 EDT 03/28/2020 9:34 EDT Tissue specimen (specimen) ESOPHAGEAL STRUCTURE / Unknown 03/27/2020 10:20 EDT 03/28/2020 9:34 EDT Tissue specimen (specimen) ESOPHAGEAL STRUCTURE / Unknown 03/27/2020 10:20 EDT 03/28/2020 9:34 EDT Iván Walter MD PATHOLOGY ORD ERABLES [facility] [address] [place] [address] documented in this encounter Visit Diagnoses Diagnosis Gastro-esophageal reflux disease without esophagitis Esophageal reflux Dysphagia, pharyngoesophageal phase Benign neoplasm of colon, unspecified documented in this encounter Care Teams Painter Rough Relationship Specialty Start Date End Date Unknown, Provider, PCP - General 07/31/19 documented as of this encounter
--- OUTSIDE RECORDS SUMMARY | 2024-05-16 14:45 | XMS_ITS | Encounter Summary ---
Author Organization [facility] Address [address] [facility] [place] [address] Care Team Providers Care Clean Rice Grader And Reel Tender Name Role Phone Gabe Rodriguez Primary Care Provider [phone] Encounter Details Date Type Department Care Team (Late st Contact Info) Description 11/04/2014 Interpretation Only Radiology [address] [facility] [place] [address] Unknown None Social History Tobacco Use Types [...] 12:37 PM EDT APD Historical Result Principal Foundry Operator: ??CASSANDRA ??KASEY CERVICAL SPINE - THREE VIEWS: [...] ??There is no subluxation. Cassandra Parks MD [facility] [id number] CC: Procedure Note Unknown - 01/28/2019 APD Historical Result Principal Foundry Operator: CASSANDRA PARKS CERVICAL SPINE - THREE VIEWS: [...] There is no subluxation. Cassandra Parks MD [facility] [id number] CC: Unknown IMG DX ORDERABLES documented in this encounter Visit Diagnoses Not on filedocumented in this encounter Care Teams Clean Rice Grader And Reel Tender Relationship Specialty Start Date End Date Gabe Rodriguez [address] [place] [address] PCP - General General Internal Medicine 07/19/1709/28 documented as of this encounter
--- OUTSIDE RECORDS SUMMARY | 2024-05-16 14:45 | XMS_ITS | Encounter Summary ---
Author Organization [facility] Address [address] [place] [address] Care Team Providers Care Billiard Parlor Manager Name Role Phone Unknown, Provider Primary Care Provider [phone] Encounter Details Date Type Department Care Team (Late st Contact Info) Description 06/11/2021 Lab Requisition [facility] Pathology & Laboratory Medicine - [facility] [address], [place] [id number] Outr Resulting Lab, Provider Social History Tobacco [...] 0.0 - 6.5 ng/mL 06/11/2021 22:40 EST [facility] Blood VENOUS BLOOD / Unknown 06/11/2021 13:05 EST 06/11/2021 21:29 EST Narrative [facility] - 06/11/2021 22:40 EST NOTE: Serum PSA concentration should not be interpreted as absolute evidence for the presence or absence of malignant disease. Assayed on Siemens ADVIA [employer] XPT using chemiluminescent technology.??Values obtained by using different assay methods cannot be used interchangeably. Provider Outr Resulting Lab CHEMISTRY & BLOOD GAS ORDERABLES [facility] [address] [place] [address] documented in this encounter Visit Diagnoses Not on filedocumented in this encounter Care Teams Billiard Parlor Manager Relationship Specialty Start Date End Date Unknown, Provider, PCP - General 07/31/19 documented as of this encounter
--- OUTSIDE RECORDS SUMMARY | 2024-05-16 14:45 | XMS_ITS | Encounter Summary ---
Author Organization [facility] Address [address] [place] [address] Care Team Providers Care Mechanical Engineering Advisor Name Role Phone Unknown, Provider Primary Care Provider [phone] Encounter Details Date Type Department Care Team (Late st Contact Info) Description 07/23/2021 Lab Requisition [facility] Pathology & Laboratory Medicine - [facility] [address] [place] [address] Outr Resulting Lab, Provider Social History Tobacco [...] Outr Resulting Lab MICROBIOLOGY - GENERAL ORDERABLES [facility] [address] [place] [address] * COVID-19 TESTING (07/22/2021 13:45 EST) COVID-19 rt-PCR Result Negative Negative 07/24/2021 12:35 EST [facility] Comment: This test has [...] was performed using the maryam SARS-CoV-2 assay ([employer] on the Maryam 6800 System Performing Lab Maryam 68[address] [facility] Lab 07/24/2021 12:35 EST [facility] Swab 07/22/2021 13:4 5 EST 07/23/2021 22:30 EST Provider Outr Resulting Lab MICROBIOLOGY - GENERAL ORDERABLES [facility] [address] [place] [address] documented in this encounter Visit Diagnoses Not on filedocumented in this encounter Care Teams Mechanical Engineering Advisor Relationship Specialty Start Date End Date Unknown, Provider, PCP - General 07/31/19 documented as of this encounter
--- OUTSIDE RECORDS SUMMARY | 2024-05-16 14:45 | XMS_ITS | Encounter Summary ---
Author Organization [facility] Address [address] [facility] [place] [address] Care Team Providers Care Reservoir Engineering Advisor Name Role Phone Gabe Rodriguez Primary Care Provider [phone] Encounter Details Date Type Department Care Team (Late st Contact Info) Description 09/18/2014 Interpretation Only Radiology [address] [place] [phone] Unknown None Social History Tobacco Use Types [...] 9:33 AM EST APD Historical Result Principal Rotor Coil Taper: ??COREY ??JESSICA CERVICAL SPINE - ONE VIEW: [...] alignment, as described. Corey Jessica MD Swetha [id number] CC: Procedure Note Unknown - 01/28/2019 APD Historical Result Principal Rotor Coil Taper: COREY JESSICA CERVICAL SPINE - ONE VIEW: [...] anatomicalignment, as described. Corey Jessica MD Swetha [id number] CC: Unknown IMG DX ORDERABLES documented in this encounter Visit Diagnoses Not on filedocumented in this encounter Care Teams Reservoir Engineering Advisor Relationship Specialty Start Date End Date Gabe Rodriguez PA [address] [place] [address] PCP - General General Internal Medicine 07/19/1709/28 documented as of this encounter
--- OUTSIDE RECORDS SUMMARY | 2024-05-16 14:45 | XMS_ITS | Encounter Summary ---
Author Organization [facility] Address [facility] [place] [address] Care Team Providers Care Customer Service Specialist Name Role Phone Gabe Rodriguez Primary Care Provider [phone] Encounter Details Date Type Department Care Team (Late st Contact Info) Description 01/01/2018 10:45 AM EDT - 01/01/2018 11:30 AM EDT [place] [address] Kristan Washington MD [facility] [place] [address] COLONOSCOPY, DIAGNOSTIC (WRVU 3.26) Social History Tobacco [...] sent through Care Everywhere. * COLON POLYPS ([place]ILI) documented in this encounter Medications at Time of Discharge Medication Sig Dispensed Refills Start Date End Date omeprazole (PRILOSEC) 40 mg Capsule, Delayed Release(E.C.) Take 40 mg by mouth daily. 0 10/19/2017 lisinopril (PRINIVIL;ZESTRIL) 5 mg Tablet Take 5 mg by mouth daily. 0 09/06/2017 simvastatin (ZOCOR) 40 mg Tablet Take 40 mg by mouth nightly. 0 06/09/2017 metFORMIN (GLUCOPHAGE) 1,000 mg Tablet Take 500 mg by mouth 2 times daily (with meals). topiramate (TOPAMAX) 25 mg Capsule, Sprinkle Take 25 mg by mouth 2 times daily. aspirin 81 mg Tablet, Delayed Release (E.C.) Take 81 mg by mouth daily. testosterone (ANDROGEL) 1 % (25 mg/2.5 g) Gel in Packet Place 5 g onto the skin daily. 10/02/2020 oxyCODONE-acetamino phen (PERCOCET) 5-325 mg Tablet Take 1 tablet by mouth every 8 hours as needed for Pain. NTe 4 daily 112 tablet 11/09/2017 05/14/2024 oxyCODONE-acetamino phen (PERCOCET) 5-325 mg Tablet Take 1 tablet by mouth every 8 hours as needed for Pain (NTE 4 daily). 112 tablet 12/07/2017 05/14/2024 LANTUS SOLOSTAR pen Inject 28 Units subcutaneously nightly. 0 08/04/2017 05/14/20 24 LYRICA 100 mg Capsule Take 100 mg [...] AM EDT 01/01/2018 11:03 AM EDT Narrative [facility] - 01/01/2018 11:03 AM EDT Specimen requisition ordered. ??Separate Pathology report to follow Kristan Washington MD PATHOLOGY/CYTOLOGY O RDSHAUN Performing Organization Address [facility]/ZIP Co de Phone Number [facility] [place] [address] * Specimen to Pathology (01/01/2018 11:03 AM EDT) AP Specimen 01/01/2018 11:0 3 AM EDT 01/01/2018 11:03 AM EDT Narrative [facility] - 01/01/2018 11:03 AM EDT Specimen requisition ordered. ??Separate Pathology report to follow Kristan Washington MD PATHOLOGY/CYTOLOGY O RDSHAUN Performing Organization Address [facility]/ZIP Co de Phone Number [facility] [place] [address] * Specimen to Pathology (01/01/2018 11:03 AM EDT) AP Specimen 01/01/2018 11:0 3 AM EDT 01/01/2018 11:03 AM EDT Narrative [facility] - 01/01/2018 11:03 AM EDT Specimen requisition ordered. ??Separate Pathology report to follow Kristan Washington MD PATHOLOGY/CYTOLOGY O RDSHAUN Performing Organization Address City/[facility]/ZIP Co de Phone Number [facility] [place] [address] * Surgical Pathology Report (01/01/2018 10:45 AM EDT) Final Diagnosis [id number] ? Location: 4T; EA07; A The signing [...] Sultana MD Verified: ??01/04/2018 ?Pathologist Performed at: ??-[facility] Dept. of Pathology, [place], [place] DISCUSSION Part A: Focal and mild [...] sectioned. (T1) ??eliu 01/04/2018 10:45 PM EDT [facility] GI Biopsy 01/01/2018 10:4 5 AM EDT 01/01/2018 10:45 AM EDT GI Biopsy 01/01/2018 10:4 5 AM EDT 01/01/2018 10:45 AM EDT GI Biopsy 01/01/2018 10:4 5 AM EDT 01/01/2018 10:45 AM EDT Kristan Washington MD PATHOLOGY/CYTOLOGY O RDERABLES [facility] [place] [address] * COLONOSCOPY (01/01/2018 10:23 AM EDT) COLONOSCOPY [facility] Endoscopy Procedure Date: 01/01/2018 10:23 AM ? Patient Name: Quintin Dewitt ? Date of : 1945 ? Age: 72 ? Order #: [id number] ? Instrument Name: [id number] ? Procedure: ? Colonoscopy Indications: ? Clinically significant diarrhea of ? unexplained origin Providers: ? Kristan Washington MD, Miquel Rojas RN, ? Jesi Hawkins, Mental Health Associate Referring : ?Gabe Rodriguez, Naty Ramey Medicines: [...] EDT Gabe ZEPEDA GENERAL SURGICAL OR DERABLES Performing Organization Address City/State/[facility] Co de Phone Number [facility] * POCT Fingerstick Glucose (01/01/2018 10:04 AM EDT) Glucose, POC 97 60 - 199 mg/dl 01/01/2018 10:0 4 AM EDT Kristan Washington MD POINT OF CARE TEST O RDERABLES * POCT Glucose (01/01/2018 9:50 AM EDT) Glucose, POC 97 65 - 199 mg/dL [facility] Comment: Supplemental ranges: <140 mg/dL before meals <180 mg/dL all other times of the day Blood specimen (specimen) 01/01/2018 9:50 AM EDT 01/01/2018 9:50 AM EDT Kristan Washington MD POINT OF CARE TEST O RDERABLES Performing Organization Address [facility] Co de Phone Number [facility] [place] [phone] documented in this encounter Visit Diagnoses Diagnosis [...] (CANCELED) 100 mL/hr, Intravenous, CONTINUOUS, Starting on 01/01/18 at 0945, Until Mon01/01/18 at 1210, Endoscopy (Day of Procedure) 1005 (New Bag - Prov ider: Stephanie Sheppard RN)1031 (New Bag - Provider: Peggy Ashley CRNA)1059 (Anesthesia Volume Adjustment - Provider: Peggy Ashley, MALIK) documented in this encounter Care Teams Customer Service Specialist Relationship Specialty Start Date End Date Gabe Rodriguez PA [address] [place] [address] PCP - General General Internal Medicine 07/19/1709/28 documented as of this encounter
--- OUTSIDE RECORDS SUMMARY | 2024-05-16 14:45 | XMS_ITS | Encounter Summary ---
Author Organization [facility] Address [address] [place] [address] Care Team Providers Care Rn Obgyn Name Role Phone Unknown, Provider Primary Care Provider [phone] Encounter Details Date Type Department Care Team (Late st Contact Info) Description 12/20/2022 Lab Requisition [facility] Pathology & Laboratory Medicine - [facility] [address] [place] [address] Outr Resulting Lab, Provider Social History Tobacco [...] PSA 1.2 <=6.5 ng/mL 12/20/2022 19:11 EDT [facility] Blood VENOUS BLOOD / Unknown 12/20/2022 10:18 EDT 12/20/2022 16:44 EDT Narrative [facility] - 12/20/2022 19:11 EDT NOTE: Serum PSA concentration should not be interpreted as absolute evidence for the presence or absence of malignant disease. Assayed on Siemens ADVIA [employer] XPT using chemiluminescent technology.??Values obtained by using different assay methods cannot be used interchangeably. Provider Outr Resulting Lab CHEMISTRY & BLOOD GAS ORDERABLES [facility] [address] [place] [address] documented in this encounter Visit Diagnoses Not on filedocumented in this encounter Care Teams Rn Obgyn Relationship Specialty Start Date End Date Unknown, Provider, PCP - General 07/31/19 documented as of this encounter
--- OUTSIDE RECORDS SUMMARY | 2024-05-16 14:45 | XMS_ITS | Encounter Summary ---
Author Organization [facility] Address [facility] [place] [address] Care Team Providers Care Metallography Teacher Name Role Phone Gabe Rodriguez Primary Care Provider [phone] Reason for Visit * Reason Comments GI Problem * Consultation (Urgent) - Closed Specialty Diagnoses / Procedures Referred By Christos kim Referred To Contact Gastroenterology Diagnoses loose bowels, gas bloating abd pain. Initial referral faxed 03/30/17 never got a call. Gabe Rodriguez PA [address] [place] [address] [facility] [place] [address] [place] [address] Referral ID Status Reason Start Date Expiration Date V isits Requested Visits Authorized [id number] Closed Consult, Test & Treat Connection [facility] 07/19/2017 07/19/2018 1 1 Encounter Details Date Type Department Care Team (Latest Contact Info) Description 09/12/2017 3:00 PM EST Office [place] [phone] Naty Ramey PA [facility] [place] [address] Diarrhea, unspecified type; Lower abdominal pain; Nausea [...] three episodes of diarrhea daily at least. Bollinger 6, 7. Diarrhea occurs throughout the day. - Has urgency. Has had accidents (small amount). Wakes at night with urgency - No blood in stool, no melena. - Prior to onset: 1-2 bowel movements daily, Bollinger scale 4. - He noticed after eating salad at [employer] that diarrhea 2 hrs later had pieces [...] last colonoscopy was when he lived in [place], probably about 9 yrs ago. 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 Diet soda (1 cup to 18 oz daily), tea. No coffee. Weight: Gaining. 253 lbs today. Appetite: good Exercise: walks Diagnostic studies: 1. CT and, pelvis, 03/29/17 [facility]: No evidence of acute abdominal. 2. [...] L30.8 CURRENT MEDICATIONS: ??? Clobetasol 0.05 % [place], Non-Aerosol ??? aspirin 81 mg Tablet, Delayed [...] gram Recon Soln ??? Mometasone 50 mcg/actuation [place], Non-Aerosol Percocet daily -- back pain Advil PRN. ALLERGIES: No Known Allergies SURGICAL HISTORY: Cervical disk, lower back surgeries SOCIAL HISTORY: , 6 kids (2 in [place], 4 in [place]) HABITS: Alcohol: Beer occasionally Tobacco: Smokes 1 [...] colonoscopy was 9 yrs ago when livingin [place], polyps removed and report was normal per [...] Ramey PA-C Section of Gastroenterology [place] [address] documented in this encounter Plan of Treatment Scheduled Orders Name Type Priority Associated Diagnoses Orde r Schedule COLONOSCOPY Procedures Routine Diarrhea, unspecified type Ordered: 09/12/2017 documented as of this encounter Visit Diagnoses Diagnosis Diarrhea, unspecified type Lower abdominal pain Abdominal pain, other specified site Nausea and vomiting, intractability of vomiting not specified, unspecified vomiting type documented in this encounter Care Teams Metallography Teacher Relationship Specialty Start Date End Date Gabe Rodriguez PA [address] [place] [address] PCP - General General Internal Medicine 07/19/1709/28 documented as of this encounter
--- OUTSIDE RECORDS SUMMARY | 2024-05-16 14:45 | XMS_ITS | Encounter Summary ---
Author Organization [facility] Address [facility] [place] [address] Care Team Providers Care Hydroelectric Mechanic Name Role Phone Mei Javier Primary Care Provider [phone] Reason for Visit * Reason Comments Skin Check Encounter Details Date Type Department Care Team (Late st Contact Info) Description 10/19/2020 4:45 PM EDT Office Visit Dermatology at [address] [phone] Michael Bailey MD [address] [facility] [place] [address] Cellulitis, unspecified cellulitis site; Dermatitis Social History [...] cause documented in this encounter Care Teams Hydroelectric Mechanic Relationship Specialty Start Date End Date Mei Javier [address] [place] [address] PCP - General Family Medicine 09/29/20 documented as of this encounter
--- OUTSIDE RECORDS SUMMARY | 2024-05-16 14:45 | XMS_ITS | Encounter Summary ---
Author Organization [facility] Address [facility] [place] [address] Care Team Providers Care Production Supply Equipment Tender Name Role Phone Mei Javier Primary Care Provider Encounter Details Date Type Department Care Team (Late st Contact Info) Description 09/29/2020 Refill Dermatology at [address] [place] [phone] Xuan Simon, COUNTER HELPER Social History Tobacco Use Types Packs/Day Years [...] on filedocumented in this encounter Care Teams Production Supply Equipment Tender Relationship Specialty Start Date End Date Mei Javier [address] [place], [place] [address] PCP - General Family Medicine 09/29/20 documented as of this encounter
--- OUTSIDE RECORDS SUMMARY | 2024-05-16 14:45 | XMS_ITS | Encounter Summary ---
Author Organization [facility] Address [place] [address] Care Team Providers Care Industrial Safety Engineer Name Role Phone Mei Javier Primary Care Provider [phone] Encounter Details Date Type Department Care Team (Late st Contact Info) Description 10/02/2020 4:15 PM EST Office Visit Dermatology at [address] [phone] Michael Bailey MD [address] [facility] [place] [address] Cellulitis, unspecified cellulitis site Social History Tobacco [...] furthertreatment after that. CC: Mei Duong MD [facility] Urology documented in this encounter Plan of Treatment Not on file documented as of this encounter Visit Diagnoses Diagnosis Cellulitis, unspecified cellulitis site documented in this encounter Care Teams Industrial Safety Engineer Relationship Specialty Start Date End Date Mei Javier [address] [place] [address] PCP - General Family Medicine 09/29/20 documented as of this encounter
--- OUTSIDE RECORDS SUMMARY | 2024-05-16 14:45 | XMS_ITS | Encounter Summary ---
Author Organization [facility] [place] [address] Care Team Providers Care Naphthalene Operator Helper Name Role Phone Gabe Rodriguez Primary Care Provider [phone] Reason for Visit * Reason Comments Skin Check Dermatitis Encounter Details Date Type Department Care Team (Late st Contact Info) Description 08/08/2017 2:15 PM EST Office Visit Dermatology at [address] [phone] Michael Bailey MD [address] [facility] [place] [address] Psoriasiform dermatitis Social History Tobacco Use Types [...] reminds me that he is originally from [place], [place], and was previously followed by a utility repairer, Kristal Hull, for psoriasiform hand dermatitis, punch [...] a year ago he went back to [place] for a visit and did obtain another [...] disorders documented in this encounter Care Teams Naphthalene Operator Helper Relationship Specialty Start Date End Date Gabe Rodriguez PA [address] [place] [address] PCP - General General Internal Medicine 07/19/1709/28 documented as of this encounter
--- OUTSIDE RECORDS SUMMARY | 2024-05-16 14:45 | XMS_ITS | Encounter Summary ---
Author Organization [facility] [place] [address] Care Team Providers Care Designated Broker Name Role Phone Madison Tanner MD Primary Care Provider [phone] Encounter Details Date Type Department Care Team (Late st Contact Info) Description 06/23/2014 3:30 PM EST Office Visit Endocrinology at [place] [phone] Robert Rodrigues MD [facility] [place] [address] [address] [facility] [place] [address] Hypogonadism male; BPH (benign prostatic hyperplasia) Discharge [...] Dr. Ravi Nguyen DO, MS Endocrinology fellow [facility] cc: MADISON TANNER MD documented in this [...] Cell 4.61(L) 4.63 - 6.08 x10(6)/mc L [facility] Hemoglobin 14.9 13.7 - 17.5 gm/dL [facility] Hematocrit 42.8 40.0 - 51.0 % [facility] Mean Cell Volume 92.8(H) 79.0 - 92.0 fL [facility] Mean Cell Hemoglobin 32.3(H) 25.6 - 32.2 pg [facility] Mean Cell Hemoglobin Concentration 34.8 32.0 - 36.5 gm/dL [facility] Platelet 162 145 - 370 x10(3)/mc L [facility] RDW Standard Deviation 46.0 35.0 - 46.0 fL [facility] RDW coefficient of variation 13.6 10.9 - 14.4 % [facility] Mean Platelet Volume 11.5 9.0 - 12.0 fL [facility] Blood specimen (specimen) 06/23/2014 4:19 PM EST 06/23/2014 4:25 PM EST Narrative Resulting Agency Comment Spec In Lab Robert Rodrigues MD HEMATOLOGY ORDERA BLES [facility] * PSA (06/23/2014 4:19 PM EST) Pathologist [facility] Prostate Specific Antigen (Ultrasensitiv e) 0.94 0.00 - 4.00 ng/mL [facility] Blood specimen (specimen) 06/23/2014 4:19 PM EST 06/23/2014 4:25 PM EST Narrative Resulting Agency Comment Spec In Lab Robert Rodrigues MD CHEMISTRY ORDERAB LES [facility] * (ABNORMAL) Testosterone, total and free (06/23/2014 4:19 PM EST) Testo Total 189(L) 250 - 1100 ng/dL [facility] Comment: Men with clinically significant hypogonadal symptoms and testosterone values repeatedly in the range of the 200-300 ng/dL or less, may benefit from testosterone treatment after adequate risk and benefits counseling. For more information on this test, go to http://education.GTRAN.PaletteApp/faq/ TotalTestosteroneLCMSMS Testo Free (NOVEMBER) 35.0 30.0 - 135.0 pg/mL [facility] Comment: Test Performed by [employer], [employer] [employer] [facility], [address] [place] [id number] Robbie Villa M.D., Ph.D., Director of Laboratories , [facility] [id number] Blood specimen (specimen) 06/23/2014 4:19 PM EST 06/24/2014 8:43 AM EST Narrative Resulting Agency Comment Spec In Lab Robert Rodrigues MD LAB SEND OUT ORDE RABLES Performing Organization Address [facility] Co de Phone Number [facility] * Prolactin (06/23/2014 4:19 PM EST) Prolactin 6.1 4.0 - 15.2 ng/mL [facility] Blood specimen (specimen) 06/23/2014 4:19 PM EST 06/23/2014 4:25 PM EST Narrative Resulting Agency Comment Spec In Lab Robert Rodrigues MD CHEMISTRY ORDERAB LES Performing Organization Address [facility] Co de Phone Number [facility] * Luteinizing Hormone (06/23/2014 4:19 PM EST) Luteinizing Hormone 4.5 1.7 - 8.6 mlU/ML [facility] Comment: Reference ranges: ?? Females [...] MD CHEMISTRY ORDERAB LES Performing Organization Address [facility] Co de Phone Number SHANKAR SUMMERS documented in this encounter Visit Diagnoses Diagnosis Hypogonadism male Other testicular hypofunction BPH (benign prostatic hyperplasia) Unspecified hyperplasia of prostate without urinary obstruction and other lower urinary tract symptoms (LUTS) documented in this encounter Care Teams Designated Broker Relationship Specialty Start Date End Date Madison Tanner MD PCP - General 05/15/14 07/18/17 documented as of this encounter
--- OUTSIDE RECORDS SUMMARY | 2024-05-16 14:45 | XMS_ITS | Encounter Summary ---
Author Organization [facility] [place] [address] Care Team Providers Care Interviewing Clerk Name Role Phone Gabe Rodriguez Primary Care Provider [phone] Encounter Details Date Type Department Care Team (Late st Contact Info) Description 01/01/2018 10:31 AM EDT Anesthesia [place] [address] Alice Juan MD [facility] [place] [address] GabiPeggy Thompson CRNA [facility] [place] [address] Anesthesia Record Procedure Summary Procedure Name Responsible [...] 1005; metacarpal vein (top of hand), right; ksyf-fba-sltfho catheter system; 20 gauge; Brayan Negro RN; [...] Juan MD - 01/01/2018 12:40 PM EDT [facility] Department of Anesthesiology Post-procedure Note Patient: Quintin Dewitt Procedure Summary Date Anesthesia Start Anesthesia Stop Room / Location 01/01/18 1031 1111 [facility]O 5 / [facility] ENDOSCOPY Procedure Diagnosis Surgeon Responsible Provider COLONOSCOPY, DIAGNOSTIC (N/A Trunk); COLONOSCOPY, POLYPECTOMY, REMOVAL LESION BY SNARE (WRVU 4.67) (N/A ); COLONOSCOPY; W CONTROL OF BLEEDING, ANY METHOD Diarrhea, unspecified type (explosive diarrhea, abd pain x 6 months. Hx smoking. ? microscopic colitis, inflammation. Please take biopsies.; (consult)) Kristan Washington MD [place], John W, MD All Anesthesia Providers: Anesthesiologist: Alice Juan MD HUMAN RESOURCES ASSOCIATE: Peggy Ashley CRNA Most Recent Vitals: 01/01/18 [...] risks discussed with patient. Plan discussed with HUMAN RESOURCES ASSOCIATE. PAT Staff Note documented in this encounter [...] r documented in this encounter Care Teams Interviewing Clerk Relationship Specialty Start Date End Date Gabe Rodriguez PA [address] [place] [address] PCP - General General Internal Medicine 07/19/1709/28 documented as of this encounter
--- OUTSIDE RECORDS SUMMARY | 2024-05-16 14:45 | XMS_ITS | Encounter Summary ---
Author Organization [facility] [place] [address] Care Team Providers Care Community Health Worker Name Role Phone Gabe Rodriguez Primary Care Provider [phone] Reason for Visit * Reason Comments Pain Management Encounter Details Date Type Department Care Team (Late st Contact Info) Description 11/09/2017 9:00 AM EDT Office [place] [address] Jaymie Gonzales SHEETMETAL WORKER [facility] [place] [address] Chronic bilateral back pain, unspecified back location [...] in this encounter Progress Notes * Jaymie Gonzales APRN - 11/09/2017 9:00 AM EDT Pain Clinic Follow Up Note DOS: 11/09/17 Date of : 1945 Referred By: Gabe Rodriguez PA [address] [place] [address] PCP: KATELYN Gamble Quintin Dewitt is a 72 y.o. year old male with a PMH including diabetes mellitus, hypertension, hyperlipidemia, c-spine surgery, chronic back pain, who presents to the pain clinic today for 28 day follow up. He was previously followed by Jaymie Gonzales APRN at [facility]. CC: Chief Complaint Patient presents with ??? Pain Management Opioid agreement signed date: signed today Most recent UDT results and date: UDT 08/18/17 per Jaymie's note from [facility], checked again today due to establishing care at [facility] and we do not have prior results [...] waspreviously followed by Jaymie Gonzales APRN at [facility] and is transferring his care to [facility]. Per review of her last note, patient [...] I have seen in the past at [facility]. He transferred his care down here to [facility] last month and saw Dr. Oneil and Dr. Keita. This is my first visit seeing him here at [facility]. Since I last saw him, he has [...] the winter. He has been advised to pickling machine operator the pace for 15 minutes when he is out walking. He notes that the temperature and [place] is [place] more progress towards spring that it is here. His goal is to get back up to walking a mile or more per day. There have been no concerning behaviors in the [place] and [place] PD MP was checked with no concerns [...] a benzodiazepine? No Current use of other CLOTHESPIN MACHINE OPERATOR depressant? No Current diagnosis of Obstructive [...] keeping the medications long-term and if the [facility] had its way I would still be on fentanyl. He was hoping to get a little bit further into spring before weaning but he is interested in getting off the medication ultimately and so Wilfrid given him 2 prescriptions for oxycodone/acetaminophen No. 1 12 the first to be filled today and the second to be filled december 07. He understands that he will need to seek care elsewhere as we will no longer be prescribing chronic opiates in this facility for chronic pain patients. Because he is now going to follow up at [facility], the patient understands that he will need to provide a urine sample for Urine drug screen today and sign an opioid agreement, which will be scanned into his chart. Follow up with Jaymie Gonzales in 28 days. Jaymie Gonzales, MS, HOIST OPERATOR-BC, SHEETMETAL WORKER Nurse practitioner [facility] pain management documented in this encounter Plan of Treatment Not on file documented as of this encounter Visit Diagnoses Diagnosis Chronic bilateral back pain, unspecified back location documented in this encounter Care Teams Community Health Worker Relationship Specialty Start Date End Date Gabe Rodriguez PA [address] [place] [address] PCP - General General Internal Medicine 07/19/1709/28 documented as of this encounter
--- OUTSIDE RECORDS SUMMARY | 2024-05-16 14:45 | XMS_ITS | Encounter Summary ---
Author Organization [facility] Address [facility] [place] [address] Care Team Providers Care Clinical Team Lead Name Role Phone RoelBaelMei Primary Care Provider [phone] Encounter Details Date Type Department Care Team (Latest Contact Info) Description 09/29/2020 9:17 PM EST - 09/29/2020 11:59 PM EST Hospital Encounter Laboratory [facility] [place] [address] Discharge Disposition: Home Social History Tobacco Use [...] Date End Date Lyrica 150 mg Capsule 1 capsule 2 times daily. 09/29/2020 testosterone (AXIRON) 30 mg/actuation (1.5 mL) Solution in Metered Pump w/Suzanna APPLY 1 PUMP TOPICALLY TO UNDERARM AREA EVERY DAY. ALTERNATE UNDERAM. REPEAT BLOOD WORK IN 3 MONTHS. 09/28/2020 gabapentin (Neurontin) 300 mg Capsule TAKE 1 CAPSULE BY MOUTH TWICE DAILY 09/01/2020 omeprazole (PRILOSEC) 40 mg Capsule, Delayed Release(E.C.) [...] (E.C.) Take 81 mg by mouth daily. pantoprazole EC (Protonix) 40 mg Tablet, Delayed Release (E.C.) TAKE 1 TABLET BY MOUTH EVERY DAY 09/04/2020 05/14/2024 triamcinolone (ARISTOCORT) 0.5 % Cream Apply twice [...] Report (09/29/2020 12:00 PM EST) Final Diagnosis [id number] ? Location: OPW The signing pathologist has [...] Byrd MD Verified: ??10/09/2020 ?Dermatopathologist Performed at: ??-[facility] Dept. of Pathology, [place], [place] DISCUSSION Overall, the findings are not [...] tips, body ??MLL 10/09/2020 1:45 PM EST [facility] SPECIMEN FROM SKIN / Unknown 09/29/2020 12:00 PM EST 09/29/2020 12:00 PM EST Michael Bailey MD PATHOLOGY/CYTOLOGY Claudy LOPEZ [facility] [place] [address] documented in this encounter Visit Diagnoses Not on filedocumented in this encounter Care Teams Clinical Team Lead Relationship Specialty Start Date End Date Mei Javier [address] [place] [address] PCP - General Family Medicine 09/29/20 documented as of this encounter
--- OUTSIDE RECORDS SUMMARY | 2024-05-16 14:45 | XMS_ITS | Encounter Summary ---
Author Organization [facility] Address [address] [place] [address] Care Team Providers Care Joinery Factory Worker Name Role Phone Unknown, Provider Primary Care Provider [phone] Encounter Details Date Type Department Care Team (Late st Contact Info) Description 08/05/2021 Lab Requisition [facility] Pathology & Laboratory Medicine - [facility] [address] [place] [address] Outr Resulting Lab, Provider Social History Tobacco [...] Outr Resulting Lab MICROBIOLOGY - GENERAL ORDERABLES [facility] [address] [place] [address] * COVID-19 TESTING (08/04/2021 14:45 EST) COVID-19 rt-PCR Result Negative Negative 08/06/2021 16:23 EST [facility] Comment: This test has not [...] developed and its performance characteristics determined by [facility]. It has not been cleared or approved [...] testing. This test is based on the [facility] COVID-19 Emergency Use Authorization (EUA) assay, with minor modification as defined by the FDA Performed on the Money360o 7 Flex RT-PCR System. Performing Lab [facility] Lab 08/06/2021 16:23 EST [facility] Swab 08/04/2021 14:4 5 EST 08/05/2021 17:46 EST Provider Outr Resulting Lab MICROBIOLOGY - GENERAL ORDERABLES [facility] [address] [place] [address] documented in this encounter Visit Diagnoses Not on filedocumented in this encounter Care Teams Joinery Factory Worker Relationship Specialty Start Date End Date Unknown, Provider, PCP - General 07/31/19 documented as of this encounter
--- OUTSIDE RECORDS SUMMARY | 2024-05-16 14:45 | XMS_ITS | Encounter Summary ---
Author Organization [facility] Address [address] [place] [address] Care Team Providers Care Pocket Machine Operator Name Role Phone Unknown, Provider Primary Care Provider [phone] Encounter Details Date Type Department Care Team (Late st Contact Info) Description 07/06/[address] [facility] Pathology & Laboratory Medicine - [facility] [address] [place] [address] Outr Resulting Lab, Provider Social History Tobacco [...] Outr Resulting Lab MICROBIOLOGY - GENERAL ORDERABLES [facility] [address] [place] [address] * COVID-19 TESTING (07/06/2021 11:35 EST) COVID-19 rt-PCR Result Negative Negative 07/07/2021 14:18 EST [facility] Comment: This test [...] was performed using the maryam SARS-CoV-2 assay ([employer] on the Maryam 6800 System Performing Lab Maryam [address] [facility] Lab 07/07/2021 14:18 EST [facility] Swab 07/06/2021 11:3 5 EST 07/06/2021 22:28 EST Provider Outr Resulting Lab MICROBIOLOGY - GENERAL ORDERABLES [facility] [address] [place] [address] documented in this encounter Visit Diagnoses Not on filedocumented in this encounter Care Teams Pocket Machine Operator Relationship Specialty Start Date End Date Unknown, Provider, PCP - General 07/31/19 documented as of this encounter
--- OUTSIDE RECORDS SUMMARY | 2024-05-16 14:45 | XMS_ITS | Clinical Summary ---
Author Organization [facility] Address [address] [place] [address] Care Team Providers Care Hand Molder And Caster Name Role Phone Unknown, Provider Primary Care Provider [phone] Social History Tobacco Use Types Packs/Day Years [...] 2003 Fall Risk Screening 2008 COVID-19 Vaccine (2023- season) 2024 Care Teams Hand Molder And Caster Relationship Specialty Start Date End Date Unknown, Provider, PCP - General 07/31/19
--- OUTSIDE RECORDS SUMMARY | 2024-05-16 14:45 | XMS_ITS | Encounter Summary ---
Author Organization [facility] [place] [address] Care Team Providers Care Watcher Automat Long Goods Name Role Phone Gabe Rodriguez Primary Care Provider [phone] Encounter Details Date Type Department Care Team (Late st Contact Info) Description 10/17/2017 Notes [place] [address] Елена Coreas, [facility] [place] [id number] Social History Tobacco Use Types Packs/Day Years [...] on filedocumented in this encounter Care Teams Watcher Automat Long Goods Relationship Specialty Start Date End Date Gabe Rodriguez PA [address] [place] [address] PCP - General General Internal Medicine 07/19/1709/28 documented as of this encounter
--- OUTSIDE RECORDS SUMMARY | 2024-05-16 14:45 | XMS_ITS | Encounter Summary ---
Author Organization [facility] [place] [address] Care Team Providers Care Tower Erector Name Role Phone Ernst Tanner MD Primary Care Provider [phone] Reason for Visit * Reason Comments Eczema Encounter Details Date Type Department Care Team (Late st Contact Info) Description 07/10/2014 10:45 AM EST Office Visit Dermatology at [place] [address] [place] [address] Michael Bailey MD [address] [facility] [facility] A DERMATOLOGY [place], [place] [id number] Psoriasiform dermatitis Discharge Disposition: Home Social History [...] from the original note were not included. [facility] Dermatitis: After Your Visit Your Care Instructions [...] help for plant rashes. ?? Try an lbet-nme-xzxbhfu antihistamine such as diphenhydramine (Benadryl) or chlorpheniramine [...] more? Visit our health information library at [email or web address] You can also view health information on [employer], your personal patient account. Log in or sign up today. Enter F270 in the search box to learn more about Dermatitis: After Your Visit. ?? [id number] [employer]. Care instructions adapted under license by [facility]. This care instruction is for use with your licensed healthcare professional. If you have questions about a medical condition or this instruction, always ask your healthcare professional. [employer] disclaims any warranty or liability for your use of this information. Content Version: 9.9.563901; Last Revised: December 14, 2012 documented in this encounter Progress Notes * Michael Bailey MD - 07/10/2014 11:10 AM EST Problem: Psoriasiform hand dermatitis. Quintin is a 68-year-old gentleman originally from [place], [place] ([place]way [place] and [place]), who moved to this area last year. [...] aggressive emolliation therapy with CeraVe cream, obtain cwtb-xrg-qspizki. Recommend using Dove or Ivory as a good soap. Return to clinic here p.r.n. COPY: Ernst Tanner M.D. 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
--- OUTSIDE RECORDS SUMMARY | 2024-05-16 14:45 | XMS_ITS | Encounter Summary ---
Author Organization [facility] Address [address] [place] [address] Care Team Providers Care Domain Architect Name Role Phone Unknown, Provider Primary Care Provider [phone] Encounter Details Date Type Department Care Team (Late st Contact Info) Description 09/10/2020 Lab Requisition [facility] Pathology & Laboratory Medicine - [facility] [address] [place], [place] [id number] Outr Resulting Lab, Provider Social History Tobacco [...] 0.0 - 6.5 ng/mL 09/10/2020 22:11 EST [facility] Blood VENOUS BLOOD / Unknown 09/10/2020 11:00 EST 09/10/2020 20:32 EST Narrative [facility] - 09/10/2020 22:11 EST NOTE: Serum PSA concentration should not be interpreted as absolute evidence for the presence or absence of malignant disease. Assayed on Siemens [employer]VContinuity Controlaur XPT using chemiluminescent technology.??Values obtained by using different assay methods cannot be used interchangeably. Provider Outr Resulting Lab CHEMISTRY & BLOOD GAS ORDERABLES [facility] [address] [place] [address] documented in this encounter Visit Diagnoses Not on filedocumented in this encounter Care Teams Domain Architect Relationship Specialty Start Date End Date Unknown, Provider, PCP - General 07/31/19 documented as of this encounter
--- OUTSIDE RECORDS SUMMARY | 2024-05-16 14:45 | XMS_ITS | Encounter Summary ---
Author Organization [facility] Address [address] [place] [address] Care Team Providers Care Debt Recovery Officer Name Role Phone Unknown, Provider Primary Care Provider [phone] Encounter Details Date Type Department Care Team (Late st Contact Info) Description 12/11/2023 Lab Requisition [facility] Pathology & Laboratory Medicine - [facility] [address] [place] [address] Outr Resulting Lab, Provider Social History Tobacco [...] PSA 2.0 <=6.5 ng/mL 12/11/2023 18:30 EDT [facility] Blood VENOUS BLOOD / Unknown 12/11/2023 9:50 EDT 12/11/2023 16:56 EDT Narrative [facility] - 12/11/2023 18:30 EDT NOTE: Serum PSA concentration should not be interpreted as absolute evidence for the presence or absence of malignant disease. Assayed on Siemens ADVIA AudioCaseFilesaur XPT using chemiluminescent technology.??Values obtained by using different assay methods cannot be used interchangeably. Provider Outr Resulting Lab CHEMISTRY & BLOOD GAS ORDERABLES [facility] [address] [place] [address] documented in this encounter Visit Diagnoses Not on filedocumented in this encounter Care Teams Debt Recovery Officer Relationship Specialty Start Date End Date Unknown, Provider, PCP - General 07/31/19 documented as of this encounter
--- OUTSIDE RECORDS SUMMARY | 2024-05-16 14:45 | XMS_ITS | Encounter Summary ---
Author Organization [facility] Address [facility] [place] [address] Care Team Providers Care Revenue Cycle Administrator Name Role Phone Gabe Rodriguez Primary Care Provider [phone] Encounter Details Date Type Department Care Team (Latest Contact Info) Description 01/01/2018 9:16 AM EDT - 01/01/2018 12:19 PM EDT Hospital Encounter Gastroenterology at [facility] [place] [address] Kristan Washington MD [facility] [place] [address] Discharge Disposition: Home Social History Tobacco Use [...] sent through Care Everywhere. * COLON POLYPS (SLOVENIAN) documented in this encounter Medications at Time [...] AM EDT 01/01/2018 11:[address] [facility] - 01/01/2018 11:03 AM EDT Specimen requisition ordered. ??Separate Pathology report to follow Kristan Washington MD PATHOLOGY/CYTOLOGY O JESSICA Performing Organization Address [facility]/[place] [address] * Specimen to Pathology (01/01/2018 11:03 AM EDT) AP Specimen 01/01/2018 11:0 3 AM EDT 01/01/2018 11:[address] [facility] - 01/01/2018 11:03 AM EDT Specimen requisition ordered. ??Separate Pathology report to follow Kristan Washington MD PATHOLOGY/CYTOLOGY O JESSICA Performing Organization Address [facility]/ZIP Co de Phone Number [facility] [place] [address] * Specimen to Pathology (01/01/2018 11:03 AM EDT) AP Specimen 01/01/2018 11:0 3 AM EDT 01/01/2018 11:[address] [facility] - 01/01/2018 11:03 AM EDT Specimen requisition ordered. ??Separate Pathology report to follow Kristan Washington MD PATHOLOGY/CYTOLOGY O JESSICA Performing Organization Address [facility]/ZIP Co de Phone Number [facility] [place] [address] * Surgical Pathology Report (01/01/2018 10:45 AM EDT) Final Diagnosis [id number] ? Location: 4T; EA07; A The signing [...] Sultana MD Verified: ??01/04/2018 ?Pathologist Performed at: ??-[facility] Dept. [place]ology, [place], [place] DISCUSSION Part A: Focal and mild [...] sectioned. (T1) ??eliu 01/04/2018 10:[address] [facility] GI Biopsy 01/01/2018 10:4 5 AM EDT 01/01/2018 10:45 AM EDT GI Biopsy 01/01/2018 10:4 5 AM EDT 01/01/2018 10:45 AM EDT GI Biopsy 01/01/2018 10:4 5 AM EDT 01/01/2018 10:45 AM EDT Kristan Washington MD PATHOLOGY/CYTOLOGY O JESSICA [facility] [place] [address] * COLONOSCOPY (01/01/2018 10:23 AM EDT) COLONOSCOPY [facility] Endoscopy Procedure Date: 01/01/2018 10:23 AM ? Patient Name: Quintin Dewitt ? Date of : 1945 ? Age: 72 ? Order #: [id number] ? Instrument Name: [id number] ? Procedure: ? Colonoscopy Indications: ? Clinically significant diarrhea of ? unexplained origin Providers: ? Kristan Washington MD, Miquel Rojas RN, ? Jesi Hawkins, Coal Hauler Operator Referring MD: ?Naty Fields Medicines: ? Propofol per Anesthesia [...] Glucose, POC 97 65 - 199 mg/dL [facility] Comment: Supplemental ranges: <140 mg/dL before meals <180 mg/dL all other times of the day Blood specimen (specimen) 01/01/2018 9:50 AM EDT 01/01/2018 9:50 AM EDT Kristan Washington MD POINT OF CARE TEST O RDERABLES [facility] [place] [address] documented in this encounter Visit Diagnoses Not [...] Adjustment - Provider: Peggy A Gabi, SENIOR HEALTH CONSULTANT) documented in this encounter Care Teams Revenue Cycle Administrator Relationship Specialty Start Date End Date Gabe Rodriguez PA [address] [place] [address] PCP - General General Internal Medicine 07/19/1709/28 documented as of this encounter
--- OUTSIDE RECORDS SUMMARY | 2024-05-16 14:45 | XMS_ITS | Encounter Summary ---
Author Organization [facility] [place] [address] Care Team Providers Care Processor Inspector Name Role Phone Mei Javier Primary Care Provider [phone] Reason for Visit * Reason Comments Skin Check * Consultation (Routine) - Specialty Diagnoses / Procedures Referred By Christos kim Referred To Contact Dermatology Diagnoses Dermatitis, unspecified Dermatitis; Est. Patient-Notes Received Procedures Consult Mei Javier [address] [place] [address] Michael Bailey MD [address] [place] [address], [place] [address] Referral ID Status Reason Start Date Expiration Date V isits Requested Visits Authorized [id number] Consult, Test & Treat PCP Updated and/or Approved 04/09/2020 04/09/2021 12 12 Encounter Details Date Type Department Care Team (Late st Contact Info) Description 09/29/2020 1:45 PM EST Office Visit Dermatology at [address] [address] Michael Bailey MD [address] [place] [address], [facility] [place] [address] Dermatitis Social History Tobacco Use Types Packs/Day [...] dermatitis 2. History of psoriasiform hand dermatitis Quintin follows up after last seeing me in [...] with 3 refills. Will call into his [facility] in [place] 3. Today 2 shave biopsies obtained from [...] cause documented in this encounter Care Teams Processor Inspector Relationship Specialty Start Date End Date Mei Javier [address] [place] [address] PCP - General Family Medicine 09/29/20 documented as of this encounter
--- OUTSIDE RECORDS SUMMARY | 2024-05-16 14:45 | XMS_ITS | Encounter Summary ---
Author Organization [facility] Address [address] [place] [address] Care Team Providers Care Finishing Lab Technician Name Role Phone Unknown, Provider Primary Care Provider [phone] Encounter Details Date Type Department Care Team (Latest Contact Info) Description 05/06/2021 Lab Requisition [facility] Pathology & Laboratory Medicine - [facility] [address] [place], [place] [id number] Iván Walter MD [address] [place] [address] Dysphagia, pharyngoesophageal phase; Abnormal findings [...] explore management options, if applicable. 05/07/2021 17:27 [facility] Final Diagnosis A. STOMACH, POLYP, POLYPECTOMY: - Fundic gland polyp. B. ESOPHAGUS, DISTAL, BIOPSY: - Squamous mucosa with mild reflux esophagitis. C. ESOPHAGUS, MID, BIOPSY: - Squamous mucosa with no specific pathologic features. 05/07/2021 17:27 [facility] Attestation By the signature below, the attending physician certifies that they have 1) personally conducted a gross and/or microscopic examination of the described specimen(s), and/or personally interpreted the results of laboratory testing of the described specimen(s), and 2) personally rendered or confirmed the above diagnosis. 05/07/2021 17:27 [facility] at 1727 Clinical History Dysplasia, abnormal barium swallow; clinical diagnosis code: R13.14, R93.3 05/07/2021 17:27 [facility] Gross Description A. Received [...] C1. KATELYN CHRISTINE(ASCP) 05/06/2021 18:28 05/07/2021 17:27 [facility] Performing Lab [facility] 05/07/2021 17:27 [facility] Scanned Images 05/07/2021 17:27 [facility] Tissue ENTIRE ESOPHAGUS / Unknown 05/05/2021 9:38 EDT 05/06/2021 16:33 EDT Tissue specimen (specimen) ESOPHAGEAL STRUCTURE / Unknown 05/05/2021 9:38 EDT 05/06/2021 16:33 EDT Tissue specimen (specimen) ESOPHAGEAL STRUCTURE / Unknown 05/05/2021 9:38 EDT 05/06/2021 16:33 EDT Iván Walter MD PATHOLOGY ORD ERABLES [facility] [address] [place] [address] documented in this encounter Visit Diagnoses Diagnosis Dysphagia, pharyngoesophageal phase Abnormal findings on diagnostic imaging of other parts of digestive tract documented in this encounter Care Teams Finishing Lab Technician Relationship Specialty Start Date End Date Unknown, Provider, PCP - General 07/31/19 documented as of this encounter
--- OUTSIDE RECORDS SUMMARY | 2024-05-16 14:45 | XMS_ITS | Encounter Summary ---
Author Organization [facility] [place] [address] Care Team Providers Care Database Management System Specialist Name Role Phone Gabe Rodriguez Primary Care Provider [phone] Reason for Visit * Reason Comments Pain Management Back Pain Encounter Details Date Type Department Care Team (Late st Contact Info) Description 10/13/2017 1:00 PM EDT Office Visit [place] [address] Елена Coreas [facility] [place] [address] Encounter for long-term use of opiate analgesic [...] By: Gabe Rodriguez PA [address] [place] [address] PCP: KATELYN Gamble Quintin Dewitt is a 72 y.o. year old male with a PMH including diabetes mellitus, hypertension, hyperlipidemia, c-spine surgery, chronic back pain, who presents to the pain clinic today for 28 day follow up. He was previously followed by Jaymie Gonzales APRN at [facility]. CC: Chief Complaint Patient presents with ??? Pain Management ??? Back Pain Opioid agreement signed date: signed today Most recent UDT results and date: UDT 08/18/17 per Jaymie's note from [facility], checked again today due to establishing care at [facility] and we do not have prior results [...] waspreviously followed by Jaymie Gonzales APRN at [facility] and is transferring his care to [facility]. Per review of her last note, patient [...] a benzodiazepine? No Current use of other [employer] depressant? No Current diagnosis of Obstructive Seep [...] Disp: , Rfl: ??? Clobetasol 0.05 % [place], Non-Aerosol, Apply 1 spray topically daily., Disp: [...] previously followed by Jaymie Gonzales APRN at [facility]. Patient has not benefited from physical [...] is now going to follow up at [facility], the patient understands that he will need to provide a urine sample for Urine drug screen today and sign an opioid agreement, which will be scanned into his chart. Follow up with Jaymie Gonzales in 28 days. This patient was seen without attending involvement. Елена Coreas DO [facility] Pain Medicine Fellow CC: Gabe Rodriguez PA [address] [place] [id number] * Madison Olvera DO - 10/13/2017 1:00 PM EDT I was the attending physician supervising the resident in the above care. For the purposes of billing, the resident provided the care. MADISON OLVERA DO, MPH [facility] [employer] [facility] [employer] [facility] Principal Technical Architect, Pain Medicine Fellowship ABPM[employer]R - Subspecialty board [...] Detected ? ng/mL ??Cutoff: 25 ?Tylenol 3 ??Hmvczgw-8-zrkn-g lucuronide ?Not Detected ? ng/mL ??Cutoff: 100 ?Metabolite of codeine ??Morphine ?Not Detected ? ng/mL ??Cutoff: 25 ?Irene Del Cid, MS Contin; Also a minor metabolite (10%) of ?codeine and can be seen in low concentrations (<2,000 ?ng/mL) with poppy seed ingestion. ??Gvuggetq-7-shek- glucuronide ? Not Detected ? ng/mL ??Cutoff: 100 ?Metabolite of morphine ??6-monoacetylmorp niharika ?Not Detected ? ng/mL ??Cutoff: 25 ?Metabolite of heroin ??Hydrocodone ? Not Detected ? ng/mL ??Cutoff: 25 ?Lortab, [place], Vicodin; Also a very minor metabolite of [...] ?Numorphan, Opana; Also a metabolite of oxycodone. ??Tiypcpywycu-7-nb ta-glucuronide ?Present ? @ ?ng/mL ??Cutoff: 100 [...] ?Not Detected ? ng/mL ??Cutoff: 25 ?Narcan ??Cocybnhl-2-kynr- glucuronide ? Not Detected ? ng/mL ??Cutoff: [...] oxycodone and several ?metabolites (noroxycodone, noroxymorphone, and ?pbrsaldivzx-2-th ta-glucuronide). Suspect use of oxycodone ?or possibly oxycodone and oxymorphone within the past three ?days. ? ---ADDITIONAL INFORMATION------- ?This test was developed and its performance characteristics ?determined by [facility] in a manner consistent with CLIA ?requirements. This test has not been cleared or approved by ?the U.S. Food and Drug Administration. ?Test Performed by: ?[facility] ?[address] [place] [address](A) [facility] Urine specimen (specimen) 10/13/2017 2:00 PM EDT 10/13/2017 2:57 PM EDT Narrative Resulting Agency Comment Spec In Lab Елена Coreas DO URINE ORDERABLES [facility] [place] [address] * Rapid Drug Screen, Compliance Monitoring (10/13/2017 2:00 PM EDT) Barbiturates Screen, Urine None Detected None Detected [facility] Comment: The barbiturate screen detects [...] Benzodiazepines Screen, Urine None Detected None Detected [facility] Comment: The benzodiazepines screen detects [...] Cocaine Screen, Urine None Detected None Detected [facility] Comment: The cocaine metabolites screen detects benzoylecgonine (Cocaine Metabolite) at concentrations >150 ng/mL. A ? Presumptive Positive? result indicates that the screening result was positive but has not yet been confirmed by a highly-specific method. As with any screen, occasional false positive results from cross-reacting substances may occur. Not for Medico-Legal Purposes. Cannabinoid Screen, Urine None Detected None Detected [facility] Comment: The marijuana metabolites screen detects the THC metabolite (52-hoh-9-carboxy-delta 9-THC) at concentrations >20 ng/mL. A ? Presumptive Positive? result indicates that the screening result was positive but has not yet been confirmed by a highly-specific method. As with any screen, occasional false positive results from cross-reacting substances may occur. Not for Medico-Legal Purposes. Tricyclics Screen, Urine None Detected None Detected [facility] Comment: The tricyclics screen detects [...] Ethanol Screen, Urine None Detected None Detected [facility] Comment:This urine ethanol a ssay detects ethanol at concentrations >/= 100 mg/L. Amphetamines Screen, Urine None Detected None Detected [facility] Comment: The amphetamine screen detects d-amphetamine and d-methamphetamine at concentrations >300 ng/mL. A ? Presumptive Positive? result indicates that the screening result was positive but has not yet been confirmed by a highly-specific method. As with any screen, occasional false positive results from cross-reacting substances may occur. Not for Medico-Legal Purposes. 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
[2024-05-17 17:23] LABS: Rheumatoid Factor <8.6 IU/mL (<12.0)
[2024-05-20 10:44] LABS: Lyme Ab w Rflx to Lyme Confirm Negative (Negative)
[2024-05-20 16:09] LABS: Anaplasma phagocytophilum Negative (Negative); B. miyamotoi PCR Negative (Negative); Babesia divergens/MO-1 Negative (Negative); Babesia duncani Negative (Negative); Babesia microti Negative (Negative); Ehrlichia chaffeensis Negative (Negative); Ehrlichia ewingii/canis Negative (Negative); Ehrlichia muris eauclairensis Negative (Negative)
[2024-05-20 16:15] LABS: Albumin 44.4 % (55.8-66.1); Albumin g/dL 3.1 g/dL (3.6-5.2); Comment (See Note); Total Protein 6.9 g/dL (6.3-8.2)
[2024-05-21 14:01] LABS: ANA Interpretation Positive (Negative)
[2024-05-24 02:25] LABS: Aldosterone, P 12 ng/dL (<=21)
[2024-07-01 12:52] LABS: Immunotyping, Serum (See Note)
== END 2024-05-16 14:40 | disposition home or self-care (01) ==
LOC: LBO 14:42
PROVIDERS: PCP Nurse Practitioner Family; Visit Provider Nurse Practitioner Family
DX: M79.10 Myalgia, unspecified site (principal)
CPT/HCPCS: 36415; 82088; 82550; 85652; 87798; 83735; 84100; 84165; 86038; 86140; 86320; 86431; 86618

== ENCOUNTER 2024-06-18 15:22 | Outpatient (CLI) | payer MEDICARE, MEDICAID, SELFPAY ==
[2024-06-18 15:48] LABS: HCT 47.3 % (40.0-50.0); HGB 15.6 g/dL (13.5-17.5)
[2024-06-18 16:20] LABS: ALT 22 U/L (16-63); AST 15 U/L (15-37); Albumin 3.7 g/dL (3.4-5.0); Alkaline Phosphatase 95 U/L (46-116); Bilirubin, Direct 0.3 mg/dL (0.0-0.2); Bilirubin, Total 1.65 mg/dL (0.2-1.0); Total Protein 7.5 g/dL (6.4-8.2)
[2024-06-22 11:51] LABS: Testosterone, Total 435 ng/dL (240-950)
== END 2024-06-18 15:23 | disposition home or self-care (01) ==
LOC: LBO 15:23
PROVIDERS: PCP Nurse Practitioner Family; Visit Provider Urology
DX: E29.1 Testicular hypofunction (principal)
CPT/HCPCS: 36415; 80076; 84403; 85014; 85018

== ENCOUNTER → 2024-07-05 14:27 | Outpatient (BNVA) | payer MEDICARE, MEDICAID, SELFPAY | PROVIDERS: PCP Nurse Practitioner Family; Visit Provider Urology | DX: E29.1 Testicular hypofunction (principal); N40.0 Benign prostatic hyperplasia without lower urinary tract symptoms; N39.41 Urge incontinence | CPT/HCPCS: 99214 ==

== ENCOUNTER 2024-08-29 15:46 | Outpatient (CLI) | payer MEDICARE, MEDICAID, SELFPAY ==
[2024-08-29 14:45] LABS: ESR 10 mm/hr (0-20)
[2024-08-29 14:46] LABS: Abs Immature Grans 0.11 10^3/uL (0.0-0.06); Absolute Basophil Count 0.05 10^3/uL (0.0-0.2); Absolute Eosinophil Count 0.11 10^3/uL (0.0-0.7); Absolute Neutrophil Count 7.55 10^3/uL (1.2-6.7); Basophils % 0.5 %; Eosinophils % 1.2 %; HCT 43.4 % (40.0-50.0); HGB 14.7 g/dL (13.5-17.5); Immature Grans % 1.2 %; Lymphocytes % 13.7 %; MCH 32.7 pg (27.0-33.0); MCHC 33.9 % (32.0-36.0); MCV 96 fL (80-95); MPV 10.5 fL (8.0-11.0); Monocytes % 4.2 %; Neutrophils % 79.2 %; Platelet Count 177 10^3/uL (130-400); RDW 13.9 % (11.8-14.1); RDW-SD 50.3 fL; WBC 9.52 10^3/uL (4.4-10.8)
[2024-08-29 15:38] LABS: C-Reactive Protein 1.18 mg/dL (<or=0.5); Creatine Kinase 24 U/L (39-308); Magnesium 1.6 mg/dL (1.8-2.4); PHOSPHORUS 3.4 mg/dL (2.6-4.7)
[2024-08-30 09:50] LABS: Homocysteine 13.4 umol/L (5.0-13.9)
[2024-08-30 10:39] LABS: Lyme Ab w Rflx to Lyme Confirm Negative (Negative)
[2024-08-30 10:52] LABS: ANA Interpretation Negative (Negative)
[2024-08-30 10:54] LABS: RNP Ab, IgG <6.0 CU (<20.0); Sm (Smith) Ab, IgG <8.0 CU (<20.0); dsDNA Ab, IgG <22.0 IU/mL (<27.0)
[2024-08-30 12:43] LABS: Albumin 59.1 % (55.8-66.1); Albumin g/dL 3.9 g/dL (3.6-5.2); Total Protein 6.6 g/dL (6.3-8.2)
[2024-08-30 18:49] LABS: JO 1 Ab, IgG <0.2 U
[2024-08-31 10:54] LABS: Aldolase 3.5 U/L (<7.7)
[2024-09-01 15:10] LABS: Anaplasma phagocytophilum Negative (Negative); B. miyamotoi PCR Negative (Negative); Babesia divergens/MO-1 Negative (Negative); Babesia duncani Negative (Negative); Babesia microti Negative (Negative); Ehrlichia chaffeensis Negative (Negative); Ehrlichia ewingii/canis Negative (Negative); Ehrlichia muris eauclairensis Negative (Negative)
[2024-09-03 11:49] LABS: Methylmalonic Acid 0.17 nmol/mL (<=0.40)
== END 2024-08-29 15:47 | disposition home or self-care (01) ==
LOC: LBO 15:47
PROVIDERS: PCP Nurse Practitioner Family; Visit Provider Family Medicine
DX: R76.8 Other specified abnormal immunological findings in serum (principal); M79.10 Myalgia, unspecified site; E53.8 Deficiency of other specified B group vitamins; G72.9 Myopathy, unspecified
CPT/HCPCS: 36415; 80186; 82550; 83090; 85652; 87798; 82085; 83735; 84100; 84165; 85025; 86038; 86140; 86225; 86235; 86618

== ENCOUNTER 2024-09-30 17:44 | Outpatient (CLI) | payer MEDICARE, MEDICAID, SELFPAY ==
--- NOTE | 2024-09-30 15:02 | DI.RAD_ITS ---
Exam(s) XR CHEST 2V PA LATERAL EXAM: XR CHEST 2V PA LATERAL CLINICAL HISTORY: ACUTE URI J06.9 R/O PNA TECHNIQUE: 2D digital imaging was performed. Two views. COMPARISON: CR,XR XR PORTABLE CHEST AP from 06/13/2023 FINDINGS: HEART: Normal size. Aorta: Not dilated. PULMONARY VASCULATURE: Normal. MEDIASTINUM: Unremarkable. LUNGS: Clear. PLEURAL SPACE: No pleural effusion or pneumothorax. BONE:Hardware lower cervical spine. Degenerative changes of the shoulders. SOFT TISSUES: Unremarkable. IMPRESSION: No acute abnormality. DATA REPOSITORY: RADIATION DOSE DELIVERED:
== END 2024-09-30 18:04 ==
LOC: DI 17:46
PROVIDERS: PCP Nurse Practitioner Family; Visit Provider Family Medicine
DX: J06.9 Acute upper respiratory infection, unspecified (principal)
CPT/HCPCS: 71046

== ENCOUNTER 2025-01-07 01:32 | Outpatient (CLI) | payer MEDICARE, MEDICAID, SELFPAY ==
--- NOTE | 2025-01-07 | DI.MRI_ITS ---
Exam(s) MR LOWER JOINT LT WO EXAM: MR LOWER JOINT LT WO CLINICAL HISTORY: Pain in lt foot, M79.672; signs and symptoms suggestive of Achilles tendon TECHNIQUE: Multiplanar multisequence MRI was performed without intravenous contrast. COMPARISON: There are no plain films of the ankle available time this MRI interpretation. FINDINGS: SKIN: No evidence of ulcer nor subcutaneous tract. BONES/JOINTS: No evidence of fracture nor bone contusion. There is a minimal amount of increased flu id in the ankle-tibiotalar joint. There is no large joint effusion. No loose intra-articular bodies . The talar dome appears unremarkable. The ankle mortise is maintained. There is no evidence of pa ra-articular ganglion.There is no evidence of osseous tarsal coalition. LIGAMENTS: The anterior and posterior tibiofibular and calcaneofibular ligaments are intact. The ante rior and posterior talofibular ligaments are intact. The deltoid ligament is intact. SINUS TARSI: There is no loss of the normal fat signal in this space. Interosseous ligament is intac t. There is a small sinus tarsi ganglion cyst versus is joint effusion off the lateral aspect of the talonavicular joint. This measures 16 mm AP by 3 mm wide by 10 mm craniocaudal. ANTEROLATERAL GUTTER:There is no abnormal signal/abnormal tissue in this space. MUSCULOTENDINOUS STRUCTURES: Achilles tendon: Unremarkable. No evidence of tear nor tendinitis/tendinosis. Plantar fascia: Slightly thickened and of mild increased signal at insertional aspect upon the inferi or calcaneal spur. Consistent with mild plantar fasciitis. There is no tear nor abnormal nodularity of the plantar fascia. Anterior Extensor tendons: Unremarkable. Medial Tendons: Posterior Tibialis: Unremarkable. No tear or tenosynovitis evident. However, there is fatty atrophy of the muscle belly. Flexor Digitorum longus: Unremarkable. No tear or tenosynovitis evident. However, there is atrophy o f the muscle belly. Flexor Hallicus longus: Also atrophy of the muscle belly. No tear or tenosynovitis evident. Lateral Tendons: Peroneus longus: Unremarkable. No tear nor tenosynovitis evident. Peroneus brevis:Unremarkable. No tear nor tenosynovitis evident. SOFT TISSUES: Mild edema in subcutaneous fat on the medial aspect of the ankle. No focal fluid colle ction. OTHER FINDINGS: None. IMPRESSION: 1. Although there are no tendon tears nor significant tenosynovitis, there is significant fatty atrop hy of the muscle bellies of flexor hallucis longus, flexor digitorum, and the tibialis posterior musc le. Lesser amount of atrophy of the muscle belly is noted in the more laterally located peroneus jennifer omi and brevis. 2. Small ankle joint (tibiotalar joint) effusion. No loose bodies evident in the ankle joint. 3. There is also small fluid collection lateral to the talonavicular joint. This is either an elemen t of joint effusion of this articulation or sinus tarsi ganglion cyst. 4. Achilles tendon appears unremarkable. 5. Mild thickening of the plantar fascia and increased signal at its insertion upon and within the m oderate size inferior calcaneal spur. There is, however, no tear of the plantar fascia evident and n o abnormal no foot pad fluid collection. DATA REPOSITORY:
== END 2025-01-07 01:52 ==
LOC: DI 01:32
PROVIDERS: PCP Nurse Practitioner Family; Visit Provider Family Medicine
DX: M79.672 Pain in left foot (principal); R93.7 Abnormal findings on diagnostic imaging of other parts of musculoskeletal system
CPT/HCPCS: 73721

== ENCOUNTER 2025-03-14 15:05 | Outpatient (CLI) | payer MEDICARE, MEDICAID, SELFPAY ==
[2025-03-14 14:34] LABS: Abs Immature Grans 0.06 10^3/uL (0.0-0.06); HCT 43.3 % (40.0-50.0); HGB 14.5 g/dL (13.5-17.5); Immature Grans % 0.7 %; MCH 31.7 pg (27.0-33.0); MCHC 33.5 % (32.0-36.0); MCV 95 fL (80-95); MPV 10.5 fL (8.0-11.0); Platelet Count 189 10^3/uL (130-400); RBC 4.58 10^6/uL (4.36-5.78); RDW 14.7 % (11.8-14.1); RDW-SD 51.6 fL; WBC 8.64 10^3/uL (4.4-10.8)
[2025-03-14 15:45] LABS: ALT 18 U/L (16-63); AST 15 U/L (15-37); Albumin 3.6 g/dL (3.4-5.0); Alkaline Phosphatase 83 U/L (46-116); Anion Gap 10.8 mmol/L (3-11); BUN 19 mg/dL (7-18); Bilirubin, Total 0.8 mg/dL (0.2-1.0); CO2 25.2 mmol/L (21.0-32.0); Calcium 9.1 mg/dL (8.5-10.1); Chloride 103 mmol/L (98-107); Estimated GFR 85.80 (mL/min/1.73m2); Glucose 138 mg/dL (74-106); Potassium 4.2 mmol/L (3.5-5.1); Sodium 139 mmol/L (136-145); Total Protein 7.2 g/dL (6.4-8.2)
[2025-03-17 10:34] LABS: PSA, Diagnostic 1.7 ng/mL (<=6.5)
== END 2025-03-14 15:06 | disposition home or self-care (01) ==
LOC: LBO 15:06
PROVIDERS: PCP Nurse Practitioner Family; Visit Provider Urology
DX: E29.1 Testicular hypofunction (principal); N40.0 Benign prostatic hyperplasia without lower urinary tract symptoms
CPT/HCPCS: 36415; 80053; 84403; 84153; 85025

== ENCOUNTER → 2025-04-11 10:41 | Outpatient (BNVA) | payer MEDICARE, MEDICAID, SELFPAY | PROVIDERS: PCP Nurse Practitioner Family; Referring Provider Nurse Practitioner Family; Visit Provider Urology | DX: E29.1 Testicular hypofunction (principal); N40.0 Benign prostatic hyperplasia without lower urinary tract symptoms | CPT/HCPCS: 99214 ==

== ENCOUNTER 2025-05-21 01:31 | Outpatient (CLI) | payer MEDICARE, MEDICAID, SELFPAY ==
--- NOTE | 2025-05-21 14:00 | DI.RAD_ITS ---
Exam(s) XR LUMBAR SPINE COMPLETE EXAM: XR LUMBAR SPINE COMPLETE CLINICAL HISTORY: LOW EXT PAIN, M79.606,WEAKNESS LOWER EXT,R29.898,LUMBAR SPONDYLOSIS,M47.816. TECHNIQUE: 2D digital imaging was performed. Five views. COMPARISON: CR XR CHEST 2V PA LATERAL from 09/30/2024 FINDINGS: BONES: No fracture or destructive lesion. Vertebral body heights are maintained. Endplate osteophytes throughout, greater at L 3 4 and L4-5. Facet degenerative changes greatest at L4-5 and L5-S1. DISKS: Mild multilevel posterior disc space narrowing. Marked narrowing of the L5-S1 disc space. ALIGNMENT: Lumbar spinal alignment is within normal limits. SOFT TISSUE: Normal. IMPRESSION: Degenerative changes, greatest at L4-5 and L5-S1. DATA REPOSITORY: RADIATION DOSE DELIVERED:
== END 2025-05-21 01:51 ==
PROVIDERS: PCP Nurse Practitioner Family; Visit Provider Nurse Practitioner Family
DX: M47.816 Spondylosis without myelopathy or radiculopathy, lumbar region (principal)
CPT/HCPCS: 72110

== ENCOUNTER → 2025-06-09 02:26 | Outpatient (CLI) | payer MEDICARE, MEDICAID, SELFPAY ==
--- NOTE | 2025-06-09 | DI.MRI_ITS ---
Exam(s) MR LUMBAR SPINE WO EXAM: MR LUMBAR SPINE WO CLINICAL HISTORY: PAIN LOWER EXT M79.606 WEAKNESS R29.898 LUMBAR SPONDYLOSIS M47.816 MYOPATHY. TECHNIQUE: Multiplanar multisequence MRI of the Lumbar spine was performed. COMPARISON: MR MR LUMBAR SPINE WO from 09/16/2021 CR XR LUMBAR SPINE COMPLETE from 05/21/2025 FINDINGS: Conus medullaris is at normal level. There is no evidence of conus mass nor subjacent clumping of intrathecal nerve roots to suggest arachnoiditis. The distal thecal sac appears unremarkable.There is no evidence of Tarlov intrasacral cysts nor other significant findings within the sacral canal Bones:There are no fractures nor ominous osseous lesions in the lumbar vertebral bodies and visualized sacrum. With respect to the individual levels... T12-L1: Unremarkable L1-2: Moderate disc space narrowing. Posteriorly there is broad symmetrical annular bulging but no discrete focal disc herniation. Central canal dimensions are lower normal. No significant facet arthropathy. There is no significant foraminal stenosis. L2-3: Mild-moderate disc space narrowing. Broad relatively symmetrical annular bulging. No discrete focal disc herniation. Central canal dimensions are lower normal. There is mild degenerative change in the facet joints. No significant foraminal stenosis. L3-4: Mild disc space narrowing. Posteriorly there is annular bulging again noted without a distinct focal disc herniation. Central canal dimensions are lower normal. Moderate bilateral facet arthropathy evident. There is mild foraminal stenosis on the left side. There is no significant foraminal stenosis on the right side. L4-5: This level exhibits asymmetric disc space narrowing more so on the right than the left. There is a prominent central-left paracentral disc herniation which has increased in size from 2021. It extends posteriorly 9 mm and extends inferiorly 10 mm. There is significant impingement of the thecal sac at this level resulting in an element of severe central canal stenosis at this level due to the disc protrusion as well as some bilateral ligamentum flavum hypertrophy. There are mild degenerative changes in the facet joints, slightly more so on the right side. There does not appear to be significant foraminal stenosis on the left side. There is mild foraminal stenosis on the right side. The disc protrusion does not extend into the exiting neural foramina. L5-S1: This level again exhibits advanced disc space narrowing. Mild annular bulging but without a distinct disc herniation and central canal dimensions are lower normal. Mild foraminal stenosis on the right side. No foraminal stenosis on the left side. Mild facet arthropathy, slightly more so on the right side. Soft tissues: paraspinal soft tissues appear unremarkable. IMPRESSION: 1. Multilevel findings as described individually above. However, when compared to the prior MRI scan of August 2021 most significant finding on the present study is at the L4-5 level where there has been significant increase in size of disc herniation as described above, presently resulting in severe central spinal canal stenosis at this level. DATA REPOSITORY:
== END ==
PROVIDERS: PCP Nurse Practitioner Family; Visit Provider Nurse Practitioner Family
DX: M47.816 Spondylosis without myelopathy or radiculopathy, lumbar region (principal); R29.898 Other symptoms and signs involving the musculoskeletal system; G72.9 Myopathy, unspecified
CPT/HCPCS: 72148